=== PATIENT | male | born 1950 | race Caucasian/White ===

== ENCOUNTER → 2020-11-02 15:02 | Outpatient (BNVA) | payer MEDICARE, MEDICAID, SELFPAY | PROVIDERS: Visit Provider Nurse Practitioner Family | DX: J11.1 Influenza due to unidentified influenza virus with other respiratory manifestations (principal); J32.9 Chronic sinusitis, unspecified; J04.0 Acute laryngitis; G44.229 Chronic tension-type headache, not intractable; Z20.828 Contact with and (suspected) exposure to other viral communicable diseases; J01.10 Acute frontal sinusitis, unspecified; R50.9 Fever, unspecified | CPT/HCPCS: 87400; 87635 ==

== ENCOUNTER 2021-04-01 04:37 | Observation (INO) | payer MEDICARE, MEDICAID, SELFPAY ==
[2021-04-01] VITALS (11 sets, daily range): BP systolic 138–159; BP diastolic 76–95; PULSE 84–101; RESP 15–26; TEMP 36.4–36.7; O2SAT 92–97; BMI 29.2
--- NOTE | 2021-04-01 04:49 | ED_ITS ---
Documented by User: Everton Anderson MD 04/01/21 05:39 HPI - General Adult General: Chief complaint: Shortness of Breath/Dyspnea Stated complaint: SOB Time Seen by Provider: 04/01/21 04:40 History of Present Illness: HPI narrative: This patient is a 70-year-old male who presents to the emergency department with concerns of possible overdose of medication misuse. Patient was discharged yesterday evening from [facility] and had been admitted to their hospital for several days due to Covid issues. This patient's family has had multiple family members due to Covid. Patient's and [id number] are both upstairs in our ICU due to Covid. Patient was discharged and apparently was found in the living room sitting in a chair with a mouthful of pills. Patient presents with the medicine bottle and has a multiple different kinds of pills in the bottle and a list take to the bottle of about 5 different medications including Klonopin. Patient has had a history of overdose accidentally in the past. 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 Patient appears to be at his baseline. Patient's O2 sat is 93% on room air however will desat if he gets up and tries to ambulate. EMS brought the patient and on a nasal cannula at 2 L at 97%. Patient denies suicidal ideation. Family member at the home that found the patient with his pills is concerned. States that they do not know what those pills are either. Or where he got them. Patient spouse is usually handled his medications. We will do medical evaluation treat as needed Onset (ago): hour(s) Severity: moderate Associated symptoms: Deny chest pain, dyspnea, headache(s), nausea, rash, palpitations or vomiting Review of Systems General: Reports: 10 or more systems reviewed and unremarkable except in HPI and below Const: Denies: fever(s), chills, body aches or fatigue Eyes: Denies: change in vision or blurry vision ENMT: Denies: throat pain, hoarseness or mouth pain Card: Denies: chest pain, palpitations, irregular heart rhythm, edema, swelling of feet/ankles or lightheadedness Resp: Denies: dyspnea, productive cough, non-productive cough, wheezing or pain on inspiration GI: Denies: abdominal pain, nausea or vomiting : Denies: flank pain, dysuria, urinary frequency, urinary urgency or urinary hesitancy Musc: Denies: neck pain, back pain, extremity pain, extremity swelling, joint pain, joint swelling, joint redness, joint warmth or limited range of motion Skin/Breast: Denies: rash, pruritus, erythema or skin tenderness Neuro: Denies: headache(s), numbness in extremities or weakness in extremities Psych: Denies: anxiety or depression PFSH ED PFSH: Social History Smoking and tobacco status: never smoked Alcohol intake: never Physical Exam Const: COMMON NORMALS: no acute distress, average body habitus, patient oriented x3, no limitations, healthy appearing, alert and well nourished HENMT: COMMON NORMALS: normocephalic, atraumatic, hearing grossly normal bilaterally, external ears normal, EAC's normal, TM's normal bilaterally, Normal external nose present, Normal nasal mucous membranes and turbinates present, moist oral mucous membranes, oropharynx normal, dentition normal and gingiva normal HEAD & SCALP: normocephalic and atraumatic NOSE: Normal external nose present and Normal nasal mucous membranes and turbinates present EXTERNAL EAR: Yes external ears normal EXTERNAL AUDITORY CANAL: EAC's normal TYMPANIC MEMBRANE: TM's normal bilaterally Neck/C-Spine: COMMON NORMALS: full ROM, no lymphadenopathy, supple, no meningeal signs, no JVD, Thyroid normal and No carotid bruits THYROID: Thyroid normal Chest: COMMONS NORMALS: normal inspection of the chest, normal palpation of entire chest wall, normal inspection of the breasts and normal palpation of the breasts Breast/axilla inspection: Yes normal inspection of the breasts BREAST/AXILLA PALPATION: Yes normal palpation of the breasts Resp: COMMON NORMALS: normal respiratory effort, No retractions, No use of accessory muscles, clear to auscultation bilaterally and percussion normal AUSCULTATION: clear to auscultation bilaterally PERCUSSION: percussion normal Cardio: COMMON NORMALS: no JVD, regular rate, regular rhythm, S1 normal heart sound present, S2 normal heart sound present, No gallops present (Cardio), No clicks present (Cardio), No murmurs present (Cardio), No rub (Cardio) and Peripheral pulses 2+ throughout RATE: regular rate RHYTHM: regular rhythm HEART SOUNDS: S1 normal heart sound present and S2 normal heart sound present PERIPHERAL PULSES: Peripheral pulses 2+ throughout GI: COMMON NORMALS: Normal to inspection, nondistended, normoactive bowel sounds present, Soft to palpation, non-tender, No hepatosplenomegaly present, no masses and no bruits PALPATION: Yes Soft to palpation and Yes No hepatosplen omegaly present : COMMON NORMALS: Yes no CVA tenderness BLADDER/KIDNEY EXAM: Yes no CVA tenderness Back/Pelvis: COMMON NORMALS: no CVA tenderness, thoracic and lumbar spine normal to inspection, no thoracic nor lumbar tenderness, thoraco-lumbar ROM normal and straight leg raise negative bilaterally Extremity: COMMON NORMALS: normal to inspection, full ROM, capillary refill normal, no joint enlargement, no clubbing, cyanosis or edema, no calf tenderness and no pedal edema Neuro: COMMON NORMALS: patient oriented x3 SENSORIUM/ORIENTATION: Yes alert MENINGEAL SIGNS: Yes no meningeal signs Course Consultations: Consultation #1: Care transferred to Dr. Finch for shift change Time: 05:39 Vital Signs: Vital signs: Vital Signs Temperature 97.6 F 04/01/21 09:15 Pulse Rate 96 04/01/21 09:15 Respiratory Rate 17 04/01/21 11:54 Blood Pressure 148/83 04/01/21 11:54 Pulse Oximetry 96 04/01/21 09:15 MDM - General Adult Lab Data: Labs: Lab Results 04/01/21 04/01/21 04/01/21 Range/Units 05:04 05:25 05:25 WBC 5.6 (4.0-10.0) 10^3/ uL RBC 3.62 L (4.1-5.3) 10^6/u L Hgb 11.5 L (11.7-16.6) g/dL Hct 33.4 L (42.0-52.0) % MCV 92.3 (80-94) fL MCH 31.8 (28.0-34.0) pg MCHC 34.4 (30.0-36.0) g/dL RDW 13.6 (12.1-15.1) % Plt Count 367 (130-400) 10^3/c mm MPV 9.9 (7.4-10.4) fL Neut % (Auto) 75.6 % Lymph % (Auto) 10.9 % [place] % (Auto) 10.9 % Eos % (Auto) 0.4 % Baso % (Auto) 0.2 % Neut # (Auto) 4.24 (1.8-7.7) 10^3/u L Lymph # (Auto) 0.6 L (0.8-4.8) 10^3/u L [place] # (Auto) 0.6 (0.2-0.9) 10^3/u L Eos # (Auto) 0.0 (0.0-0.8) 10^3/u L Baso # (Auto) 0.0 (0.0-0.1) 10^3/u L Nucleated RBC % (a uto) 0 % Nucleated RBCs # 0.0 /100WBC PT 16.90 H (12.1-14.9) SECO NDS INR 1.33 H (0.8-1.2) APTT 41.5 H (23.9-36.7) SECO NDS Specimen Type Arterial Sample Site Brachial, left ABG pH 7.45 (7.35-7.45) ABG pCO2 30.1 L (35-45) mmHg ABG pO2 73.8 L (80.0-100.0) mmH g ABG HCO3 20.7 L (22-26) mmol/L ABG O2 Saturation 94.8 ABG Base Excess -2.5 L (-2.0-2.0) mmol/ L [place] Test N/a A-a O2 Gradient 5.0 (5-10) mmHg Hematocrit 35.5 L (42-52) % Hgb O2 Saturation 93.5 L (95-100) % Carboxyhemoglobin 0.7 (0.4-20.1) %THgb Methemoglobin 0.8 (0.4-1.5) % Total Hemoglobin 11.6 L (14-18) g/dL Sodium 133.0 (131-143) mmol/L Potassium 2.9 L (3.5-5.0) mmol/L Glucose 201.0 H (70-115) mg/dL Ionized Calcium 1.2 (1.1-1.4) mmol/L O2 Delivery Device Room air FiO2 21.0 % Supervisor Fishing ID Harkr Chloride (98-107) mmol/L Carbon Dioxide (22-29) mmol/L Anion Gap (5-19) BUN (8-23) mg/dL Creatinine (0.7-1.2) mg/dL GFR Calculation (90-130) mL/min Calculated Osmolal ity (285-295) mOsm/k g Calcium (8.5-10.5) mg/dL Total Bilirubin (0.15-1.2) mg/dL AST (0-40) U/L ALT (0-41) U/L Alkaline Phosphata se (40-130) IU/L Ammonia (16-60) umol/L NT-Pro-B Natriuret Pep (0-125) pg/mL Total Protein (6.6-8.7) g/dL Albumin (3.5-5.2) g/dL Globulin (1.3-4.6) g/dL Digoxin (0.6-1.2) ng/mL Salicylates (3-10) mg/dL Acetaminophen (10-30) ug/mL Ethyl Alcohol (0-10) mg/dL 04/01/21 04/01/21 04/01/21 Range/Units 05:25 05:25 08:22 WBC (4.0-10.0) 10^3/ uL RBC (4.1-5.3) 10^6/u L Hgb (11.7-16.6) g/dL Hct (42.0-52.0) % MCV (80-94) fL MCH (28.0-34.0) pg MCHC (30.0-36.0) g/dL RDW (12.1-15.1) % Plt Count (130-400) 10^3/c mm MPV (7.4-10.4) fL Neut % (Auto) % Lymph % (Auto) % [place] % (Auto) % Eos % (Auto) % Baso % (Auto) % Neut # (Auto) (1.8-7.7) 10^3/u L Lymph # (Auto) (0.8-4.8) 10^3/u L [place] # (Auto) (0.2-0.9) 10^3/u L Eos # (Auto) (0.0-0.8) 10^3/u L Baso # (Auto) (0.0-0.1) 10^3/u L Nucleated RBC % (a uto) % Nucleated RBCs # /100WBC PT (12.1-14.9) SECO NDS INR (0.8-1.2) APTT (23.9-36.7) SECO NDS Specimen Type Sample Site ABG pH (7.35-7.45) ABG pCO2 (35-45) mmHg ABG pO2 (80.0-100.0) mmH g ABG HCO3 (22-26) mmol/L ABG O2 Saturation ABG Base Excess (-2.0-2.0) mmol/ L [place] Test A-a O2 Gradient (5-10) mmHg Hematocrit (42-52) % Hgb O2 Saturation (95-100) % Carboxyhemoglobin (0.4-20.1) %THgb Methemoglobin (0.4-1.5) % Total Hemoglobin (14-18) g/dL Sodium 132 L (131-143) mmol/L Potassium 3.2 L (3.5-5.0) mmol/L Glucose 199 H (70-115) mg/dL Ionized Calcium (1.1-1.4) mmol/L O2 Delivery Device FiO2 % Supervisor Fishing ID Chloride 95 L (98-107) mmol/L Carbon Dioxide 19 L (22-29) mmol/L Anion Gap 21.2 H (5-19) BUN 23 (8-23) mg/dL Creatinine 1.6 H (0.7-1.2) mg/dL GFR Calculation 42.9 L (90-130) mL/min Calculated Osmolal ity 283 L (285-295) mOsm/k g Calcium 8.9 (8.5-10.5) mg/dL Total Bilirubin 0.5 (0.15-1.2) mg/dL AST 50 H (0-40) U/L ALT 52 H (0-41) U/L Alkaline Phosphata se 87 (40-130) IU/L Ammonia 51 (16-60) umol/L NT-Pro-B Natriuret Pep 195 H (0-125) pg/mL Total Protein 7.2 (6.6-8.7) g/dL Albumin 3.4 L (3.5-5.2) g/dL Globulin 3.8 (1.3-4.6) g/dL Digoxin 0.3 L (0.6-1.2) ng/mL Salicylates < 0.3 L (3-10) mg/dL Acetaminophen < 5.0 L (10-30) ug/mL Ethyl Alcohol < 10 (0-10) mg/dL Discharge Plan Discharge Patient Disposition: Admitted As Inpatient Clinical Impression: Suicide attempt, Altered mental status, COVID-19, Acute drug overdose Condition: Stable Coding Level of Care Code ED Coordinate Measuring Machine Programmer for Chg Fwd Exam Comprehensive Documented by User: Rom Finch DO 04/01/21 12:29 HPI - General Adult General: Chief complaint: Shortness of Breath/Dyspnea Stated complaint: SOB Time Seen by Provider: 04/01/21 04:40 PFSH ED PFSH: Social History Smoking and tobacco status: never smoked Alcohol intake: never Course Vital Signs: Vital signs: Vital Signs Temperature 97.6 F 04/01/21 09:15 Pulse Rate 96 04/01/21 09:15 Respiratory Rate 17 04/01/21 11:54 Blood Pressure 148/83 04/01/21 11:54 Pulse Oximetry 96 04/01/21 09:15 MDM - General Adult MDM Narrative: Medical decision making narrative: Patient was recently discharged from [facility] in [facility] family reports he was somewhat confused after that. He has been combative at times in the past in the past has made suicide attempts. Due to his confusion they called the ambulance while they are waiting for the ambulance he suddenly took what the daughter reports that 8 pills for which she thought muscle relaxants for which she thought were narcotic. He is intentionally overdosed on baclofen in the past she does not know exactly what he took this time. He is poorly responsive at times here as well as the underlying dementia he was. He was hospitalized recently for Covid although his sats seem good we will go ahead and hospitalize him now put him on observation to the medication overdose and do a psych consult. I discussed Dr. Timmy Dubon orders are written Lab Data: Labs: Lab Results 04/01/21 04/01/21 04/01/21 Range/Units 05:04 05:25 05:25 WBC 5.6 (4.0-10.0) 10^3/ uL RBC 3.62 L (4.1-5.3) 10^6/u L Hgb 11.5 L (11.7-16.6) g/dL Hct 33.4 L (42.0-52.0) % MCV 92.3 (80-94) fL MCH 31.8 (28.0-34.0) pg MCHC 34.4 (30.0-36.0) g/dL RDW 13.6 (12.1-15.1) % Plt Count 367 (130-400) 10^3/c mm MPV 9.9 (7.4-10.4) fL Neut % (Auto) 75.6 % Lymph % (Auto) 10.9 % [place] % (Auto) 10.9 % Eos % (Auto) 0.4 % Baso % (Auto) 0.2 % Neut # (Auto) 4.24 (1.8-7.7) 10^3/u L Lymph # (Auto) 0.6 L (0.8-4.8) 10^3/u L [place] # (Auto) 0.6 (0.2-0.9) 10^3/u L Eos # (Auto) 0.0 (0.0-0.8) 10^3/u L Baso # (Auto) 0.0 (0.0-0.1) 10^3/u L Nucleated RBC % (a uto) 0 % Nucleated RBCs # 0.0 /100WBC PT 16.90 H (12.1-14.9) SECO NDS INR 1.33 H (0.8-1.2) APTT 41.5 H (23.9-36.7) SECO NDS Specimen Type Arterial Sample Site Brachial, left ABG pH 7.45 (7.35-7.45) ABG pCO2 30.1 L (35-45) mmHg ABG pO2 73.8 L (80.0-100.0) mmH g ABG HCO3 20.7 L (22-26) mmol/L ABG O2 Saturation 94.8 ABG Base Excess -2.5 L (-2.0-2.0) mmol/ L [place] Test N/a A-a O2 Gradient 5.0 (5-10) mmHg Hematocrit 35.5 L (42-52) % Hgb O2 Saturation 93.5 L (95-100) % Carboxyhemoglobin 0.7 (0.4-20.1) %THgb Methemoglobin 0.8 (0.4-1.5) % Total Hemoglobin 11.6 L (14-18) g/dL Sodium 133.0 (131-143) mmol/L Potassium 2.9 L (3.5-5.0) mmol/L Glucose 201.0 H (70-115) mg/dL Ionized Calcium 1.2 (1.1-1.4) mmol/L O2 Delivery Device Room air FiO2 21.0 % Supervisor Fishing ID Harkr Chloride (98-107) mmol/L Carbon Dioxide (22-29) mmol/L Anion Gap (5-19) BUN (8-23) mg/dL Creatinine (0.7-1.2) mg/dL GFR Calculation (90-130) mL/min Calculated Osmolal ity (285-295) mOsm/k g Calcium (8.5-10.5) mg/dL Total Bilirubin (0.15-1.2) mg/dL AST (0-40) U/L ALT (0-41) U/L Alkaline Phosphata se (40-130) IU/L Ammonia (16-60) umol/L NT-Pro-B Natriuret Pep (0-125) pg/mL Total Protein (6.6-8.7) g/dL Albumin (3.5-5.2) g/dL Globulin (1.3-4.6) g/dL Digoxin (0.6-1.2) ng/mL Salicylates (3-10) mg/dL Acetaminophen (10-30) ug/mL Ethyl Alcohol (0-10) mg/dL 04/01/21 04/01/21 04/01/21 Range/Units 05:25 05:25 08:22 WBC (4.0-10.0) 10^3/ uL RBC (4.1-5.3) 10^6/u L Hgb (11.7-16.6) g/dL Hct (42.0-52.0) % MCV (80-94) fL MCH (28.0-34.0) pg MCHC (30.0-36.0) g/dL RDW (12.1-15.1) % Plt Count (130-400) 10^3/c mm MPV (7.4-10.4) fL Neut % (Auto) % Lymph % (Auto) % [place] % (Auto) % Eos % (Auto) % Baso % (Auto) % Neut # (Auto) (1.8-7.7) 10^3/u L Lymph # (Auto) (0.8-4.8) 10^3/u L [place] # (Auto) (0.2-0.9) 10^3/u L Eos # (Auto) (0.0-0.8) 10^3/u L Baso # (Auto) (0.0-0.1) 10^3/u L Nucleated RBC % (a uto) % Nucleated RBCs # /100WBC PT (12.1-14.9) SECO NDS INR (0.8-1.2) APTT (23.9-36.7) SECO NDS Specimen Type Sample Site ABG pH (7.35-7.45) ABG pCO2 (35-45) mmHg ABG pO2 (80.0-100.0) mmH g ABG HCO3 (22-26) mmol/L ABG O2 Saturation ABG Base Excess (-2.0-2.0) mmol/ L [place] Test A-a O2 Gradient (5-10) mmHg Hematocrit (42-52) % Hgb O2 Saturation (95-100) % Carboxyhemoglobin (0.4-20.1) %THgb Methemoglobin (0.4-1.5) % Total Hemoglobin (14-18) g/dL Sodium 132 L (131-143) mmol/L Potassium 3.2 L (3.5-5.0) mmol/L Glucose 199 H (70-115) mg/dL Ionized Calcium (1.1-1.4) mmol/L O2 Delivery Device FiO2 % Supervisor Fishing ID Chloride 95 L (98-107) mmol/L Carbon Dioxide 19 L (22-29) mmol/L Anion Gap 21.2 H (5-19) BUN 23 (8-23) mg/dL Creatinine 1.6 H (0.7-1.2) mg/dL GFR Calculation 42.9 L (90-130) mL/min Calculated Osmolal ity 283 L (285-295) mOsm/k g Calcium 8.9 (8.5-10.5) mg/dL Total Bilirubin 0.5 (0.15-1.2) mg/dL AST 50 H (0-40) U/L ALT 52 H (0-41) U/L Alkaline Phosphata se 87 (40-130) IU/L Ammonia 51 (16-60) umol/L NT-Pro-B Natriuret Pep 195 H (0-125) pg/mL Total Protein 7.2 (6.6-8.7) g/dL Albumin 3.4 L (3.5-5.2) g/dL Globulin 3.8 (1.3-4.6) g/dL Digoxin 0.3 L (0.6-1.2) ng/mL Salicylates < 0.3 L (3-10) mg/dL Acetaminophen < 5.0 L (10-30) ug/mL Ethyl Alcohol < 10 (0-10) mg/dL Discharge Plan Discharge Patient Disposition: Admitted As Inpatient Clinical Impression: Suicide attempt, Altered mental status, COVID-19, Acute drug overdose Condition: Stable Coding Level of Care Code ED Coordinate Measuring Machine Programmer for Enrrique Fwd Exam Comprehensive
--- NOTE | 2021-04-01 04:49 | XRR_ITS ---
PROCEDURE INFORMATION: Exam: XR Chest Exam date and time: 04/01/2021 4:49 AM Age: 70 years old Clinical indication: Cough and shortness of breath; Prior surgery; Surgery type: Cervical fusion; Patient HX: Cough/sob. Covid +. TECHNIQUE: Imaging protocol: XR of the chest. Views: 1 view. COMPARISON: No relevant prior studies available. FINDINGS: Lungs: Patchy right basilar opacity which can be seen with pneumonia or COVID-19. Pleural spaces: Unremarkable. No pleural effusion. No pneumothorax. Heart/Mediastinum: Unremarkable. No cardiomegaly. Bones/joints: Posterior fusion hardware present in the cervical spine. XR/XR chest 1V portable [id number] IMPRESSION: Patchy right basilar opacity which can be seen with pneumonia or COVID-19.
[2021-04-01] MEDS: sodium chloride 0.9% 500 ML IV (05:00)
[2021-04-01 05:14] LABS: ABG PCO2 30.1 mmHg (35-45); ABG PH Result 7.45 (7.35-7.45); Arterial Blood Gas Hematocrit 35.5 % (42-52); Base Excess ABG -2.5 mmol/L (-2.0-2.0); Blood Gas Operator Identificat HARKR; Blood Gas Sample Site Brachial, left; Blood Gas Sample Type Arterial; Carboxyhemoglobin 0.7 %THgb (0.4-20.1); HCO3 ABG 20.7 mmol/L (22-26); HGB O2 Sat 93.5 % (95-100); Ionized Calcium Level - ABG 1.2 mmol/L (1.1-1.4); Methemoglobin 0.8 % (0.4-1.5); Oxygen Device ROOM AIR; Oxygen Saturation ABG 94.8; PO2 ABG 73.8 mmHg (80.0-100.0); Potassium Level - ABG 2.9 mmol/L (3.5-5.0); Total Hemoglobin 11.6 g/dL (14-18)
[2021-04-01 05:45] LABS: Basophils % 0.2 %; Eosinophils % 0.4 %; Hematocrit 33.4 % (42.0-52.0); Hemoglobin 11.5 g/dL (11.7-16.6); Lymphocytes # 0.6 10^3/uL (0.8-4.8); Lymphocytes % 10.9 %; Mean Corpuscular HGB Conc 34.4 g/dL (30.0-36.0); Mean Corpuscular Hemoglobin 31.8 pg (28.0-34.0); Mean Corpuscular Volume 92.3 fL (80-94); Mean Platelet Volume 9.9 fL (7.4-10.4); Monocytes # 0.6 10^3/uL (0.2-0.9); Monocytes % 10.9 %; Neutrophils # 4.24 10^3/uL (1.8-7.7); Neutrophils % 75.6 %; Nucleated Red Blood Cells % 0 %; Platelet Count 367 10^3/cmm (130-400); Red Blood Count 3.62 10^6/uL (4.1-5.3); Red Cell Distribution Width 13.6 % (12.1-15.1); White Blood Count 5.6 10^3/uL (4.0-10.0)
[2021-04-01 05:58] LABS: INR 1.33 (0.8-1.2); Partial Thromboplastin Time 41.5 SECONDS (23.9-36.7)
[2021-04-01 06:23] LABS: Alanine Aminotransferase 52 U/L (0-41); Albumin Level 3.4 g/dL (3.5-5.2); Alkaline Phosphatase 87 IU/L (40-130); Anion Gap 21.2 (5-19); Aspartate Amino Transferase 50 U/L (0-40); Blood Urea Nitrogen 23 mg/dL (8-23); Calcium 8.9 mg/dL (8.5-10.5); Carbon Dioxide 19 mmol/L (22-29); Chloride 95 mmol/L (98-107); Globulin 3.8 g/dL (1.3-4.6); Glomerular Filtration Rate 42.9 mL/min (90-130); Glucose 199 mg/dL (65-115); NT Pro B Type Natriuretic Pept 195 pg/mL (0-125); Osmolality Calculated 283 mOsm/kg (285-295); Potassium 3.2 mmol/L (3.5-5.1); Sodium 132 mmol/L (136-145); Total Bilirubin 0.5 mg/dL (0.15-1.2); Total Protein 7.2 g/dL (6.6-8.7)
[2021-04-01 06:28] LABS: Acetaminophen < 5.0 ug/mL (10-30); Alcohol Level < 10 mg/dL (0-10); Salicylate < 0.3 mg/dL (3-10)
--- NOTE | 2021-04-01 06:42 | PC.NURSE ---
pt becoming incresingly agitated when he was unable to put his hearing aid on. Pt asking for family members to put his hearing aids on. After several attempts at redirection, pt shut down and refuse to follow directions. Only one hearing aid visible, and was placed on bedside table
[2021-04-01 07:25] LABS: Ammonia 51 umol/L (16-60)
--- NOTE | 2021-04-01 07:47 | PC.NURSE ---
RN at bedside at this time to attempt to collect urine specimen. Pt extremely altered at this time. Pt hard to wake up. When pt awake, nurse explained to pt a urine specimen needed to be collected and the nurse asked if the pt could void in the urinal. Pt stated i don't know how to. This nurse stated to pt a straight cath would have to have to be performed. This nurse began to remove the pt's pants and pt began to rebutton pants back. Ari Mcelroy RN entered room and assisted this nurse to have pt stand at bedside and attempt to void. Pt kept stating he wanted to have his pants put back on. This nurse and Ari Mcelroy RN stated to pt multiple times his pants were still on him. Ari Mcelroy RN stepped out of pt's room to ask physician if urine sample is needed at this time and pt removed a pocket knife from his left pocket and handed it to this nurse. This nurse placed pocket knife on bedside table. Ari Mcelroy RN reentered room and stated we could wait on urine sample per physician. The pt began to ask for the pocket knife back. This nurse and Ari Mcelroy RN stated to pt his pocket knife was in his belongings bag but he did not need his knife back into his pocket at this time. This nurse and Ari Mcelroy RN left the pt's room and he began yelling out of the room that he wanted his knife back. Sitter moved from outside the pt's room to bedside.
[2021-04-01 09:00] LABS: Digoxin 0.3 ng/mL (0.6-1.2)
[2021-04-01] MEDS: potassium chloride oral liq 20 mEq/15 mL UDC 40 MEQ PO (09:03)
[2021-04-01] MEDS: LORazepam 2 mg/mL INJ 1 mL 1 MG IVP (10:23)
--- NOTE | 2021-04-01 11:39 | PHA.FALL ---
A Pharmacy Consult Was Conducted For Florentin Lemon Due to a unlabeled medication bottle. The bottle was brought to pharmacy and all medications were sorted and a Pill Identification report was ran. Results were as follow: Definite pills identified: Oxycodone 15 mg Promethazine 25mg Olanzapine 5 mg (2 brands) Possible pills identified: Losartan 50mg Acetaminophen 500mg Trazodone 50mg
--- NOTE | 2021-04-01 13:23 | PC.PHAR ---
Pt is unable to verify meds - pt is also in the hospital and unable to verify medications. Medications verified by [facility].
[2021-04-01] MEDS: acetaminophen 500 mg Tablet 1000 MG PO (14:16)
--- NOTE | 2021-04-01 16:35 | P.HP_ITS ---
Providers/Chief Complaint Admitting Physician: Luis Pal MD Primary Care Provider: Pastor Lal DO Chief Complaint: SOB History of Present Illness Florentin Lemon is a 70 year old male who presented to the emergency department with concerns of overdose. He was recently diagnosed with COVID-19 pneumonia and released from the hospital in [facility]. Upon arriving home he was found in the living room sitting in a chair with a mouthful of pills. It was difficult to delineate his intent. He has a history of accidental overdose in the past and usually has his medication managed by his who is severely ill with COVID-19 pneumonia and hospitalized currently. It is not known whether he had an intent to harm himself. Patient cannot remember having the pills at all when I talked with him. He does have a history of significant dementia. Medications were identified as oxycodone, promethazine, Zyprexa, and possibly trazodone, and ARB, and Tylenol. In talking with the daughter he was confused when discharged from the hospital in [place] and on arriving home became more confused. Secondary to this EMS was called and while they were in route he wanting pain medicaion and took pill bottle and ingested about 8 pills. Daughter indicates that he has had signi ficant aggressive behavior intermittently at home preexisting his illness with Covid. Review of Systems General: Reports: ROS unobtainable due to mental status (Patient confused, and from what I understand has underlying dementia.) Medications/Allergies Home Medications Medication Instructions Recorded Confirmed Last Taken Type famotidine 40 mg tablet 40 mg PO DAILY 02/08/20 04/01/21 Unknown History fenofibrate nanocrystallized 145 145 mg PO DAILY 02/08/20 04/01/21 Unknown History mg tablet fluticasone propionate 50 1 spray INTRANASAL BID #18.2 ml 02/08/20 04/01/21 Unknown Rx mcg/actuation nasal spray,suspension glimepiride 2 mg tablet 2 mg PO DAILY 02/08/20 04/01/21 Unknown History guaifenesin 600 mg tablet, 600 mg PO BID 02/08/20 04/01/21 Unknown History extended release 12 hr meclizine 25 mg tablet 25 mg PO BID 02/08/20 04/01/21 Unknown History methocarbamol 500 mg tablet 500 mg PO TID 02/08/20 04/01/21 Unknown History metoclopramide HCl 5 mg tablet 5 mg PO DAILY 02/08/20 04/01/21 Unknown History metoprolol tartrate 25 mg tablet 25 mg PO DAILY 02/08/20 04/01/21 Unknown History oxycodone 15 mg tablet 15 mg PO Q6H PRN 02/08/20 04/01/21 Unknown History pantoprazole 40 mg tablet,delayed 40 mg PO DAILY 02/08/20 04/01/21 Unknown History release tamsulosin 0.4 mg capsule 0.4 mg PO DAILY 02/08/20 04/01/21 Unknown History amoxicillin-pot clavulanate 1 tab PO BID 04/01/21 04/01/21 Unknown History [Augmentin] bumetanide [Bumex] 2 mg PO DAILY 04/01/21 04/01/21 Unknown History buspirone 10 mg PO TID 04/01/21 04/01/21 Unknown History clonazepam [Klonopin] 1 mg PO BID 04/01/21 04/01/21 Unknown History insulin detemir U-100 [Levemir 14 unit SUBCUT DAILY 04/01/21 04/01/21 Unknown History U-100 Insulin] montelukast 10 mg PO DAILY 04/01/21 04/01/21 Unknown History olanzapine 5 mg PO DAILY 04/01/21 04/01/21 Unknown History promethazine 25 mg PO BID 04/01/21 04/01/21 Unknown History Allergies Allergy/AdvReac Type Severity Reaction Status Date / Time baclofen Allergy itch Verified 03/03/21 12:44 morphine Allergy low bp Verified 03/03/21 12:44 orphenadrine [From Norflex] Allergy unknown Verified 03/03/21 12:44 paroxetine [From Paxil] Allergy unknown Verified 03/03/21 12:44 PFSH Acute PFSH: Medical History (Updated 04/01/21 @ 16:43 by Luis Pal MD) Anxiety and depression Atrial fibrillation BPH (benign prostatic hyperplasia) Coronary artery disease Diabetes Fibromyalgia GERD (gastroesophageal reflux disease) Hard of hearing Hyperlipidemia Migraines Surgical History (Updated 04/01/21 @ 16:43 by Luis Pal MD) History of cholecystectomy History of corneal transplant History of hernia surgery History of left knee surgery Social History Smoking and tobacco status: never smoked Alcohol intake: never Supplemental [facility] Information: Unable to adequately obtain family history currently secondary to patient's mental status Vitals/I&O/Wt Last Vital Signs Temp 97.5 F L 04/01/21 12:15 Pulse 97 04/01/21 15:02 Resp 15 04/01/21 15:02 BP 151/88 04/01/21 15:02 Pulse Ox 97 04/01/21 15:02 04/01/21 04/01/21 04/01/21 06:59 14:59 22:59 Intake Total 500 / 500 Balance 500 / 500 Weight last 48 hrs Weight 95.254 kg Physical Exam Narrative: EXAM NARRATIVE: General exam demonstrated a white male, who is hard to communicate with, who can carry on a conversation but certainly is confused. Neurologic: No obvious focal deficits HEENT: Atraumatic and normocephalic. Pupils equally round. Oropharynx clear. Neck is supple no lymphadenopathy or thyromegaly Cardiovascular regular rate and rhythm without murmur Lungs clear no wheezing or crackles Abdomen is soft with positive bowel sounds. No obvious organomegaly exam is deferred Extremities no cyanosis clubbing or edema, cap refill brisk Skin no rash Data : 04/01/21 05:25 04/01/21 05:25 Other data: Salicylate level less than 0.3, Tylenol level less than five, digoxin level 0.3. AST and ALT slightly elevated at 50 and 52. Alk phos and bilirubin are normal. Calcium is normal at 8.9 ABG demonstrates a pH of 7.45 PCO2 of 30, PO2 of 74 on room air INR 1.33, PTT 41.5 Chest x-ray right basilar opacity, likely consistent with viral pneumonia A&P Assessment and plan (1) COVID-19: Recently hospitalized for COVID-19 pneumonia for 4 to 5 days at [facility]. Treatment is unknown at this point but I suspect he may have had remdesivir or dexamethasone or both. At this point he is stable on room air oxygen Chest x-ray shows infiltrate but no fever. Check procalcitonin level No other treatment may be needed for Covid. Status: Acute (2) Altered mental status: Confused above baseline from discharge from recent hospitalization. If he received steroids this could have potentially exacerbated any underlying dementia/personality difficulties Daughter indicates he had some aggressive behavior prior to getting Covid Psychiatric consultation Check TSH, B12, noncontrast CT head Continue his Zyprexa which he is on chronically. Avoid any medication which could promote further confusion such as pain medication, antihistamines, benzodiazepines. Monitor closely for any withdrawal Continue his buspirone. Status: Acute (3) Acute drug overdose: It is difficult to understand if this was intentional or not. I do not think he has the capacity to understand in detail discussion currently. One-on-one sitter Psychiatric consultation Status: Acute Additional A&P Information Hypokalemia, supplement Multiple other medical problems as outlined in history and physical. Full code Lovenox for DVT prophylaxis. Attestations Medical Necessity Statement*: At this point will need less than 2 midnight stay for evaluation of confusion, although I suspect with his current family stressors and behavior there is the potential he may need placement. Time Spent in Patient Care: Greater than 35 minutes Coding Level of Care Code Acute Dental Professional for [facility] Diagnoses COVID-19 U07.1 Altered mental status R41.82 Acute drug overdose T50.901A
--- NOTE | 2021-04-01 17:05 | CTR_ITS ---
PROCEDURE INFORMATION: Exam: CT Head Without Contrast Exam date and time: 04/01/2021 5:05 PM Age: 70 years old Clinical indication: Altered mental status/memory loss; Prior surgery; Patient HX: Best images possible. Patient constantly coughing; Additional info: Confusion TECHNIQUE: Imaging protocol: Computed tomography of the head without contrast. Radiation optimization: All CT scans at this facility use at least one of these dose optimization techniques: automated exposure control; mA and/or kV adjustment per patient size (includes targeted exams where dose is matched to clinical indication); or iterative reconstruction. COMPARISON: No relevant prior studies available. RADIATION DOSE METRICS: Total DLP (mGy-cm): 1163.2 FINDINGS: Brain: Artifact from the right cochlear implant obscures the images in the right posterior hemisphere. There are moderate periventricular and subcortical lucencies consistent with chronic microvascular ischemic changes. The edward-white differentiation is maintained. No hemorrhage. No edema. Cerebral ventricles: No ventriculomegaly. Paranasal sinuses: The complete opacification of the left maxillary sinus. Mastoid air cells: Visualized mastoid air cells are well aerated. Orbital cavity: Bilateral cataract surgery. Bones/joints: Unremarkable. No acute fracture. Soft tissues: Unremarkable. CT/CT head wo con* [id number] IMPRESSION: No acute intracranial abnormality. Chronic microvascular ischemic changes. Radiation Dose CTDIVOL = (mGy): DLP = 1163.2 (mGy-cm)
[2021-04-01 17:34] LABS: Glucose Point of Care 214 mg/dL (70-110)
[2021-04-01 17:36] LABS: Procalcitonin 0.29 ng/mL (0-0.5); Thyroid Stimulating Hormone 1.02 uIU/mL (0.27-4.20)
[2021-04-01] MEDS: enoxaparin 40 mg/0.4 mL Syringe SUBCUT (17:53)
[2021-04-01 18:08] LABS: Add Urine Microscopic? NO; Charge for UA Resulting for Rev
[2021-04-01 18:23] LABS: Bilirubin Urine Neg (Negative); Blood Urine Neg (Negative); Glucose Urine UA 2+ (Normal); Ketones Urine Negative (Negative); Leukocyte Esterase Urine Negative (Negative); Nitrate Urine Negative (Negative); Protein Urine Neg (Negative); Urine Appearance Clear (CLEAR); Urine Color Yellow (Yellow); Urobilinogen Urine Norm (Negative); pH Urine 6 (5-7)
[2021-04-01 20:16] LABS: Glucose Point of Care 101 mg/dL (70-110)
[2021-04-01] MEDS: BuSPIRONE 10 mg Tablet PO (20:26)
[2021-04-01] MEDS: OLANZapine 5 mg ODT 2.5 MG PO (20:26)
[2021-04-01] MEDS: sodium chloride 0.9% 1,000 ML 75 ML IV (20:26)
[2021-04-01 20:43] LABS: Vitamin B12 392 pg/mL (232-1245)
[2021-04-02] VITALS (9 sets, daily range): BP systolic 156–171; BP diastolic 73–91; PULSE 72–90; RESP 18; TEMP 36.1–36.8; O2SAT 92–97
[2021-04-02] MEDS: acetaminophen 325 mg Tablet 650 MG PO (02:52)
[2021-04-02] MEDS: OLANZapine 5 mg ODT 2.5 MG PO ×2 (03:06→20:49)
[2021-04-02 05:27] LABS: Basophils % 0.2 %; Eosinophils # 0.1 10^3/uL (0.0-0.8); Lymphocytes # 0.7 10^3/uL (0.8-4.8); Lymphocytes % 17.6 %; Mean Corpuscular HGB Conc 33.3 g/dL (30.0-36.0); Mean Corpuscular Hemoglobin 30.9 pg (28.0-34.0); Mean Corpuscular Volume 92.6 fL (80-94); Mean Platelet Volume 9.3 fL (7.4-10.4); Monocytes # 0.4 10^3/uL (0.2-0.9); Monocytes % 10.9 %; Neutrophils # 2.75 10^3/uL (1.8-7.7); Neutrophils % 68.1 %; Nucleated Red Blood Cells % 0 %; Platelet Count 347 10^3/cmm (130-400); Red Blood Count 3.24 10^6/uL (4.1-5.3); Red Cell Distribution Width 13.2 % (12.1-15.1)
[2021-04-02 06:39] LABS: Glucose Point of Care 148 mg/dL (70-110)
[2021-04-02 09:55] LABS: Alanine Aminotransferase 39 U/L (0-41); Albumin Level 2.9 g/dL (3.5-5.2); Alkaline Phosphatase 70 IU/L (40-130); Aspartate Amino Transferase 37 U/L (0-40); Blood Urea Nitrogen 12 mg/dL (8-23); Calcium 8.5 mg/dL (8.5-10.5); Carbon Dioxide 19 mmol/L (22-29); Chloride 102 mmol/L (98-107); Globulin 3.3 g/dL (1.3-4.6); Glomerular Filtration Rate 164.4 mL/min (90-130); Glucose 124 mg/dL (65-115); Magnesium 1.5 mg/dL (1.7-2.3); Osmolality Calculated 281 mOsm/kg (285-295); Sodium 135 mmol/L (136-145); Total Bilirubin 0.4 mg/dL (0.15-1.2); Total Protein 6.2 g/dL (6.6-8.7)
--- NOTE | 2021-04-02 10:37 | PC.CHAP ---
Pastoral Care Encounter/Spiritual Assessment Type of Contact [] Declined engraver flatware visit [] Patient/Family/Request visit [] Outpatient visit [] Follow-up visit [] Physician referral [] Code/Alert [] Routine visit [] Staff referral [] Actively dying [] Patient sleeping [] Family support [] [] Out of room [] Palliative care [] [] Receiving care in room [] Pre-surgical visit [] Trauma [] Long length of stay [] ICU visit [x] Other: Isolation Relational/Emotional Strength [] Patient feels connected with others/family/visitors/staff [] Distress [] Loneliness/isolation [] Abandonment Spirituality of Patient [] Person of Sia [] Attends Sikh of their Sia [] Believes in Prayer [] Reads Bible or Synagogue materials [] There are Spiritual issues to be addressed Archaeology Professor Interventions [] Prayer [] Active listening [] Non-anxious presence [] Spiritual/emotional support [] Crisis/trauma care [] Spiritual counseling [] Bereavement support [] Provided bereavement packet [] Provided Bible/devotional materials [] Provided toy/stuffed animal, coloring book to patient or family member [] Provided Communion [] Anointing/[place] [] Salvation [] Completed spiritual assessment [] Other: Impact on Illness or Injury [] Angry [] Fearful [] Anxious [] Often cries [] Exhaustion [] Unable to work [] Unable to attend mandaeism [] Unable to walk/stand [] Unable to read [] Unable to drive [] Unable to eat/drink [] Unable to sleep [] Unable to be with family [] Patient intubated [] Other: Summary Isolation Time spent with patient 5 mins
--- NOTE | 2021-04-02 10:58 | P.PN_ITS ---
Subjective Subjective: Interval history: Florentin is much more alert. He wants his IV out. Has not had any significant agitation. Still confused. Medications: Reviewed: Yes Vitals/I&O/Wt Last Vital Signs Temp 97.9 F 04/02/21 08:00 Pulse 79 04/02/21 08:00 Resp 18 04/02/21 08:00 BP 165/91 04/02/21 08:00 Pulse Ox 96 04/02/21 08:00 04/01/21 04/02/21 04/02/21 22:59 06:59 14:59 Intake Total 480 / 480 360 / 360 Output Total 375 / 375 Balance 105 / 105 360 / 360 Weight last 48 hrs Weight 95.254 kg Physical Exam Narrative: EXAM NARRATIVE: General exam demonstrated a white male, confused who is hard of hearing Neck is supple no lymphadenopathy or thyromegaly Cardiovascular regular rate and rhythm without murmur Lungs clear no wheezing or crackles Abdomen is soft with positive bowel sounds. No obvious organomegaly Extremities no cyanosis clubbing or edema, cap refill brisk Data : 04/02/21 05:13 04/02/21 05:13 A&P Assessment and plan (1) COVID-19: Recently hospitalized for COVID-19 pneumonia for 4 to 5 days at [facility]. Treatment is unknown at this point but I suspect he may have had remdesivir or dexamethasone or both. At this point he is stable on room air oxygen Chest x-ray shows infiltrate but patient has had no fever. Procalcitonin level was normal No other treatment may be needed for Covid. Status: Acute (2) Altered mental status: Confused above baseline from discharge from recent hospitalization. If he received steroids this could have potentially exacerbated any underlying d ementia/personality difficulties Daughter indicates he had some aggressive behavior prior to getting Covid Psychiatric consultation is pending Overall seems slightly improved TSH, B12, ammonia level, CT head no concerns. Continue his Zyprexa which he is on chronically. Avoid any medication which could promote further confusion such as pain medication, antihistamines, benzodiazepines. Monitor closely for any withdrawal Continue his buspirone. Status: Acute (3) Acute drug overdose: It is difficult to understand if this was intentional or not. I do not think he has the capacity to understand in detail discussion currently. One-on-one sitter Psychiatric consultation Status: Acute Additional A&P Information Hypokalemia, supplement again today Hypomagnesemia. Supplement. Multiple other medical problems as outlined in history and physical. Full code Lovenox for DVT prophylaxis. Daughter has indicated he needs placement for safety Attestations Medical Necessity Statement*: Patient needs continued hospitalization for se caprice hypokalemia, hypomagnesemia, confusion pending psychiatric work-up with question of overdose, possibly intentional Coding Level of Care Code Acute Electrician'S Assistant for [facility] Fwd Diagnoses COVID-19 U07.1 Altered mental status R41.82 Acute drug overdose T50.577Q
[2021-04-02 11:38] LABS: Glucose Point of Care 106 mg/dL (70-110)
[2021-04-02] MEDS: BuSPIRONE 10 mg Tablet PO ×3 (11:43→20:49)
[2021-04-02] MEDS: sodium chloride 0.9% 1,000 ML 75 ML IV (11:43)
[2021-04-02] MEDS: metoprolol tartrate 25 mg Tablet PO (11:43)
[2021-04-02] MEDS: fenofibrate 145 mg Tablet PO (11:43)
[2021-04-02] MEDS: pantoprazole DR 40 mg Tablet PO (11:44)
[2021-04-02] MEDS: montelukast sodium 10 mg Tablet PO (11:44)
[2021-04-02] MEDS: tamsulosin 0.4 mg Capsule PO (11:45)
--- NOTE | 2021-04-02 11:45 | PC.NURSE ---
medications scanned and administered at 0855 when shift assessment was done. Computer shut off and MAR didn't save meds that were scanned. When narrative writer tried to rescan meds it stated you are shown as working in another process on the information managed by this screen. narrative writer talked to script manager Veena about this.
--- NOTE | 2021-04-02 12:08 | P.CONIM_ITS ---
Providers/Reason for Consult Consulting Physican/Specialty*: Lacoh Warner MD. Psychiatry. Reason for Consult*: Evaluation for capacity. Attending Physician: Luis Pal MD Primary Care Provider: Pastor Lal DO Psych Consult HPI History of Present Illness Florentin Lemon is a 70 year old male who presented to the emergency department with the following report: Chief complaint: Shortness of Breath/Dyspnea Stated complaint: SOB Time Seen by Provider: 04/01/21 04:40 History of Present Illness: HPI narrative: This patient is a 70-year-old male who presents to the emergency department with concerns of possible overdose of medication misuse. Patient was discharged yesterday evening from [facility] and had been admitted to their hospital for several days due to Covid issues. This patient's family has had multiple family members due to Covid. Patient's and [id number] are both upstairs in our ICU due to Covid. Patient was discharged and apparently was found in the living room sitting in a chair with a mouthful of pills. Patient presents with the medicine bottle and has a multiple different kinds of pills in the bottle and a list take to the bottle of about 5 different medications including Klonopin. Patient has had a history of overdose accidentally in the past. 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 Patient appears to be at his baseline. Patient's O2 sat is 93% on room air however will desat if he gets up and tries to ambulate. EMS brought the patient and on a nasal cannula at 2 L at 97%. Patient denies suicidal ideation. Family member at the home that found the patient with his pills is concerned. States that they do not know what those pills are either. Or where he got them. Patient spouse is usually handled his medications. We will do medical evaluation treat as needed Onset (ago): hour(s) Severity: moderate Associated symptoms: Deny chest pain, dyspnea, headache(s), nausea, rash, palpitations or vomiting. He was admitted to [facility] for definitive treatment of those issues. A psychiatric consult was requested for insight into his capacity. Florentin presents today fairly limited in his capacity as a historian. He is side with both device and visual limitations as well. He is Covid positive. He was unable to hear even with me speaking extremely loud, but there was the limitation of the wearing of mask stifling sound and removing his ability to see my lips moving. But he also appears limited when written communication was attempted. I wrote on a clipboard that he was able to hold and bring close to him how are you feeling today? He read the statement/question out mild and then looked at me confusingly. When I pointed at it again, he looked at it again read again and look at me without being able to appreciate my attempt to have a communication on conversation with him. He did very clearly asked what time it was and this expert medical writer wrote very clearly 12:20 PM and he seemed to struggle with reading it or understanding it seeming to ignore the 1 and call it 2:20 p.m. he was unable to communicate or answer further questions. Meds Current Medications: Current Medications Generic Name Dose Route Start Last Admin Trade Name Freq PRN Reason Stop Dose Admin Acetaminophen 650 mg 04/01/21 17:13 04/02/21 02:52 Acetaminophen 32 5 Mg Tablet PO 650 mg Q6H PRN Administration Mild/Mod Pain Or Temp >/= 101 Buspirone HCl 10 mg 04/01/21 21:00 04/01/21 20:26 Buspirone 10 Mg Tablet PO 10 mg TID JETT Administration Enoxaparin Sodium 40 mg 04/01/21 18:00 04/01/21 17:53 Enoxaparin 40 Mg /0.4 Ml Syringe SUBCUT 40 mg Q24H JETT Administration Sodium Chloride 1,000 mls @ 75 ml s/hr 04/01/21 19:15 04/01/21 20:26 Sodium Chloride 0.9% IV 75 mls/hr .[id number] JETT Administration Insulin Aspart 0 unit 04/01/21 18:00 04/01/21 20:18 Insulin Aspart 1 00 Unit/1 Ml SUBCUT Not Given WM&BEDTIME EJTT Protocol Olanzapine 2.5 mg 04/01/21 17:05 04/02/21 03:06 Olanzapine 5 Mg Odt PO 2.5 mg Q6H PRN Administration AGITATION PFSH NPU PFSH: Medical History (Updated 04/01/21 @ 16:43 by Luis Pal MD) Anxiety and depression Atrial fibrillation BPH (benign prostatic hyperplasia) Coronary artery disease Diabetes Fibromyalgia GERD (gastroesophageal reflux disease) Hard of hearing Hyperlipidemia Migraines Surgical History (Updated 04/01/21 @ 16:43 by Luis Pal MD) History of cholecystectomy History of corneal transplant History of hernia surgery History of left knee surgery Social History Smoking and tobacco status: never smoked Alcohol intake: never Mental Status Exam MSE Comments: This is an overweight white male with a with limited grooming and eye contact. No abnormal movements. Laying in bed. Semicooperative with exam in no acute distress. Speech was limited but normal rate and volume. Mood not described, affect euthymic. Thought process linear. Thought content: Patient did not address questions about lethality but did not demonstrate self- directed aggression or aggression towards others, there were no delusions reported or noted, he denied auditory or visual hallucinations but did not ap pear to be attending to internal stimuli. Attention and concentration were limited and memory was not explored but none were formally tested. He is alert and oriented to person. Insight and judgment appear impaired and impulse control appears fair. Vitals/I&O/Wt Last Vital Signs Temp 97.8 F 04/02/21 04:00 Pulse 89 04/02/21 04:00 Resp 18 04/02/21 04:00 BP 171/82 04/02/21 04:00 Pulse Ox 94 04/02/21 04:00 04/01/21 04/01/21 04/02/21 14:59 22:59 06:59 Intake Total 480 / 480 Output Total 375 / 375 Balance 105 / 105 Weight last 48 hrs Weight 95.254 kg A&P Assessment and plan (1) Suicide attempt: Status: Acute (2) Altered mental status: Status: Acute (3) COVID-19: Status: Acute (4) Acute drug overdose: Status: Acute Additional A&P Information This is a 70-year-old white male with a reported history of mental health who presents with altered mental status and some confusion with recent Covid diagnosis and current lack of capacity. 1. Continue current medication. 2. Currently patient not demonstrating ability to make informed consent/capacity however lack of functioning hearing aids could be playing a role. 3. We will keep in contact, and hopefully get hearing aids appropriate and return for reevaluation. Attestations NPU Medical Necessity Statement*: N/A. Please see primary team note for medical necessity determination. Coding Level of Care Code Acute Repack Room Worker for [facility] Fwd Diagnoses Suicide attempt T14.91XA Altered mental status R41.82 COVID-19 U07.1 Acute drug overdose T50.901A
[2021-04-02 12:34] LABS: Amphetamines Screen Urine Negative (Negative); Barbiturates Screen Urine Negative (Negative); Benzodiazepines Screen Urine Negative (Negative); Cocaine Screen Urine Negative (Negative); Opiate Screen Urine Negative (Negative); PCP Screen Urine Negative (Negative); THC Screen Urine Negative (Negative)
[2021-04-02] MEDS: magnesium sulfate premix 2 GM/50 ML PIGGYBACK IV (12:57)
[2021-04-02] MEDS: lidocaine 1% 5 ML in potassium chloride premix 100 ML 25 ML IV ×2 (12:58→17:54)
[2021-04-02 16:57] LABS: Glucose Point of Care 132 mg/dL (70-110)
[2021-04-02] MEDS: enoxaparin 40 mg/0.4 mL Syringe SUBCUT (17:54)
[2021-04-02 20:45] LABS: Glucose Point of Care 153 mg/dL (70-110)
[2021-04-02 20:45] LABS: Glucose Point of Care 151 mg/dL (70-110)
[2021-04-02] MEDS: famotidine 20 mg Tablet 40 MG PO (20:49)
[2021-04-03] MEDS: sodium chloride 0.9% 1,000 ML 75 ML IV ×2 (00:29→13:19)
[2021-04-03] MEDS: acetaminophen 325 mg Tablet 650 MG PO (00:47)
[2021-04-03] MEDS: OLANZapine 5 mg ODT 2.5 MG PO (03:23)
[2021-04-03 03:41] VITALS: BP 164/76; PULSE 73; RESP 18; TEMP 36.4; O2SAT 95
[2021-04-03 06:26] LABS: Glucose Point of Care 122 mg/dL (70-110)
[2021-04-03 08:00] VITALS: BP 165/82; PULSE 74; RESP 18; TEMP 36.9; O2SAT 96
[2021-04-03] MEDS: montelukast sodium 10 mg Tablet PO (09:04)
[2021-04-03] MEDS: fenofibrate 145 mg Tablet PO (09:04)
[2021-04-03] MEDS: BuSPIRONE 10 mg Tablet PO ×2 (09:05→22:13)
[2021-04-03] MEDS: pantoprazole DR 40 mg Tablet PO (09:05)
[2021-04-03] MEDS: OLANZapine 5 mg TABLET PO (09:05)
[2021-04-03] MEDS: tamsulosin 0.4 mg Capsule PO (09:05)
[2021-04-03] MEDS: metoprolol tartrate 25 mg Tablet PO (09:05)
[2021-04-03 10:17] LABS: Anion Gap 17.4 (5-19); Blood Urea Nitrogen 7 mg/dL (8-23); Calcium 8.8 mg/dL (8.5-10.5); Carbon Dioxide 20 mmol/L (22-29); Chloride 103 mmol/L (98-107); Glomerular Filtration Rate 133.2 mL/min (90-130); Glucose 120 mg/dL (65-115); Magnesium 1.4 mg/dL (1.7-2.3); Osmolality Calculated 283 mOsm/kg (285-295); Potassium 3.4 mmol/L (3.5-5.1); Sodium 137 mmol/L (136-145)
[2021-04-03 11:03] LABS: Glucose Point of Care 166 mg/dL (70-110)
[2021-04-03 12:00] VITALS: BP 132/71; PULSE 70; RESP 14; TEMP 36.8; O2SAT 95
--- NOTE | 2021-04-03 13:11 | P.PN_ITS ---
Subjective Subjective: Interval history: Patient repeatedly asked me if he can leave the hospital. Has no particular complaints and reports that he feels good. Some confusion still evident. He has been getting a as needed dose of Zyprexa fairly regularly. Medications: Reviewed: Yes Vitals/I&O/Wt Last Vital Signs Temp 98.3 F 04/03/21 12:00 Pulse 70 04/03/21 12:00 Resp 14 04/03/21 12:00 BP 132/71 04/03/21 12:00 Pulse Ox 95 04/03/21 12:00 04/02/21 04/03/21 04/03/21 22:59 06:59 14:59 Intake Total 1979 1437.5 / 3417.5 240 / 240 Balance 1979 1437.5 / 3417.5 240 / 240 Physical Exam Narrative: EXAM NARRATIVE: General exam demonstrated a white male, confused who is hard of hearing. Mentally seems more alert, and interactive. Neck is supple no lymphadenopathy or thyromegaly Cardiovascular regular rate and rhythm without murmur Lungs clear no wheezing or crackles Abdomen is soft with positive bowel sounds. No obvious organomegaly Extremities no cyanosis clubbing or edema, cap refill brisk Data : 04/02/21 05:13 04/03/21 08:33 A&P Assessment and plan (1) COVID-19: Recently hospitalized for COVID-19 pneumonia for 4 to 5 days at [facility]. Treatment is unknown at this point but I suspect he may have had remdesivir or dexamethasone or both. At this point he is stable on room air oxygen Chest x-ray shows infiltrate but patient has had no fever. Procalcitonin level was normal No other treatment may be needed for Covid. Status: Acute (2) Altered mental status: Confused above baseline from discharge from recent hospitalization. If he received steroids this could have potentially exacerbated any underlying dementia/personality difficulties Daughter indicates he had some aggressive behavior prior to getting Covid Psychiatric consultation is pending He seems more interactive, and thoughtful today. TSH, B12, ammonia level, CT head no concerns. Increase Zyprexa to 5 mg twice daily. He has been getting this as a as needed medication fairly frequently. Avoid any medication which could promote further confusion such as pain medication, antihistamines, benzodiazepines. Monitor closely for any withdrawal Continue his buspirone. Status: Acute (3) Acute drug overdose: It is difficult to understand if this was intentional or not. I do not think he has the capacity to understand in detail discussion currently. One-on-one sitter Psychiatric consultation Status: Acute Additional A&P Information Hypokalemia, supplement Hypomagnesemia. Supplement. Diabetes mellitus. Sliding scale insulin. Multiple other medical problems as outlined in history and physical. Full code Lovenox for DVT prophylaxis. Daughter has indicated he needs placement for safety. I discussed with her r egarding guardianship which she refused. Attestations Medical Necessity Statement*: Needs continued hospitalization, secondary to confusion and unsafe home situation, with history of recent Covid. Coding Level of Care Code Acute Fire Protection Designer for [facility] Stein Diagnoses COVID-19 U07.1 Altered mental status R41.82 Acute drug overdose T50.903Y
[2021-04-03] MEDS: potassium chloride ER 20 mEq Tablet 40 MEQ PO (13:20)
[2021-04-03] MEDS: magnesium sulfate premix 2 GM/50 ML PIGGYBACK IV (13:21)
[2021-04-03 16:00] VITALS: BP 142/72; PULSE 73; RESP 16; TEMP 36.6; O2SAT 96
[2021-04-03 17:15] LABS: Glucose Point of Care 159 mg/dL (70-110)
[2021-04-03] MEDS: OLANZapine 10 mg VIAL 5 MG IM (17:53)
[2021-04-03] MEDS: enoxaparin 40 mg/0.4 mL Syringe SUBCUT (18:03)
[2021-04-03] MEDS: water for injection-sterile 10 ML (18:03)
[2021-04-03 20:00] VITALS: BP 154/74; PULSE 68; RESP 24; TEMP 37.2; O2SAT 98
[2021-04-03 21:38] LABS: Glucose Point of Care 121 mg/dL (70-110)
[2021-04-03] MEDS: famotidine 20 mg Tablet 40 MG PO (22:12)
[2021-04-04] VITALS (7 sets, daily range): BP systolic 138–155; BP diastolic 66–87; PULSE 72–97; RESP 14–20; TEMP 36.3–37.2; O2SAT 95–97
[2021-04-04 06:12] LABS: Glucose Point of Care 137 mg/dL (70-110)
[2021-04-04 08:09] LABS: Basophils % 0.3 %; Eosinophils # 0.1 10^3/uL (0.0-0.8); Eosinophils % 1.2 %; Hematocrit 32.1 % (42.0-52.0); Hemoglobin 10.8 g/dL (11.7-16.6); Lymphocytes # 0.8 10^3/uL (0.8-4.8); Lymphocytes % 13.8 %; Mean Corpuscular HGB Conc 33.6 g/dL (30.0-36.0); Mean Corpuscular Hemoglobin 30.8 pg (28.0-34.0); Mean Corpuscular Volume 91.5 fL (80-94); Mean Platelet Volume 9.5 fL (7.4-10.4); Monocytes # 0.6 10^3/uL (0.2-0.9); Monocytes % 9.8 %; Neutrophils # 4.19 10^3/uL (1.8-7.7); Neutrophils % 73.3 %; Nucleated Red Blood Cells % 0 %; Platelet Count 429 10^3/cmm (130-400); Red Blood Count 3.51 10^6/uL (4.1-5.3); Red Cell Distribution Width 13.2 % (12.1-15.1); White Blood Count 5.7 10^3/uL (4.0-10.0)
[2021-04-04] MEDS: montelukast sodium 10 mg Tablet PO (08:23)
[2021-04-04] MEDS: fenofibrate 145 mg Tablet PO (08:23)
[2021-04-04] MEDS: tamsulosin 0.4 mg Capsule PO (08:23)
[2021-04-04] MEDS: metoprolol tartrate 25 mg Tablet PO (08:23)
[2021-04-04] MEDS: BuSPIRONE 10 mg Tablet PO ×3 (08:23→20:53)
[2021-04-04] MEDS: OLANZapine 5 mg TABLET PO ×2 (08:23→17:21)
[2021-04-04] MEDS: pantoprazole DR 40 mg Tablet PO (08:24)
[2021-04-04 08:56] LABS: Blood Urea Nitrogen 6 mg/dL (8-23); Calcium 8.4 mg/dL (8.5-10.5); Carbon Dioxide 19 mmol/L (22-29); Chloride 102 mmol/L (98-107); Glomerular Filtration Rate 164.4 mL/min (90-130); Glucose 118 mg/dL (65-115); Magnesium 1.4 mg/dL (1.7-2.3); Osmolality Calculated 277 mOsm/kg (285-295); Sodium 134 mmol/L (136-145)
--- NOTE | 2021-04-04 09:16 | PM.PN ---
Subjective Subjective: Interval history: No new events Medications: Reviewed: Yes Vitals/I&O/Wt Last Vital Signs Temp 98.4 F 04/04/21 07:42 Pulse 97 04/04/21 07:42 Resp 14 04/04/21 07:42 BP 138/87 04/04/21 07:42 Pulse Ox 95 04/04/21 07:42 04/03/21 04/04/21 04/04/21 22:59 06:59 14:59 Intake Total 10 / 1262.5 120 / 120 Output Total 0 / 400 Balance 0 / 852.5 10 / 862.5 120 / 120 Physical Exam Narrative: EXAM NARRATIVE: General exam demonstrated patient drowsy. Did eat breakfast this morning. Wants to go home. Neck is supple no lymphadenopathy or thyromegaly Cardiovascular regular rate and rhythm without murmur Lungs clear no wheezing or crackles Abdomen is soft with positive bowel sounds. No obvious organomegaly Extremities no cyanosis clubbing or edema, cap refill brisk Data : 04/04/21 06:49 04/04/21 06:49 A&P Assessment and plan (1) COVID-19: Recently hospitalized for COVID-19 pneumonia for 4 to [address] [facility]. Treatment is unknown at this point but I suspect he may have had remdesivir or dexamethasone or both. At this point he is stable on room air oxygen Chest x-ray shows infiltrate but patient has had no fever. Procalcitonin level was normal No other treatment may be needed for Covid. Status: Acute (2) Altered mental status: Confused above baseline from discharge from recent hospitalization. If he received steroids this could have potentially exacerbated any underlying dementia/personality difficulties Daughter indicates he had some aggressive behavior prior to getting Covid Psychiatric consultation has been performed He has improved from admission but still not likely to be able to care for himself. TSH, B12, ammonia level, CT head no concerns. Increase Zyprexa to 5 mg twice daily. He has been getting this as a as needed medication fairly frequently. Avoid any medication which could promote further confusion such as pain medication, antihistamines, benzodiazepines. Monitor closely for any withdrawal Continue his buspirone. Status: Acute (3) Acute drug overdose: It is difficult to understand if this was intentional or not. I do not think he has the capacity to understand in detail discussion currently. One-on-one sitter Psychiatric consultation Status: Acute Additional A&P Information Hypokalemia, supplemented Hypomagnesemia. Supplemented. Diabetes mellitus. Sliding scale insulin. Multiple other medical problems as outlined in history and physical. Full code Lovenox for DVT prophylaxis. Daughter has indicated he needs placement for safety. I discussed with her regarding guardianship which she refused. Attestations Medical Necessity Statement*: Needs continued hospitalization for placement. Coding Level of Care Code Acute Manager Strategic Sourcing for Enrrique Stein Diagnoses COVID-19 U07.1 Altered mental status R41.82 Acute drug overdose T50.487V
[2021-04-04 09:54] LABS: Anion Gap 16.5 (5-19); Potassium 3.5 mmol/L (3.5-5.1)
[2021-04-04 10:37] LABS: Glucose Point of Care 167 mg/dL (70-110)
--- NOTE | 2021-04-04 11:30 | DCPLANNER ---
Explained IM to Daughter; Sylwia via the phone. She is emotional with both her folks being sick and in the hospital right now, she wishes they would have known about this opportunity before he was d/c'd from [facility]. Copy will be left at bedside.
[2021-04-04] MEDS: potassium chloride ER 20 mEq Tablet 40 MEQ PO (11:45)
[2021-04-04] MEDS: magnesium oxide 400 mg tablet PO ×2 (15:24→17:20)
[2021-04-04 17:10] LABS: Glucose Point of Care 139 mg/dL (70-110)
[2021-04-04] MEDS: enoxaparin 40 mg/0.4 mL Syringe SUBCUT (17:30)
[2021-04-04] MEDS: famotidine 20 mg Tablet 40 MG PO (20:53)
[2021-04-04] MEDS: acetaminophen 325 mg Tablet 650 MG PO (20:53)
[2021-04-04 20:57] LABS: Glucose Point of Care 142 mg/dL (70-110)
[2021-04-05 03:27] VITALS: BP 156/86; PULSE 87; RESP 20; TEMP 36.4; O2SAT 94
[2021-04-05 06:45] LABS: Anion Gap 16.3 (5-19); Blood Urea Nitrogen 6 mg/dL (8-23); Calcium 8.7 mg/dL (8.5-10.5); Carbon Dioxide 20 mmol/L (22-29); Chloride 101 mmol/L (98-107); Glomerular Filtration Rate 164.4 mL/min (90-130); Glucose 125 mg/dL (65-115); Magnesium 1.4 mg/dL (1.7-2.3); Osmolality Calculated 277 mOsm/kg (285-295); Potassium 3.3 mmol/L (3.5-5.1); Sodium 134 mmol/L (136-145)
[2021-04-05 07:42] VITALS: BP 171/92; PULSE 84; RESP 28; TEMP 36.1; O2SAT 96
[2021-04-05 07:58] LABS: Glucose Point of Care 114 mg/dL (70-110)
[2021-04-05] MEDS: potassium chloride ER 20 mEq Tablet 40 MEQ PO ×2 (08:56→14:58)
[2021-04-05] MEDS: magnesium oxide 400 mg tablet PO ×2 (08:57→17:15)
[2021-04-05] MEDS: tamsulosin 0.4 mg Capsule PO (08:57)
[2021-04-05] MEDS: BuSPIRONE 10 mg Tablet PO ×3 (08:57→21:37)
[2021-04-05] MEDS: montelukast sodium 10 mg Tablet PO (08:57)
[2021-04-05] MEDS: OLANZapine 5 mg TABLET PO ×2 (08:57→17:15)
[2021-04-05] MEDS: pantoprazole DR 40 mg Tablet PO (08:57)
[2021-04-05] MEDS: fenofibrate 145 mg Tablet PO (08:57)
[2021-04-05] MEDS: metoprolol tartrate 25 mg Tablet PO (08:57)
[2021-04-05] MEDS: magnesium sulfate premix 4 GM/100 ML PREMIX IV (08:58)
--- NOTE | 2021-04-05 08:59 | PM.PN ---
Subjective Subjective: Interval history: Florentin reports he is doing okay. He is much more calm today and I'm able to have a conversation. Medications: Reviewed: Yes Vitals/I&O/Wt Last Vital Signs Temp 97 F L 04/05/21 07:42 Pulse 84 04/05/21 07:42 Resp 28 H 04/05/21 07:42 BP 171/92 04/05/21 07:42 Pulse Ox 96 04/05/21 07:42 04/04/21 04/05/21 04/05/21 22:59 06:59 14:59 Intake Total 240 / 240 Balance 240 / 240 Physical Exam Narrative: EXAM NARRATIVE: General exam demonstrates no distress, conversant today Neck is supple no lymphadenopathy or thyromegaly Cardiovascular regular rate and rhythm without murmur Lungs clear no wheezing or crackles Abdomen is soft with positive bowel sounds. No obvious organomegaly Extremities no cyanosis clubbing or edema, cap refill brisk Data : 04/04/21 06:49 04/05/21 05:45 A&P Assessment and plan (1) COVID-19: Recently hospitalized for COVID-19 pneumonia for 4 to 5 days at [facility]. Treatment is unknown at this point but I suspect he may have had remdesivir or dexamethasone or both. At this point he is stable on room air oxygen Chest x-ray shows infiltrate but patient has had no fever. Procalcitonin level was normal No other treatment may be needed for Covid. Status: Acute (2) Altered mental status: Confused above baseline from discharge from recent hospitalization. If he received steroids this could have potentially exacerbated any underlying dementia/personality difficulties Daughter indicates he had some aggressive behavior prior to getting Covid Psychiatric consultation has been performed He has improved from admission but still not likely to be able to care for himself. TSH, B12, ammonia level, CT head no concerns. Continue Zyprexa to 5 mg twice daily. He has this medication as needed as well but has not needed much in the way of medication over the last 24 hours. Avoid any medication which could promote further confusion such as pain medication, antihistamines, benzodiazepines. Monitor closely for any withdrawal Continue his buspirone. Status: Acute (3) Acute drug overdose: It is difficult to understand if this was intentional or not. I do not think he has the capacity to understand what he was doing at the time of the event.. One-on-one sitter Psychiatric consultation Status: Acute Additional A&P Information Hypokalemia, supplement again today Hypomagnesemia. Supplemented. Diabetes mellitus. Sliding scale insulin. Multiple other medical problems as outlined in history and physical. Full code Lovenox for DVT prophylaxis. Daughter has indicated he needs placement for safety. I discussed with her regarding guardianship which she refused. 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
[2021-04-05 10:49] LABS: Glucose Point of Care 154 mg/dL (70-110)
[2021-04-05 11:46] VITALS: BP 161/92; PULSE 88; RESP 22; TEMP 36.4; O2SAT 96
[2021-04-05] MEDS: acetaminophen 325 mg Tablet 650 MG PO (14:57)
[2021-04-05] MEDS: guaiFENesin-dextromethorphan UDC 10 mL 5 ML PO (14:58)
[2021-04-05 15:46] VITALS: BP 131/71; PULSE 69; RESP 24; TEMP 36.6; O2SAT 97
[2021-04-05 17:05] LABS: Glucose Point of Care 122 mg/dL (70-110)
[2021-04-05] MEDS: fluticasone nasal spray 16gm Btl 1 SPRAY INTRANASAL (17:15)
[2021-04-05] MEDS: enoxaparin 40 mg/0.4 mL Syringe SUBCUT (17:15)
[2021-04-05 20:00] VITALS: BP 173/92; PULSE 72; RESP 18; TEMP 36.5; O2SAT 98
[2021-04-05] MEDS: famotidine 20 mg Tablet 40 MG PO (21:37)
[2021-04-05 21:58] LABS: Glucose Point of Care 151 mg/dL (70-110)
[2021-04-06] VITALS (7 sets, daily range): BP systolic 130–159; BP diastolic 81–92; PULSE 68–101; RESP 18; TEMP 36.4–36.8; O2SAT 94–98
[2021-04-06 06:42] LABS: Glucose Point of Care 139 mg/dL (70-110)
[2021-04-06] MEDS: fluticasone nasal spray 16gm Btl 1 SPRAY INTRANASAL ×2 (08:30→17:55)
[2021-04-06] MEDS: pantoprazole DR 40 mg Tablet PO (08:31)
[2021-04-06] MEDS: metoprolol tartrate 25 mg Tablet PO (08:31)
[2021-04-06] MEDS: OLANZapine 5 mg TABLET PO ×2 (08:31→17:54)
[2021-04-06] MEDS: BuSPIRONE 10 mg Tablet PO ×3 (08:31→20:18)
[2021-04-06] MEDS: fenofibrate 145 mg Tablet PO (08:31)
[2021-04-06] MEDS: magnesium oxide 400 mg tablet PO ×2 (08:31→17:54)
[2021-04-06] MEDS: montelukast sodium 10 mg Tablet PO (08:31)
[2021-04-06] MEDS: tamsulosin 0.4 mg Capsule PO (08:31)
--- NOTE | 2021-04-06 11:35 | PM.PN ---
Subjective Subjective: Interval history: Florentin says a few words to me. Does not have any complaints. Seems distant. Medications: Reviewed: Yes Vitals/I&O/Wt Last Vital Signs Temp 98.1 F 04/06/21 08:00 Pulse 81 04/06/21 09:51 Resp 18 04/06/21 08:00 BP 138/83 04/06/21 08:00 Pulse Ox 95 04/06/21 09:51 04/05/21 04/06/21 04/06/21 22:59 06:59 14:59 Intake Total 750 / 1989 360 / 360 Output Total 0 / 800 Balance 750 / 1190 360 / 360 Physical Exam Narrative: EXAM NARRATIVE: General exam demonstrates no distress. Answers some questions without difficulty. Neck is supple no lymphadenopathy or thyromegaly Cardiovascular regular rate and rhythm without murmur Lungs clear no wheezing or crackles Abdomen is soft with positive bowel sounds. No obvious organomegaly Extremities no cyanosis clubbing or edema, cap refill brisk Data : 04/04/21 06:49 04/05/21 05:45 A&P Assessment and plan (1) COVID-19: Recently hospitalized for COVID-19 pneumonia for 4 to 5 days at [facility]. Treatment is unknown at this point but I suspect he may have had remdesivir or dexamethasone or both. At this point he is stable on room air oxygen Chest x-ray shows infiltrate but patient has had no fever. Procalcitonin level was normal No other treatment may be needed for Covid. Status: Acute (2) Altered mental status: Confused above baseline from discharge from recent hospitalization. If he received steroids this could have potentially exacerbated any underlying dementia/personality difficulties Daughter indicates he had some aggressive behavior prior to getting Covid. No aggressive behavior has been noted here on current treatment. Psychiatric consultation has been performed He has improved from admission but is not able to care for himself, according to family. TSH, B12, ammonia level, CT head no concerns. Continue Zyprexa to 5 mg twice daily. He has not required any as needed doses in the last several days Avoid any medication which could promote further confusion such as pain medication, antihistamines, benzodiazepines. Continue his buspirone. Status: Acute (3) Acute drug overdose: It is difficult to understand if this was intentional or not. I do not think he has the capacity to understand what he was doing at the time of the event.. One-on-one sitter Psychiatric consultation appreciated Status: Acute Additional A&P Information Hypokalemia, supplemented Hypomagnesemia. Supplemented. Diabetes mellitus. Sliding scale insulin. Multiple other medical problems as outlined in history and physical. Full code Lovenox for DVT prophylaxis. Daughter has indicated he needs placement for safety. I discussed with her regarding guardianship which she refused. No laboratory needed today Attestations Medical Necessity Statement*: Needs continued hospitalization, pending placement. 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
[2021-04-06 11:49] LABS: Glucose Point of Care 141 mg/dL (70-110)
[2021-04-06] MEDS: enoxaparin 40 mg/0.4 mL Syringe SUBCUT (17:54)
[2021-04-06 18:02] LABS: Glucose Point of Care 148 mg/dL (70-110)
[2021-04-06] MEDS: famotidine 20 mg Tablet 40 MG PO (20:18)
[2021-04-06 20:33] LABS: Glucose Point of Care 140 mg/dL (70-110)
[2021-04-07] VITALS: BP 136/87; BP 146/92; PULSE 68; PULSE 86; RESP 18; TEMP 36.5; TEMP 36.8; O2SAT 95; O2SAT 97
[2021-04-07 04:00] VITALS: BP 152/81; PULSE 97; RESP 18; TEMP 36.7; O2SAT 97
[2021-04-07 06:26] LABS: Glucose Point of Care 150 mg/dL (70-110)
[2021-04-07 06:37] LABS: Anion Gap 15.9 (5-19); Blood Urea Nitrogen 7 mg/dL (8-23); Calcium 8.7 mg/dL (8.5-10.5); Carbon Dioxide 21 mmol/L (22-29); Chloride 103 mmol/L (98-107); Glucose 141 mg/dL (65-115); Magnesium 1.5 mg/dL (1.7-2.3); Osmolality Calculated 282 mOsm/kg (285-295); Potassium 3.9 mmol/L (3.5-5.1); Sodium 136 mmol/L (136-145)
[2021-04-07 08:00] VITALS: BP 143/93; PULSE 105; RESP 17; TEMP 36.7; O2SAT 96
[2021-04-07] MEDS: magnesium oxide 400 mg tablet PO ×2 (09:16→18:31)
[2021-04-07] MEDS: tamsulosin 0.4 mg Capsule PO (09:16)
[2021-04-07] MEDS: montelukast sodium 10 mg Tablet PO (09:16)
[2021-04-07] MEDS: fluticasone nasal spray 16gm Btl 1 SPRAY INTRANASAL ×2 (09:16→18:30)
[2021-04-07] MEDS: pantoprazole DR 40 mg Tablet PO (09:16)
[2021-04-07] MEDS: OLANZapine 5 mg TABLET PO ×2 (09:16→18:31)
[2021-04-07] MEDS: metoprolol tartrate 25 mg Tablet PO (09:16)
[2021-04-07] MEDS: BuSPIRONE 10 mg Tablet PO ×3 (09:16→23:07)
[2021-04-07] MEDS: fenofibrate 145 mg Tablet PO (09:18)
[2021-04-07 10:56] LABS: Glucose Point of Care 212 mg/dL (70-110)
[2021-04-07 12:00] VITALS: BP 115/70; PULSE 72; RESP 18; TEMP 36.7; O2SAT 98
--- NOTE | 2021-04-07 13:04 | P.PN_ITS ---
Subjective NPU Subjective: Interval history: Florentin presents today unlike our first meeting with his hearing aids then incapable of hearing clearly better continuing on droplet isolation from his Covid. Interview today once again explore capacity for decision-making at this time. We had a fairly lengthy discussion about his situation which she seemed to have little to no understanding of. Some question of whether or not he had Covid was difficult for him. At one point he denied having the virus explaining to me that he did have a fever so he could have Covid. I reviewed with him the concept that a female who stomach is not enlarged could still be and he never latched on this concept multiple times denying the presence of the infection even after I clearly explained to him that I was not asking him if he had it I was telling him the results of his tests. I asked him about his other medical comorbidities and he was essentially incapable of having a reason to conversation about any of his circumstances seeming to be lost in whether a question was being asked at all. It took great work to get him to even talk about being in the hospital now and where he would go when he left the hospital, but with some prodding eventually he said home as his choice but he gives no reason to response as to why going home would be of value and how that might compare to any other possible disposition. That he said he was pleasant throughout the course of the interview. We did review the overtaking of the medication and it is likely he does not even remember that episode and certainly could not give any insight as to what his mindset was at that time because it does not appear he recalls that episode. Mental Status Exam MSE Comments: This is an overweight white male with a with limited grooming and eye contact. No abnormal movements. Sitting in a chair in his room. Cooperative with exam in no acute distress. Speech was limited but mostly normal rate and slightly decreased volume with occasional garbled speech. Mood described as okay, affect euthymic. Thought process linear. Thought content: Patient denied suicidal or homicidal ideation, there were no delusions reported or noted, he did not seem to understand the question of auditory or visual hallucinations but he did not appear to be attending to internal stimuli. Attention and concentration were limited and memory was not reliable but none were formally tested. He is alert and oriented to person and place. Insight and judgment appear impaired and impulse control appears fair. Vitals/I&O/Wt Last Vital Signs Temp 98.0 F 04/07/21 12:00 Pulse 72 04/07/21 12:00 Resp 18 04/07/21 12:00 BP 115/70 04/07/21 12:00 Pulse Ox 98 04/07/21 12:00 04/06/21 04/07/21 04/07/21 22:59 06:59 14:59 Intake Total 360 / 1080 360 / 360 Balance 360 / 1080 360 / 360 Data NPU : 04/04/21 06:49 04/07/21 05:34 A&P Additional A&P Information (1) Suicide attempt: (2) Altered mental status: (3) COVID-19: (4) Acute drug overdose: Additional A&P Information This is a 70-year-old white male with a reported history of mental health who presents with altered mental status and some confusion with recent Covid diagnos is and current lack of capacity. 1. Continue current medication. 2. Currently patient continues to demonstrate lack of capacity/ability to make informed consent. Significant prodding he was able to say that he would like to go home somewhat approximating ability to communicate a choice which took effort. But he was unable to demonstrate having understanding of his condition, the ability to express possible outcomes as relates to him, and clearly is unable to weigh risk benefits in a way that leads to a rational conclusion thus his capacity is lacking. 3. We will continue to follow. Attestations NPU Medical Necessity Statement*: N/A. Please see primary team note for medical necessity determination. Coding Level of Care Code Acute Manager Technical Services for Enrrique Stein
--- NOTE | 2021-04-07 14:27 | PM.PN ---
Subjective Subjective: Interval history: Florentin will answer few questions when prompted. Medications: Reviewed: Yes Vitals/I&O/Wt Last Vital Signs Temp 98.0 F 04/07/21 12:00 Pulse 72 04/07/21 12:00 Resp 18 04/07/21 12:00 BP 115/70 04/07/21 12:00 Pulse Ox 98 04/07/21 12:00 04/06/21 04/07/21 04/07/21 22:59 06:59 14:59 Intake Total 360 / 1080 360 / 360 Balance 360 / 1080 360 / 360 Physical Exam Narrative: EXAM NARRATIVE: General exam no apparent distress Neck supple no lymphadenopathy or thyromegaly Cardiovascular regular in rhythm without murmur Lungs clear Abdomen is soft, positive bowel sounds Extremities no cyanosis clubbing or edema Data : 04/04/21 06:49 04/07/21 05:34 A&P Assessment and plan (1) COVID-19: Recently hospitalized for COVID-19 pneumonia for 4 to 5 days at [facility]. Did not require oxygen or treatment at that point. Was treated for UTI. Currently stable on room air Chest x-ray shows infiltrate but patient has had no fever. Procalcitonin level was normal No other treatment may be needed for Covid. Status: Acute (2) Altered mental status: Confused above baseline from discharge from recent hospitalization. If he received steroids this could have potentially exacerbated any underlying dementia/personality difficulties Daughter indicates he had some aggressive behavior prior to getting Covid. No aggressive behavior has been noted here on current treatment. Psychiatric consultation has been performed and appreciated. He has improved from admission but is not able to care for himself, according to family. TSH, B12, ammonia level, CT head no concerns. Continue Zyprexa to 5 mg twice daily. He has not required any as needed doses in the last several days Avoid any medication which could promote further confusion such as pain medication, antihistamines, benzodiazepines. Continue his buspirone. Status: Acute (3) Acute drug overdose: It is difficult to understand if this was intentional or not. I do not think he has the capacity to understand what he was doing at the time of the event.. One-on-one sitter Psychiatric consultation appreciated Status: Acute Additional A&P Information Hypokalemia, supplemented Hypomagnesemia. Supplement again today Diabetes mellitus. Sliding scale insulin. Multiple other medical problems as outlined in history and physical. Full code Lovenox for DVT prophylaxis. Daughter has indicated he needs placement for safety. I discussed with her regarding guardianship which she refused. Attestations Medical Necessity Statement*: Awaiting placement Coding Level of Care Code Acute Etcher Apprentice Photoengraving for Enrrique Fwd Diagnoses COVID-19 U07.1 Altered mental status R41.82 Acute drug overdose T50.905F
[2021-04-07] MEDS: magnesium sulfate premix 4 GM/100 ML PREMIX IV (15:47)
[2021-04-07 16:00] VITALS: BP 136/79; PULSE 77; RESP 17; TEMP 36.7; O2SAT 100
[2021-04-07] MEDS: enoxaparin 40 mg/0.4 mL Syringe SUBCUT (18:30)
[2021-04-07 20:00] VITALS: BP 111/67; PULSE 95; RESP 15; TEMP 36.7; O2SAT 97
[2021-04-07 23:02] LABS: Glucose Point of Care 235 mg/dL (70-110)
[2021-04-07] MEDS: famotidine 20 mg Tablet 40 MG PO (23:07)
[2021-04-08] VITALS (7 sets, daily range): BP systolic 109–175; BP diastolic 62–101; PULSE 65–110; RESP 16–18; TEMP 36.5–36.8; O2SAT 85–99
[2021-04-08] MEDS: acetaminophen 325 mg Tablet 650 MG PO (01:30)
[2021-04-08] MEDS: OLANZapine 5 mg TABLET PO ×2 (09:46→17:56)
[2021-04-08] MEDS: metoprolol tartrate 25 mg Tablet PO (09:46)
[2021-04-08] MEDS: BuSPIRONE 10 mg Tablet PO ×3 (09:46→20:51)
[2021-04-08] MEDS: fenofibrate 145 mg Tablet PO (09:46)
[2021-04-08] MEDS: fluticasone nasal spray 16gm Btl 1 SPRAY INTRANASAL ×2 (09:46→17:56)
[2021-04-08] MEDS: pantoprazole DR 40 mg Tablet PO (09:46)
[2021-04-08] MEDS: magnesium oxide 400 mg tablet PO ×2 (09:47→17:56)
[2021-04-08] MEDS: tamsulosin 0.4 mg Capsule PO (09:47)
[2021-04-08] MEDS: montelukast sodium 10 mg Tablet PO (09:47)
[2021-04-08 10:53] LABS: Glucose Point of Care 225 mg/dL (70-110)
--- NOTE | 2021-04-08 11:44 | PC.SOCIAL ---
IMM update IMM updated with patient's daughter via telephone. Verbalized an understanding. Initialled, dated, timed, and placed in chart.
--- NOTE | 2021-04-08 13:26 | P.PN_ITS ---
Subjective Subjective: Interval history: Patient without any complaints today. Medications: Reviewed: Yes Vitals/I&O/Wt Last Vital Signs Temp 97.7 F 04/08/21 08:00 Pulse 110 H 04/08/21 08:00 Resp 18 04/08/21 08:00 BP 142/88 04/08/21 08:00 Pulse Ox 96 04/08/21 08:00 04/07/21 04/08/21 04/08/21 22:59 06:59 14:59 Intake Total 100 / 1180 360 / 360 Output Total 0 / 0 0 / 0 Balance 100 / 1180 0 / 1180 360 / 360 Physical Exam Narrative: EXAM NARRATIVE: General exam no apparent distress Neck supple no lymphadenopathy or thyromegaly Cardiovascular regular in rhythm without murmur Lungs clear Abdomen is soft, positive bowel sounds Extremities no cyanosis clubbing or edema Data : 04/04/21 06:49 04/07/21 05:34 A&P Assessment and plan (1) COVID-19: Recently hospitalized for COVID-19 pneumonia for 4 to 5 days at [facility]. Did not require oxygen or treatment at that point. Was treated for UTI. Currently stable on room air Chest x-ray shows infiltrate but patient has had no fever. Procalcitonin level was normal No other treatment may be needed for Covid. Status: Acute (2) Altered mental status: Confused above baseline from discharge from recent hospitalization. If he received steroids this could have potentially exacerbated any underlying dementia/personality difficulties Daughter indicates he had some aggressive behavior prior to getting Covid. No aggressive behavior has been noted here on current treatment. Psychiatric consultation has been performed and appreciated. He has improved from admission but is not able to care for himself, according to family. TSH, B12, ammonia level, CT head no concerns. Continue Zyprexa to 5 mg twice daily. He has not required any as needed doses in the last several days Avoid any medication which could promote further confusion such as pain medication, antihistamines, benzodiazepines. Continue his buspirone. Status: Acute (3) Acute drug overdose: It is difficult to understand if this was intentional or not. I do not think he has the capacity to understand what he was doing at the time of the event.. One-on-one sitter Psychiatric consultation appreciated Status: Acute Additional A&P Information Hypokalemia, supplemented Hypomagnesemia. Supplement. Diabetes mellitus. Sliding scale insulin. Multiple other medical problems as outlined in history and physical. Full code Lovenox for DVT prophylaxis. Daughter has indicated he needs placement for safety. I discussed with her regarding guardianship which she refused. Overall awaiting placement. No laboratory needed tomorrow. Attestations 2 Medical Necessity Statement*: Awaiting placement Coding Level of Care Code Acute Automotive Services Manager for [facility] Emil Diagnoses COVID-19 U07.1 Altered mental status R41.82 Acute drug overdose T50.058M
--- NOTE | 2021-04-08 14:56 | PC.NURSE ---
AT APPROX. 0945 PT PULLED IV OUT, OKAYED NO IV ACCESS
--- NOTE | 2021-04-08 16:33 | P.PN_ITS ---
Subjective NPU Subjective: Interval history: Florentin presented with no changes in his thoughts and communication is very limited in his position on his condition continuing to not believe he has Covid because he does not have a fever. Otherwise limited conversing. Mental Status Exam MSE Comments: This is an overweight white male with a with limited grooming and eye contact. No abnormal movements. Sitting in a chair in his room. Cooperative with exam in no acute distress. Speech was limited but mostly normal rate and slightly decreased volume with occasional garbled speech. Mood described as okay, affect euthymic. Thought process linear. Thought content: Patient denied suicidal or homicidal ideation, there were no delusions reported or noted, he did not seem to understand the question of auditory or visual hallucinations but he did not appear to be attending to internal stimuli. Atten tion and concentration were limited and memory was not reliable but none were formally tested. He is alert and oriented to person and place. Insight and judgment appear impaired and impulse control appears fair. Vitals/I&O/Wt Last Vital Signs Temp 98.2 F 04/08/21 16:00 Pulse 73 04/08/21 16:00 Resp 18 04/08/21 16:00 BP 149/80 04/08/21 16:00 Pulse Ox 97 04/08/21 16:00 04/08/21 14:59 Intake Total 600 / 600 Balance 600 / 600 Data NPU : 04/04/21 06:49 04/07/21 05:34 A&P Additional A&P Information (1) Suicide attempt: (2) Altered mental status: (3) COVID-19: (4) Acute drug overdose: Additional A&P Information This is a 70-year-old white male with a reported history of mental health who presents with altered mental status and some confusion with recent Covid benjie gnosis and current lack of capacity. 1. Continue current medication. 2. Currently patient continues to demonstrate lack of capacity/ability to make informed consent. 3. We will continue to follow. Attestations NPU Medical Necessity Statement*: N/A. Please see primary team note for medical necessity determination. Coding Level of Care Code Acute Credit Cashier for Enrrique Stein
[2021-04-08 17:30] LABS: Glucose Point of Care 97 mg/dL (70-110)
[2021-04-08] MEDS: enoxaparin 40 mg/0.4 mL Syringe SUBCUT (17:56)
[2021-04-08] MEDS: famotidine 20 mg Tablet 40 MG PO (20:51)
[2021-04-08 22:00] LABS: Glucose Point of Care 205 mg/dL (70-110)
[2021-04-09 04:00] VITALS: BP 166/90; PULSE 87; RESP 18; TEMP 36.9; O2SAT 98
--- NOTE | 2021-04-09 05:39 | PC.NURSE ---
shift summary Patient rested well throughout the night without complaint.
[2021-04-09 06:41] LABS: Glucose Point of Care 138 mg/dL (70-110)
[2021-04-09 07:47] VITALS: BP 140/71; PULSE 70; RESP 16; TEMP 37.2; O2SAT 90
[2021-04-09] MEDS: pantoprazole DR 40 mg Tablet PO (09:43)
[2021-04-09] MEDS: montelukast sodium 10 mg Tablet PO (09:43)
[2021-04-09] MEDS: tamsulosin 0.4 mg Capsule PO (09:43)
[2021-04-09] MEDS: magnesium oxide 400 mg tablet PO (09:43)
[2021-04-09] MEDS: metoprolol tartrate 25 mg Tablet PO (09:43)
[2021-04-09] MEDS: fenofibrate 145 mg Tablet PO (09:43)
[2021-04-09] MEDS: BuSPIRONE 10 mg Tablet PO ×2 (09:43→15:05)
[2021-04-09] MEDS: OLANZapine 5 mg TABLET PO (09:43)
[2021-04-09] MEDS: fluticasone nasal spray 16gm Btl 1 SPRAY INTRANASAL (09:44)
[2021-04-09 10:27] LABS: Glucose Point of Care 205 mg/dL (70-110)
[2021-04-09 11:02] VITALS: BP 145/72; PULSE 65; RESP 16; TEMP 37.2; O2SAT 91
--- NOTE | 2021-04-09 11:18 | PM.DCS ---
Discharge Providers Date of Admission: 04/01/21 10:46 Date of Discharge: April 09, 2021 Attending Provider at Admission: Luis Pal MD Attending Provider at Discharge: Luis Pal MD Primary Care Provider: Pastor Lal DO Diagnoses at Discharge Discharge Diagnosis (1) COVID-19: Status: Acute (2) Altered mental status: Status: Acute (3) Acute drug overdose: Status: Acute Reason for Visit Reason for Visit: SOB Hospital Course Hospital Course Florentin is a 71-year-old white male who presented to the hospital with confusion after what probably was an accidental overdose on 04/01. He had recently been hospitalized at [facility] with Covid and UTI. During the stay at [facility] he did not require any oxygen. Confusion he had during his early course lifted somewhat throughout the course of hospital stay. However, his baseline is impaired, with family prompting him to do many ADLs even before he became ill. Medications were adjusted by hospitalist as well as psychiatry. By 04/09 placement was found that he was able to discharge. He was on room air oxygen. He had not had any aggressive behavior. He was maintained on Zyprexa twice daily. He could ambulate on his own. He would become frustrated at times, if he did not have his hearing aid in to be able to hear. At time of discharge he was at day 14 following start of symptoms from Covid and should no longer be infectious. Physical Exam Narrative: EXAM NARRATIVE: General exam is no apparent distress Neck is supple no lymphadenopathy or thyromegaly Cardiovascular regular rate and rhythm without murmur Lungs clear Abdomen is soft with positive bowel sounds Extremities no cyanosis clubbing or edema Discharge Data Data Completed and Pending: Completed Studies During Hospitalization Category Date Time Status CT head wo con* 7 0450 Routine Cat Scan 04/01/21 17:05 Completed XR chest 1V fermin ble 49536 Stat Exams 04/01/21 04:49 Completed Labs from last 24 hours 04/09/21 04/09/21 04/08/21 10:23 06: 21:29 POC Glucose 205 H 138 H 205 H 04/08/21 17:19 POC Glucose 97 Vitals: Last Vital Signs Temp 98.9 F 04/09/21 11:02 Pulse 65 04/09/21 11:02 Resp 16 04/09/21 11:02 BP 145/72 04/09/21 11:02 Pulse Ox 91 04/09/21 11:02 Discharge Plan Discharge Patient Disposition: Xfer SNF Condition: Stable Prescriptions: New olanzapine 5 mg Tablet 5 mg PO BID Qty: 60 RF: 0 Continued fenofibrate nanocrystallized [Tricor] 145 mg tablet 145 mg PO DAILY RF: 0 pantoprazole 40 mg tablet,delayed release (DR/EC) 40 mg PO DAILY RF: 0 famotidine 40 mg tablet 40 mg PO DAILY RF: 0 metoprolol tartrate 25 mg tablet 25 mg PO DAILY RF: 0 tamsulosin 0.4 mg capsule 0.4 mg PO DAILY RF: 0 glimepiride 2 mg tablet 2 mg PO DAILY RF: 0 fluticasone propionate [Flonase Allergy Relief] 50 mcg/actuation spray,suspension 1 spray INTRANASAL BID Qty: 18.2 RF: 0 olanzapine 5 mg Tablet 5 mg PO DAILY RF: 0 buspirone 10 mg Tablet 10 mg PO TID RF: 0 montelukast 10 mg Tablet 10 mg PO DAILY RF: 0 Levemir U-100 Insulin 100 unit/mL Solution 14 unit SUBCUT DAILY RF: 0 Discontinued oxycodone 15 mg tablet 15 mg PO Q6H PRN (Reason: Pain) RF: 0 methocarbamol 500 mg tablet 500 mg PO TID RF: 0 metoclopramide HCl 5 mg tablet 5 mg PO DAILY RF: 0 guaifenesin [Mucinex] 600 mg tablet extended release 12hr 600 mg PO BID RF: 0 meclizine 25 mg tablet 25 mg PO BID RF: 0 Bumex 2 mg Tablet 2 mg PO DAILY RF: 0 Klonopin 1 mg Tablet 1 mg PO BID RF: 0 promethazine 25 mg Tablet 25 mg PO BID RF: 0 Augmentin 875-125 mg Tablet 1 tab PO BID RF: 0 Discharge Orders: Discharge Order (Routine); Ordered 04/09/21 Ordered By: Luis Pal Referrals: Pastor Lal DO [Primary Care Provider] - Discharge Diet: Cardiac Discharge Activity: Increase activity as tolerated Activity Restrictions/Additional Instructions: Follow-up with primary care provider at intermediate facility 3 to 5 days. Discharge Attestations Time Spent in Discharge Care*: greater than 30 min Quality Metrics Clinical Quality Measures During this hospital stay, did patient experience: None Coding Level of Care Code Acute Chg FW DC note Diagnoses COVID-19 U07.1 Altered mental status R41.82 Acute drug overdose T50.905H
[2021-04-09] MEDS: acetaminophen 325 mg Tablet 650 MG PO (15:05)
[2021-04-09 16:00] VITALS: BP 150/74; PULSE 62; RESP 16; TEMP 37.2; O2SAT 90
[2021-04-09 16:48] LABS: Glucose Point of Care 131 mg/dL (70-110)
== END 2021-04-09 17:17 | disposition skilled nursing facility (03) ==
LOC: ER 12:27 → MEDSURG 04-02 13:02
PROVIDERS: Emergency Medicine; Internal Medicine; Admitting Provider Internal Medicine; Emergency Provider Family Medicine; PCP Student in an Organized Health Care Education/Training Program; Visit Provider Internal Medicine
DX: U07.1 COVID-19 (principal); J12.82 Pneumonia due to coronavirus disease 2019; R41.82 Altered mental status, unspecified; T50.901A Poisoning by unspecified drugs, medicaments and biological substances, accidental (unintentional), initial encounter; T14.91XA Suicide attempt, initial encounter; E87.6 Hypokalemia; E83.42 Hypomagnesemia; E11.9 Type 2 diabetes mellitus without complications; Z79.4 Long term (current) use of insulin; F41.9 Anxiety disorder, unspecified; F32.9 Major depressive disorder, single episode, unspecified; N40.0 Benign prostatic hyperplasia without lower urinary tract symptoms; I25.10 Atherosclerotic heart disease of native coronary artery without angina pectoris; M79.7 Fibromyalgia; E78.5 Hyperlipidemia, unspecified
CPT/HCPCS: 36415; 36416; 36600; 70450; 71045; 80048; 80051; 80053; 80162; 80306; 80307; 81003; 82140; 82330; 82607; 82805; 82962; 83735; 83880; 84145; 84443; 85025; 85610; 85730; 96361; 96372; 96374; 99285; G0378; J1650; J1815; J2060; J3475; J3480; J3490; J7030; J7040

== ENCOUNTER 2021-07-13 15:20 | Inpatient (IN) | payer MEDICARE, MEDICAID, SELFPAY ==
[2021-07-13 15:33] VITALS: BP 109/92; PULSE 95; RESP 18; TEMP 36.7; O2SAT 96; BMI 26.4
--- NOTE | 2021-07-13 16:03 | ECG_ITS ---
[facility] Test Date: 2021-07-13 Pat Name: Florentin Lemon Department: Room: Gender: Male Credit Collection Specialist: : 1950 Requested By: Rom Castrejon Order Number: [id number] Katheryn MD: FARHAN CANTU Measurements Intervals [place] Rate: 111 P: 17 TX: 152 QRS: -50 QRSD: 129 T: 114 QT: 364 QTc: 496 Interpretive Statements SINUS TACHYCARDIA LEFT ANTERIOR FASCICULAR BLOCK [QRS AXIS <= -45, QR IN I, RS IN II] LEFT VENTRICULAR HYPERTROPHY AND ST-T CHANGE [VOLTAGE CRITERIA PLUS ST/T ABNORMALITY] No previous ECG available for comparison Electronically Signed On 07-13-2021 21:54:29 CDT by FARHAN CANTU [email or web address]
--- NOTE | 2021-07-13 16:06 | ED_ITS ---
Documented by User: Rom Finch DO 07/14/21 06:36 HPI - Altered Mental Status General: Chief Complaint: Altered Mental Status Stated Complaint: AMS, POSSIBLE TOOK TOO MUCH OXY Time Seen by Provider: 07/13/21 15:24 History of Present Illness: HPI narrative: 71-year-old male with a history of dementia family states he filled medications 3 days ago and that time is asked codon has 28 last pills. Is a very poor historian is extremely poor hearing and cannot write. He was transported here from over 60 miles away. He states he is uncomfortable he is trying to urinate multiple times but is unable to do so. complaint: confusion Onset (ago): hour(s) Severity: moderate Consistency of symptoms: Constant Associated symptoms: Deny auditory hallucinations or visual hallucinations Review of Systems Const: Denies: fever(s) or chills ENMT: Denies: throat pain, nasal discharge or nasal congestion Card: Denies: chest pain, palpitations or irregular heart rhythm Resp: Denies: dyspnea, productive cough, non-productive cough or wheezing GI: Denies: abdominal pain, nausea or vomiting Psych: Denies: visual hallucinations or auditory hallucinations Daljit/Lymph: Denies: easy bruising, easy bleeding, petechiae, enlarged lymph nodes or tender lymph nodes PFSH ED PFSH: Medical History (Updated 07/14/21 @ 06:09 by Kelsea Márquez MD) Anxiety and depression Atrial fibrillation BPH (benign prostatic hyperplasia) Coronary artery disease Diabetes Fibromyalgia GERD (gastroesophageal reflux disease) Hard of hearing Hyperlipidemia Hypertension Migraines Suicide attempt Surgical History History of cholecystectomy History of corneal transplant History of hernia surgery History of left knee surgery Social History Smoking and tobacco status: never smoked Alcohol intake: never Physical Exam Const: COMMON NORMALS: no acute distress ORIENTATION/CONSCIOUSNESS: Yes awake HENMT: COMMON NORMALS: normocephalic and atraumatic HEAD & SCALP: normocephalic and atraumatic Neck/C-Spine: COMMON NORMALS: no JVD Resp: COMMON NORMALS: normal respiratory effort, No retractions, No use of accessory muscles and clear to auscultation bilaterally AUSCULTATION: clear to auscultation bilaterally Cardio: COMMON NORMALS: no JVD, regular rate, regular rhythm and No murmurs present (Cardio) RATE: regular rate RHYTHM: regular rhythm GI: COMMON NORMALS: Soft to palpation and No hepatosplenomegaly present AUSCULTATION: Yes normoactive bowel sounds PALPATION: Yes Soft to palpation, No Tenderness to palpation present (GI), No Guarding due to palpation present (GI) and Yes No hepatosplenomegaly present Extremity: COMMON NORMALS: normal to inspection, capillary refill normal, no clubbing, cyanosis or edema, no calf tenderness and no pedal edema Skin: COMMON NORMALS: no rashes or lesions noted GENERAL SKIN EXAM: no rashes or lesions noted Course Vital Signs: Vital signs: Vital Signs Temperature 98.3 F 07/14/21 03:58 Pulse Rate 104 H 07/14/21 03:58 Respiratory Rate 18 07/14/21 03:58 Blood Pressure 139/84 07/14/21 03:58 Pulse Oximetry 92 07/14/21 03:58 MDM - Altered Mental Status MDM Narrative: Medical decision making narrative: Care turned over to Dr. Phipps at change of shift see his notes for final diagnosis and disposition. Lab Data: Labs: Lab Results 07/13/21 07/13/21 07/13/21 17:28 17:28 17:28 WBC 12.1 10^3/uL H 10 ^3/uL (4.0-10.0) RBC 3.61 10^6/uL L 10 ^6/uL (4.1-5.3) Hgb 11.0 g/dL L g/dL (11.7-16.6) Hct 32.4 % L % (42.0-52.0) MCV 89.8 fl fl (80-94) MCH 30.5 pg pg (28.0-34.0) MCHC 34.0 g/dL g/dL (30.0-36.0) RDW 13.9 % % (12.1-15.1) Plt Count 221 10^3/cmm 10^3 /cmm (130-400) MPV 8.9 fL fL (7.4-10.4) Neut % (Auto) 88.8 % % Lymph % (Auto) 5.2 % % Mcmullen % (Auto) 5.4 % % Eos % (Auto) 0.0 % % Baso % (Auto) 0.2 % % Neut # (Auto) 10.76 10^3/uL H 1 0^3/uL (1.8-7.7) Lymph # (Auto) 0.6 10^3/uL L 10^ 3/uL (0.8-4.8) Mcmullen # (Auto) 0.7 10^3/uL 10^3/ uL (0.2-0.9) Eos # (Auto) 0.0 10^3/uL 10^3/ uL (0.0-0.8) Baso # (Auto) 0.0 10^3/uL 10^3/ uL (0.0-0.1) Nucleated RBC % (a uto) 0 % % Nucleated RBCs # 0.0 /100WBC /100W BC Sodium 132 mmol/L L mmol /L (136-145) Potassium 3.1 mmol/L L mmol /L (3.5-5.1) Chloride 94 mmol/L L mmol/ L (98-107) Carbon Dioxide 24 mmol/L mmol/L (22-29) Anion Gap 17.1 (5-19) BUN 9 mg/dL mg/dL (8-23) Creatinine 1.0 mg/dL mg/dL (0.7-1.2) GFR Calculation Not Reportable Glucose 163 mg/dL H mg/dL (65-115) Calculated Osmolal ity 276 mOsm/kg L mOs m/kg (285-295) Calcium 8.3 mg/dL L mg/dL (8.5-10.5) Total Bilirubin 1.2 mg/dL mg/dL (0.15-1.2) AST 14 U/L U/L (0-40) ALT 12 U/L U/L (0-41) Alkaline Phosphata se 88 IU/L IU/L (40-130) Creatine Kinase 300 U/L U/L (39-308) Total Protein 7.1 g/dL g/dL (6.6-8.7) Albumin 3.8 g/dL g/dL (3.5-5.2) Globulin 3.3 g/dL g/dL (1.3-4.6) TSH Acetaminophen < 5.0 ug/mL L ug/ mL (10-30) 07/13/21 17:28 WBC RBC Hgb Hct MCV MCH MCHC RDW Plt Count MPV Neut % (Auto) Lymph % (Auto) Mcmullen % (Auto) Eos % (Auto) Baso % (Auto) Neut # (Auto) Lymph # (Auto) Mcmullen # (Auto) Eos # (Auto) Baso # (Auto) Nucleated RBC % (a uto) Nucleated RBCs # Sodium Potassium Chloride Carbon Dioxide Anion Gap BUN Creatinine GFR Calculation Glucose Calculated Osmolal ity Calcium Total Bilirubin AST ALT Alkaline Phosphata se Creatine Kinase Total Protein Albumin Globulin TSH 0.57 uIU/mL uIU/m L (0.27-4.20) Acetaminophen Discharge Plan Discharge Patient Disposition: Admitted As Inpatient Admit Provider: Kelsea Márquez Clinical Impression: Altered mental status Condition: Stable Coding Level of Care Code ED Fruit Or Nut Picker for Chg Fwd Exam Comprehensive Documented by User: Mukul Phipps MD 07/13/21 21:12 HPI - Altered Mental Status General: Chief Complaint: Altered Mental Status Stated Complaint: AMS, POSSIBLE TOOK TOO MUCH OXY Time Seen by Provider: 07/13/21 15:24 [facility] ED PFSH: Medical History (Updated 07/14/21 @ 06:09 by Kelsea Márquez MD) Anxiety and depression Atrial fibrillation BPH (benign prostatic hyperplasia) Coronary artery disease Diabetes Fibromyalgia GERD (gastroesophageal reflux disease) Hard of hearing Hyperlipidemia Hypertension Migraines Suicide attempt Surgical History History of cholecystectomy History of corneal transplant History of hernia surgery History of left knee surgery Social History Smoking and tobacco status: never smoked Alcohol intake: never Course Vital Signs: Vital signs: Vital Signs Temperature 98.3 F 07/14/21 03:58 Pulse Rate 104 H 07/14/21 03:58 Respiratory Rate 18 07/14/21 03:58 Blood Pressure 139/84 07/14/21 03:58 Pulse Oximetry 92 07/14/21 03:58 MDM - Altered Mental Status MDM Narrative: Medical decision making narrative: Patient presents here with altered mental status and weakness he is quite confused here is no signs of overdose is tolerable is negative work-up here is negative I spoke to hospitalist and will admit. Lab Data: Labs: Lab Results 07/13/21 07/13/21 07/13/21 17:28 17:28 17:28 WBC 12.1 10^3/uL H 10 ^3/uL (4.0-10.0) RBC 3.61 10^6/uL L 10 ^6/uL (4.1-5.3) Hgb 11.0 g/dL L g/dL (11.7-16.6) Hct 32.4 % L % (42.0-52.0) MCV 89.8 fl fl (80-94) MCH 30.5 pg pg (28.0-34.0) MCHC 34.0 g/dL g/dL (30.0-36.0) RDW 13.9 % % (12.1-15.1) Plt Count 221 10^3/cmm 10^3 /cmm (130-400) MPV 8.9 fL fL (7.4-10.4) Neut % (Auto) 88.8 % % Lymph % (Auto) 5.2 % % Mcmullen % (Auto) 5.4 % % Eos % (Auto) 0.0 % % Baso % (Auto) 0.2 % % Neut # (Auto) 10.76 10^3/uL H 1 0^3/uL (1.8-7.7) Lymph # (Auto) 0.6 10^3/uL L 10^ 3/uL (0.8-4.8) Mcmullen # (Auto) 0.7 10^3/uL 10^3/ uL (0.2-0.9) Eos # (Auto) 0.0 10^3/uL 10^3/ uL (0.0-0.8) Baso # (Auto) 0.0 10^3/uL 10^3/ uL (0.0-0.1) Nucleated RBC % (a uto) 0 % % Nucleated RBCs # 0.0 /100WBC /100W BC Sodium 132 mmol/L L mmol /L (136-145) Potassium 3.1 mmol/L L mmol /L (3.5-5.1) Chloride 94 mmol/L L mmol/ L (98-107) Carbon Dioxide 24 mmol/L mmol/L (22-29) Anion Gap 17.1 (5-19) BUN 9 mg/dL mg/dL (8-23) Creatinine 1.0 mg/dL mg/dL (0.7-1.2) GFR Calculation Not Reportable Glucose 163 mg/dL H mg/dL (65-115) Calculated Osmolal ity 276 mOsm/kg L mOs m/kg (285-295) Calcium 8.3 mg/dL L mg/dL (8.5-10.5) Total Bilirubin 1.2 mg/dL mg/dL (0.15-1.2) AST 14 U/L U/L (0-40) ALT 12 U/L U/L (0-41) Alkaline Phosphata se 88 IU/L IU/L (40-130) Creatine Kinase 300 U/L U/L (39-308) Total Protein 7.1 g/dL g/dL (6.6-8.7) Albumin 3.8 g/dL g/dL (3.5-5.2) Globulin 3.3 g/dL g/dL (1.3-4.6) TSH Acetaminophen < 5.0 ug/mL L ug/ mL (10-30) 07/13/21 17:28 WBC RBC Hgb Hct MCV MCH MCHC RDW Plt Count MPV Neut % (Auto) Lymph % (Auto) Mcmullen % (Auto) Eos % (Auto) Baso % (Auto) Neut # (Auto) Lymph # (Auto) Mcmullen # (Auto) Eos # (Auto) Baso # (Auto) Nucleated RBC % (a uto) Nucleated RBCs # Sodium Potassium Chloride Carbon Dioxide Anion Gap BUN Creatinine GFR Calculation Glucose Calculated Osmolal ity Calcium Total Bilirubin AST ALT Alkaline Phosphata se Creatine Kinase Total Protein Albumin Globulin TSH 0.57 uIU/mL uIU/m L (0.27-4.20) Acetaminophen Discharge Plan Discharge Patient Disposition: Admitted As Inpatient Admit Provider: Kelsea Márquez Clinical Impression: Altered mental status Condition: Stable Coding Level of Care Code ED Fruit Or Nut Picker for g Fwd Exam Comprehensive
[2021-07-13] MEDS: LORazepam 2 mg/mL INJ 1 mL IM (16:40)
--- NOTE | 2021-07-13 17:15 | PC.PHAR ---
pt unable to verify medications-pts daughter sloane states the pt takes care of his own medications states they have tired to send nurses in to help but he refuses-sloane states her mother use to take care of his medications but states she in march 2021-medications entered are meds that show have been filled recently in ext med history-notes are made in the pharmacy comments
[2021-07-13 17:45] LABS: Basophils % 0.2 %; Hematocrit 32.4 % (42.0-52.0); Lymphocytes # 0.6 10^3/uL (0.8-4.8); Lymphocytes % 5.2 %; Mean Corpuscular Hemoglobin 30.5 pg (28.0-34.0); Mean Corpuscular Volume 89.8 fl (80-94); Mean Platelet Volume 8.9 fL (7.4-10.4); Monocytes # 0.7 10^3/uL (0.2-0.9); Monocytes % 5.4 %; Neutrophils # 10.76 10^3/uL (1.8-7.7); Neutrophils % 88.8 %; Nucleated Red Blood Cells % 0 %; Platelet Count 221 10^3/cmm (130-400); Red Blood Count 3.61 10^6/uL (4.1-5.3); Red Cell Distribution Width 13.9 % (12.1-15.1); White Blood Count 12.1 10^3/uL (4.0-10.0)
[2021-07-13 18:06] LABS: Alanine Aminotransferase 12 U/L (0-41); Albumin Level 3.8 g/dL (3.5-5.2); Alkaline Phosphatase 88 IU/L (40-130); Anion Gap 17.1 (5-19); Aspartate Amino Transferase 14 U/L (0-40); Blood Urea Nitrogen 9 mg/dL (8-23); Calcium 8.3 mg/dL (8.5-10.5); Carbon Dioxide 24 mmol/L (22-29); Chloride 94 mmol/L (98-107); Creatine Phosphokinase 300 U/L (39-308); Globulin 3.3 g/dL (1.3-4.6); Glucose 163 mg/dL (65-115); Osmolality Calculated 276 mOsm/kg (285-295); Potassium 3.1 mmol/L (3.5-5.1); Sodium 132 mmol/L (136-145); Total Bilirubin 1.2 mg/dL (0.15-1.2); Total Protein 7.1 g/dL (6.6-8.7)
[2021-07-13 18:35] LABS: Acetaminophen < 5.0 ug/mL (10-30)
--- NOTE | 2021-07-13 18:40 | CTR_ITS ---
PROCEDURE INFORMATION: Exam: CT Head Without Contrast Exam date and time: 07/13/2021 6:40 PM Age: 71 years old Clinical indication: Altered mental status/memory loss; Additional info: AMS TECHNIQUE: Imaging protocol: Computed tomography of the head without contrast. Radiation optimization: All CT scans at this facility use at least one of these dose optimization techniques: automated exposure control; mA and/or kV adjustment per patient size (includes targeted exams where dose is matched to clinical indication); or iterative reconstruction. COMPARISON: CT head wo con* [id number] 04/01/2021 6:02 PM RADIATION DOSE METRICS: Total DLP (mGy-cm): 1791.82 FINDINGS: Tubes, catheters and devices: Right cochlear implant. Brain: Normal. No hemorrhage. There are moderate periventricular and subcortical lucencies consistent with chronic microvascular ischemic changes.No mass effect. The edward-white differentiation is maintained. No hemorrhage. No edema. Cerebral ventricles: No ventriculomegaly. Paranasal sinuses: Extensive mucosal thickening of the left maxillary sinus. Mucosal thickening of the right ethmoid sinuses. Mastoid air cells: Visualized mastoid air cells are well aerated. Orbital cavity: Bilateral cataract surgery. Bones/joints: Unremarkable. No acute fracture. Soft tissues: Unremarkable. CT/CT head wo con* [id number] IMPRESSION: No acute intracranial abnormality. Chronic microvascular ischemic changes. Paranasal sinus mucosal disease. Radiation Dose CTDIVOL = (mGy): DLP = 1791.82 (mGy-cm)
--- NOTE | 2021-07-13 18:40 | XRR_ITS ---
PROCEDURE INFORMATION: Exam: XR Chest Exam date and time: 07/13/2021 6:40 PM Age: 71 years old Clinical indication: Other: AMS TECHNIQUE: Imaging protocol: XR of the chest. Views: 1 view. COMPARISON: CR (CHEST, ) 04/01/2021 4:50 AM FINDINGS: Lungs: Unremarkable. No consolidation. Pleural spaces: Unremarkable. No pleural effusion. No pneumothorax. Heart/Mediastinum: Unremarkable. No cardiomegaly. Bones/joints: Hardware in the visualized cervical spine. Air-filled colon in the visualized upper abdomen. XR/XR chest 1V portable 11000 IMPRESSION: No acute abnormality. Radiation Dose CTDIVOL = (mGy): DLP = (mGy-cm)
[2021-07-13 20:10] VITALS: BP 119/80; PULSE 104; RESP 16; O2SAT 96
[2021-07-13 22:26] VITALS: BP 114/78; PULSE 74; RESP 18; O2SAT 98
[2021-07-13 23:17] VITALS: BP 117/76; PULSE 98; RESP 18; O2SAT 96
[2021-07-14] MEDS: LORazepam 2 mg/mL INJ 1 mL 1 MG IVP (00:46)
--- NOTE | 2021-07-14 01:04 | PC.NURSE ---
Pt was noted to have a large amount of money in his wallet when counted on floor 797 dollars.
--- NOTE | 2021-07-14 01:13 | PM.HP ---
Providers/Chief Complaint Admitting Physician: Kelsea áMrquez MD Primary Care Provider: Pastor Lal DO Chief Complaint: AMS, POSSIBLE TOOK TOO MUCH OXY History of Present Illness Florentin Lemon is a 71 year old male with a past medical history as noted below brought to the emergency department due to concerns for altered mental status and possible opiate overdose. His past medical history this year has included COVID-19 in March 2021, appears he was admitted to our hospital in March 2021 thereafter for confusion, underwent change in multiple medications, there were concerns for possible accidental overdose as patient had been managing a lot of his own medications after the passing of his in March from COVID-19. He was discharged to SNF. He presents from home today with altered mental status. At this time patient is unable to tell me his name date of or where he is. He is able to respond in short sentences such as hi , I am fine in response to simple questions. He is ambulating independently, needs frequent redirection, has been walking the hallways in his underwear exhibiting confused behavior. He possibly also has a past medical history of dementia. He is extremely hard of hearing. Daughter reported earlier to the ER that patient filled prescription for oxycodone 3 days ago, however now has 28 pills missing. Uncertain if patient took all of these medications. He currently has no breathing difficulties. Unable to participate in any further history. Review of Systems General: Reports: ROS unobtainable due to medical condition Medications/Allergies Home Medications Medication Instructions Recorded Confirmed Last Taken Type famotidine 40 mg tablet 40 mg PO BEDTIME 02/08/20 07/13/21 Unknown History fenofibrate nanocrystallized 145 145 mg PO BEDTIME 02/08/20 07/13/21 Unknown History mg tablet glimepiride 2 mg tablet 2 mg PO DAILY 02/08/20 07/13/21 Unknown History metoprolol tartrate 25 mg tablet 25 mg PO DAILY 02/08/20 07/13/21 Unknown History tamsulosin 0.4 mg capsule 0.8 mg PO DAILY 02/08/20 07/13/21 Unknown History Levemir U-100 Insulin 14 unit SUBCUT DAILY 04/01/21 07/13/21 Unknown History buspirone 10 mg PO TID 04/01/21 07/13/21 Unknown History montelukast 10 mg PO DAILY 04/01/21 07/13/21 Unknown History olanzapine 5 mg PO DAILY 04/01/21 07/13/21 Unknown History Flonase Allergy Relief 1 spray INTRANASAL DAILY 07/13/21 07/13/21 Unknown History azelastine 2 spray INTRANASAL BID 07/13/21 07/13/21 Unknown History bumetanide 2 mg PO DAILY 07/13/21 07/13/21 Unknown History clonazepam 1 mg PO BID 07/13/21 07/13/21 Unknown History donepezil 5 mg PO BEDTIME 07/13/21 07/13/21 Unknown History esomeprazole magnesium 40 mg PO DAILY 07/13/21 07/13/21 Unknown History meclizine 25 mg PO Q12H PRN 07/13/21 07/13/21 Unknown History metformin 500 mg PO BID 07/13/21 07/13/21 Unknown History methocarbamol 500 mg PO TID 07/13/21 07/13/21 Unknown History mirtazapine 7.5 mg PO BEDTIME 07/13/21 07/13/21 Unknown History oxycodone 30 mg PO Q6H PRN 07/13/21 07/13/21 Unknown History potassium chloride 10 meq PO BID 07/13/21 07/13/21 Unknown History pravastatin 20 mg PO QPM 07/13/21 07/13/21 Unknown History testosterone 2 pump TOPICAL DAILY 07/13/21 07/13/21 Unknown History Allergies Allergy/AdvReac Type Severity Reaction Status Date / Time baclofen Allergy itch Verified 03/03/21 12:44 morphine Allergy low bp Verified 03/03/21 12:44 orphenadrine [From Norflex] Allergy unknown Verified 03/03/21 12:44 paroxetine [From Paxil] Allergy unknown Verified 03/03/21 12:44 PFSH Acute PFSH: Medical History (Updated 07/14/21 @ 06:09 by Kelsea Márquez MD) Anxiety and depression Atrial fibrillation BPH (benign prostatic hyperplasia) Coronary artery disease Diabetes Fibromyalgia GERD (gastroesophageal reflux disease) Hard of hearing Hyperlipidemia Hypertension Migraines Suicide attempt Surgical History History of cholecystectomy History of corneal transplant History of hernia surgery History of left knee surgery Social History Smoking and tobacco status: never smoked Alcohol intake: never Vitals/I&O/Wt Last Vital Signs Temp 98.0 F 07/13/21 15:33 Pulse 98 07/13/21 23:17 Resp 18 07/13/21 23:17 BP 117/76 07/13/21 23:17 Pulse Ox 96 07/13/21 23:17 Weight last 48 hrs Weight 86.183 kg Physical Exam Narrative: EXAM NARRATIVE: General: No acute distress, AO x1, lying in bed HEENT: PERRLA, pupils bilaterally equal and reactive, pallors not present Chest: Normal vesicular breath sounds, no added sounds, equal good air entry bilaterally CVS: S1-S2 regular, no murmurs, no tachycardia, no gallops, no rubs Abdomen: Soft, nontender, no organomegaly, bowel sounds present Neuro: No focal deficits, no facial deformity, AO x1, power 5/5 in all limbs, ambulating in the room and hallway Extremities: B/L LE 2+ pitting edema Data : 07/13/21 17:28 07/13/21 17:28 A&P Assessment and plan (1) Altered mental status: Confused, unclear sense of baseline at present however appears he has been confused dating back at least to March 2021. Unable to reach daughter due to late hour at this time. May be contributed by polypharmacy and also possible accidental opiate overdose. Currently no signs of sepsis. Check UA. CT head without acute intracranial events, chronic microvascular changes only. Check TSH. Continue his Zyprexa which he is on chronically. Avoid any medication which could promote further confusion such as opiates, antihistamines, benzodiazepines. Monitor closely for any withdrawal Continue his buspirone, aricept, remeron. Reassess neuro and mental status over the next 24-48 hrs Continue other chronic medications such as insulin, Bumex, metoprolol, statins, PPI Status: Acute (2) Drug overdose: Status: Acute Attestations Medical Necessity Statement*: Anticipate will need greater than 2 midnight stay for evaluation of confusion, possible opiate overdose, assessment for disposition and safety regarding return to home Coding Level of Care Code Acute Last Pattern Grader for Enrrique Stein Diagnoses Altered mental status R41.82 Drug overdose T50.901A
[2021-07-14 01:25] VITALS: BMI 26.4
--- NOTE | 2021-07-14 01:31 | PC.NURSE ---
Ghosh: Pt noted to have a large amount of ghosh in his wallet. Counted by this nurse and the ER nurse at the bedside when brought up from the ED. $797.00 noted to be in the patient's wallet. Pt is confused and is holding the wallet, will not let staff lock it up for safety.
[2021-07-14 01:49] LABS: Thyroid Stimulating Hormone 0.57 uIU/mL (0.27-4.20)
[2021-07-14] MEDS: enoxaparin 40 mg/0.4 mL Syringe SUBCUT (02:04)
[2021-07-14] MEDS: haloperidol inj 5 mg/mL INJ 1 mL IVP ×2 (03:50→11:00)
[2021-07-14 03:58] VITALS: BP 139/84; PULSE 104; RESP 18; TEMP 36.8; O2SAT 92
[2021-07-14 06:30] LABS: Glucose Point of Care 123 mg/dL (70-110)
--- NOTE | 2021-07-14 07:31 | NUR.SHIFT ---
AM NOTE PT AGGRESSIVE, CONFUSED - MULTIPLE ATTEMPTS TO GET OUT OF BED WITH 1:1 SITTER AT SIDE - GRABS FOR THIS NURSE DURING ATTEMPT TO ASSESS - SPEECH UNCLEAR - DOES NOT FOLLOW SIMPLE VERBAL COMMANDS - NOTED PT CONTINUES TO HOLD WALLET WITH LARGE SUM OF ORTIZ PER NOC NURSE - CONTINUES TO STATE TAKE MY HEARING AIDES OUT - NONE NOTED PER THIS NURSE OR NOC NURSE ONCE UPON ARRIVAL TO FLOOR OVERNIGHT
[2021-07-14] MEDS: haloperidol inj 5 mg/mL INJ 1 mL 2 MG IM (07:52)
[2021-07-14] MEDS: acetaminophen 325 mg Tablet 650 MG PO (08:58)
[2021-07-14] MEDS: bumetanide 1 mg Tablet 2 MG PO (09:14)
[2021-07-14] MEDS: tamsulosin 0.4 mg Capsule 0.8 MG PO (09:15)
[2021-07-14] MEDS: OLANZapine 5 mg TABLET PO (09:15)
[2021-07-14] MEDS: BuSPIRONE 10 mg Tablet PO ×2 (09:16→13:19)
[2021-07-14] MEDS: pantoprazole DR 40 mg Tablet PO (09:16)
[2021-07-14] MEDS: metoprolol tartrate 25 mg Tablet PO (09:16)
[2021-07-14 10:17] VITALS: PULSE 104; O2SAT 92
--- NOTE | 2021-07-14 10:17 | USCV_ITS ---
Florentin Lemon Age: 71 Gender: M : 1950 Exam Date: 07/14/2021 11:00 Ordering Phys: Mehrdad Bunch MD Technologist: Michelle Brown [place] [facility] [place]: AMS BP: 139 / 84 HR: 79 Rhythm: Sinus Technical Quality: Adequate MEASUREMENTS (Male / Female) Normal Values 2D ECHO LV Diastolic Diameter PLAX 4.9 cm 4.2 - 5.9 / 3.9 - 5.3 cm LV Systolic Diameter PLAX 3.9 cm IVS Diastolic Thickness 1.5 cm 0.6 - 1.0 / 0.6 - 0.9 cm IVS Systolic Thickness 1.5 cm LVPW Diastolic Thickness 1.1 cm 0.6 - 1.0 / 0.6 - 0.9 cm LVPW Systolic Thickness 1.7 cm LVOT Diameter 2.0 cm LV Ejection Fraction 2D Teich 42.7 % LV Ejection Fraction MOD 2C 68.6 % LV Ejection Fraction 2C AL 69.1 % LA Diameter 2.6 cm LA Width 3.1 cm LA Height 4.6 cm RA Width 3.6 cm RA Height 4.7 cm Aorta at Sinotubular Diameter 3.4 cm DOPPLER AV Peak Velocity 125.0 cm/s LVOT Peak Velocity 96.0 cm/s AV Area Cont Eq vti 2.5 cm squared AV Area Cont Eq pk 2.4 cm squared MV Peak Velocity 102.0 cm/s MV Area PHT 2.4 cm squared Mitral E to A Ratio 0.6 MV E' Velocity 32.0 cm/s Mitral E to MV E' Ratio 11.7 Mitral E to LV E' Lateral Ratio 12.2 Mitral E to LV E' Septal Ratio 11.5 TR Peak Velocity 86.0 cm/s TR Peak Gradient 3.0 mmHg Right Atrial Pressure 3.0 mmHg Pulmonary Artery Systolic Pressu 6.0 mmHg PV Peak Velocity 67.0 cm/s RV Acceleration Time 0.1 s RV Ejection Time 0.3 s RV AcT/ET 0.2 FINDINGS Left Ventricle Normal left ventricular size. LV systolic function is normal with EF of 55-60%. Septal motion is consistent with conduction abnormality. Grade 1 diastolic dysfunction Right Ventricle The right ventricle is mildly hypokinetic Right Atrium The right atrium is normal in size. Left Atrium The left atrium is normal in size. Mitral Valve Structurally normal mitral valve without significant stenosis or prolapse. There is mild mitral regurgitation. Aortic Valve Structurally normal aortic valve without significant sclerosis or stenosis. There is mild to moderate aortic regurgitation. Tricuspid Valve Structurally normal tricuspid valve without significant stenosis or regurgitation. Insufficient TR jet to calculate RVSP Pulmonic Valve Structurally normal pulmonic valve without significant stenosis. There is no pulmonic regurgitation. Pericardium Normal pericardium without effusion. Aorta Mildly dilated ascending aorta CONCLUSIONS LV systolic function is normal with EF of 55-60% Grade 1 diastolic dysfunction Right ventricle is mildly hypokinetic Mild mitral regurgitation Mild to moderate aortic regurgitation Mildly dilated ascending aorta No comparison studies are available Serge Moy MD (Electronically Signed) Final Date: 14 July 2021 13:53 S
--- NOTE | 2021-07-14 10:17 | USCV_ITS ---
Florentin Lemon Age: 71 Gender: M : 1950 Exam Date: 07/14/2021 10:38 Ordering Phys: Mehrdad Bunch MD Technologist: Michelle Brown [place] [facility] [place]: AMS Risk Factors: Unknown Previous Vascular Surgery: None Right Brachial BP: / Left Brachial BP: / Right Left Velocity (cm/s) Spectral Plaque Velocity (cm/s) Spectral Plaque Syst/Diast Broadening Syst/Diast Broadening 50.70/ 7.00 Prox CCA 54.70 / 9.40 45.20/ 11.70 Mid CCA 59.00 / 13.70 42.90/ 10.10 Wm Distal CCA 53.80 / 12.80 Hetro 37.50/ 9.90 Hetro Prox ICA 71.70 / 16.50 Hetro 34.70/ 11.20 Mid ICA 83.80 / 23.20 34.70/ 12.80 Distal ICA 75.00 / 26.50 58.50 ECA 74.30 0.74 ICA/CCA 1.27 Antegrade Vertebral Antegrade 34.70/ 7.50 cm/s 38.50/ 17.60 cm/s Tri Subclavian Tri 174.0 157.8 0 0 FINDINGS Technically difficult examination CONCLUSIONS Right ICA stenosis <50%. Moderate Calcified atheromatous plaque right carotid bulb/ICA. Left ICA stenosis <50%. Moderate Calcified atheromatous plaque left carotid bulb/ICA. Normal antegrade Doppler flow noted in the right vertebral artery. Normal antegrade Doppler flow noted in the left vertebral artery. Gerald Madsen MD (Electronically Signed) Final Date: 14 July 2021 17:03 S
--- NOTE | 2021-07-14 10:51 | PC.NURSE ---
ROUNDING UPDATE NO CHANGE IN PTS CONDITION SINCE THIS NURSE TAKEN OVER - PT REMAINS CONFUSED - AGGRESSIVE, COMBATIVE AT TIMES, WILL NOT REMAIN IN BED - 1:1 AT SIDE CURRENTLY - WILL AWAIT FURTHER ORDERS AND WORK TO KEEP PT SAFE HE IS UNSTABLE WHEN UP
[2021-07-14] MEDS: cefTRIAXone 1,000 MG in sodium chloride 0.9% (plus) 50 ML 100 MG IV (11:01)
--- NOTE | 2021-07-14 11:04 | PC.NURSE ---
URINE COLLECTION THIS NURSE AND 1:1 BOTH AWARE OF NEED FOR URINE SPECIMEN - PT REFUSES TO VOID IN URINAL
[2021-07-14 11:41] VITALS: BP 122/79; PULSE 85; RESP 18; TEMP 36.1; O2SAT 96
[2021-07-14 12:01] LABS: Ammonia 37 umol/L (16-60)
[2021-07-14 12:02] LABS: C Reactive Protein 84.4 mg/L (0.0-4.9)
[2021-07-14 12:08] LABS: Procalcitonin 0.14 ng/mL (0-0.5)
[2021-07-14 12:15] LABS: Glucose Point of Care 124 mg/dL (70-110)
--- NOTE | 2021-07-14 12:20 | PC.NURSE ---
Sea BURNS NEW ORDERS REC'D REGARDING IV POTASSIUM
[2021-07-14 12:38] LABS: Add Urine Culture? Yes; Add Urine Microscopic? YES; Bilirubin Urine Neg (Negative); Blood Urine Neg (Negative); Glucose Urine UA Norm (Normal); Ketones Urine Negative (Negative); Leukocyte Esterase Urine 1+ (Negative); Nitrate Urine Negative (Negative); Protein Urine Neg (Negative); RBC Urine 0-4 /hpf (0-2); Specific Gravity, Urine 1.005 (1.005-1.030); Squamous Epithelial Cell Urine 0-4 /hpf (0-5); Urine Appearance SL Hazy (CLEAR); Urine Color Colorless (Yellow); Urobilinogen Urine Norm (Negative); WBC Urine 15-25 /hpf (0-5); pH Urine 7 (5-7)
[2021-07-14 12:41] LABS: Bacteria Urine 2+ /hpf
--- NOTE | 2021-07-14 13:05 | PC.NURSE ---
DR RAN TONG NOTIFIED OF PTS INCREASE IN AGITATION AND COMBATIVNESS - NEW ORDERS GIVEN
[2021-07-14] MEDS: ziprasidone 20 mg/mL SDV 10 MG IM (13:19)
[2021-07-14] MEDS: potassium chloride ER 20 mEq Tablet 40 MEQ PO (13:21)
[2021-07-14] MEDS: water for injection-sterile 10 ML (13:22)
--- NOTE | 2021-07-14 14:21 | PC.NURSE ---
INCREASED AGITATION FURTHER INCREASE IN AGITATION - PT WILL NOT STAY IN BED OR SIT IN CHAIR - CONSTANTLY WONDERING IN ROOM - 1:1 HAVING DIFFICULTY KEEPING PT STEADY - DR TONG NOTIFIED - NEW ORDERS REC'D
[2021-07-14] MEDS: LORazepam 2 mg/mL INJ 1 mL IVP (14:29)
[2021-07-14 15:44] VITALS: BP 133/83; PULSE 81; RESP 18; TEMP 36.3; O2SAT 99
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
[2021-07-14] MEDS: atorvastatin 40 mg Tablet 20 MG PO (17:05)
[2021-07-14] MEDS: diphenhydrAMINE 50 mg Capsule PO ×2 (17:05)
[2021-07-14 17:28] LABS: Glucose Point of Care 151 mg/dL (70-110)
--- NOTE | 2021-07-14 17:50 | PC.NURSE ---
END OF SHIFT SUMMARY NO CHANGE IN PATIENTS CONDITION THROUGHOUT THIS SHIFT - PT HAS REMAINED CONFUSED, COMBATIVE AND AGGRESSIVE AT TIMES, UP WANDERING IN ROOM MOST OF SHIFT - PT UNSTABLE WHEN UP - DR TONG HAS BEEN NOTIFIED MULTIPLE TIMES THROUGHOUT THE SHIFT REGARDING ABOVE SITUATION - NEW ORDER'S REC'D - MULTIPLE PRN MEDICATIONS GIVEN WITH LITTLE TO NO RESULT - PT HAS BEEN TEARFUL OFF AND ON THROUGHOUT SHIFT MAKING STATEMENTS SUCH I CAN'T BELIEVE YOUVE DONE THIS TO ME, YOU'VE TAKEN ALL OF MY MONEY, I HAVE NOTHING LEFT TO PAY MY BILLS PT HAS NOT BEEN ORIENTATED THROUGHOUT THIS SHIFT FOR THIS NURSE - AWAIS RN OB HAS REMAINED AT PTS SIDE THROUGHOUT SHIFT - PT REFUSES TO GIVE UP WALLET OR LET STAFF SEE - PER THIS NURSE - NIA MUÑOZ PASSED ON IN REPORT THAT ORTIZ IN WALLET WAS PREVIOUSLY COUNTED
[2021-07-14 19:52] VITALS: BP 147/80; PULSE 84; RESP 16; TEMP 36.8; O2SAT 98
[2021-07-14 20:15] LABS: Glucose Point of Care 203 mg/dL (70-110)
[2021-07-14] MEDS: insulin lispro 100 unit/1 mL SUBCUT (20:54)
[2021-07-14 23:44] VITALS: BP 143/70; PULSE 93; RESP 16; TEMP 36.7; O2SAT 97
[2021-07-15] MEDS: donepezil 5 MG Tablet PO ×2 (00:44→20:17)
[2021-07-15] MEDS: fenofibrate 145 mg Tablet PO ×2 (00:44→20:17)
[2021-07-15] MEDS: mirtazapine 15 mg Tablet 7.5 MG PO ×2 (00:44→20:17)
[2021-07-15] MEDS: BuSPIRONE 10 mg Tablet PO ×4 (00:44→20:17)
[2021-07-15] MEDS: enoxaparin 40 mg/0.4 mL Syringe SUBCUT (01:23)
[2021-07-15 03:21] VITALS: BP 154/84; PULSE 94; RESP 17; TEMP 36.6; O2SAT 95
[2021-07-15] MEDS: haloperidol inj 5 mg/mL INJ 1 mL IVP ×2 (03:59→12:03)
[2021-07-15 06:32] LABS: Glucose Point of Care 119 mg/dL (70-110)
[2021-07-15 08:00] VITALS: BP 155/82; PULSE 79; RESP 17; O2SAT 98
[2021-07-15] MEDS: OLANZapine 5 mg TABLET PO (10:08)
[2021-07-15] MEDS: tamsulosin 0.4 mg Capsule 0.8 MG PO (10:08)
[2021-07-15] MEDS: bumetanide 1 mg Tablet 2 MG PO (10:08)
[2021-07-15] MEDS: pantoprazole DR 40 mg Tablet PO (10:08)
[2021-07-15] MEDS: metoprolol tartrate 25 mg Tablet PO (10:09)
[2021-07-15] MEDS: cefTRIAXone 1,000 MG in sodium chloride 0.9% (plus) 50 ML 100 MG IV (10:09)
[2021-07-15 12:20] LABS: Glucose Point of Care 201 mg/dL (70-110)
[2021-07-15 12:20] LABS: Glucose Point of Care 554 mg/dL (70-110)
--- NOTE | 2021-07-15 12:28 | PC.NURSE ---
THIS NURSE LOCKED PATIENT'S WALLET IN THE [facility] WHILE HE IS GONE TO MRI.
[2021-07-15] MEDS: insulin lispro 100 unit/1 mL SUBCUT ×2 (12:54→21:02)
[2021-07-15 14:23] LABS: Erythrocyte Sedimentation Rate 53 mm/hr (0-10)
--- NOTE | 2021-07-15 14:59 | PM.PN ---
Subjective Subjective: Interval history: Patient was seen this morning, no episodes of agitation overnight, this morning he does arouse, he does respond to his name, does follow some commands, but falls back asleep, overnight afebrile, normotensive, saturating high 90s on room air, no episodes of agitation this morning I reached out to patient's family, I reached patient's udhipd-xl-oow, she tells me that recently patient's passed of Covid, she took care of him, did everything for him around the house, when she , he did not have anybody to take care of her, when he came to the hospital, he was eventually sent to the detention, he was doing well at the detention, normally can ambulate on himself, can feed himself, does have memory problems, with his dementia, but could carry out conversations, recognize family members, and family was quite pleased with her progress, 1 of patient's daughter Christa, wanted to take care of Florentin, so she took him out of the detention, and start taking care of him, according to llpild-qh-eqc she did a good job, until they had a disagreement, sometime last week, and she abruptly left, Florentin was left by himself at his house, and nobody to take care of him, his brother and [id number] did their best to try to help him, he was doing relatively okay, on Tuesday, they picked up all his medications, and they were absolutely sure that there was 120 tablets that they picked up of the oxycodone, his qvrafe-ko-mbd tells me that he is overdose in the past, as he takes too much of his pain medications at times, they are not sure if deliberately or after accidentally, he is overdosed in the past, he has been hospitalized at [facility] for overdose, he is actually had fights with his 2 daughters over how much pain medications he takes. Family saw him on Tuesday, he was doing well, no significant complaints, no fevers, no cough, no headaches, no blurry vision. However on Tuesday the family did not hear from him, so they checked up on him, and found him in bed, shallow breathing, nonresponsive, and they were worried that he had overdose, his kfzkbl-tb-suw tells me all his pills were missing, so they thought that he might of accidentally or purposefully taken too much medication, they are not sure, so they called EMS. Vitals/I&O/Wt Last Vital Signs Temp 97.8 F 07/15/21 03:21 Pulse 79 07/15/21 08:00 Resp 17 07/15/21 08:00 BP 155/82 07/15/21 08:00 Pulse Ox 98 07/15/21 08:00 07/14/21 07/15/21 07/15/21 22:59 06:59 14:59 Intake Total 410 / 410 260 / 670 43.333 / 43.333 Balance 410 / 410 260 / 670 43.333 / 43.333 Weight last 48 hrs Weight 86.183 kg Weight 86.183 kg Physical Exam Const: COMMON NORMALS: no acute distress ORIENTATION/CONSCIOUSNESS: Yes awake, Yes oriented to person and Yes confused; not oriented to place and not oriented to time Chest: COMMONS NORMALS: normal inspection of the chest Resp: COMMON NORMALS: normal respiratory effort, No retractions and No use of accessory muscles Cardio: COMMON NORMALS: regular rate, regular rhythm, S1 normal heart sound present and S2 normal heart sound present RATE: regular rate RHYTHM: regular rhythm HEART SOUNDS: S1 normal heart sound present and S2 normal heart sound present GI: COMMON NORMALS: Normal to inspection, nondistended, normoactive bowel sounds present and Soft to palpation PALPATION: Yes Soft to palpation Extremity: COMMON NORMALS: no pedal edema Neuro: SENSORIUM/ORIENTATION: Yes oriented to person, No oriented to place and No oriented to time Data : 07/13/21 17:28 07/13/21 17:28 Micro: Microbiology 07/14/21 12:10 Urine Culture - Preliminary Urine,Clean Catch Gram Negative Rods A&P Assessment and plan (1) Altered mental status: Currently confused alert to person, not to place, not to time, drowsy According to family alert to person, to place, to time, follows commands Has had episode of agitation, and combativeness with nursing staff, patient's qbqcoz-bx-riv tells me that that is not uncommon for him, especially when he is taking too much of his oxycodone May be contributed by polypharmacy and also possible accidental opiate overdose. Currently possibly undergoing opiate withdrawal Currently no signs of sepsis. UA with possible evidence of UTI, started on Rocephin. CT head without acute intracranial events, chronic microvascular changes only. TSH within normal limits, ammonia within normal limits, acetaminophen levels within normal limits Toxicology screen pending Carotid artery ultrasound within normal limits Cardiac echo EF 50 to 55%, diastolic dysfunction, right ventricular is mildly hypokinetic, mild to moderate aortic regurg, mildly dilated ascending aorta Continue his Zyprexa which he is on chronically. Haldol as needed for agitation Avoid any medication which could promote further confusion such as opiates, antihistamines, benzodiazepines. Monitor closely for any withdrawal Continue his buspirone, aricept, remeron. Monitor QT interval We will order MRI of the brain today, will consider lumbar puncture Monitor for opiate withdrawal Reassess neuro and mental status over the next 24-48 hrs Continue other chronic medications such as insulin, Bumex, metoprolol, statins, PPI Status: Acute (2) Drug overdose: Status: Acute Attestations Medical Necessity Statement*: Patient requires hospitalization for concerns for opiate overdose, altered mental status, possibly undergoing opiate withdrawal Coding Level of Care Code Acute Clinic Specialist for Enrrique Stein Diagnoses Altered mental status R41.82 Drug overdose T50.906L
[2021-07-15] MEDS: potassium chloride ER 20 mEq Tablet 40 MEQ PO (15:43)
[2021-07-15 15:53] VITALS: BP 122/85; PULSE 83; RESP 17; TEMP 36.2; O2SAT 100
[2021-07-15] MEDS: atorvastatin 40 mg Tablet 20 MG PO (18:07)
[2021-07-15 19:39] VITALS: BP 117/78; PULSE 78; RESP 16; TEMP 36.3; O2SAT 98
[2021-07-15] MEDS: LORazepam 2 mg/mL INJ 1 mL 1 MG IVP (22:27)
[2021-07-16 04:00] VITALS: BP 136/87; PULSE 92; RESP 16; TEMP 36.8; O2SAT 94
--- NOTE | 2021-07-16 05:32 | PC.NURSE ---
Patient AAOx1 but completely [place] and needs us to write down on paper for him to know what we need or ask. Patient is very impulsive and confused. Sitter 1:1 throughout shift. No needs at this time. No new events. Room clutter free and call light in reach.
[2021-07-16 06:12] LABS: Basophils % 0.7 %; Eosinophils # 0.3 10^3/uL (0.0-0.8); Eosinophils % 6.9 %; Hematocrit 32.6 % (42.0-52.0); Lymphocytes # 1.1 10^3/uL (0.8-4.8); Lymphocytes % 23.7 %; Mean Corpuscular HGB Conc 33.7 g/dL (30.0-36.0); Mean Corpuscular Hemoglobin 30.2 pg (28.0-34.0); Mean Corpuscular Volume 89.6 fl (80-94); Mean Platelet Volume 9.3 fL (7.4-10.4); Monocytes # 0.5 10^3/uL (0.2-0.9); Monocytes % 11.6 %; Neutrophils # 2.55 10^3/uL (1.8-7.7); Neutrophils % 56.9 %; Nucleated Red Blood Cells % 0 %; Platelet Count 256 10^3/cmm (130-400); Red Blood Count 3.64 10^6/uL (4.1-5.3); Red Cell Distribution Width 13.9 % (12.1-15.1); White Blood Count 4.5 10^3/uL (4.0-10.0)
[2021-07-16 06:36] LABS: Alanine Aminotransferase 10 U/L (0-41); Albumin Level 3.4 g/dL (3.5-5.2); Alkaline Phosphatase 68 IU/L (40-130); Anion Gap 12.8 (5-19); Aspartate Amino Transferase 17 U/L (0-40); Blood Urea Nitrogen 7 mg/dL (8-23); Calcium 8.2 mg/dL (8.5-10.5); Carbon Dioxide 26 mmol/L (22-29); Chloride 101 mmol/L (98-107); Globulin 2.8 g/dL (1.3-4.6); Glucose 134 mg/dL (65-115); Osmolality Calculated 284 mOsm/kg (285-295); Sodium 137 mmol/L (136-145); Total Bilirubin 0.4 mg/dL (0.15-1.2); Total Protein 6.2 g/dL (6.6-8.7)
[2021-07-16 07:17] LABS: Potassium 2.8 mmol/L (3.5-5.1)
[2021-07-16 08:00] VITALS: BP 145/81; PULSE 95; RESP 16; TEMP 36.8; O2SAT 96
[2021-07-16] MEDS: acetaminophen 325 mg Tablet 650 MG PO ×2 (08:20→14:33)
[2021-07-16] MEDS: tamsulosin 0.4 mg Capsule 0.8 MG PO (08:21)
[2021-07-16] MEDS: BuSPIRONE 10 mg Tablet PO ×3 (08:21→20:31)
[2021-07-16] MEDS: bumetanide 1 mg Tablet 2 MG PO (08:21)
[2021-07-16] MEDS: pantoprazole DR 40 mg Tablet PO (08:21)
[2021-07-16] MEDS: metoprolol tartrate 25 mg Tablet PO (08:21)
[2021-07-16] MEDS: OLANZapine 5 mg TABLET PO (08:21)
[2021-07-16] MEDS: insulin lispro 100 unit/1 mL SUBCUT ×4 (08:57→20:41)
[2021-07-16 10:36] LABS: Glucose Point of Care 191 mg/dL (70-110)
[2021-07-16 10:36] LABS: Glucose Point of Care 118 mg/dL (70-110)
[2021-07-16 10:37] LABS: Glucose Point of Care 156 mg/dL (70-110)
[2021-07-16 10:37] LABS: Glucose Point of Care 137 mg/dL (70-110)
[2021-07-16] MEDS: potassium chloride ER 20 mEq Tablet 40 MEQ PO (11:05)
[2021-07-16] MEDS: cefTRIAXone 1,000 MG in sodium chloride 0.9% (plus) 50 ML 100 MG IV (11:05)
[2021-07-16 11:26] LABS: Glucose Point of Care 152 mg/dL (70-110)
[2021-07-16 11:49] VITALS: BP 118/70; PULSE 82; RESP 16; TEMP 36.9; O2SAT 95
--- NOTE | 2021-07-16 13:52 | PC.SOCIAL ---
IMM Update: pg 2 of IMM updated and reviewed w/ patient. Copy provided.
--- NOTE | 2021-07-16 15:18 | PM.PN ---
Subjective Subjective: Interval history: Patient was seen this morning, his brother and kmuqoe-kk-bzp are at bedside, they have brought his cochlear implant, patient asked me why was he here in the hospital, advised him that he took too much of his oxycodone, he did not realize that he took too much of this medication, I asked him if he took any other of his medications, he tells he is not sure, but his rksfxo-ki-nss pointed out to me that many of his clonazepam were also missing, he denies any headaches, no blurry vision, no nausea, no vomiting, no focal neurologic deficits, was able to ambulate to the bathroom, no slurring of his words, no fevers, no cough, he does not remember what had happened, he was surprised to learn that his family found him in at his home nonresponsive. I advised patient that currently he does not have anybody to take care of him, his family cannot take care of him, he tells me that he wants to go home, he does not want to go to a group home, he will kill himself to be closer group home, he is jpmkmblp-[id number]-odz at bedside is quite emotional, tells him that he will will not let him , that his sister will not let him , they will care about him, they want him to do well, but there is nobody to take care of him, his 2 daughters have left him, and there is nobody to take care of them presently. Patient kept repeating that he does not want to go to a group home, no hurt himself if he goes there, Vitals/I&O/Wt Last Vital Signs Temp 98.4 F 07/16/21 11:49 Pulse 82 07/16/21 11:49 Resp 16 07/16/21 11:49 BP 118/70 07/16/21 11:49 Pulse Ox 95 07/16/21 11:49 07/16/21 07/16/21 07/16/21 06:59 14:59 22:59 Intake Total 600 / 1380.000 50 / 50 Balance 600 / 1380.000 50 / 50 Physical Exam Const: COMMON NORMALS: no acute distress ORIENTATION/CONSCIOUSNESS: Yes awake, Yes oriented to person and Yes oriented to place; not oriented to time Chest: COMMONS NORMALS: normal inspection of the chest Resp: COMMON NORMALS: normal respiratory effort, No retractions, No use of accessory muscles and clear to auscultation bilaterally AUSCULTATION: clear to auscultation bilaterally Cardio: COMMON NORMALS: regular rate, regular rhythm, S1 normal heart sound present and S2 normal heart sound present RATE: regular rate RHYTHM: regular rhythm HEART SOUNDS: S1 normal heart sound present and S2 normal heart sound present GI: COMMON NORMALS: Normal to inspection, nondistended, normoactive bowel sounds present, Soft to palpation and non-tender PALPATION: Yes Soft to palpation Extremity: COMMON NORMALS: no pedal edema Neuro: SENSORIUM/ORIENTATION: Yes oriented to person, Yes oriented to place and No oriented to time Psych: COMMON NORMALS: mental status grossly normal Data : 07/16/21 05:15 07/16/21 05:15 Micro: Microbiology 07/14/21 12:10 Urine Culture - Final Urine,Clean Catch Klebsiella pneumoniae A&P Assessment and plan (1) Altered mental status: Currently alert to person, to place, not to time, follows all commands According to family alert to person, to place, to time, follows commands Has had episode of agitation, and combativeness with nursing staff, patient's ylnfjy-bt-jvp tells me that that, is not uncommon for him, especially when he is taking too much of his oxycodone, no current episodes of agitation Currently over opiate overdose, from what it sounds from patient overdose was accidental, no intention for self-harm Currently over opiate withdrawal Currently no signs of sepsis. UA with possible evidence of UTI, started on Rocephin. CT head without acute intracranial events, chronic microvascular changes only. TSH within normal limits, ammonia within normal limits, acetaminophen levels within normal limits Toxicology screen pending Carotid artery ultrasound within normal limits Cardiac echo EF 50 to 55%, diastolic dysfunction, right ventricular is mildly hypokinetic, mild to moderate aortic regurg, mildly dilated ascending aorta Continue his Zyprexa which he is on chronically. Haldol as needed for agitation Avoid any medication which could promote further confusion such as opiates, antihistamines, benzodiazepines. Monitor closely for any withdrawal Continue his buspirone, aricept, remeron. Monitor QT interval Hold off on MRI, lumbar puncture as his mentation is back to baseline Monitor for opiate withdrawal Continue other chronic medications such as insulin, Bumex, metoprolol, statins, PPI Status: Acute (2) Drug overdose: Status: Acute (3) Suicidal ideation: -Has reported suicidal ideation -Declines to go to the group home -He is drug overdose was not intentional, however has had another hospitalization at [facility] for drug overdose, his oxycodone -We will have Dr. Warner, see patient, suicidal ideation, determine capacity Status: Acute Attestations Medical Necessity Statement*: Patient requires hospitalization for altered mental status, opiate withdrawal, suicidal ideation Coding Level of Care Code Acute Faculty Research Physician for [employer] Fwd Diagnoses Altered mental status R41.82 Drug overdose T50.901A Suicidal ideation R45.851
[2021-07-16 15:43] VITALS: BP 127/77; PULSE 80; RESP 16; TEMP 36.5; O2SAT 97
--- NOTE | 2021-07-16 16:03 | P.NPUCON_ITS ---
Providers/Reason for Consult Consulting Physican/Specialty*: Lacho Warner MD. Psychiatry. Reason for Consult*: Capacity Attending Physician: Mehrdad Bunch MD Primary Care Provider: Pastor Lal DO Psych Consult HPI History of Present Illness Florentin Lemon is a 71 year old male who presented to the emergency department with the following report: Chief Complaint: Altered Mental Status Stated Complaint: AMS, POSSIBLE TOOK TOO MUCH OXY Time Seen by Provider: 07/13/21 15:24 History of Present Illness: HPI narrative: 71-year-old male with a history of dementia family states he filled medications 3 days ago and that time is asked codon has 28 last pills. Is a very poor historian is extremely poor hearing and cannot write. He was transported here from over 60 miles away. He states he is uncomfortable he is trying to urinate multiple times but is unable to do so. complaint: confusion Onset (ago): hour(s) Severity: moderate Consistency of symptoms: Constant Associated symptoms: Deny auditory hallucinations or visual hallucinations. He was admitted to the [facility] department for definitive treatment of those issues. A psychiatric consult was requested to identify whether he has capacity for decision-making. He is known to this proposal writer from past evaluations for capacity. An excerpt of his initial psychiatric consultation was included below for context. That being said on his examination this time he was unable to give me a basic explanation of why he was in the hospital he continued to say he did not know and that he had no idea why he was here. He has no idea what they did for him but could tell that he is doing better. He reports that he would prefer to go home but he understands that he has no choice but to go to the group home given the limitations in his own self-care as well as anyone who could provide assistance to him. We reviewed the different tenets of capacity and the conclusion is included below. He did eventually report that one issue might be that he took too many of his opiate medications. He denied that it was a s uicide attempt and just reported that he was unable to track his medication intake. Per his 04/02/2021 [facility] psychiatric consultation: History of Present Illness Florentin Lemon is a 70 year old male who presented to the emergency department with the following report: Chief complaint: Shortness of Breath/Dyspnea Stated complaint: SOB Time Seen by Provider: 04/01/21 04:40 History of Present Illness: HPI narrative: This patient is a 70-year-old male who presents to the emergency department with concerns of possible overdose of medication misuse. Patient was discharged yesterday evening from [facility] and had been admitted to their hospital for several days due to Covid issues. This patient's family has had multiple family members due to Covid. Patient's and [id number] are both upstairs in our ICU due to Covid. Patient was discharged and apparently was found in the living room sitting in a chair with a mouthful of pills. Patient presents with the medicine bottle and has a multiple different kinds of pills in the bottle and a list take to the bottle of about 5 different medications including Klonopin. Patient has had a history of overdose accidentally in the past. 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 Patient appears to be at his baseline. Patient's O2 sat is 93% on room air however will desat if he gets up and tries to ambulate. EMS brought the patient and on a nasal cannula at 2 L at 97%. Patient denies suicidal ideation. Family member at the home that found the patient with his pills is concerned. States that they do not know what those pills are either. Or where he got them. Patient spouse is usually handled his medications. We will do medical evaluation treat as needed Onset (ago): hour(s) Severity: moderate Associated symptoms: Deny chest pain, dyspnea, headache(s), nausea, rash, palpitations or vomiting. He was admitted to [facility] for definitive treatment of those issues. A psychiatric consult was requested for insight into his capacity. Florentin presents today fairly limited in his capacity as a historian. He is side with both device and visual limitations as well. He is Covid positive. He was unable to hear even with me speaking extremely loud, but there was the limitation of the wearing of mask stifling sound and removing his ability to see my lips moving. But he also appears limited when written communication was attempted. I wrote on a clipboard that he was able to hold and bring close to him how are you feeling today? He read the statement/question out mild and then looked at me confusingly. When I pointed at it again, he looked at it again read again and look at me without being able to appreciate my attempt to have a communication on conversation with him. He did very clearly asked what time it was and this proposal writer wrote very clearly 12:20 PM and he seemed to struggle with reading it or understanding it seeming to ignore the 1 and call it 2:20 p.m. he was unable to communicate or answer further questions. Meds Current Medications: Current Medications Generic Name Dose Route Start Last Admin Trade Name Freq PRN Reason Stop Dose Admin Acetaminophen 650 mg 07/14/21 01:13 07/17/21 05:58 Acetaminophen 32 5 Mg Tablet PO 650 mg Q6H PRN Administration Mild/Mod Pain Or Temp >/= 101 Atorvastatin Calci um 20 mg 07/14/21 18:00 07/16/21 18:14 Atorvastatin 40 Mg Tablet PO 20 mg QPM JETT Administration Bumetanide 2 mg 07/14/21 09:00 07/16/21 08:21 Bumetanide 1 Mg Tablet PO 2 mg DAILY JETT Administration Buspirone HCl 10 mg 07/14/21 09:00 07/16/21 20:31 Buspirone 10 Mg Tablet PO 10 mg TID JETT Administration Donepezil HCl 5 mg 07/14/21 21:00 07/16/21 20:31 Donepezil 5 Mg T ablet PO 5 mg BEDTIME JETT Administration Enoxaparin Sodium 40 mg 07/14/21 01:30 07/15/21 01:23 Enoxaparin 40 Mg /0.4 Ml Syringe SUBCUT 40 mg Q24H JETT Administration Fenofibrate 145 mg 07/14/21 21:00 07/16/21 20:31 Fenofibrate 145 Mg Tablet PO 145 mg BEDTIME JETT Administration Haloperidol Lactat e 0.5 mg 07/14/21 03:37 07/15/21 12:03 Haloperidol Inj 5 Mg/Ml Inj 1 Ml IVP 0.5 mg Q4H PRN Administration AGITATION Ceftriaxone Sodium 1,000 mg/ 50 mls @ 100 mls/ hr 07/14/21 10:15 07/16/21 11:42 Sodium Chloride IV Infused Q24H JETT Infusion Protocol Insulin Detemir 14 unit 07/14/21 09:00 07/16/21 11:05 Insulin Detemir 100 Units/1 Ml SUBCUT 14 unit DAILY JETT Administration Insulin Human Lisp ro 0 unit 07/14/21 08:00 07/16/21 20:41 Insulin Lispro 1 00 Unit/1 Ml SUBCUT 2 unit WM&BEDTIME JETT Administration Protocol Lorazepam 1 mg 07/15/21 09:59 07/15/21 22:27 Lorazepam 2 Mg/M l Inj 1 Ml IVP 1 mg Q4H PRN Administration ANXIETY Metoprolol Tartrat e 25 mg 07/14/21 09:00 07/16/21 08:21 Metoprolol Tartr ate 25 Mg Tablet PO 25 mg DAILY JETT Administration Mirtazapine 7.5 mg 07/14/21 21:00 07/16/21 20:32 Mirtazapine 15 M g Tablet PO 7.5 mg BEDTIME JETT Administration Olanzapine 5 mg 07/14/21 09:00 07/16/21 08:21 Olanzapine 5 Mg Tablet PO 5 mg DAILY JETT Administration Pantoprazole Sodiu m 40 mg 07/14/21 09:00 07/16/21 08:[address] 40 Mg Tablet PO 40 mg DAILY JETT Administration Tamsulosin HCl 0.8 mg 07/14/21 09:00 07/16/21 08:21 Tamsulosin 0.4 M g Capsule PO 0.8 mg DAILY JETT Administration PFSH NPU PFSH: Medical History (Updated 07/18/21 @ 16:40 by Lacho Warner MD) Anxiety and depression Atrial fibrillation BPH (benign prostatic hyperplasia) Coronary artery disease Diabetes Fibromyalgia GERD (gastroesophageal reflux disease) Hard of hearing Hyperlipidemia Hypertension Migraines Suicide attempt Surgical History History of cholecystectomy History of corneal transplant History of hernia surgery History of left knee surgery Social History Smoking and tobacco status: never smoked Alcohol intake: never Mental Status Exam MSE Comments: This is a well-nourished well-developed white male in his home clothing with adequate grooming and eye contact. No abnormal movements except for psychomotor retardation. Cooperative with exam in no acute distress. Speech was limited but normal rate and volume. Mood described as okay affect congruent. Thought process mostly organized. Thought content: Patient denied suicidal or homicidal ideation, there were no delusions reported or noted, he denied any auditory or visual hallucinations. Attention and concentration were limited and memory was unreliable but none were formally tested. He is alert and oriented to person and mostly place. Insight and judgment are impaired, impulse control is impaired. Vitals/I&O/Wt Last Vital Signs Temp 97.7 F 07/16/21 15:43 Pulse 80 07/16/21 15:43 Resp 16 07/16/21 15:43 BP 127/77 07/16/21 15:43 Pulse Ox 97 07/16/21 15:43 07/16/21 14:59 Intake Total 50 / 50 Balance 50 / 50 Data NPU Micro: Micro: Microbiology 07/14/21 12:10 Urine Culture - Fi nal Urine,Clean Catch Klebsiella pneu moniae Microbiology 07/14/21 12:10 Urine,Clean Catch Urine Culture - Final Klebsiella pneumoniae A&P Assessment and plan (1) Suicidal ideation: Status: Acute (2) Drug overdose: Status: Acute (3) Altered mental status: Status: Acute (4) Dementia: Status: Acute Additional A&P Information This is a 71-year-old white male with a reported history of mental health who presents with mild to moderate dementia with a consult for his decision making capacity. 1. Continue current medication. 2. Currently patient continues to demonstrate lack of capacity/ability to make informed consent. He was able to say that he would prefer to go home and endorsed understanding that for his own safety he should go to the group home. But he was unable to demonstrate having understanding of his condition, the ability to express possible outcomes as relates to him, and clearly is unable to weigh risk benefits in a way that leads to a rational conclusion thus his capacity is lacking. 3. Please reconsult if there are any new questions. Attestations NPU Medical Necessity Statement*: N/A. Please see primary team note for medical necessity however there is no current need for acute/inpatient psychiatric treatment. Coding Level of Care Code Acute Full Service Supervisor for Enrrique Stein Diagnoses Suicidal ideation R45.851 Drug overdose T50.901A Altered mental status R41.82 Dementia F03.90
[2021-07-16 17:43] LABS: Glucose Point of Care 152 mg/dL (70-110)
[2021-07-16] MEDS: atorvastatin 40 mg Tablet 20 MG PO (18:14)
[2021-07-16 19:38] VITALS: BP 127/77; PULSE 87; RESP 18; TEMP 36.8; O2SAT 97
[2021-07-16] MEDS: donepezil 5 MG Tablet PO (20:31)
[2021-07-16] MEDS: fenofibrate 145 mg Tablet PO (20:31)
[2021-07-16] MEDS: mirtazapine 15 mg Tablet 7.5 MG PO (20:32)
[2021-07-16 20:49] LABS: Glucose Point of Care 143 mg/dL (70-110)
[2021-07-16 23:18] VITALS: BP 113/66; PULSE 64; RESP 16; TEMP 36.8; O2SAT 95
[2021-07-17 04:00] VITALS: BP 131/79; PULSE 102; RESP 16; TEMP 36.3; O2SAT 99
[2021-07-17 05:44] LABS: Basophils % 0.6 %; Eosinophils # 0.4 10^3/uL (0.0-0.8); Eosinophils % 6.9 %; Hematocrit 34.9 % (42.0-52.0); Lymphocytes # 1.4 10^3/uL (0.8-4.8); Lymphocytes % 26.3 %; Mean Corpuscular HGB Conc 34.4 g/dL (30.0-36.0); Mean Corpuscular Hemoglobin 30.8 pg (28.0-34.0); Mean Corpuscular Volume 89.5 fl (80-94); Mean Platelet Volume 9.2 fL (7.4-10.4); Monocytes # 0.5 10^3/uL (0.2-0.9); Monocytes % 9.4 %; Neutrophils # 2.93 10^3/uL (1.8-7.7); Neutrophils % 56.4 %; Nucleated Red Blood Cells % 0 %; Platelet Count 264 10^3/cmm (130-400); Red Cell Distribution Width 13.5 % (12.1-15.1); White Blood Count 5.2 10^3/uL (4.0-10.0)
[2021-07-17] MEDS: acetaminophen 325 mg Tablet 650 MG PO ×3 (05:58→17:58)
[2021-07-17 06:04] LABS: Alanine Aminotransferase 9 U/L (0-41); Albumin Level 3.5 g/dL (3.5-5.2); Alkaline Phosphatase 52 IU/L (40-130); Aspartate Amino Transferase 14 U/L (0-40); Blood Urea Nitrogen 8 mg/dL (8-23); Calcium 8.5 mg/dL (8.5-10.5); Carbon Dioxide 26 mmol/L (22-29); Chloride 100 mmol/L (98-107); Globulin 3.1 g/dL (1.3-4.6); Glucose 139 mg/dL (65-115); Magnesium 1.3 mg/dL (1.7-2.3); Osmolality Calculated 287 mOsm/kg (285-295); Phosphorus 3.4 mg/dL (2.5-4.5); Sodium 138 mmol/L (136-145); Total Bilirubin 0.4 mg/dL (0.15-1.2); Total Protein 6.6 g/dL (6.6-8.7)
--- NOTE | 2021-07-17 06:09 | PC.NURSE ---
Patient AAOx1, sitter at bedside, OOB to bathroom with standby assist, VSS, room clutter free and call light in reach, requesting nose spray for sinuses. Turns self in bed.
[2021-07-17 06:44] LABS: Glucose Point of Care 136 mg/dL (70-110)
[2021-07-17 07:42] VITALS: BP 111/85; PULSE 106; RESP 17; TEMP 36.6; O2SAT 98
[2021-07-17] MEDS: bumetanide 1 mg Tablet 2 MG PO (08:36)
[2021-07-17] MEDS: BuSPIRONE 10 mg Tablet PO ×3 (08:37→20:10)
[2021-07-17] MEDS: pantoprazole DR 40 mg Tablet PO (08:37)
[2021-07-17] MEDS: OLANZapine 5 mg TABLET PO (08:37)
[2021-07-17] MEDS: tamsulosin 0.4 mg Capsule 0.8 MG PO (08:37)
[2021-07-17] MEDS: metoprolol tartrate 25 mg Tablet PO (08:37)
[2021-07-17] MEDS: cefTRIAXone 1,000 MG in sodium chloride 0.9% (plus) 50 ML 100 MG IV (11:06)
[2021-07-17 11:14] LABS: Glucose Point of Care 209 mg/dL (70-110)
[2021-07-17 11:44] VITALS: BP 149/88; PULSE 81; RESP 17; TEMP 36.7; O2SAT 95
[2021-07-17] MEDS: potassium chloride ER 20 mEq Tablet 40 MEQ PO (12:36)
[2021-07-17] MEDS: insulin lispro 100 unit/1 mL SUBCUT ×3 (12:37→20:28)
[2021-07-17] MEDS: magnesium sulfate premix 4 GM/100 ML PREMIX IV (12:37)
[2021-07-17 12:47] LABS: Amphetamine negative; Barbiturates negative; Benzodiazepines negative; Cocaine Metabolites negative; Marijuana(Tetrahydrocannabino) negative; Opiates negative; PCP (Phencyclidine) negative
[2021-07-17 15:46] VITALS: BP 134/79; PULSE 80; RESP 17; TEMP 36.6; O2SAT 94
[2021-07-17] MEDS: atorvastatin 40 mg Tablet 20 MG PO (17:58)
[2021-07-17] MEDS: saline nasal spray 44mL Btl 1 SPRAY NASAL (17:59)
[2021-07-17 18:12] LABS: Glucose Point of Care 204 mg/dL (70-110)
--- NOTE | 2021-07-17 18:31 | PM.PN ---
Vitals/I&O/Wt Last Vital Signs Temp 97.9 F 07/17/21 15:46 Pulse 80 07/17/21 15:46 Resp 17 07/17/21 15:46 BP 134/79 07/17/21 15:46 Pulse Ox 94 07/17/21 15:46 07/17/21 07/17/21 07/17/21 06:59 14:59 22:59 Intake Total 480 / 1010 1010 / 1010 Balance 480 / 1010 1010 / 1010 Physical Exam Const: COMMON NORMALS: no acute distress ORIENTATION/CONSCIOUSNESS: Yes awake, Yes oriented to person and Yes oriented to place; not oriented to time Chest: COMMONS NORMALS: normal inspection of the chest Resp: COMMON NORMALS: normal respiratory effort, No retractions, No use of accessory muscles and clear to auscultation bilaterally AUSCULTATION: clear to auscultation bilaterally Cardio: COMMON NORMALS: regular rate, regular rhythm, S1 normal heart sound present and S2 normal heart sound present RATE: regular rate RHYTHM: regular rhythm HEART SOUNDS: S1 normal heart sound present and S2 normal heart sound present GI: COMMON NORMALS: Normal to inspection, nondistended, normoactive bowel sounds present, Soft to palpation and non-tender PALPATION: Yes Soft to palpation Extremity: COMMON NORMALS: no pedal edema Neuro: SENSORIUM/ORIENTATION: Yes oriented to person, Yes oriented to place and No oriented to time Psych: COMMON NORMALS: mental status grossly normal Data : 07/17/21 05:14 07/17/21 05:14 A&P Assessment and plan (1) Altered mental status: Currently alert to person, to place, not to time, follows all commands According to family alert to person, to place, to time, follows commands will be evaluated by psychiatry today Has had episode of agitation, and combativeness with nursing staff, patient's [id number] tells me that that, is not uncommon for him, especially when he is taking too much of his oxycodone, no current episodes of agitation Currently over opiate overdose, from what it sounds from patient overdose was accidental, no intention for self-harm Currently over opiate withdrawal Currently no signs of sepsis. UA with possible evidence of UTI, started on Rocephin. CT head without acute intracranial events, chronic microvascular changes only. TSH within normal limits, ammonia within normal limits, acetaminophen levels within normal limits Toxicology screen pending Carotid artery ultrasound within normal limits Cardiac echo EF 50 to 55%, diastolic dysfunction, right ventricular is mildly hypokinetic, mild to moderate aortic regurg, mildly dilated ascending aorta Continue his Zyprexa which he is on chronically. Haldol as needed for agitation Avoid any medication which could promote further confusion such as opiates, antihistamines, benzodiazepines. Monitor closely for any withdrawal Continue his buspirone, aricept, remeron. Monitor QT interval Hold off on MRI, lumbar puncture as his mentation is back to baseline Monitor for opiate withdrawal Continue other chronic medications such as insulin, Bumex, metoprolol, statins, PPI Status: Acute (2) Drug overdose: Status: Acute (3) Suicidal ideation: -Has reported suicidal ideation -Declines to go to the group home -He is drug overdose was not intentional, however has had another hospitalization at [facility] for drug overdose, his oxycodone -We will have Dr. Warner, see patient, suicidal ideation, determine capacity Status: Acute Attestations Medical Necessity Statement*: patient requires hospitalization for ams Coding Level of Care Code Acute [employer] Fighters Dispatcher for [employer] Fwd Diagnoses Altered mental status R41.82 Drug overdose T50.901A Suicidal ideation R45.851
[2021-07-17 19:34] VITALS: BP 129/74; PULSE 75; RESP 16; TEMP 36.7; O2SAT 97
[2021-07-17 20:00] VITALS: BP 129/74; PULSE 75; RESP 16; TEMP 36.7
[2021-07-17] MEDS: mirtazapine 15 mg Tablet 7.5 MG PO (20:10)
[2021-07-17] MEDS: donepezil 5 MG Tablet PO (20:10)
[2021-07-17] MEDS: fenofibrate 145 mg Tablet PO (20:10)
[2021-07-17 20:25] LABS: Glucose Point of Care 185 mg/dL (70-110)
[2021-07-18 04:00] VITALS: BP 131/74; PULSE 82; RESP 18; TEMP 36.8; O2SAT 96
[2021-07-18 06:03] LABS: Basophils % 0.6 %; Eosinophils # 0.3 10^3/uL (0.0-0.8); Hematocrit 37.9 % (42.0-52.0); Hemoglobin 12.7 g/dL (11.7-16.6); Lymphocytes # 1.8 10^3/uL (0.8-4.8); Lymphocytes % 26.5 %; Mean Corpuscular HGB Conc 33.5 g/dL (30.0-36.0); Mean Corpuscular Hemoglobin 30.2 pg (28.0-34.0); Mean Platelet Volume 9.3 fL (7.4-10.4); Monocytes # 0.7 10^3/uL (0.2-0.9); Monocytes % 9.6 %; Neutrophils # 3.93 10^3/uL (1.8-7.7); Nucleated Red Blood Cells % 0 %; Platelet Count 309 10^3/cmm (130-400); Red Blood Count 4.21 10^6/uL (4.1-5.3); Red Cell Distribution Width 13.4 % (12.1-15.1); White Blood Count 6.8 10^3/uL (4.0-10.0)
[2021-07-18 06:24] LABS: Alanine Aminotransferase 10 U/L (0-41); Albumin Level 3.6 g/dL (3.5-5.2); Alkaline Phosphatase 53 IU/L (40-130); Anion Gap 16.3 (5-19); Aspartate Amino Transferase 11 U/L (0-40); Blood Urea Nitrogen 11 mg/dL (8-23); Calcium 9.4 mg/dL (8.5-10.5); Carbon Dioxide 25 mmol/L (22-29); Chloride 95 mmol/L (98-107); Globulin 3.8 g/dL (1.3-4.6); Glucose 160 mg/dL (65-115); Magnesium 1.8 mg/dL (1.7-2.3); Osmolality Calculated 279 mOsm/kg (285-295); Phosphorus 3.7 mg/dL (2.5-4.5); Potassium 3.3 mmol/L (3.5-5.1); Sodium 133 mmol/L (136-145); Total Bilirubin 0.3 mg/dL (0.15-1.2); Total Protein 7.4 g/dL (6.6-8.7)
[2021-07-18 06:49] LABS: Glucose Point of Care 172 mg/dL (70-110)
[2021-07-18 08:00] VITALS: BP 131/84; PULSE 98; RESP 18; TEMP 36.5; O2SAT 97
[2021-07-18] MEDS: tamsulosin 0.4 mg Capsule 0.8 MG PO (08:21)
[2021-07-18] MEDS: acetaminophen 325 mg Tablet 650 MG PO ×3 (08:21→22:54)
[2021-07-18] MEDS: bumetanide 1 mg Tablet 2 MG PO (08:21)
[2021-07-18] MEDS: BuSPIRONE 10 mg Tablet PO ×3 (08:22→20:27)
[2021-07-18] MEDS: pantoprazole DR 40 mg Tablet PO (08:22)
[2021-07-18] MEDS: metoprolol tartrate 25 mg Tablet PO (08:22)
[2021-07-18] MEDS: OLANZapine 5 mg TABLET PO (08:22)
[2021-07-18] MEDS: insulin lispro 100 unit/1 mL SUBCUT ×4 (08:22→20:31)
[2021-07-18] MEDS: saline nasal spray 44mL Btl 1 SPRAY NASAL ×2 (08:26→17:40)
[2021-07-18] MEDS: potassium chloride ER 20 mEq Tablet 40 MEQ PO (09:45)
[2021-07-18 11:16] VITALS: BP 131/82; PULSE 75; RESP 18; TEMP 36.4; O2SAT 95
[2021-07-18 11:39] LABS: Glucose Point of Care 223 mg/dL (70-110)
--- NOTE | 2021-07-18 12:23 | PC.SOCIAL ---
IMM Updated Updated pt on Pg 2 IMM. No questions voiced. Provided pt a copy. Initialed, dated, & timed copy in chart.
--- NOTE | 2021-07-18 13:37 | PM.PN ---
Subjective Subjective: Interval history: Patient was seen this morning, he tells me that he wants to go home, he does not want to go to the shelter, he tells me that he goes to the shelter, he will stop talking to people, he feels that he will , I asked him why does he feel he will , he tells me that that they will take care of him, he tells me that he can go to his appointments, he cannot do what he wants when he is at the shelter, he tells that he can go home, if we can just have somebody check up on him a few times a day he feels safe to go home. I advised him that he has overdosed on oxycodone 2 times already, and that there is nobody unfortunate that can take care of him at home, he tells me that he promises he will take more of his oxycodone than prescribed, he is not sure how he did at this time Vitals/I&O/Wt Last Vital Signs Temp 97.5 F L 07/18/21 11:16 Pulse 75 07/18/21 11:16 Resp 18 07/18/21 11:16 BP 131/82 07/18/21 11:16 Pulse Ox 95 07/18/21 11:16 07/17/21 07/18/21 07/18/21 22:59 06:59 14:59 Intake Total 460 / 1470 500 / 1970 720 / 720 Output Total 850 / 850 Balance 460 / 1470 / 1969 -130 / -130 Physical Exam Const: COMMON NORMALS: no acute distress ORIENTATION/CONSCIOUSNESS: Yes awake, Yes oriented to person and Yes oriented to place; not oriented to time Neck/C-Spine: COMMON NORMALS: no JVD Resp: COMMON NORMALS: normal respiratory effort, No retractions, No use of accessory muscles and clear to auscultation bilaterally AUSCULTATION: clear to auscultation bilaterally Cardio: COMMON NORMALS: no JVD, regular rate, regular rhythm, S1 normal heart sound present and S2 normal heart sound present RATE: regular rate RHYTHM: regular rhythm HEART SOUNDS: S1 normal heart sound present and S2 normal heart sound present GI: COMMON NORMALS: Normal to inspection, nondistended, normoactive bowel sounds present, Soft to palpation, non-tender and No hepatosplenomegaly present PALPATION: Yes Soft to palpation and Yes No hepatosplenomegaly present Neuro: SENSORIUM/ORIENTATION: Yes oriented to person, Yes oriented to place and No oriented to time Data : 07/18/21 05:26 07/18/21 05:26 A&P Assessment and plan (1) Altered mental status: Currently alert to person, to place, not to time, follows all commands According to family alert to person, to place, to time, follows commands Evaluated by psychiatry, does not have capacity, working on guardianship procedures, working on placement to a shelter Has had episode of agitation, and combativeness with nursing staff, patient's [id number] tells me that that, is not uncommon for him, especially when he is taking too much of his oxycodone, no current episodes of agitation Currently over opiate overdose, from what it sounds from patient overdose was accidental, no intention for self-harm Currently over opiate withdrawal Currently no signs of sepsis. UA with possible evidence of UTI, started on Rocephin. CT head without acute intracranial events, chronic microvascular changes only. TSH within normal limits, ammonia within normal limits, acetaminophen levels within normal limits Toxicology screen pending Carotid artery ultrasound within normal limits Cardiac echo EF 50 to 55%, diastolic dysfunction, right ventricular is mildly hypokinetic, mild to moderate aortic regurg, mildly dilated ascending aorta Continue his Zyprexa which he is on chronically. Haldol as needed for agitation Avoid any medication which could promote further confusion such as opiates, antihistamines, benzodiazepines. Monitor closely for any withdrawal Continue his buspirone, aricept, remeron. Monitor QT interval Hold off on MRI, lumbar puncture as his mentation is back to baseline Monitor for opiate withdrawal Continue other chronic medications such as insulin, Bumex, metoprolol, statins, PPI UTI, finished Rocephin Replace electrolytes Status: Acute (2) Drug overdose: Status: Acute (3) Suicidal ideation: -Has reported suicidal ideation -Declines to go to the shelter -He is drug overdose was not intentional, however has had another hospitalization at [facility] for drug overdose, his oxycodone -We will have Dr. Warner, see patient, suicidal ideation, determine capacity Status: Acute Attestations Medical Necessity Statement*: Patient requires hospitalization for drug overdose, does not have capacity to make decisions Coding Level of Care Code Acute Utilities Equipment Repairer for Chg Fwd Diagnoses Altered mental status R41.82 Drug overdose T50.901A Suicidal ideation R45.851
[2021-07-18 15:03] VITALS: BP 115/73; PULSE 79; RESP 18; TEMP 36.7; O2SAT 95
[2021-07-18 17:00] LABS: Glucose Point of Care 163 mg/dL (70-110)
[2021-07-18] MEDS: atorvastatin 40 mg Tablet 20 MG PO (17:37)
[2021-07-18 19:13] VITALS: BP 121/77; PULSE 80; RESP 16; TEMP 36.9; O2SAT 95
[2021-07-18] MEDS: donepezil 5 MG Tablet PO (20:27)
[2021-07-18] MEDS: fenofibrate 145 mg Tablet PO (20:27)
[2021-07-18] MEDS: mirtazapine 15 mg Tablet 7.5 MG PO (20:27)
[2021-07-18 20:32] LABS: Glucose Point of Care 192 mg/dL (70-110)
[2021-07-19] VITALS: BP 153/83; PULSE 89; RESP 16; TEMP 36.9; O2SAT 99
[2021-07-19 04:00] VITALS: BP 161/85; PULSE 77; RESP 14; TEMP 36.4; O2SAT 98
[2021-07-19] MEDS: acetaminophen 325 mg Tablet 650 MG PO ×2 (05:56→13:09)
[2021-07-19 06:33] LABS: Glucose Point of Care 151 mg/dL (70-110)
--- NOTE | 2021-07-19 06:44 | PC.NURSE ---
SHIFT NOTE: THE PATIENT SPENT MOST OF THE NIGHT RESTING IN BED. DURING SHIFT ASSESSMENT HE DID EXPRESS HIS FEAR OF GOING TO LIVE IN A NURSING. HE STATED HE WOULD RATHER KILL HIMSELF THAN HAVE TO LIVE AND IN THERE. EASILY REDIRECTED AND REASSURED.
[2021-07-19 07:31] VITALS: BP 134/80; PULSE 82; RESP 16; TEMP 36.8; O2SAT 94
[2021-07-19] MEDS: pantoprazole DR 40 mg Tablet PO (08:07)
[2021-07-19] MEDS: OLANZapine 5 mg TABLET PO (08:07)
[2021-07-19] MEDS: bumetanide 1 mg Tablet 2 MG PO (08:07)
[2021-07-19] MEDS: tamsulosin 0.4 mg Capsule 0.8 MG PO (08:07)
[2021-07-19] MEDS: potassium chloride ER 20 mEq Tablet 40 MEQ PO (08:08)
[2021-07-19] MEDS: insulin lispro 100 unit/1 mL SUBCUT ×4 (08:08→21:07)
[2021-07-19] MEDS: BuSPIRONE 10 mg Tablet PO ×3 (08:08→21:07)
[2021-07-19] MEDS: metoprolol tartrate 25 mg Tablet PO (08:08)
[2021-07-19] MEDS: saline nasal spray 44mL Btl 1 SPRAY NASAL ×2 (08:09→17:23)
[2021-07-19] MEDS: lanolin oint 7 gm 1 APPLIC TOPICAL (10:05)
[2021-07-19 11:33] VITALS: BP 134/78; PULSE 76; RESP 16; TEMP 36.6; O2SAT 94
[2021-07-19 12:38] LABS: Glucose Point of Care 177 mg/dL (70-110)
[2021-07-19 15:07] VITALS: BP 121/73; PULSE 77; RESP 16; TEMP 36.4; O2SAT 95
--- NOTE | 2021-07-19 16:17 | P.PN_ITS ---
Subjective Subjective: Interval history: Patient was seen this morning, he is a bit more agreeable this morning to go to correction, he tells me that how long will he be there, he has no complaints, he is all dressed up, also has his hat on Vitals/I&O/Wt Last Vital Signs Temp 97.6 F 07/19/21 15:07 Pulse 77 07/19/21 15:07 Resp 16 07/19/21 15:07 BP 121/73 07/19/21 15:07 Pulse Ox 95 07/19/21 15:07 07/19/21 07/19/21 07/19/21 06:59 14:59 22:59 Intake Total 2079 / 2079 Output Total 900 / 900 Balance 1180 / 1180 Physical Exam Const: COMMON NORMALS: no acute distress ORIENTATION/CONSCIOUSNESS: Yes awake, Yes oriented to person and Yes oriented to place; not oriented to time Resp: COMMON NORMALS: normal respiratory effort, No retractions, No use of accessory muscles and clear to auscultation bilaterally AUSCULTATION: clear to auscultation bilaterally Cardio: COMMON NORMALS: regular rate, regular rhythm, S1 normal heart sound present and S2 normal heart sound present RATE: regular rate RHYTHM: regular rhythm HEART SOUNDS: S1 normal heart sound present and S2 normal heart sound present GI: COMMON NORMALS: Normal to inspection, nondistended, normoactive bowel sounds present, Soft to palpation, non-tender and No hepatosplenomegaly present PALPATION: Yes Soft to palpation and Yes No hepatosplenomegaly present Extremity: COMMON NORMALS: no pedal edema Neuro: SENSORIUM/ORIENTATION: Yes oriented to person, Yes oriented to place and No oriented to time Data : 07/18/21 05:26 07/18/21 05:26 A&P Assessment and plan (1) Altered mental status: Currently alert to person, to place, not to time, follows all commands According to family alert to person, to place, to time, follows commands Evaluated by psychiatry, does not have capacity, working on guardianship proceedings, follow-up case management, has been accepted by the correction Has had episode of agitation, and combativeness with nursing staff during this hospitalization, patient's [id number] tells me that that, is not uncommon for him, especially when he is taking too much of his oxycodone, no current episodes of agitation Currently over opiate overdose, from what it sounds from patient overdose was accidental, no intention for self-harm Currently over opiate withdrawal Currently no signs of sepsis. UA with possible evidence of UTI, started on Rocephin. CT head without acute intracranial events, chronic microvascular ch anges only. TSH within normal limits, ammonia within normal limits, acetaminophen levels within normal limits Toxicology screen pending Carotid artery ultrasound within normal limits Cardiac echo EF 50 to 55%, diastolic dysfunction, right ventricular is mildly hypokinetic, mild to moderate aortic regurg, mildly dilated ascending aorta Continue his Zyprexa which he is on chronically. Haldol as needed for agitation Avoid any medication which could promote further confusion such as opiates, antihistamines, benzodiazepines. Monitor closely for any withdrawal Continue his buspirone, aricept, remeron. Monitor QT interval Hold off on MRI, lumbar puncture as his mentation is back to baseline Monitor for opiate withdrawal Continue other chronic medications such as insulin, Bumex, metoprolol, statins, PPI UTI, finished Rocephin Replace electrolytes Status: Acute (2) Drug overdose: Status: Acute (3) Suicidal ideation: -Has reported suicidal ideation -Declines to go to the correction -He is drug overdose was not intentional, however has had another hospitalizatio n at [facility] for drug overdose, his oxycodone -We will have Dr. Warner, see patient, suicidal ideation, determine capacity Status: Acute Attestations Medical Necessity Statement*: Current hospitalization, Awaiting guardianship Coding Level of Care Code Acute [employer] Consultant for Chg Fwd Diagnoses Altered mental status R41.82 Drug overdose T50.901A Suicidal ideation R45.851
[2021-07-19 17:13] LABS: Glucose Point of Care 169 mg/dL (70-110)
[2021-07-19] MEDS: atorvastatin 40 mg Tablet 20 MG PO (17:22)
[2021-07-19 19:07] VITALS: BP 116/72; PULSE 83; RESP 20; TEMP 36.9; O2SAT 97
[2021-07-19 20:23] LABS: Glucose Point of Care 202 mg/dL (70-110)
[2021-07-19] MEDS: donepezil 5 MG Tablet PO (21:06)
[2021-07-19] MEDS: fenofibrate 145 mg Tablet PO (21:06)
[2021-07-19] MEDS: mirtazapine 15 mg Tablet 7.5 MG PO (21:07)
[2021-07-20 04:00] VITALS: BP 119/69; PULSE 70; RESP 19; TEMP 36.9; O2SAT 95
[2021-07-20 06:46] LABS: Glucose Point of Care 181 mg/dL (70-110)
[2021-07-20 07:55] VITALS: BP 139/84; PULSE 86; RESP 18; TEMP 36.4; O2SAT 95
[2021-07-20] MEDS: OLANZapine 5 mg TABLET PO (08:15)
[2021-07-20] MEDS: bumetanide 1 mg Tablet 2 MG PO (08:15)
[2021-07-20] MEDS: pantoprazole DR 40 mg Tablet PO (08:15)
[2021-07-20] MEDS: BuSPIRONE 10 mg Tablet PO ×3 (08:15→21:40)
[2021-07-20] MEDS: tamsulosin 0.4 mg Capsule 0.8 MG PO (08:15)
[2021-07-20] MEDS: metoprolol tartrate 25 mg Tablet PO (08:15)
[2021-07-20] MEDS: potassium chloride ER 20 mEq Tablet 40 MEQ PO (08:15)
[2021-07-20] MEDS: saline nasal spray 44mL Btl 1 SPRAY NASAL ×2 (08:16→17:34)
[2021-07-20] MEDS: insulin lispro 100 unit/1 mL SUBCUT ×3 (08:16→21:40)
[2021-07-20] MEDS: acetaminophen 325 mg Tablet 650 MG PO ×2 (08:20→14:27)
[2021-07-20 11:36] VITALS: BP 139/79; PULSE 71; RESP 17; TEMP 36.7; O2SAT 97
[2021-07-20 12:03] LABS: Glucose Point of Care 208 mg/dL (70-110)
[2021-07-20 16:00] VITALS: BP 137/81; PULSE 67; RESP 16; TEMP 36.3; O2SAT 98
[2021-07-20 17:15] LABS: Glucose Point of Care 132 mg/dL (70-110)
[2021-07-20] MEDS: atorvastatin 40 mg Tablet 20 MG PO (17:34)
[2021-07-20 19:52] VITALS: BP 143/65; PULSE 68; RESP 17; TEMP 36.6; O2SAT 95
--- NOTE | 2021-07-20 20:05 | P.PN_ITS ---
Subjective Subjective: Interval history: He knows he is at the [facility]. He does not remember the year, and states that he never remembers the year. Reports he would manage things with the help of his brother who would take him shopping, also to sampler pickup his prescriptions. He otherwise states he would make food on his own. States he has been taking his medications, but does not r emember how he takes his medicines, nor does he remember overdosing with his medications. Is not sure how he may have done that, states just being stupid probably . Does not remember whether this episode of overdose is the first or isolated incident. Otherwise denies any complaints. Is not in pain. Not short of breath. States appetite is okay. Denies chest pain pressure. No abdominal discomfort. No other complaints. Denies any needs. Vitals/I&O/Wt Last Vital Signs Temp 98 F 07/20/21 19:52 Pulse 68 07/20/21 19:52 Resp 17 07/20/21 19:52 BP 143/65 07/20/21 19:52 Pulse Ox 95 07/20/21 19:52 07/20/21 07/20/21 07/20/21 06:59 14:59 22:59 Intake Total 180 / 2500 960 / 960 480 / 1440 Balance 180 / 1250 960 / 960 480 / 1440 Physical Exam Const: COMMON NORMALS: no acute distress; negative for patient oriented x3 GENERAL APPEARANCE: cooperative ORIENTATION/CONSCIOUSNESS: Yes awake OTHER: [place] Dressed in street clothes HENMT: COMMON NORMALS: oropharynx normal Neck/C-Spine: COMMON NORMALS: no JVD Resp: COMMON NORMALS: normal respiratory effort and clear to auscultation bilaterally AUSCULTATION: clear to auscultation bilaterally Cardio: COMMON NORMALS: no JVD, regular rhythm, S1 normal heart sound present, S2 normal heart sound present and No murmurs present (Cardio) RHYTHM: regular rhythm HEART SOUNDS: S1 normal heart sound present and S2 normal heart sound present GI: COMMON NORMALS: Normal to inspection, nondistended, normoactive bowel sounds present, Soft to palpation and non-tender PALPATION: Yes Soft to palpation Extremity: COMMON NORMALS: no joint enlargement and no pedal edema Neuro: COMMON NORMALS: moves all extremities; negative for patient oriented x3 Skin: COMMON NORMALS: no rashes or lesions noted GENERAL SKIN EXAM: no rashes or lesions noted Data : 07/18/21 05:26 07/18/21 05:26 A&P Assessment and plan (1) Altered mental status: He does not remember how he takes his medications. Is not sure about overdosing on medication. But in general is not able to describe for me how he arranges his medicines. Per report there were some statements of suicidal ideation need previously. He denies suicidal ideation currently. When asked about depression, suicidal ideation, states had had thoughts of ending his life previously, but not at this time. It is unclear whether he may have inadvertently overdosed on medication due to forgetting that he had taken his medications, or otherwise improperly dosing of medications, although cannot exclude whether transient suicidal ideation may have played a role, which due to possible what appears dementia he may have forgotten. He otherwise completed treatment for urinary tract infection with ceftriaxone for sensitive Klebsiella. Currently alert to person, to place, not to time, follows all commands According to family alert to person, to place, to time, follows commands Evaluated by psychiatry, does not have capacity, working on guardianship proceedings, follow-up case management, has been accepted by the care home Has had episode of agitation, and combativeness with nursing staff during this hospitalization, patient's [id number] tells me that that, is not uncommon for him, especially when he is taking too much of his oxycodone, no current episodes of agitation Currently over opiate overdose, from what it sounds from patient overdose was accidental, no intention for self-harm Currently over opiate withdrawal Currently no signs of sepsis. UA with possible evidence of UTI, started on Rocephin. CT head without acute intracranial events, chronic microvascular changes only. TSH within normal limits, ammonia within normal limits, acetaminophen levels within normal limits Toxicology screen negative Carotid artery ultrasound within normal limits Cardiac echo EF 50 to 55%, diastolic dysfunction, right ventricular is mildly hypokinetic, mild to moderate aortic regurg, mildly dilated ascending aorta Continue his Zyprexa which he is on chronically. Haldol as needed for agitation Avoid any medication which could promote further confusion such as opiates, antihistamines, benzodiazepines. Monitor closely for any withdrawal Continue his buspirone, aricept, remeron. Currently no opiate withdrawal Continue other chronic medications such as insulin, Bumex, metoprolol, statins, PPI Replace electrolytes Status: Acute (2) Drug overdose: Status: Acute (3) Suicidal ideation: Reports intermittent. Not at this time. As above. Status: Acute Attestations Medical Necessity Statement*: Continue admission for monitoring for any additional signs of withdrawal from opioid, continued monitoring, pending arrangements for guardianship and disposition planning. Coding Level of Care Code Acute Bioinformatics Team Member for Enrrique Stein Diagnoses Altered mental status R41.82 Drug overdose T50.901A Suicidal ideation R45.851
[2021-07-20 21:14] LABS: Glucose Point of Care 190 mg/dL (70-110)
[2021-07-20] MEDS: fenofibrate 145 mg Tablet PO (21:39)
[2021-07-20] MEDS: donepezil 5 MG Tablet PO (21:39)
[2021-07-20] MEDS: mirtazapine 15 mg Tablet 7.5 MG PO (21:40)
[2021-07-21] VITALS: BP 127/67; PULSE 73; RESP 16; TEMP 36.5; O2SAT 96
[2021-07-21 04:00] VITALS: BP 129/69; PULSE 70; RESP 16; TEMP 36.8; O2SAT 97
[2021-07-21 06:41] LABS: Glucose Point of Care 152 mg/dL (70-110)
[2021-07-21] MEDS: acetaminophen 325 mg Tablet 650 MG PO ×2 (07:50→14:07)
[2021-07-21 08:00] VITALS: BP 142/77; PULSE 96; RESP 16; TEMP 36.6; O2SAT 96
[2021-07-21] MEDS: insulin lispro 100 unit/1 mL SUBCUT ×4 (09:10→20:49)
[2021-07-21] MEDS: OLANZapine 5 mg TABLET PO (09:11)
[2021-07-21] MEDS: BuSPIRONE 10 mg Tablet PO ×3 (09:11→20:49)
[2021-07-21] MEDS: pantoprazole DR 40 mg Tablet PO (09:11)
[2021-07-21] MEDS: tamsulosin 0.4 mg Capsule 0.8 MG PO (09:11)
[2021-07-21] MEDS: potassium chloride ER 20 mEq Tablet 40 MEQ PO (09:11)
[2021-07-21] MEDS: metoprolol tartrate 25 mg Tablet PO (09:12)
[2021-07-21] MEDS: saline nasal spray 44mL Btl 1 SPRAY NASAL ×2 (09:23→17:39)
[2021-07-21] MEDS: bumetanide 1 mg Tablet 2 MG PO (09:23)
[2021-07-21 11:35] VITALS: BP 144/81; PULSE 81; RESP 16; TEMP 36.4; O2SAT 95
[2021-07-21 11:57] LABS: Glucose Point of Care 212 mg/dL (70-110)
[2021-07-21 15:42] VITALS: BP 131/79; PULSE 71; RESP 16; TEMP 36.9; O2SAT 98
--- NOTE | 2021-07-21 15:54 | P.PN_ITS ---
Subjective Subjective: Interval history: Denies pain or discomfort. Denies any needs apart from being a bit bored. Remembers he is in the hospital. Does not remember the year. Vitals/I&O/Wt Last Vital Signs Temp 98.4 F 07/21/21 15:42 Pulse 71 07/21/21 15:42 Resp 16 07/21/21 15:42 BP 131/79 07/21/21 15:42 Pulse Ox 98 07/21/21 15:42 07/21/21 07/21/21 07/21/21 06:59 14:59 22:59 Intake Total 720 / 720 Balance 720 / 720 Physical Exam Const: COMMON NORMALS: no acute distress; negative for patient oriented x3 GENERAL APPEARANCE: cooperative ORIENTATION/CONSCIOUSNESS: Yes awake OTHER: [place] Dressed in street clothes HENMT: COMMON NORMALS: oropharynx normal Neck/C-Spine: COMMON NORMALS: no JVD Resp: COMMON NORMALS: normal respiratory effort and clear to auscultation bilaterally AUSCULTATION: clear to auscultation bilaterally Cardio: COMMON NORMALS: no JVD, regular rhythm, S1 normal heart sound present, S2 normal heart sound present and No murmurs present (Cardio) RHYTHM: regular rhythm HEART SOUNDS: S1 normal heart sound present and S2 normal heart sound present GI: COMMON NORMALS: Normal to inspection, nondistended, normoactive bowel sounds present, Soft to palpation and non-tender PALPATION: Yes Soft to palpation Extremity: COMMON NORMALS: no joint enlargement and no pedal edema Neuro: COMMON NORMALS: moves all extremities; negative for patient oriented x3 Skin: COMMON NORMALS: no rashes or lesions noted GENERAL SKIN EXAM: no rashes or lesions noted Data : 07/18/21 05:26 07/18/21 05:26 A&P Assessment and plan (1) Altered mental status: No additional changes today. Denies any discomfort. No changes in mental status. No reports of suicidal ideation at this time. He does not remember how he takes his medications. Is not sure about overdosing on medication. But in general is not able to describe for me how he arranges his medicines. Per report there were some statements of suicidal ideation need previously. He denies suicidal ideation currently. When asked about depression, suicidal ideation, states had had thoughts of ending his life previously, but not at this time. It is unclear whether he may have inadvertently overdosed on medication due to forgetting that he had taken his medications, or otherwise improperly dosing of medications, although cannot exclude whether transient suicidal ideation may have played a role, which due to possible what appears dementia he may have forgotten. He otherwise completed treatment for urinary tract infection with ceftriaxone for sensitive Klebsiella. Currently alert to person, to place, not to time, follows all commands According to family alert to person, to place, to time, follows commands Evaluated by psychiatry, does not have capacity, working on guardianship proceedings, follow-up case management, has been accepted by the senior living Has had episode of agitation, and combativeness with nursing staff during this hospitalization, patient's [id number] tells me that that, is not uncommon for him, especially when he is taking too much of his oxycodone, no current episodes of agitation Currently over opiate overdose, from what it sounds from patient overdose was accidental, no intention for self-harm Currently over opiate withdrawal Currently no signs of sepsis. UA with possible evidence of UTI, started on Rocephin. CT head without acute intracranial events, chronic microvascular edwards ges only. TSH within normal limits, ammonia within normal limits, acetaminophen levels within normal limits Toxicology screen negative Carotid artery ultrasound within normal limits Cardiac echo EF 50 to 55%, diastolic dysfunction, right ventricular is mildly hypokinetic, mild to moderate aortic regurg, mildly dilated ascending aorta Continue his Zyprexa which he is on chronically. Haldol as needed for agitation Avoid any medication which could promote further confusion such as opiates, antihistamines, benzodiazepines. Monitor closely for any withdrawal Continue his buspirone, aricept, remeron. Currently no opiate withdrawal Continue other chronic medications such as insulin, Bumex, metoprolol, statins, PPI Status: Acute (2) Drug overdose: Status: Acute (3) Suicidal ideation: Reports intermittent. Not at this time. As above. Status: Acute Attestations Medical Necessity Statement*: Continue arrangements for guardianship, along with post hospital discharge planning and arrangements. Coding Level of Care Code Acute Burlesque Dancer for Enrrique Stein Diagnoses Altered mental status R41.82 Drug overdose T50.901A Suicidal ideation R45.851
[2021-07-21 17:20] LABS: Glucose Point of Care 144 mg/dL (70-110)
[2021-07-21] MEDS: atorvastatin 40 mg Tablet 20 MG PO (17:38)
[2021-07-21 19:44] VITALS: BP 139/70; PULSE 66; RESP 17; TEMP 36.5; O2SAT 97
[2021-07-21 20:40] LABS: Glucose Point of Care 184 mg/dL (70-110)
[2021-07-21] MEDS: mirtazapine 15 mg Tablet 7.5 MG PO (20:46)
[2021-07-21] MEDS: donepezil 5 MG Tablet PO (20:48)
[2021-07-21] MEDS: fenofibrate 145 mg Tablet PO (20:48)
[2021-07-22] VITALS (8 sets, daily range): BP systolic 122–154; BP diastolic 70–83; PULSE 64–89; RESP 16–20; TEMP 36.4–36.9; O2SAT 95–98
[2021-07-22 06:57] LABS: Glucose Point of Care 150 mg/dL (70-110)
[2021-07-22] MEDS: bumetanide 1 mg Tablet 2 MG PO (08:37)
[2021-07-22] MEDS: metoprolol tartrate 25 mg Tablet PO (08:37)
[2021-07-22] MEDS: pantoprazole DR 40 mg Tablet PO (08:37)
[2021-07-22] MEDS: BuSPIRONE 10 mg Tablet PO ×3 (08:37→20:31)
[2021-07-22] MEDS: acetaminophen 325 mg Tablet 650 MG PO ×2 (08:37→16:56)
[2021-07-22] MEDS: OLANZapine 5 mg TABLET PO (08:37)
[2021-07-22] MEDS: potassium chloride ER 20 mEq Tablet 40 MEQ PO (08:37)
[2021-07-22] MEDS: insulin lispro 100 unit/1 mL SUBCUT ×3 (08:38→22:48)
[2021-07-22] MEDS: tamsulosin 0.4 mg Capsule 0.8 MG PO (08:38)
[2021-07-22] MEDS: saline nasal spray 44mL Btl 1 SPRAY NASAL ×2 (08:38→17:36)
[2021-07-22 11:44] LABS: Glucose Point of Care 230 mg/dL (70-110)
--- NOTE | 2021-07-22 11:47 | PC.SOCIAL ---
IMM update IMM not updated as guardianship is being pressured and not accepted to DC in the next 24-48 hours.
--- NOTE | 2021-07-22 13:53 | PC.NURSE ---
Patient's brother and sister in law were visiting and the patient asked for his wallet to send money home with his brother for bills. Patient's belongings were removed from the pixis and opened in front of the patient's brother and sister in law. Money was counted and matched the amount wrote down. $687.00. His cards and $667.00 were sent with his family and the patient kept his wallet with family pictures and $20.00 in it.
--- NOTE | 2021-07-22 17:04 | PM.PN ---
Subjective Subjective: Interval history: Denies any complaints or discomfort. Denies suicidal ideation. Asking him what happened that he had ended up in the hospital states pain medications. Does not remember any details as to the events. Again unclear whether he may have had transient suicidal ideation, or had issues with taking his medications due to advancing memory problems. Asking him whether this was the first and only episode of problem with his pain medication, states as far as he can remember. Knows he is in the hospital. Names the year is 2000. Vitals/I&O/Wt Last Vital Signs Temp 97.9 F 07/22/21 16:00 Pulse 66 07/22/21 16:00 Resp 18 07/22/21 16:00 BP 131/80 07/22/21 16:00 Pulse Ox 97 07/22/21 16:00 Physical Exam Narrative: EXAM NARRATIVE: RN present. Const: COMMON NORMALS: no acute distress; negative for patient oriented x3 GENERAL APPEARANCE: cooperative and comfortable ORIENTATION/CONSCIOUSNESS: Yes awake OTHER: [place] Dressed in street clothes HENMT: COMMON NORMALS: oropharynx normal Neck/C-Spine: COMMON NORMALS: no JVD Resp: COMMON NORMALS: normal respiratory effort and clear to auscultation bilaterally AUSCULTATION: clear to auscultation bilaterally Cardio: COMMON NORMALS: no JVD, regular rhythm, S1 normal heart sound present, S2 normal heart sound present and No murmurs present (Cardio) RHYTHM: regular rhythm HEART SOUNDS: S1 normal heart sound present and S2 normal heart sound present GI: COMMON NORMALS: Normal to inspection, nondistended, normoactive bowel sounds present, Soft to palpation and non-tender PALPATION: Yes Soft to palpation Extremity: COMMON NORMALS: no joint enlargement and no pedal edema Neuro: COMMON NORMALS: moves all extremities; negative for patient oriented x3 Skin: COMMON NORMALS: no rashes or lesions noted GENERAL SKIN EXAM: no rashes or lesions noted Data : 07/18/21 05:26 07/18/21 05:26 A&P Assessment and plan (1) Altered mental status: No pain or discomfort. Denies suicidal ideation, for the time being. When discussing difficulties with his medications, states I will fix it . Does not remember details of difficulties with his medications. Does not remember as per prior discussion at he has had a prior episode as well. He otherwise completed treatment for urinary tract infection with ceftriaxone for sensitive Klebsiella. Currently alert to person, to place, not to time, follows all commands According to family alert to person, to place, to time, follows commands Evaluated by psychiatry, does not have capacity, working on guardianship proceedings, follow-up case management, has been [facility] Has had episode of agitation, and combativeness with nursing staff during this hospitalization, patient's [id number] tells me that that, is not uncommon for him, especially when he is taking too much of his oxycodone, no current episodes of agitation Currently over opiate overdose, from what it sounds from patient overdose was accidental, no intention for self-harm Currently over opiate withdrawal Currently no signs of sepsis. UA with possible evidence of UTI, started on Rocephin. CT head without acute intracranial events, chronic microvascular changes only. TSH within normal limits, ammonia within normal limits, acetaminophen levels within normal limits Toxicology screen negative Carotid artery ultrasound within normal limits Cardiac echo EF 50 to 55%, diastolic dysfunction, right ventricular is mildly hypokinetic, mild to moderate aortic regurg, mildly dilated ascending aorta Continue his Zyprexa which he is on chronically. Haldol as needed for agitation Avoid any medication which could promote further confusion such as opiates, antihistamines, benzodiazepines. Monitor closely for any withdrawal Continue his buspirone, aricept, remeron. Currently no opiate withdrawal Continue other chronic medications such as insulin, Bumex, metoprolol, statins, PPI Status: Acute (2) Drug overdose: Status: Acute (3) Suicidal ideation: Reports intermittent. Not at this time. As above. Status: Acute Attestations Medical Necessity Statement*: Continue arrangements for guardianship, post discharge planning and arrangements. Coding Level of Care Code Acute Gear Generator Set Up Operator for Enrrique Stein Diagnoses Altered mental status R41.82 Drug overdose T50.901A Suicidal ideation R45.851
[2021-07-22] MEDS: atorvastatin 40 mg Tablet 20 MG PO (18:05)
[2021-07-22 18:06] LABS: Glucose Point of Care 135 mg/dL (70-110)
[2021-07-22] MEDS: fenofibrate 145 mg Tablet PO (20:31)
[2021-07-22] MEDS: donepezil 5 MG Tablet PO (20:31)
[2021-07-22] MEDS: mirtazapine 15 mg Tablet 7.5 MG PO (20:31)
[2021-07-22 22:23] LABS: Glucose Point of Care 199 mg/dL (70-110)
[2021-07-23] MEDS: acetaminophen 325 mg Tablet 650 MG PO ×3 (02:48→20:18)
[2021-07-23 03:17] VITALS: BP 145/72; PULSE 61; RESP 17; TEMP 36.9; O2SAT 98
[2021-07-23 06:43] LABS: Glucose Point of Care 179 mg/dL (70-110)
[2021-07-23 07:35] VITALS: BP 147/81; PULSE 75; RESP 17; TEMP 36.7; O2SAT 98
[2021-07-23] MEDS: tamsulosin 0.4 mg Capsule 0.8 MG PO (08:48)
[2021-07-23] MEDS: bumetanide 1 mg Tablet 2 MG PO (08:48)
[2021-07-23] MEDS: insulin lispro 100 unit/1 mL SUBCUT ×3 (08:49→20:27)
[2021-07-23] MEDS: pantoprazole DR 40 mg Tablet PO (08:49)
[2021-07-23] MEDS: BuSPIRONE 10 mg Tablet PO ×3 (08:49→20:18)
[2021-07-23] MEDS: saline nasal spray 44mL Btl 1 SPRAY NASAL ×2 (08:49→18:02)
[2021-07-23] MEDS: OLANZapine 5 mg TABLET PO (08:49)
[2021-07-23] MEDS: potassium chloride ER 20 mEq Tablet 40 MEQ PO (08:49)
[2021-07-23] MEDS: metoprolol tartrate 25 mg Tablet PO (08:49)
[2021-07-23 09:42] LABS: Anion Gap 16.3 (5-19); Blood Urea Nitrogen 13 mg/dL (8-23); Calcium 8.8 mg/dL (8.5-10.5); Carbon Dioxide 23 mmol/L (22-29); Chloride 100 mmol/L (98-107); Glucose 256 mg/dL (65-115); Osmolality Calculated 289 mOsm/kg (285-295); Potassium 4.3 mmol/L (3.5-5.1); Sodium 135 mmol/L (136-145)
[2021-07-23 11:49] VITALS: BP 145/83; PULSE 72; RESP 17; TEMP 36.5; O2SAT 96
[2021-07-23 12:09] LABS: Glucose Point of Care 251 mg/dL (70-110)
[2021-07-23 15:20] VITALS: BP 135/79; PULSE 73; RESP 18; TEMP 36.5; O2SAT 99
--- NOTE | 2021-07-23 15:35 | P.PN_ITS ---
Subjective Subjective: Interval history: He denies any discomfort, or any complaints. No trouble breathing. No suicidal ideation. Vitals/I&O/Wt Last Vital Signs Temp 97.7 F 07/23/21 15:20 Pulse 73 07/23/21 15:20 Resp 18 07/23/21 15:20 BP 135/79 07/23/21 15:20 Pulse Ox 99 07/23/21 15:20 07/23/21 07/23/21 07/23/21 06:59 14:59 22:59 Intake Total 450 / 450 1360 / 1360 Balance 450 / 450 1360 / 1360 Physical Exam Const: COMMON NORMALS: no acute distress; negative for patient oriented x3 GENERAL APPEARANCE: cooperative and comfortable ORIENTATION/CONSCIOUSNESS: Yes awake OTHER: [place] Dressed in street clothes HENMT: COMMON NORMALS: oropharynx normal Neck/C-Spine: COMMON NORMALS: no JVD Resp: COMMON NORMALS: normal respiratory effort and clear to auscultation bilaterally AUSCULTATION: clear to auscultation bilaterally Cardio: COMMON NORMALS: no JVD, regular rhythm, S1 normal heart sound present, S2 normal heart sound present and No murmurs present (Cardio) RHYTHM: regular rhythm HEART SOUNDS: S1 normal heart sound present and S2 normal heart sound present GI: COMMON NORMALS: Normal to inspection, nondistended, normoactive bowel so unds present, Soft to palpation and non-tender PALPATION: Yes Soft to palpation Extremity: COMMON NORMALS: no joint enlargement and no pedal edema Neuro: COMMON NORMALS: moves all extremities; negative for patient oriented x3 Skin: COMMON NORMALS: no rashes or lesions noted GENERAL SKIN EXAM: no rashes or lesions noted Data : 07/18/21 05:26 07/23/21 09:10 A&P Assessment and plan (1) Altered mental status: No change today. Denies suicidal ideation, for the time being. Arrangements continued for guardianship, fpc placement. He otherwise completed treatment for urinary tract infection with ceftriaxone for sensitive Klebsiella. Currently alert to person, to place, not to time, follows all commands According to family alert to person, to place, to time, follows commands Evaluated by psychiatry, does not have capacity, working on guardianship proceedings, follow-up case management, has been accepted by the [facility] Has had episode of agitation, and combativeness with nursing staff during this hospitalization, patient's [id number] tells me that that, is not uncommon for him, especially when he is taking too much of his oxycodone, no current episodes of agitation Currently over opiate overdose, from what it sounds from patient overdose was accidental, no intention for self-harm Currently over opiate withdrawal Currently no signs of sepsis. UA with possible evidence of UTI, started on Rocephin. CT head without acute intracranial events, chronic microvascular changes only. TSH within normal limits, ammonia within normal limits, acetaminophen levels within normal limits Toxicology screen negative Carotid artery ultrasound within normal limits Cardiac echo EF 50 to 55%, diastolic dysfunction, right ventricular is mildly hypokinetic, mild to moderate aortic regurg, mildly dilated ascending aorta Continue his Zyprexa which he is on chronically. Haldol as needed for agitation Avoid any medication which could promote further confusion such as opiates, antihistamines, benzodiazepines. Monitor closely for any withdrawal Continue his buspirone, aricept, remeron. Currently no opiate withdrawal Continue other chronic medications such as insulin, Bumex, metoprolol, statins, PPI Status: Acute (2) Drug overdose: Status: Acute (3) Suicidal ideation: Reports intermittent. Not at this time. As above. Status: Acute Attestations Medical Necessity Statement*: Continue admission for monitoring, arrangements of guardianship and post discharge planning. Coding Level of Care Code Acute Coremaking Supervisor for Enrrique Stein Exam Comprehensive Diagnoses Altered mental status R41.82 Drug overdose T50.901A Suicidal ideation R45.851
[2021-07-23 17:38] LABS: Glucose Point of Care 127 mg/dL (70-110)
[2021-07-23] MEDS: atorvastatin 40 mg Tablet 20 MG PO (18:01)
[2021-07-23 19:01] VITALS: BP 130/80; PULSE 77; RESP 18; TEMP 36.8; O2SAT 96
--- NOTE | 2021-07-23 20:14 | PC.NURSE ---
Daughter called and wants patient to go to [facility] in [facility] if possible.
[2021-07-23] MEDS: donepezil 5 MG Tablet PO (20:17)
[2021-07-23] MEDS: mirtazapine 15 mg Tablet 7.5 MG PO (20:18)
[2021-07-23] MEDS: fenofibrate 145 mg Tablet PO (20:18)
[2021-07-23 20:28] LABS: Glucose Point of Care 207 mg/dL (70-110)
[2021-07-23 23:21] VITALS: BP 150/77; PULSE 64; RESP 17; TEMP 36.8; O2SAT 98
[2021-07-24 04:00] VITALS: BP 132/74; PULSE 63; RESP 16; TEMP 37.1; O2SAT 97
[2021-07-24 07:06] VITALS: BP 143/81; PULSE 80; RESP 17; TEMP 36.6; O2SAT 93
[2021-07-24 07:10] LABS: Glucose Point of Care 156 mg/dL (70-110)
[2021-07-24] MEDS: bumetanide 1 mg Tablet 2 MG PO (08:20)
[2021-07-24] MEDS: insulin lispro 100 unit/1 mL SUBCUT ×4 (08:20→21:56)
[2021-07-24] MEDS: BuSPIRONE 10 mg Tablet PO ×3 (08:20→20:11)
[2021-07-24] MEDS: potassium chloride ER 20 mEq Tablet 40 MEQ PO (08:21)
[2021-07-24] MEDS: saline nasal spray 44mL Btl 1 SPRAY NASAL (08:21)
[2021-07-24] MEDS: tamsulosin 0.4 mg Capsule 0.8 MG PO (08:21)
[2021-07-24] MEDS: OLANZapine 5 mg TABLET PO (08:21)
[2021-07-24] MEDS: pantoprazole DR 40 mg Tablet PO (08:21)
[2021-07-24] MEDS: metoprolol tartrate 25 mg Tablet PO (08:21)
--- NOTE | 2021-07-24 10:01 | PC.NURSE ---
Patients IV has been discontinued. Patient does not need another IV per Dr. Kennedy.
--- NOTE | 2021-07-24 10:38 | PC.SOCIAL ---
IMM update IMM not updated as guardianship is being worked on, not going to dc in the next 24-48 hours.
[2021-07-24] MEDS: acetaminophen 325 mg Tablet 650 MG PO ×2 (11:44→20:13)
[2021-07-24 12:00] VITALS: BP 139/75; PULSE 65; RESP 16; TEMP 36.6; O2SAT 98
[2021-07-24 12:03] LABS: Glucose Point of Care 205 mg/dL (70-110)
--- NOTE | 2021-07-24 14:22 | PC.CHAP ---
Pastoral Care Encounter/Spiritual Assessment Type of Contact [] Declined director semiconductor visit [] Patient/Family/Request visit [] Outpatient visit [xx] Follow-up visit [] Physician referral [] Code/Alert [xx] Routine visit [] Staff referral [] Actively dying [] Patient sleeping [] Family support [] [] Out of room [] Palliative care [] [] Receiving care in room [] Pre-surgical visit [] Trauma [xx] Long length of stay [] ICU visit [] Other: Relational/Emotional Strength [xx] Patient feels connected with others/family/visitors/staff [] Distress [] Loneliness/isolation [] Abandonment Spirituality of Patient [] Person of Sia [] Attends Restoration of their Sia [xx] Believes in Prayer [] Reads Bible or Restorationist materials [] There are Spiritual issues to be addressed Sofa Inspector Interventions [xx] Prayer [xx] Active listening [xx] Non-anxious presence [] Spiritual/emotional support [] Crisis/trauma care [] Spiritual counseling [] Bereavement support [] Provided bereavement packet [] Provided Bible/devotional materials [] Provided toy/stuffed animal, coloring book to patient or family member [] Provided Communion [] Anointing/[place] [] Salvation [xx] Completed spiritual assessment [] Other: Impact on Illness or Injury [] Angry [] Fearful [] Anxious [] Often cries [] Exhaustion [] Unable to work [] Unable to attend buddhism [] Unable to walk/stand [] Unable to read [] Unable to drive [] Unable to eat/drink [] Unable to sleep [] Unable to be with family [] Patient intubated [] Other: Summary Attendant present. Patient is very [id number], almost deaf. Conversation short but patient agreed to prayer and thanked director semiconductor for praying for him. Time spent with patient 5 minutes
[2021-07-24 15:45] VITALS: BP 123/76; PULSE 71; RESP 16; TEMP 36.4; O2SAT 98
--- NOTE | 2021-07-24 16:55 | PM.PN ---
Subjective Subjective: Interval history: Denies pain or discomfort. Denies headache, no chest pain or pressure. No trouble breathing. No nausea or vomiting. Reports he has been eating some. Vitals/I&O/Wt Last Vital Signs Temp 97.5 F L 07/24/21 15:45 Pulse 71 07/24/21 15:45 Resp 16 07/24/21 15:45 BP 123/76 07/24/21 15:45 Pulse Ox 98 07/24/21 15:45 07/24/21 07/24/21 07/24/21 06:59 14:59 22:59 Intake Total 100 / 1700 1540 / 1540 Balance 100 / 1700 1540 / 1540 Physical Exam Narrative: EXAM NARRATIVE: RN present. Const: COMMON NORMALS: no acute distress; negative for patient oriented x3 GENERAL APPEARANCE: cooperative and comfortable ORIENTATION/CONSCIOUSNESS: Yes awake OTHER: [place] Dressed in street clothes HENMT: COMMON NORMALS: oropharynx normal Neck/C-Spine: COMMON NORMALS: no JVD Resp: COMMON NORMALS: normal respiratory effort and clear to auscultation bilaterally AUSCULTATION: clear to auscultation bilaterally Cardio: COMMON NORMALS: no JVD, regular rhythm, S1 normal heart sound present, S2 normal heart sound present and No murmurs present (Cardio) RHYTHM: regular rhythm HEART SOUNDS: S1 normal heart sound present and S2 normal heart sound present GI: COMMON NORMALS: Normal to inspection, nondistended, normoactive bowel sounds present, Soft to palpation and non-tender PALPATION: Yes Soft to palpation Extremity: COMMON NORMALS: no joint enlargement and no pedal edema Neuro: COMMON NORMALS: moves all extremities; negative for patient oriented x3 Skin: COMMON NORMALS: no rashes or lesions noted GENERAL SKIN EXAM: no rashes or lesions noted Data : 07/18/21 05:26 07/23/21 09:10 A&P Assessment and plan (1) Altered mental status: No pain or discomfort. Has not been having any additional suicidal ideation, for the time being. Arrangements continued for guardianship, halfway placement. He otherwise completed treatment for urinary tract infection with ceftriaxone for sensitive Klebsiella. Currently alert to person, to place, not to time, follows all commands According to family alert to person, to place, to time, follows commands Evaluated by psychiatry, does not have capacity, working on guardianship proceedings, follow-up case management, has been accepted by the halfway Has had episode of agitation, and combativeness with nursing staff during this hospitalization, patient's [id number] tells me that that, is not uncommon for him, especially when he is taking too much of his oxycodone, no current episodes of agitation Currently over opiate overdose, from what it sounds from patient overdose was accidental, no intention for self-harm Currently over opiate withdrawal Currently no signs of sepsis. UA with possible evidence of UTI, started on Rocephin. CT head without acute intracranial events, chronic microvascular changes only. TSH within normal limits, ammonia within normal limits, acetaminophen levels within normal limits Toxicology screen negative Carotid artery ultrasound within normal limits Cardiac echo EF 50 to 55%, diastolic dysfunction, right ventricular is mildly hypokinetic, mild to moderate aortic regurg, mildly dilated ascending aorta Continue his Zyprexa which he is on chronically. Haldol as needed for agitation Avoid any medication which could promote further confusion such as opiates, antihistamines, benzodiazepines. Monitor closely for any withdrawal Continue his buspirone, aricept, remeron. Currently no opiate withdrawal Continue other chronic medications such as insulin, Bumex, metoprolol, statins, PPI Status: Acute (2) Drug overdose: Status: Acute (3) Suicidal ideation: Reports intermittent. Not at this time. As above. Status: Acute Attestations Medical Necessity Statement*: Requires continued hospital stay while pending guardianship arrangements and post discharge placement. Coding Level of Care Code Acute Emergency Communications Operator for nErrique Stein Diagnoses Altered mental status R41.82 Drug overdose T50.901A Suicidal ideation R45.851
[2021-07-24 17:08] LABS: Glucose Point of Care 207 mg/dL (70-110)
[2021-07-24] MEDS: atorvastatin 40 mg Tablet 20 MG PO (17:34)
[2021-07-24 19:29] VITALS: BP 138/61; PULSE 65; RESP 16; TEMP 36.4; O2SAT 99
[2021-07-24] MEDS: donepezil 5 MG Tablet PO (20:11)
[2021-07-24] MEDS: mirtazapine 15 mg Tablet 7.5 MG PO (20:12)
[2021-07-24] MEDS: fenofibrate 145 mg Tablet PO (20:12)
[2021-07-24 21:22] LABS: Glucose Point of Care 244 mg/dL (70-110)
[2021-07-25] VITALS: BP 130/76; PULSE 73; RESP 17; TEMP 36.9; O2SAT 96
[2021-07-25 04:00] VITALS: BP 111/64; PULSE 64; RESP 17; TEMP 36.9; O2SAT 97
[2021-07-25 06:33] LABS: Glucose Point of Care 232 mg/dL (70-110)
[2021-07-25 07:35] VITALS: BP 152/82; PULSE 83; RESP 18; TEMP 36.4; O2SAT 96
[2021-07-25] MEDS: insulin lispro 100 unit/1 mL SUBCUT ×4 (09:02→20:28)
[2021-07-25] MEDS: tamsulosin 0.4 mg Capsule 0.8 MG PO (09:02)
[2021-07-25] MEDS: bumetanide 1 mg Tablet 2 MG PO (09:02)
[2021-07-25] MEDS: BuSPIRONE 10 mg Tablet PO ×3 (09:03→20:28)
[2021-07-25] MEDS: metoprolol tartrate 25 mg Tablet PO (09:03)
[2021-07-25] MEDS: pantoprazole DR 40 mg Tablet PO (09:03)
[2021-07-25] MEDS: potassium chloride ER 20 mEq Tablet 40 MEQ PO (09:03)
[2021-07-25] MEDS: OLANZapine 5 mg TABLET PO (09:03)
[2021-07-25 11:26] LABS: Glucose Point of Care 194 mg/dL (70-110)
[2021-07-25 11:30] VITALS: BP 145/82; PULSE 62; RESP 18; TEMP 36.6; O2SAT 98
[2021-07-25] MEDS: acetaminophen 325 mg Tablet 650 MG PO ×2 (11:43→17:45)
[2021-07-25 15:32] VITALS: BP 119/74; PULSE 66; RESP 18; TEMP 36.6; O2SAT 98
[2021-07-25 16:54] LABS: Glucose Point of Care 205 mg/dL (70-110)
[2021-07-25] MEDS: atorvastatin 40 mg Tablet 20 MG PO (17:43)
[2021-07-25 20:00] VITALS: BP 138/69; PULSE 65; RESP 18; TEMP 36.7; O2SAT 97
[2021-07-25 20:27] LABS: Glucose Point of Care 203 mg/dL (70-110)
[2021-07-25] MEDS: mirtazapine 15 mg Tablet 7.5 MG PO (20:27)
[2021-07-25] MEDS: fenofibrate 145 mg Tablet PO (20:27)
[2021-07-25] MEDS: donepezil 5 MG Tablet PO (20:28)
--- NOTE | 2021-07-25 20:30 | PM.PN ---
Subjective Subjective: Interval history: Nothing new today, but reports he is getting the blues. On entering the room the blinds are closed, discussed with him if he would allow we would open the blinds. He agreed. Denies pain or discomfort. Vitals/I&O/Wt Last Vital Signs Temp 97.9 F 07/25/21 15:32 Pulse 66 07/25/21 15:32 Resp 18 07/25/21 15:32 BP 119/74 07/25/21 15:32 Pulse Ox 98 07/25/21 15:32 07/25/21 07/25/21 07/25/21 06:59 14:59 22:59 Intake Total 200 / 2700 840 / 840 600 / 1440 Balance 200 / 2700 840 / 840 600 / 1440 Physical Exam Const: COMMON NORMALS: no acute distress; negative for patient oriented x3 GENERAL APPEARANCE: cooperative and comfortable ORIENTATION/CONSCIOUSNESS: Yes awake OTHER: [place] Dressed in street clothes HENMT: COMMON NORMALS: oropharynx normal Neck/C-Spine: COMMON NORMALS: no JVD Resp: COMMON NORMALS: normal respiratory effort and clear to auscultation bilaterally AUSCULTATION: clear to auscultation bilaterally Cardio: COMMON NORMALS: no JVD, regular rhythm, S1 normal heart sound present, S2 normal heart sound present and No murmurs present (Cardio) RHYTHM: regular rhythm HEART SOUNDS: S1 normal heart sound present and S2 normal heart sound present GI: COMMON NORMALS: Normal to inspection, nondistended, normoactive bowel sounds present, Soft to palpation and non-tender PALPATION: Yes Soft to palpation Extremity: COMMON NORMALS: no joint enlargement and no pedal edema Neuro: COMMON NORMALS: moves all extremities; negative for patient oriented x3 Skin: COMMON NORMALS: no rashes or lesions noted GENERAL SKIN EXAM: no rashes or lesions noted Data : 07/18/21 05:26 07/23/21 09:10 A&P Assessment and plan (1) Altered mental status: No pain or discomfort. Reports today's feeling blue. Blinds closed. Opened them to let some delayed in. Discussed with him to let us know if symptoms are getting worse. Arrangements continued for guardianship, fdc placement. He otherwise completed treatment for urinary tract infection with ceftriaxone for sensitive Klebsiella. Currently alert to person, to place, not to time, follows all commands According to family alert to person, to place, to time, follows commands Evaluated by psychiatry, does not have capacity, working on guardianship proceedings, follow-up case management, has been accepted by the [facility]dc Has had episode of agitation, and combativeness with nursing staff during this hospitalization, patient's [id number] tells me that that, is not uncommon for him, especially when he is taking too much of his oxycodone, no current episodes of agitation Currently over opiate overdose, from what it sounds from patient overdose was accidental, no intention for self-harm Currently over opiate withdrawal Currently no signs of sepsis. UA with possible evidence of UTI, started on Rocephin. CT head without acute intracranial events, chronic microvascular changes only. TSH within normal limits, ammonia within normal limits, acetaminophen levels within normal limits Toxicology screen negative Carotid artery ultrasound within normal limits Cardiac echo EF 50 to 55%, diastolic dysfunction, right ventricular is mildly hypokinetic, mild to moderate aortic regurg, mildly dilated ascending aorta Continue his Zyprexa which he is on chronically. Haldol as needed for agitation Avoid any medication which could promote further confusion such as opiates, antihistamines, benzodiazepines. Monitor closely for any withdrawal Continue his buspirone, aricept, remeron. Currently no opiate withdrawal Continue other chronic medications such as insulin, Bumex, metoprolol, statins, PPI Status: Acute (2) Drug overdose: Status: Acute (3) Suicidal ideation: Reports intermittent. Not at this time. As above. Status: Acute Attestations Medical Necessity Statement*: Continue guardianship arrangements, post discharge planning. Coding Level of Care Code Acute Supervisor [employer] for Enrrique Stein Diagnoses Altered mental status R41.82 Drug overdose T50.901A Suicidal ideation R45.851
[2021-07-26] VITALS: BP 138/75; PULSE 60; RESP 18; TEMP 36.6; O2SAT 97
[2021-07-26 04:00] VITALS: BP 134/70; PULSE 62; RESP 18; TEMP 36.7; O2SAT 95
--- NOTE | 2021-07-26 06:24 | PC.NURSE ---
Patient rested well through the night. Oriented to Name, , Place, and year. Pt is unable to state the month. No episodes of agitation or SI.
[2021-07-26 06:46] LABS: Glucose Point of Care 183 mg/dL (70-110)
[2021-07-26 07:31] VITALS: BP 143/83; PULSE 76; RESP 16; TEMP 36.7; O2SAT 97
[2021-07-26] MEDS: bumetanide 1 mg Tablet 2 MG PO (08:45)
[2021-07-26] MEDS: pantoprazole DR 40 mg Tablet PO (08:45)
[2021-07-26] MEDS: potassium chloride ER 20 mEq Tablet 40 MEQ PO (08:45)
[2021-07-26] MEDS: tamsulosin 0.4 mg Capsule 0.8 MG PO (08:45)
[2021-07-26] MEDS: BuSPIRONE 10 mg Tablet PO ×3 (08:45→20:11)
[2021-07-26] MEDS: metoprolol tartrate 25 mg Tablet PO (08:45)
[2021-07-26] MEDS: OLANZapine 5 mg TABLET PO (08:45)
[2021-07-26] MEDS: insulin lispro 100 unit/1 mL SUBCUT ×4 (08:45→21:52)
[2021-07-26 11:30] VITALS: BP 119/74; PULSE 63; RESP 16; TEMP 36.9; O2SAT 97
--- NOTE | 2021-07-26 11:49 | PC.SOCIAL ---
IMM Update pg 2 of IMM not updated w/ patient. Patient is pending guardianship and discharge is not anticipated.
[2021-07-26 11:53] LABS: Glucose Point of Care 201 mg/dL (70-110)
[2021-07-26 15:53] VITALS: BP 126/74; PULSE 76; RESP 17; TEMP 36.8; O2SAT 97
--- NOTE | 2021-07-26 16:08 | PC.NURSE ---
Patient having suicidal thoughts. Stating I dont want to live anymore
[2021-07-26 16:48] LABS: Glucose Point of Care 288 mg/dL (70-110)
[2021-07-26] MEDS: atorvastatin 40 mg Tablet 20 MG PO (17:28)
[2021-07-26] MEDS: saline nasal spray 44mL Btl 1 SPRAY NASAL (17:29)
[2021-07-26 19:51] VITALS: BP 122/69; PULSE 74; RESP 17; TEMP 36.7; O2SAT 96
[2021-07-26] MEDS: fenofibrate 145 mg Tablet PO (20:11)
[2021-07-26] MEDS: mirtazapine 15 mg Tablet 7.5 MG PO (20:11)
[2021-07-26] MEDS: donepezil 5 MG Tablet PO (20:11)
[2021-07-26] MEDS: acetaminophen 325 mg Tablet 650 MG PO (20:21)
[2021-07-26 20:40] LABS: Glucose Point of Care 181 mg/dL (70-110)
--- NOTE | 2021-07-26 21:07 | PM.PN ---
Subjective Subjective: Interval history: Asking me how long he is going to be here. Discussed with him that additional documentation is currently pending, delayed by the weekend. By the end of the discussion he asked me again the same question. Asks me what date it is today. He is concerned that he has an appointment coming up for his hearing aid. Reassured him, and discussed with him that he should be able to be taken for his appointment or if does not make it in time it could be rescheduled. Asked him what year it is, he states 2000 or 2001, somewhere there. Vitals/I&O/Wt Last Vital Signs Temp 98.1 F 07/26/21 19:51 Pulse 74 07/26/21 19:51 Resp 17 07/26/21 19:51 BP 122/69 07/26/21 19:51 Pulse Ox 96 07/26/21 19:51 07/26/21 07/26/21 07/26/21 06:59 14:59 22:59 Intake Total 360 / 1800 940 / 940 1180 / 2120 Balance 360 / 1800 940 / 940 1180 / 2120 Physical Exam Narrative: EXAM NARRATIVE: RN present. Const: COMMON NORMALS: no acute distress; negative for patient oriented x3 GENERAL APPEARANCE: cooperative and comfortable ORIENTATION/CONSCIOUSNESS: Yes awake OTHER: [place] Dressed in street clothes HENMT: COMMON NORMALS: oropharynx normal Neck/C-Spine: COMMON NORMALS: no JVD Resp: COMMON NORMALS: normal respiratory effort and clear to auscultation bilaterally AUSCULTATION: clear to auscultation bilaterally Cardio: COMMON NORMALS: no JVD, regular rhythm, S1 normal heart sound present, S2 normal heart sound present and No murmurs present (Cardio) RHYTHM: regular rhythm HEART SOUNDS: S1 normal heart sound present and S2 normal heart sound present GI: COMMON NORMALS: Normal to inspection, nondistended, normoactive bowel sounds present, Soft to palpation and non-tender PALPATION: Yes Soft to palpation Extremity: COMMON NORMALS: no joint enlargement and no pedal edema Neuro: COMMON NORMALS: moves all extremities; negative for patient oriented x3 Skin: COMMON NORMALS: no rashes or lesions noted GENERAL SKIN EXAM: no rashes or lesions noted Data : 07/18/21 05:26 07/23/21 09:10 A&P Assessment and plan (1) Altered mental status: Forgetful. Comes around the same questions after my discussion. Does state that he has been feeling more blue, and that opening the windows does not help. In the morning please reach out to psychiatry to see if suggest additional recommendations with regards to his depression. Continue psychiatric medications, reassurance, supportive care. Arrangements continued for guardianship, jail placement. He otherwise completed treatment for urinary tract infection with ceftriaxone for sensitive Klebsiella. Currently alert to person, to place, not to time, follows all commands According to family alert to person, to place, to time, follows commands Evaluated by psychiatry, does not have capacity, working on guardianship proceedings, follow-up case management, has been accepted by the jail Has had episode of agitation, and combativeness with nursing staff during this hospitalization, patient's [id number] tells me that that, is not uncommon for him, especially when he is taking too much of his oxycodone, no current episodes of agitation Currently over opiate overdose, from what it sounds from patient overdose was accidental, no intention for self-harm Currently over opiate withdrawal Currently no signs of sepsis. UA with possible evidence of UTI, started on Rocephin. CT head without acute intracranial events, chronic microvascular changes only. TSH within normal limits, ammonia within normal limits, acetaminophen levels within normal limits Toxicology screen negative Carotid artery ultrasound within normal limits Cardiac echo EF 50 to 55%, diastolic dysfunction, right ventricular is mildly hypokinetic, mild to moderate aortic regurg, mildly dilated ascending aorta Continue his Zyprexa which he is on chronically. Haldol as needed for agitation Avoid any medication which could promote further confusion such as opiates, antihistamines, benzodiazepines. Monitor closely for any withdrawal Continue his buspirone, aricept, remeron. Currently no opiate withdrawal Continue other chronic medications such as insulin, Bumex, metoprolol, statins, PPI Status: Acute (2) Drug overdose: Status: Acute (3) Suicidal ideation: Reports intermittent. Not at this time. As above. Status: Acute Attestations Medical Necessity Statement*: Continue arrangements for guardianship, and pending placement. Coding Level of Care Code Acute Physical Therapist Center Manager for Enrrique Stein Diagnoses Altered mental status R41.82 Drug overdose T50.901A Suicidal ideation R45.851
[2021-07-27] VITALS (7 sets, daily range): BP systolic 125–163; BP diastolic 73–88; PULSE 69–73; RESP 16–18; TEMP 36.3–36.7; O2SAT 94–96
[2021-07-27 06:43] LABS: Glucose Point of Care 174 mg/dL (70-110)
[2021-07-27] MEDS: insulin lispro 100 unit/1 mL SUBCUT ×4 (08:08→20:38)
[2021-07-27] MEDS: bumetanide 1 mg Tablet 2 MG PO (08:09)
[2021-07-27] MEDS: potassium chloride ER 20 mEq Tablet 40 MEQ PO (08:09)
[2021-07-27] MEDS: BuSPIRONE 10 mg Tablet PO ×3 (08:09→20:13)
[2021-07-27] MEDS: pantoprazole DR 40 mg Tablet PO (08:09)
[2021-07-27] MEDS: OLANZapine 5 mg TABLET PO (08:09)
[2021-07-27] MEDS: tamsulosin 0.4 mg Capsule 0.8 MG PO (08:09)
[2021-07-27] MEDS: metoprolol tartrate 25 mg Tablet PO (08:09)
[2021-07-27 13:18] LABS: Glucose Point of Care 325 mg/dL (70-110)
[2021-07-27] MEDS: polyethylene glycol 3350 Pkt 17 gm PO (16:10)
[2021-07-27 16:32] LABS: Glucose Point of Care 185 mg/dL (70-110)
--- NOTE | 2021-07-27 17:09 | P.PN_ITS ---
Subjective Subjective: Interval history: Hospital course, labs appreciated. Examination lying comfortably in bed. Remains on room air hemodynamically stable and afebrile. Asking for how long will he has to remain in the hospital. Complaining of constipation. Vitals/I&O/Wt Last Vital Signs Temp 97.4 F L 07/27/21 16:00 Pulse 69 07/27/21 16:00 Resp 18 07/27/21 16:00 BP 129/73 07/27/21 16:00 Pulse Ox 96 07/27/21 16:00 07/27/21 07/27/21 07/27/21 06:59 14:59 22:59 Intake Total 240 / 2840 600 / 600 Balance 240 / 2840 600 / 600 Physical Exam Narrative: EXAM NARRATIVE: RN present. Const: COMMON NORMALS: no acute distress; negative for patient oriented x3 GENERAL APPEARANCE: cooperative and comfortable ORIENTATION/CONSCIOUSNESS: Yes awake, Yes oriented to person, Yes oriented to place and Yes confused; not oriented to time OTHER: [place] Dressed in street clothes HENMT: COMMON NORMALS: oropharynx normal Neck/C-Spine: COMMON NORMALS: no JVD Chest: COMMONS NORMALS: normal inspection of the chest Resp: COMMON NORMALS: normal respiratory effort, No retractions, No use of accessory muscles and clear to auscultation bilaterally AUSCULTATION: clear to auscultation bilaterally Cardio: COMMON NORMALS: no JVD, regular rate, regular rhythm, S1 normal heart sound present, S2 normal heart sound present and No murmurs present (Cardio) RATE: regular rate RHYTHM: regular rhythm HEART SOUNDS: S1 normal heart sound present and S2 normal heart sound present GI: COMMON NORMALS: Normal to inspection, nondistended, normoactive bowel sounds present, Soft to palpation, non-tender and No hepatosplenomegaly present PALPATION: Yes Soft to palpation and Yes No hepatosplenomegaly present Extremity: COMMON NORMALS: no joint enlargement and no pedal edema Neuro: COMMON NORMALS: moves all extremities; negative for patient oriented x3 SENSORIUM/ORIENTATION: Yes oriented to person, Yes oriented to place and No oriented to time Psych: COMMON NORMALS: mental status grossly normal Skin: COMMON NORMALS: no rashes or lesions noted GENERAL SKIN EXAM: no rashes or lesions noted Data : 07/18/21 05:26 07/23/21 09:10 A&P Assessment and plan (1) Altered mental status: Forgetful. Comes around the same questions after my discussion. Does state that he has been feeling more blue, and that opening the windows does not help. In the morning please reach out to psychiatry to see if suggest additional recommendations with regards to his depression. Continue psychiatric medications, reassurance, supportive care. Arrangements continued for guardianship, senior living placement. He otherwise completed treatment for urinary tract infection with ceftriaxone for sensitive Klebsiella. Currently alert to person, to place, not to time, follows all commands According to family alert to person, to place, to time, follows commands Evaluated by psychiatry, does not have capacity, working on guardianship proceedings, follow-up case management, has been accepted by the senior living Has had episode of agitation, and combativeness with nursing staff during this hospitalization, patient's qebusv-gn-wuy tells me that that, is not uncommon for him, especially when he is taking too much of his oxycodone, no current episodes of agitation Currently over opiate overdose, from what it sounds from patient overdose was accidental, no intention for self-harm Currently over opiate withdrawal Currently no signs of sepsis. UA with possible evidence of UTI, started on Rocephin. CT head without acute intracranial events, chronic microvascular changes only. TSH within normal limits, ammonia within normal limits, acetaminophen levels within normal limits Toxicology screen negative Carotid artery ultrasound within normal limits Cardiac echo EF 50 to 55%, diastolic dysfunction, right ventricular is mildly hypokinetic, mild to moderate aortic regurg, mildly dilated ascending aorta Continue his Zyprexa which he is on chronically. Haldol as needed for agitation Avoid any medication which could promote further confusion such as opiates, antihistamines, benzodiazepines. Monitor closely for any withdrawal Continue his buspirone, aricept, remeron. Currently no opiate withdrawal Continue other chronic medications such as insulin, Bumex, metoprolol, statins, PPI Status: Acute (2) Drug overdose: Status: Acute (3) Suicidal ideation: Reports intermittent. Not at this time. As above. Status: Acute Additional A&P Information Plan for the day: Stool softner. Await . Sitter. Awaiting guardianship and safe discharge planning Attestations Medical Necessity Statement*: Requires further hospitalization for arrangement of guardianship and safe discharge planning Time Spent in Patient Care: 16 - 35 minutes Coding Level of Care Code Acute Optical Fabricator for Enrrique Stein Diagnoses Altered mental status R41.82 Drug overdose T50.901A Suicidal ideation R45.851
[2021-07-27] MEDS: atorvastatin 40 mg Tablet 20 MG PO (18:04)
[2021-07-27] MEDS: acetaminophen 325 mg Tablet 650 MG PO (19:55)
[2021-07-27] MEDS: donepezil 5 MG Tablet PO (20:13)
[2021-07-27] MEDS: mirtazapine 15 mg Tablet 7.5 MG PO (20:13)
[2021-07-27] MEDS: fenofibrate 145 mg Tablet PO (20:13)
[2021-07-27 20:48] LABS: Glucose Point of Care 259 mg/dL (70-110)
[2021-07-28 04:04] VITALS: BP 144/82; PULSE 88; RESP 16; TEMP 36.3; O2SAT 95
[2021-07-28 06:38] LABS: Glucose Point of Care 230 mg/dL (70-110)
[2021-07-28 06:46] LABS: Alanine Aminotransferase 8 U/L (0-41); Albumin Level 3.9 g/dL (3.5-5.2); Alkaline Phosphatase 45 IU/L (40-130); Anion Gap 16.9 (5-19); Aspartate Amino Transferase 10 U/L (0-40); Blood Urea Nitrogen 26 mg/dL (8-23); Calcium 9.6 mg/dL (8.5-10.5); Carbon Dioxide 22 mmol/L (22-29); Chloride 98 mmol/L (98-107); Creatinine Clr Calc Pharmacy 84.8159; Globulin 3.1 g/dL (1.3-4.6); Glucose 197 mg/dL (65-115); Osmolality Calculated 286 mOsm/kg (285-295); Potassium 3.9 mmol/L (3.5-5.1); Sodium 133 mmol/L (136-145); Total Bilirubin 0.2 mg/dL (0.15-1.2)
[2021-07-28 06:47] LABS: Basophils % 0.6 %; Eosinophils # 0.2 10^3/uL (0.0-0.8); Eosinophils % 2.7 %; Hematocrit 36.2 % (42.0-52.0); Lymphocytes # 1.2 10^3/uL (0.8-4.8); Lymphocytes % 17.3 %; Mean Corpuscular HGB Conc 33.1 g/dL (30.0-36.0); Mean Corpuscular Volume 90.5 fl (80-94); Mean Platelet Volume 9.4 fL (7.4-10.4); Monocytes # 0.5 10^3/uL (0.2-0.9); Monocytes % 7.3 %; Neutrophils # 4.79 10^3/uL (1.8-7.7); Neutrophils % 71.5 %; Nucleated Red Blood Cells % 0 %; Platelet Count 307 10^3/cmm (130-400); Red Cell Distribution Width 12.9 % (12.1-15.1); White Blood Count 6.7 10^3/uL (4.0-10.0)
[2021-07-28 08:00] VITALS: BP 134/87; PULSE 84; RESP 16; TEMP 36.3; O2SAT 98
[2021-07-28] MEDS: insulin lispro 100 unit/1 mL SUBCUT ×4 (08:43→21:38)
[2021-07-28] MEDS: bumetanide 1 mg Tablet 2 MG PO (08:44)
[2021-07-28] MEDS: BuSPIRONE 10 mg Tablet PO ×3 (08:44→21:36)
[2021-07-28] MEDS: tamsulosin 0.4 mg Capsule 0.8 MG PO (08:44)
[2021-07-28] MEDS: potassium chloride ER 20 mEq Tablet 40 MEQ PO (08:44)
[2021-07-28] MEDS: metoprolol tartrate 25 mg Tablet PO (08:44)
[2021-07-28] MEDS: OLANZapine 5 mg TABLET PO (08:44)
[2021-07-28] MEDS: pantoprazole DR 40 mg Tablet PO (08:44)
[2021-07-28] MEDS: polyethylene glycol 3350 Pkt 17 gm PO (11:28)
[2021-07-28 11:57] LABS: Glucose Point of Care 320 mg/dL (70-110)
[2021-07-28 12:00] VITALS: BP 126/78; PULSE 75; RESP 16; TEMP 36.6; O2SAT 96
--- NOTE | 2021-07-28 12:03 | PC.SOCIAL ---
IMM Update IMM not updated. Patient is pending guardianship and discharge is not anticipated for the nest 24-48hrs.
[2021-07-28] MEDS: magnesium hydroxide 30 mL UDC PO (14:38)
[2021-07-28 16:00] VITALS: BP 124/75; PULSE 76; RESP 16; TEMP 36.7; O2SAT 95
--- NOTE | 2021-07-28 16:08 | P.PN_ITS ---
Subjective Subjective: Interval history: On examination patient lying comfortably in bed. Denies any nausea, vomiting, headache. Complaining of constipation. Asking when can he be discharged because he he has an appointment for hearing aid on July 31. Discussed with the patient that unfortunately we are seeking guardianship which can take a few more weeks. Patient seen later agitated r egarding the concept of being in hospital beyond July 31. Try to explain to him reason for being in hospital. Vitals/I&O/Wt Last Vital Signs Temp 97.9 F 07/28/21 12:00 Pulse 75 07/28/21 12:00 Resp 16 07/28/21 12:00 BP 126/78 07/28/21 12:00 Pulse Ox 96 07/28/21 12:00 07/28/21 07/28/21 07/28/21 06:59 14:59 22:59 Intake Total 240 / 2520 2280 / 2280 Balance 240 / 2520 2280 / 2280 Physical Exam Narrative: EXAM NARRATIVE: RN present. Const: COMMON NORMALS: no acute distress; negative for patient oriented x3 GENERAL APPEARANCE: cooperative and comfortable ORIENTATION/CONSCIOUSNESS: Yes awake, Yes oriented to person, Yes oriented to place and Yes confused; not oriented to time OTHER: [place] Dressed in street clothes HENMT: COMMON NORMALS: oropharynx normal Neck/C-Spine: COMMON NORMALS: no JVD Chest: COMMONS NORMALS: normal inspection of the chest Resp: COMMON NORMALS: normal respiratory effort, No retractions, No use of accessory muscles and clear to auscultation bilaterally AUSCULTATION: clear to auscultation bilaterally Cardio: COMMON NORMALS: no JVD, regular rate, regular rhythm, S1 normal heart sound present, S2 normal heart sound present and No murmurs present (Cardio) RATE: regular rate RHYTHM: regular rhythm HEART SOUNDS: S1 normal heart sound present and S2 normal heart sound present GI: COMMON NORMALS: Normal to inspection, nondistended, normoactive bowel sounds present, Soft to palpation, non-tender and No hepatosplenomegaly present PALPATION: Yes Soft to palpation and Yes No hepatosplenomegaly present Extremity: COMMON NORMALS: no joint enlargement and no pedal edema Neuro: COMMON NORMALS: moves all extremities; negative for patient oriented x3 SENSORIUM/ORIENTATION: Yes oriented to person, Yes oriented to place and No oriented to time Psych: COMMON NORMALS: mental status grossly normal Skin: COMMON NORMALS: no rashes or lesions noted GENERAL SKIN EXAM: no rashes or lesions noted Data : 07/28/21 06:15 07/28/21 06:15 A&P Assessment and plan (1) Altered mental status: Forgetful. Comes around the same questions after my discussion. Does state that he has been feeling more blue, and that opening the windows does not help. In the morning please reach out to psychiatry to see if suggest additional recommendations with regards to his depression. Continue psychiatric medications, reassurance, supportive care. Arrangements continued for guardianship, intermediate placement. He otherwise completed treatment for urinary tract infection with ceftriaxone for sensitive Klebsiella. Currently alert to person, to place, not to time, follows all commands According to family alert to person, to place, to time, follows commands Evaluated by psychiatry, does not have capacity, working on guardianship proceedings, follow-up case management, has been accepted by the intermediate TSH within normal limits, ammonia within normal limits, acetaminophen levels within normal limits Toxicology screen negative Carotid artery ultrasound within normal limits Cardiac echo EF 50 to 55%, diastolic dysfunction, right ventricular is mildly hypokinetic, mild to moderate aortic regurg, mildly dilated ascending aorta Continue his Zyprexa which he is on chronically. Continue his buspirone, aricept, remeron. Haldol as needed for agitation Avoid any medication which could promote further confusion such as opiates, antihistamines, benzodiazepines. Monitor closely for any withdrawal Status: Acute (2) Drug overdose: Status: Acute (3) Suicidal ideation: Reports intermittent. Not at this time. As above. Status: Acute Additional A&P Information Plan for the day: Active discharge planning. Repeat stool softener. If does not have a plan for enema tomorrow. Attestations Medical Necessity Statement*: Requires further hospitalization while safe discharge planning and guardianship is sought. Time Spent in Patient Care: less than 15 minutes Coding Level of Care Code Acute Infection Control Preventionist for Enrrique Stein Diagnoses Altered mental status R41.82 Drug overdose T50.901A Suicidal ideation R45.851
[2021-07-28 17:30] LABS: Glucose Point of Care 192 mg/dL (70-110)
[2021-07-28] MEDS: atorvastatin 40 mg Tablet 20 MG PO (18:04)
[2021-07-28 20:00] VITALS: BP 137/85; PULSE 106; RESP 18; TEMP 37.1; O2SAT 94
[2021-07-28 21:18] LABS: Glucose Point of Care 269 mg/dL (70-110)
[2021-07-28] MEDS: fenofibrate 145 mg Tablet PO (21:36)
[2021-07-28] MEDS: donepezil 5 MG Tablet PO (21:36)
[2021-07-28] MEDS: mirtazapine 15 mg Tablet 7.5 MG PO (21:37)
[2021-07-28] MEDS: acetaminophen 325 mg Tablet 650 MG PO (21:45)
[2021-07-29] VITALS: BP 126/88; PULSE 61; RESP 17; TEMP 37.1; O2SAT 99
[2021-07-29 04:00] VITALS: BP 144/73; PULSE 69; RESP 18; O2SAT 96
[2021-07-29 08:00] VITALS: BP 155/89; PULSE 84; RESP 16; TEMP 36.3; O2SAT 99
[2021-07-29 08:39] LABS: Glucose Point of Care 285 mg/dL (70-110)
[2021-07-29] MEDS: bumetanide 1 mg Tablet 2 MG PO (08:46)
[2021-07-29] MEDS: tamsulosin 0.4 mg Capsule 0.8 MG PO (08:46)
[2021-07-29] MEDS: potassium chloride ER 20 mEq Tablet 40 MEQ PO (08:47)
[2021-07-29] MEDS: BuSPIRONE 10 mg Tablet PO ×3 (08:51→20:00)
[2021-07-29] MEDS: OLANZapine 5 mg TABLET PO (08:51)
[2021-07-29] MEDS: pantoprazole DR 40 mg Tablet PO (08:51)
[2021-07-29] MEDS: insulin lispro 100 unit/1 mL SUBCUT ×4 (08:51→21:23)
[2021-07-29] MEDS: metoprolol tartrate 25 mg Tablet PO (08:51)
[2021-07-29] MEDS: acetaminophen 325 mg Tablet 650 MG PO ×2 (09:07→20:00)
[2021-07-29] MEDS: magnesium citrate Btl 296 mL PO (10:48)
[2021-07-29 11:25] VITALS: BP 127/82; PULSE 72; RESP 16; TEMP 36.6; O2SAT 97
[2021-07-29 11:32] LABS: Glucose Point of Care 249 mg/dL (70-110)
[2021-07-29] MEDS: Fleet Enema 133 mL Enema PR (13:38)
--- NOTE | 2021-07-29 15:12 | PM.PN ---
Subjective Subjective: Interval history: Status quo. No acute complaints. Complaining of constipation. Will give aggressive bowel regimen and possible enema today. Vitals/I&O/Wt Last Vital Signs Temp 97.8 F 07/29/21 11:25 Pulse 72 07/29/21 11:25 Resp 16 07/29/21 11:25 BP 127/82 07/29/21 11:25 Pulse Ox 97 07/29/21 11:25 07/29/21 07/29/21 07/29/21 06:59 14:59 22:59 Intake Total 480 / 3000 840 / 840 Balance 480 / 3000 840 / 840 Physical Exam Narrative: EXAM NARRATIVE: RN present. Const: COMMON NORMALS: no acute distress; negative for patient oriented x3 GENERAL APPEARANCE: cooperative and comfortable ORIENTATION/CONSCIOUSNESS: Yes awake, Yes oriented to person, Yes oriented to place and Yes confused; not oriented to time OTHER: [place] Dressed in street clothes HENMT: COMMON NORMALS: oropharynx normal Neck/C-Spine: COMMON NORMALS: no JVD Chest: COMMONS NORMALS: normal inspection of the chest Resp: COMMON NORMALS: normal respiratory effort, No retractions, No use of accessory muscles and clear to auscultation bilaterally AUSCULTATION: clear to auscultation bilaterally Cardio: COMMON NORMALS: no JVD, regular rate, regular rhythm, S1 normal heart sound present, S2 normal heart sound present and No murmurs present (Cardio) RATE: regular rate RHYTHM: regular rhythm HEART SOUNDS: S1 normal heart sound present and S2 normal heart sound present GI: COMMON NORMALS: Normal to inspection, nondistended, normoactive bowel sounds present, Soft to palpation, non-tender and No hepatosplenomegaly present PALPATION: Yes Soft to palpation and Yes No hepatosplenomegaly present Extremity: COMMON NORMALS: no joint enlargement and no pedal edema Neuro: COMMON NORMALS: moves all extremities; negative for patient oriented x3 SENSORIUM/ORIENTATION: Yes oriented to person, Yes oriented to place and No oriented to time Psych: COMMON NORMALS: mental status grossly normal Skin: COMMON NORMALS: no rashes or lesions noted GENERAL SKIN EXAM: no rashes or lesions noted Data : 07/28/21 06:15 07/28/21 06:15 A&P Assessment and plan (1) Altered mental status: Forgetful. Comes around the same questions after my discussion. Does state that he has been feeling more blue, and that opening the windows does not help. In the morning please reach out to psychiatry to see if suggest additional recommendations with regards to his depression. Continue psychiatric medications, reassurance, supportive care. Arrangements continued for guardianship, long term placement. He otherwise completed treatment for urinary tract infection with ceftriaxone for sensitive Klebsiella. Currently alert to person, to place, not to time, follows all commands According to family alert to person, to place, to time, follows commands Evaluated by psychiatry, does not have capacity, working on guardianship proceedings, follow-up case management, has been accepted by the long term TSH within normal limits, ammonia within normal limits, acetaminophen levels within normal limits Toxicology screen negative Carotid artery ultrasound within normal limits Cardiac echo EF 50 to 55%, diastolic dysfunction, right ventricular is mildly hypokinetic, mild to moderate aortic regurg, mildly dilated ascending aorta Continue his Zyprexa which he is on chronically. Continue his buspirone, aricept, remeron. Haldol as needed for agitation Avoid any medication which could promote further confusion such as opiates, antihistamines, benzodiazepines. Monitor closely for any withdrawal Status: Acute (2) Drug overdose: Status: Acute (3) Suicidal ideation: Reports intermittent. Not at this time. As above. Status: Acute Additional A&P Information Plan for the day: Awaiting guardianship. Safe discharge planning. Repeat stool softener. Enema today. Attestations Medical Necessity Statement*: Requires hospitalization while we await guardianship for safe of discharge planning Time Spent in Patient Care: 16 - 35 minutes Coding Level of Care Code Acute Policy Officer for Enrrique Stein Diagnoses Altered mental status R41.82 Drug overdose T50.901A Suicidal ideation R45.851
[2021-07-29 15:28] VITALS: BP 150/83; PULSE 70; RESP 16; TEMP 36.6; O2SAT 99
[2021-07-29 17:03] LABS: Glucose Point of Care 219 mg/dL (70-110)
[2021-07-29] MEDS: atorvastatin 40 mg Tablet 20 MG PO (17:05)
--- NOTE | 2021-07-29 18:43 | PC.NURSE ---
PATIENT WAS AGITATED THIS MORNING BECAUSE HE HAD NOT HAD A BOWEL MOVEMENT IN 3 DAYS HE STATED. THIS NURSE RECEIVED BOWEL REGIMEN ORDERS FROM DR. FIGUEROA. THIS NURSE ADMINISTERED MAG CITRATE AND GAVE A FLEET ENEMA. PATIENT HAS NOW HAD 2 BOWEL MOVEMENTS. HE STATED HE FEELS MUCH BETTER.
[2021-07-29 20:00] VITALS: BP 161/77; PULSE 78; RESP 17; TEMP 36.4; O2SAT 96
[2021-07-29] MEDS: donepezil 5 MG Tablet PO (20:00)
[2021-07-29] MEDS: fenofibrate 145 mg Tablet PO (20:00)
[2021-07-29] MEDS: mirtazapine 15 mg Tablet 7.5 MG PO (20:00)
[2021-07-29 21:21] LABS: Glucose Point of Care 243 mg/dL (70-110)
[2021-07-30] VITALS (7 sets, daily range): BP systolic 122–148; BP diastolic 69–79; PULSE 61–71; RESP 14–18; TEMP 36.3–36.8; O2SAT 92–99
[2021-07-30 06:32] LABS: Glucose Point of Care 230 mg/dL (70-110)
[2021-07-30] MEDS: insulin lispro 100 unit/1 mL SUBCUT ×4 (08:29→20:48)
[2021-07-30] MEDS: BuSPIRONE 10 mg Tablet PO ×3 (08:30→20:39)
[2021-07-30] MEDS: tamsulosin 0.4 mg Capsule 0.8 MG PO (08:30)
[2021-07-30] MEDS: pantoprazole DR 40 mg Tablet PO (08:30)
[2021-07-30] MEDS: OLANZapine 5 mg TABLET PO (08:30)
[2021-07-30] MEDS: metoprolol tartrate 25 mg Tablet PO (08:30)
[2021-07-30] MEDS: potassium chloride ER 20 mEq Tablet 40 MEQ PO (08:30)
[2021-07-30] MEDS: bumetanide 1 mg Tablet 2 MG PO (08:30)
--- NOTE | 2021-07-30 09:14 | PC.SOCIAL ---
IMM updated, dated and initialed, copy given to patient
[2021-07-30] MEDS: acetaminophen 325 mg Tablet 650 MG PO ×2 (11:36→20:43)
[2021-07-30 12:37] LABS: Glucose Point of Care 249 mg/dL (70-110)
--- NOTE | 2021-07-30 13:33 | PM.PN ---
Subjective Subjective: Interval history: No new active complaints. Had 2 bowel movements yesterday. Sitter at bedside. Vitals/I&O/Wt Last Vital Signs Temp 97.4 F L 07/30/21 12:00 Pulse 61 07/30/21 12:00 Resp 16 07/30/21 12:00 BP 144/78 07/30/21 12:00 Pulse Ox 98 07/30/21 12:00 07/29/21 07/30/21 07/30/21 22:59 06:59 14:59 Intake Total 240 / 1080 680 / 1760 600 / 600 Output Total 900 / 900 Balance 240 / 1080 -220 / 860 600 / 600 Physical Exam Narrative: EXAM NARRATIVE: RN present. Const: COMMON NORMALS: no acute distress; negative for patient oriented x3 GENERAL APPEARANCE: cooperative and comfortable ORIENTATION/CONSCIOUSNESS: Yes awake, Yes oriented to person, Yes oriented to place and Yes confused; not oriented to time OTHER: [place] Dressed in street clothes HENMT: COMMON NORMALS: oropharynx normal Neck/C-Spine: COMMON NORMALS: no JVD Chest: COMMONS NORMALS: normal inspection of the chest Resp: COMMON NORMALS: normal respiratory effort, No retractions, No use of accessory muscles and clear to auscultation bilaterally AUSCULTATION: clear to auscultation bilaterally Cardio: COMMON NORMALS: no JVD, regular rate, regular rhythm, S1 normal heart sound present, S2 normal heart sound present and No murmurs present (Cardio) RATE: regular rate RHYTHM: regular rhythm HEART SOUNDS: S1 normal heart sound present and S2 normal heart sound present GI: COMMON NORMALS: Normal to inspection, nondistended, normoactive bowel sounds present, Soft to palpation, non-tender and No hepatosplenomegaly present PALPATION: Yes Soft to palpation and Yes No hepatosplenomegaly present Extremity: COMMON NORMALS: no joint enlargement and no pedal edema Neuro: COMMON NORMALS: moves all extremities; negative for patient oriented x3 SENSORIUM/ORIENTATION: Yes oriented to person, Yes oriented to place and No oriented to time Psych: COMMON NORMALS: mental status grossly normal Skin: COMMON NORMALS: no rashes or lesions noted GENERAL SKIN EXAM: no rashes or lesions noted Data : 07/28/21 06:15 07/28/21 06:15 A&P Assessment and plan (1) Altered mental status: Forgetful. Comes around the same questions after my discussion. Does state that he has been feeling more blue, and that opening the windows does not help. In the morning please reach out to psychiatry to see if suggest additional recommendations with regards to his depression. Continue psychiatric medications, reassurance, supportive care. Arrangements continued for guardianship, care home placement. He otherwise completed treatment for urinary tract infection with ceftriaxone for sensitive Klebsiella. Currently alert to person, to place, not to time, follows all commands According to family alert to person, to place, to time, follows commands Evaluated by psychiatry, does not have capacity, working on guardianship proceedings, follow-up case management, has been accepted by the care home TSH within normal limits, ammonia within normal limits, acetaminophen levels within normal limits Toxicology screen negative Carotid artery ultrasound within normal limits Cardiac echo EF 50 to 55%, diastolic dysfunction, right ventricular is mildly hypokinetic, mild to moderate aortic regurg, mildly dilated ascending aorta Continue his Zyprexa which he is on chronically. Continue his buspirone, aricept, remeron. Haldol as needed for agitation Avoid any medication which could promote further confusion such as opiates, antihistamines, benzodiazepines. Monitor closely for any withdrawal Status: Acute (2) Drug overdose: Status: Acute (3) Suicidal ideation: Reports intermittent. Not at this time. As above. Status: Acute Additional A&P Information Plan for the day: Awaiting guardianship. Safe discharge planning. Attestations Medical Necessity Statement*: Requires further hospitalization while state appointed guardianship is awaited for safe discharge planning. Time Spent in Patient Care: less than 15 minutes Coding Level of Care Code Acute Compliance Advisor for Enrrique Stein Diagnoses Altered mental status R41.82 Drug overdose T50.901A Suicidal ideation R45.851
[2021-07-30 16:59] LABS: Glucose Point of Care 214 mg/dL (70-110)
[2021-07-30] MEDS: atorvastatin 40 mg Tablet 20 MG PO (17:18)
[2021-07-30] MEDS: mirtazapine 15 mg Tablet 7.5 MG PO (20:39)
[2021-07-30] MEDS: fenofibrate 145 mg Tablet PO (20:39)
[2021-07-30] MEDS: donepezil 5 MG Tablet PO (20:39)
[2021-07-30 21:04] LABS: Glucose Point of Care 172 mg/dL (70-110)
[2021-07-31 04:00] VITALS: BP 142/72; PULSE 66; RESP 18; TEMP 36.6; O2SAT 95
[2021-07-31 07:14] VITALS: BP 164/88; PULSE 73; RESP 18; TEMP 36.6; O2SAT 95
[2021-07-31 08:08] LABS: Glucose Point of Care 173 mg/dL (70-110)
[2021-07-31] MEDS: insulin lispro 100 unit/1 mL SUBCUT ×4 (08:48→21:40)
[2021-07-31] MEDS: bumetanide 1 mg Tablet 2 MG PO (08:50)
[2021-07-31] MEDS: metoprolol tartrate 25 mg Tablet PO (08:51)
[2021-07-31] MEDS: potassium chloride ER 20 mEq Tablet 40 MEQ PO (08:51)
[2021-07-31] MEDS: BuSPIRONE 10 mg Tablet PO ×3 (08:51→20:46)
[2021-07-31] MEDS: tamsulosin 0.4 mg Capsule 0.8 MG PO (08:51)
[2021-07-31] MEDS: pantoprazole DR 40 mg Tablet PO (08:52)
[2021-07-31] MEDS: OLANZapine 5 mg TABLET PO (08:52)
[2021-07-31 11:26] VITALS: BP 137/79; PULSE 65; RESP 14; TEMP 36.4; O2SAT 96
[2021-07-31 11:48] LABS: Glucose Point of Care 247 mg/dL (70-110)
--- NOTE | 2021-07-31 13:52 | PC.CHAP ---
Pastoral Care Encounter/Spiritual Assessment Type of Contact [] Declined line cook visit [] Patient/Family/Request visit [] Outpatient visit [xx] Follow-up visit [] Physician referral [] Code/Alert [xx] Routine visit [] Staff referral [] Actively dying [] Patient sleeping [] Family support [] [] Out of room [] Palliative care [] [] Receiving care in room [] Pre-surgical visit [] Trauma [xx] Long length of stay [] ICU visit [] Other: Relational/Emotional Strength [xx] Patient feels connected with others/family/visitors/staff [] Distress [] Loneliness/isolation [] Abandonment Spirituality of Patient [] Person of Sia [] Attends Mu-Ism of their Sia [] Believes in Prayer [] Reads Bible or Moravian materials [] There are Spiritual issues to be addressed Corporate Learning Consultant Interventions [] Prayer [xx] Active listening [] Non-anxious presence [] Spiritual/emotional support [] Crisis/trauma care [] Spiritual counseling [] Bereavement support [] Provided bereavement packet [] Provided Bible/devotional materials [] Provided toy/stuffed animal, coloring book to patient or family member [] Provided Communion [] Anointing/[place] [] Salvation [xx] Completed spiritual assessment [] Other: Impact on Illness or Injury [] Angry [] Fearful [] Anxious [] Often cries [] Exhaustion [] Unable to work [] Unable to attend mandaeism [] Unable to walk/stand [] Unable to read [] Unable to drive [] Unable to eat/drink [] Unable to sleep [] Unable to be with family [] Patient intubated [] Other: Summary Patient is very hard of hearing. He wants to go home but can't. He is very belligerent and stubborn. Attendant with him at all time because he has threatened self-harm. Time spent with patient 5 minutes
--- NOTE | 2021-07-31 14:52 | P.PN_ITS ---
Subjective Subjective: Interval history: Status quo, no acute events. Happy that his appointment for hearing aid was changed. Vitals/I&O/Wt Last Vital Signs Temp 97.6 F 07/31/21 11:26 Pulse 65 07/31/21 11:26 Resp 14 07/31/21 11:26 BP 137/79 07/31/21 11:26 Pulse Ox 96 07/31/21 11:26 07/30/21 07/31/21 07/31/21 22:59 06:59 14:59 Intake Total 320 / 1280 280 / 1560 Output Total 680 / 680 Balance -360 / 600 280 / 880 Physical Exam Narrative: EXAM NARRATIVE: RN present. Const: COMMON NORMALS: no acute distress; negative for patient oriented x3 GENERAL APPEARANCE: cooperative and comfortable ORIENTATION/CONSCIOUSNESS: Yes awake, Yes oriented to person, Yes oriented to place and Yes confused; not oriented to time OTHER: [place] Dressed in street clothes HENMT: COMMON NORMALS: oropharynx normal Neck/C-Spine: COMMON NORMALS: no JVD Chest: COMMONS NORMALS: normal inspection of the chest Resp: COMMON NORMALS: normal respiratory effort, No retractions, No use of accessory muscles and clear to auscultation bilaterally AUSCULTATION: clear to auscultation bilaterally Cardio: COMMON NORMALS: no JVD, regular rate, regular rhythm, S1 normal heart sound present, S2 normal heart sound present and No murmurs present (Cardio) RATE: regular rate RHYTHM: regular rhythm HEART SOUNDS: S1 normal heart sound present and S2 normal heart sound present GI: COMMON NORMALS: Normal to inspection, nondistended, normoactive bowel sounds present, Soft to palpation, non-tender and No hepatosplenomegaly present PALPATION: Yes Soft to palpation and Yes No hepatosplenomegaly present Extremity: COMMON NORMALS: no joint enlargement and no pedal edema Neuro: COMMON NORMALS: moves all extremities; negative for patient oriented x3 SENSORIUM/ORIENTATION: Yes oriented to person, Yes oriented to place and No oriented to time Psych: COMMON NORMALS: mental status grossly normal Skin: COMMON NORMALS: no rashes or lesions noted GENERAL SKIN EXAM: no rashes or lesions noted Data : 07/28/21 06:15 07/28/21 06:15 A&P Assessment and plan (1) Altered mental status: Forgetful. Comes around the same questions after my discussion. Does state that he has been feeling more blue, and that opening the windows does not help. In the morning please reach out to psychiatry to see if suggest additional recommendations with regards to his depression. Continue psychiatric medications, reassurance, supportive care. Arrangements continued for guardianship, jail placement. He otherwise completed treatment for urinary tract infection with ceftriaxone for sensitive Klebsiella. Currently alert to person, to place, not to time, follows all commands According to family alert to person, to place, to time, follows commands Evaluated by psychiatry, does not have capacity, working on guardianship proceedings, follow-up case management, has been accepted by the jail TSH within normal limits, ammonia within normal limits, acetaminophen levels within normal limits Toxicology screen negative Carotid artery ultrasound within normal limits Cardiac echo EF 50 to 55%, diastolic dysfunction, right ventricular is mildly hypokinetic, mild to moderate aortic regurg, mildly dilated ascending aorta Continue his Zyprexa which he is on chronically. Continue his buspirone, aricept, remeron. Haldol as needed for agitation Avoid any medication which could promote further confusion such as opiates, antihistamines, benzodiazepines. Monitor closely for any withdrawal Status: Acute (2) Drug overdose: Status: Acute (3) Suicidal ideation: Reports intermittent. Not at this time. As above. Status: Acute Additional A&P Information Full code. Cardiac carb consistent diet. SCD for DVT prophylaxis. Ambulatory. Repeat labs tomorrow morning. Plan for the day: Awaiting guardianship. Safe discharge planning. Court date set for August 12 week Attestations Medical Necessity Statement*: For safe discharge planning after guardianship Time Spent in Patient Care: less than 15 minutes Coding Level of Care Code Acute Explosive Operator [place] for Enrrique Stein Diagnoses Altered mental status R41.82 Drug overdose T50.901A Suicidal ideation R45.851
[2021-07-31] MEDS: acetaminophen 325 mg Tablet 650 MG PO ×2 (15:57→20:46)
[2021-07-31 16:32] VITALS: BP 115/71; PULSE 68; RESP 18; TEMP 36.8; O2SAT 94
[2021-07-31 16:52] LABS: Glucose Point of Care 187 mg/dL (70-110)
[2021-07-31] MEDS: atorvastatin 40 mg Tablet 20 MG PO (17:45)
[2021-07-31 20:00] VITALS: BP 122/74; PULSE 72; RESP 16; TEMP 36.7; O2SAT 96
[2021-07-31] MEDS: donepezil 5 MG Tablet PO (20:46)
[2021-07-31] MEDS: fenofibrate 145 mg Tablet PO (20:46)
[2021-07-31] MEDS: mirtazapine 15 mg Tablet 7.5 MG PO (20:46)
[2021-07-31 21:28] LABS: Glucose Point of Care 197 mg/dL (70-110)
[2021-08-01] VITALS: BP 135/74; PULSE 63; RESP 16; TEMP 36.8; O2SAT 96
[2021-08-01 04:00] VITALS: BP 125/73; PULSE 66; RESP 16; TEMP 36.9; O2SAT 95
[2021-08-01 04:54] LABS: Basophils % 0.4 %; Eosinophils # 0.2 10^3/uL (0.0-0.8); Eosinophils % 3.2 %; Hematocrit 36.1 % (42.0-52.0); Hemoglobin 11.8 g/dL (11.7-16.6); Lymphocytes # 1.3 10^3/uL (0.8-4.8); Lymphocytes % 22.2 %; Mean Corpuscular HGB Conc 32.7 g/dL (30.0-36.0); Mean Corpuscular Hemoglobin 30.4 pg (28.0-34.0); Mean Platelet Volume 9.2 fL (7.4-10.4); Monocytes # 0.4 10^3/uL (0.2-0.9); Monocytes % 6.2 %; Neutrophils # 3.82 10^3/uL (1.8-7.7); Neutrophils % 67.6 %; Nucleated Red Blood Cells % 0 %; Platelet Count 282 10^3/cmm (130-400); Red Blood Count 3.88 10^6/uL (4.1-5.3); Red Cell Distribution Width 13.1 % (12.1-15.1); White Blood Count 5.6 10^3/uL (4.0-10.0)
[2021-08-01 05:24] LABS: Alanine Aminotransferase 10 U/L (0-41); Albumin Level 3.8 g/dL (3.5-5.2); Alkaline Phosphatase 46 IU/L (40-130); Anion Gap 15.2 (5-19); Aspartate Amino Transferase 12 U/L (0-40); Blood Urea Nitrogen 24 mg/dL (8-23); Carbon Dioxide 22 mmol/L (22-29); Chloride 101 mmol/L (98-107); Creatinine Clr Calc Pharmacy 84.8159; Glucose 199 mg/dL (65-115); Osmolality Calculated 288 mOsm/kg (285-295); Potassium 4.2 mmol/L (3.5-5.1); Sodium 134 mmol/L (136-145); Total Bilirubin 0.2 mg/dL (0.15-1.2); Total Protein 6.8 g/dL (6.6-8.7)
[2021-08-01 07:46] VITALS: BP 156/83; PULSE 67; RESP 18; TEMP 36.6; O2SAT 98
[2021-08-01] MEDS: polyethylene glycol 3350 Pkt 17 gm PO (08:11)
[2021-08-01] MEDS: insulin lispro 100 unit/1 mL SUBCUT ×4 (08:12→21:38)
[2021-08-01] MEDS: tamsulosin 0.4 mg Capsule 0.8 MG PO (08:12)
[2021-08-01] MEDS: OLANZapine 5 mg TABLET PO (08:13)
[2021-08-01] MEDS: pantoprazole DR 40 mg Tablet PO (08:13)
[2021-08-01] MEDS: BuSPIRONE 10 mg Tablet PO ×3 (08:13→21:37)
[2021-08-01] MEDS: potassium chloride ER 20 mEq Tablet 40 MEQ PO (08:13)
[2021-08-01] MEDS: metoprolol tartrate 25 mg Tablet PO (08:13)
[2021-08-01] MEDS: bumetanide 1 mg Tablet 2 MG PO (08:13)
[2021-08-01] MEDS: acetaminophen 325 mg Tablet 650 MG PO ×2 (09:58→21:37)
[2021-08-01 11:20] LABS: Glucose Point of Care 297 mg/dL (70-110)
[2021-08-01 11:40] VITALS: BP 121/70; PULSE 72; RESP 18; TEMP 36.4; O2SAT 96
--- NOTE | 2021-08-01 13:05 | PC.SOCIAL ---
IMM Update IMM not updated. Patient is pending guardianship and discharge is not anticipated for the nest 24-48hrs.
[2021-08-01 15:24] VITALS: BP 124/79; PULSE 70; RESP 16; TEMP 36.8; O2SAT 97
--- NOTE | 2021-08-01 15:38 | P.PN_ITS ---
Subjective Subjective: Interval history: No acute events overnight. Patient's family at bedside. Patient seems a lot more calm today. Asking if he can get his COVID- 19 booster. Vitals/I&O/Wt Last Vital Signs Temp 98.2 F 08/01/21 15:24 Pulse 70 08/01/21 15:24 Resp 16 08/01/21 15:24 BP 124/79 08/01/21 15:24 Pulse Ox 97 08/01/21 15:24 08/01/21 08/01/21 08/01/21 06:59 14:59 22:59 Intake Total 840 / 840 Balance 840 / 840 Physical Exam Narrative: EXAM NARRATIVE: RN present. Const: COMMON NORMALS: no acute distress; negative for patient oriented x3 GENERAL APPEARANCE: cooperative and comfortable ORIENTATION/CONSCIOUSNESS: Yes awake, Yes oriented to person, Yes oriented to place and Yes confused; not oriented to time OTHER: [place] Dressed in street clothes HENMT: COMMON NORMALS: oropharynx normal Neck/C-Spine: COMMON NORMALS: no JVD Chest: COMMONS NORMALS: normal inspection of the chest Resp: COMMON NORMALS: normal respiratory effort, No retractions, No use of accessory muscles and clear to auscultation bilaterally AUSCULTATION: clear to auscultation bilaterally Cardio: COMMON NORMALS: no JVD, regular rate, regular rhythm, S1 normal heart sound present, S2 normal heart sound present and No murmurs present (Cardio) RATE: regular rate RHYTHM: regular rhythm HEART SOUNDS: S1 normal heart sound present and S2 normal heart sound present GI: COMMON NORMALS: Normal to inspection, nondistended, normoactive bowel sounds present, Soft to palpation, non-tender and No hepatosplenomegaly present PALPATION: Yes Soft to palpation and Yes No hepatosplenomegaly present Extremity: COMMON NORMALS: no joint enlargement and no pedal edema Neuro: COMMON NORMALS: moves all extremities; negative for patient oriented x3 SENSORIUM/ORIENTATION: Yes oriented to person, Yes oriented to place and No oriented to time Psych: COMMON NORMALS: mental status grossly normal Skin: COMMON NORMALS: no rashes or lesions noted GENERAL SKIN EXAM: no rashes or lesions noted Data : 08/01/21 04:43 08/01/21 04:43 A&P Assessment and plan (1) Altered mental status: Forgetful. Comes around the same questions after my discussion. Does state that he has been feeling more blue, and that opening the windows does not help. In the morning please reach out to psychiatry to see if suggest additional recommendations with regards to his depression. Continue psychiatric medications, reassurance, supportive care. Arrangements continued for guardianship, long term placement. He otherwise completed treatment for urinary tract infection with ceftriaxone for sensitive Klebsiella. Currently alert to person, to place, not to time, follows all commands According to family alert to person, to place, to time, follows commands Evaluated by psychiatry, does not have capacity, working on guardianship proceedings, follow-up case management, has been accepted by the long term TSH within normal limits, ammonia within normal limits, acetaminophen levels within normal limits Toxicology screen negative Carotid artery ultrasound within normal limits Cardiac echo EF 50 to 55%, diastolic dysfunction, right ventricular is mildly hypokinetic, mild to moderate aortic regurg, mildly dilated ascending aorta Continue his Zyprexa which he is on chronically. Continue his buspirone, aricept, remeron. Haldol as needed for agitation Avoid any medication which could promote further confusion such as opiates, antihistamines, benzodiazepines. Monitor closely for any withdrawal Status: Acute (2) Drug overdose: Status: Acute (3) Suicidal ideation: Reports intermittent. Not at this time. As above. Status: Acute Additional A&P Information Full code. Cardiac carb consistent diet. SCD for DVT prophylaxis. Ambulatory. Repeat labs tomorrow morning. Plan for the day: Blood work from today appreciated. Awaiting guardianship. Safe discharge planning. Court date set for August 12 week. Patient wants COVID-19 booster. Will confirm with warehouse administrative assistant regarding Covid booster vaccination policies. Have asked family to get his COVID-19 vaccination card so booster can be given accordingly. Family at bedside. All the questions were answered. Attestations Medical Necessity Statement*: Awaiting safe discharge planning, guardianship Time Spent in Patient Care: less than 15 minutes (>than 50% of time spent in counselling and/or direct pt care on unit) . Coding Level of Care Code Acute Customer Retention Representative for Enrrique Fwd Diagnoses Altered mental status R41.82 Drug overdose T50.901A Suicidal ideation R45.851
[2021-08-01 17:00] LABS: Glucose Point of Care 166 mg/dL (70-110)
[2021-08-01] MEDS: atorvastatin 40 mg Tablet 20 MG PO (18:05)
[2021-08-01 20:00] VITALS: BP 152/80; PULSE 71; RESP 17; TEMP 36.3; O2SAT 96
[2021-08-01 21:04] LABS: Glucose Point of Care 209 mg/dL (70-110)
[2021-08-01] MEDS: mirtazapine 15 mg Tablet 7.5 MG PO (21:37)
[2021-08-01] MEDS: fenofibrate 145 mg Tablet PO (21:37)
[2021-08-01] MEDS: donepezil 5 MG Tablet PO (21:37)
[2021-08-02] VITALS: BP 145/71; PULSE 66; RESP 16; TEMP 36.6; O2SAT 99
[2021-08-02 06:30] LABS: Glucose Point of Care 188 mg/dL (70-110)
[2021-08-02 08:00] VITALS: BP 137/81; PULSE 76; RESP 16; TEMP 36.7; O2SAT 97
[2021-08-02] MEDS: tamsulosin 0.4 mg Capsule 0.8 MG PO (08:32)
[2021-08-02] MEDS: BuSPIRONE 10 mg Tablet PO ×3 (08:32→20:49)
[2021-08-02] MEDS: OLANZapine 5 mg TABLET PO (08:32)
[2021-08-02] MEDS: bumetanide 1 mg Tablet 2 MG PO (08:32)
[2021-08-02] MEDS: insulin lispro 100 unit/1 mL SUBCUT ×4 (08:32→21:39)
[2021-08-02] MEDS: pantoprazole DR 40 mg Tablet PO (08:32)
[2021-08-02] MEDS: metoprolol tartrate 25 mg Tablet PO (08:32)
[2021-08-02] MEDS: potassium chloride ER 20 mEq Tablet 40 MEQ PO (08:32)
[2021-08-02 10:56] VITALS: BP 129/81; PULSE 67; RESP 16; TEMP 36.5; O2SAT 97
[2021-08-02] MEDS: acetaminophen 325 mg Tablet 650 MG PO ×2 (11:12→20:50)
[2021-08-02] MEDS: polyethylene glycol 3350 Pkt 17 gm PO (11:12)
[2021-08-02 11:15] LABS: Glucose Point of Care 278 mg/dL (70-110)
[2021-08-02 15:20] VITALS: BP 121/71; PULSE 66; RESP 16; TEMP 36.6; O2SAT 97
[2021-08-02 16:55] LABS: Glucose Point of Care 168 mg/dL (70-110)
[2021-08-02] MEDS: atorvastatin 40 mg Tablet 20 MG PO (17:54)
[2021-08-02 19:10] VITALS: BP 125/77; PULSE 68; RESP 17; TEMP 36.7; O2SAT 98
[2021-08-02] MEDS: donepezil 5 MG Tablet PO (20:49)
[2021-08-02] MEDS: mirtazapine 15 mg Tablet 7.5 MG PO (20:49)
[2021-08-02] MEDS: fenofibrate 145 mg Tablet PO (20:49)
[2021-08-02 21:07] LABS: Glucose Point of Care 191 mg/dL (70-110)
[2021-08-02 23:59] VITALS: BP 137/75; PULSE 63; RESP 16; TEMP 36.8; O2SAT 97
[2021-08-03 04:00] VITALS: BP 135/83; PULSE 62; RESP 17; TEMP 36.8; O2SAT 97
[2021-08-03 06:20] LABS: Glucose Point of Care 180 mg/dL (70-110)
[2021-08-03 07:44] VITALS: BP 135/82; PULSE 67; RESP 18; TEMP 36.8; O2SAT 95
[2021-08-03] MEDS: insulin lispro 100 unit/1 mL SUBCUT ×4 (08:59→21:50)
[2021-08-03] MEDS: OLANZapine 5 mg TABLET PO (09:00)
[2021-08-03] MEDS: BuSPIRONE 10 mg Tablet PO ×3 (09:00→21:01)
[2021-08-03] MEDS: tamsulosin 0.4 mg Capsule 0.8 MG PO (09:00)
[2021-08-03] MEDS: pantoprazole DR 40 mg Tablet PO (09:00)
[2021-08-03] MEDS: potassium chloride ER 20 mEq Tablet 40 MEQ PO (09:00)
[2021-08-03] MEDS: bumetanide 1 mg Tablet 2 MG PO (09:00)
[2021-08-03] MEDS: metoprolol tartrate 25 mg Tablet PO (09:02)
[2021-08-03] MEDS: acetaminophen 325 mg Tablet 650 MG PO ×2 (09:02→21:50)
[2021-08-03 11:37] VITALS: BP 119/69; PULSE 65; RESP 18; TEMP 36.8; O2SAT 96
[2021-08-03 11:45] LABS: Glucose Point of Care 356 mg/dL (70-110)
[2021-08-03 16:00] VITALS: BP 110/70; PULSE 70; RESP 18; TEMP 36.7; O2SAT 97
[2021-08-03 17:49] LABS: Glucose Point of Care 204 mg/dL (70-110)
[2021-08-03 19:52] VITALS: BP 130/76; PULSE 73; RESP 17; TEMP 36.6; O2SAT 98
[2021-08-03] MEDS: fenofibrate 145 mg Tablet PO (21:00)
[2021-08-03] MEDS: mirtazapine 15 mg Tablet 7.5 MG PO (21:00)
[2021-08-03] MEDS: donepezil 5 MG Tablet PO (21:00)
[2021-08-03] MEDS: ziprasidone 20 mg/mL SDV IM (21:01)
[2021-08-03] MEDS: water for injection-sterile 10 ML (21:03)
[2021-08-03 21:30] LABS: Glucose Point of Care 215 mg/dL (70-110)
--- NOTE | 2021-08-03 21:31 | P.PN_ITS ---
Subjective Subjective: Interval history: Denies any complaints. Vitals/I&O/Wt Last Vital Signs Temp 97.8 F 08/03/21 19:52 Pulse 73 08/03/21 19:52 Resp 17 08/03/21 19:52 BP 130/76 08/03/21 19:52 Pulse Ox 98 08/03/21 19:52 08/03/21 08/03/21 08/03/21 06:59 14:59 22:59 Intake Total 240 / 240 480 / 720 Balance 240 / 240 480 / 720 Physical Exam Narrative: EXAM NARRATIVE: Siitter present. Const: COMMON NORMALS: no acute distress; negative for patient oriented x3 GENERAL APPEARANCE: cooperative and comfortable ORIENTATION/CONSCIOUSNESS: Yes awake OTHER: [place] Dressed in street clothes HENMT: COMMON NORMALS: oropharynx normal Neck/C-Spine: COMMON NORMALS: no JVD Resp: COMMON NORMALS: normal respiratory effort and clear to auscultation bilaterally AUSCULTATION: clear to auscultation bilaterally Cardio: COMMON NORMALS: no JVD, regular rhythm, S1 normal heart sound present, S2 normal heart sound present and No murmurs present (Cardio) RHYTHM: regular rhythm HEART SOUNDS: S1 normal heart sound present and S2 normal heart sound present GI: COMMON NORMALS: Normal to inspection, nondistended, normoactive bowel sounds present, Soft to palpation and non-tender PALPATION: Yes Soft to palpation Extremity: COMMON NORMALS: no joint enlargement and no pedal edema Neuro: COMMON NORMALS: moves all extremities; negative for patient oriented x3 Skin: COMMON NORMALS: no rashes or lesions noted GENERAL SKIN EXAM: no rashes or lesions noted Data : 08/01/21 04:43 08/01/21 04:43 A&P Assessment and plan (1) Altered mental status: Denies any complaints today. Arrangements continued for guardianship, fdc placement. Completed treatment for urinary tract infection with ceftriaxone for sensitive Klebsiella. Currently alert to person, to place, not to time, follows all commands According to family alert to person, to place, to time, follows commands Evaluated by psychiatry, does not have capacity, working on guardianship proceedings, follow-up case management, has been accepted by the [facility]dc TSH within normal limits, ammonia within normal limits, acetaminophen levels within normal limits Toxicology screen negative Carotid artery ultrasound within normal limits Cardiac echo EF 50 to 55%, diastolic dysfunction, right ventricular is mildly hypokinetic, mild to moderate aortic regurg, mildly dilated ascending aorta Continue his Zyprexa which he is on chronically. Continue his buspirone, aricep t, remeron. Haldol as needed for agitation Avoid any medication which could promote further confusion such as opiates, antihistamines, benzodiazepines. Monitor closely for any withdrawal Status: Acute (2) Drug overdose: Status: Acute (3) Suicidal ideation: Reports intermittent. Not at this time. As above. Status: Acute Additional A&P Information Pending arrangements for COVID-19 booster. Discussed with nursing staff, social welfare research worker. Attestations Medical Necessity Statement*: Continue hospitalization pending arrangements for guardianship, post discharge planning and arrangements. Coding Level of Care Code Acute Primary Health Care Nurse for Enrrique Stein Diagnoses Altered mental status R41.82 Drug overdose T50.901A Suicidal ideation R45.851
[2021-08-04 06:46] LABS: Glucose Point of Care 202 mg/dL (70-110)
--- NOTE | 2021-08-04 07:16 | PC.NURSE ---
Patient was agitated at beginning of shift and was slamming the closet door, pacing the room, and being verbally aggressive. Sitter and this nurse both tried to redirect patient, tried to talk to patient and explain what was going on and why he could not leave. Patient kept asking about two coats that he stated Is the only coats he has and if we do not find them he is going to pinky. This nurse has looked in the room patient was previously occupying and did not find any of patients personal items. Staff was unable to redirect or calm patient with distraction, change of position, offering food or drink. This nurse notified the doctor and asked if the he was willing to change the order from IV push to IM due to the fact that patient has no current IV access. Doctor provided orders for Geodon 20mg IM. This nurse had an RN mix medication and then administered patient. One on one sitter was present and continued to do 15 minute checks during entire shift. This nurse also done frequent rounding on patient. After administration of the Geodon patient relaxed and went to sleep and the remainder of the night was event free.
[2021-08-04 08:00] VITALS: BP 169/89; PULSE 89; RESP 18; TEMP 36.2; O2SAT 98
[2021-08-04] MEDS: insulin lispro 100 unit/1 mL SUBCUT ×4 (08:56→21:57)
[2021-08-04] MEDS: BuSPIRONE 10 mg Tablet PO ×3 (09:00→20:25)
[2021-08-04] MEDS: bumetanide 1 mg Tablet 2 MG PO (09:00)
[2021-08-04] MEDS: pantoprazole DR 40 mg Tablet PO (09:00)
[2021-08-04] MEDS: OLANZapine 5 mg TABLET PO (09:00)
[2021-08-04] MEDS: potassium chloride ER 20 mEq Tablet 40 MEQ PO (09:00)
[2021-08-04] MEDS: tamsulosin 0.4 mg Capsule 0.8 MG PO (09:00)
[2021-08-04] MEDS: metoprolol tartrate 25 mg Tablet PO (09:00)
[2021-08-04] MEDS: saline nasal spray 44mL Btl 1 SPRAY NASAL (09:01)
[2021-08-04] MEDS: acetaminophen 325 mg Tablet 650 MG PO (09:01)
[2021-08-04 12:00] VITALS: BP 131/88; PULSE 78; RESP 18; TEMP 36.6; O2SAT 98
[2021-08-04 12:23] LABS: Glucose Point of Care 318 mg/dL (70-110)
[2021-08-04 16:00] VITALS: BP 130/71; PULSE 71; RESP 16; TEMP 36.4; O2SAT 98
[2021-08-04 17:20] LABS: Glucose Point of Care 229 mg/dL (70-110)
[2021-08-04 19:08] VITALS: BP 144/75; PULSE 78; RESP 16; TEMP 36.4; O2SAT 96
--- NOTE | 2021-08-04 20:29 | P.PN_ITS ---
Subjective Subjective: Interval history: Episode of agitation overnight noted in nursing documentation, slamming to close a door, pacing the room, being verbally aggressive. Could not be redirected. Due to agitation received a dose of Geodon IM. Subsequently slept through most of the night. This morning denies any complaints. States she is doing all right. Asks if it is possible to be arranged for his toenails to be trimmed. Vitals/I&O/Wt Last Vital Signs Temp 97.5 F L 08/04/21 19:08 Pulse 78 08/04/21 19:08 Resp 16 08/04/21 19:08 BP 144/75 08/04/21 19:08 Pulse Ox 96 08/04/21 19:08 08/04/21 08/04/21 08/04/21 06:59 14:59 22:59 Intake Total 1120 / 1120 240 / 1360 Balance 1120 / 1120 240 / 1360 Physical Exam Narrative: EXAM NARRATIVE: Siitter present. Const: COMMON NORMALS: no acute distress; negative for patient oriented x3 GENERAL APPEARANCE: cooperative and comfortable ORIENTATION/CONSCIOUSNESS: Yes awake OTHER: [place] Dressed in street clothes HENMT: COMMON NORMALS: oropharynx normal Neck/C-Spine: COMMON NORMALS: no JVD Resp: COMMON NORMALS: normal respiratory effort and clear to auscultation bilaterally AUSCULTATION: clear to auscultation bilaterally Cardio: COMMON NORMALS: no JVD, regular rhythm, S1 normal heart sound present, S2 normal heart sound present and No murmurs present (Cardio) RHYTHM: regular rhythm HEART SOUNDS: S1 normal heart sound present and S2 normal heart sound present GI: COMMON NORMALS: Normal to inspection, nondistended, normoactive bowel sounds present, Soft to palpation and non-tender PALPATION: Yes Soft to palpation Extremity: COMMON NORMALS: no joint enlargement and no pedal edema Neuro: COMMON NORMALS: moves all extremities; negative for patient oriented x3 Skin: COMMON NORMALS: no rashes or lesions noted GENERAL SKIN EXAM: no rashes or lesions noted Data : 08/01/21 04:43 08/01/21 04:43 A&P Assessment and plan (1) Altered mental status: Had a difficult night, but did end up getting some rest after receiving Geodon. This morning he is calm, denies any complaints. Asks if it can be arranged for his toenails to be trimmed as he states they are thick and grow crooked. Discussed with we will try to make arrangements for him to visit with podiatry after discharge. Arrangements continued for guardianship, [facility] placement. Completed treatment for urinary tract infection with ceftriaxone for sensitive Klebsiella. Currently alert to person, to place, not to time, follows all commands According to family alert to person, to place, to time, follows commands Evaluated by psychiatry, does not have capacity, working on guardianship lamonte vyas, follow-up case management, has been accepted by the [facility] TSH within normal limits, ammonia within normal limits, acetaminophen levels within normal limits Toxicology screen negative Carotid artery ultrasound within normal limits Cardiac echo EF 50 to 55%, diastolic dysfunction, right ventricular is mildly hypokinetic, mild to moderate aortic regurg, mildly dilated ascending aorta Continue his Zyprexa which he is on chronically. Continue his buspirone, aricept, remeron. Haldol as needed for agitation Avoid any medication which could promote further confusion such as opiates, an tihistamines, benzodiazepines. Monitor closely for any withdrawal Status: Acute (2) Drug overdose: Status: Acute (3) Suicidal ideation: Reports intermittent. Not at this time. As above. Status: Acute Additional A&P Information Pending arrangements for COVID-19 booster. Discussed with nursing staff, manager social work. Attestations Medical Necessity Statement*: Continue arrangements for guardianship and post discharge planning and arrangements. Coding Level of Care Code Acute Air Compressor Operator for Enrrique Stein Diagnoses Altered mental status R41.82 Drug overdose T50.901A Suicidal ideation R45.851
[2021-08-04 21:16] LABS: Glucose Point of Care 215 mg/dL (70-110)
[2021-08-04 23:10] VITALS: BP 174/94; PULSE 65; RESP 15; TEMP 36.9; O2SAT 98
[2021-08-05 04:00] VITALS: BP 169/91; PULSE 78; RESP 15; TEMP 36.9; O2SAT 97
[2021-08-05 06:45] LABS: Glucose Point of Care 198 mg/dL (70-110)
[2021-08-05] MEDS: potassium chloride ER 20 mEq Tablet 40 MEQ PO (07:56)
[2021-08-05] MEDS: BuSPIRONE 10 mg Tablet PO ×3 (07:57→20:16)
[2021-08-05] MEDS: metoprolol tartrate 25 mg Tablet PO (07:57)
[2021-08-05] MEDS: OLANZapine 5 mg TABLET PO (07:57)
[2021-08-05] MEDS: pantoprazole DR 40 mg Tablet PO (07:57)
[2021-08-05 08:00] VITALS: BP 122/81; PULSE 71; RESP 18; TEMP 36.5; O2SAT 98
[2021-08-05] MEDS: tamsulosin 0.4 mg Capsule 0.8 MG PO (08:01)
[2021-08-05] MEDS: bumetanide 1 mg Tablet 2 MG PO (08:01)
[2021-08-05] MEDS: insulin lispro 100 unit/1 mL SUBCUT ×4 (08:01→21:20)
[2021-08-05] MEDS: saline nasal spray 44mL Btl 1 SPRAY NASAL ×2 (08:04→17:54)
[2021-08-05 11:27] LABS: Glucose Point of Care 286 mg/dL (70-110)
[2021-08-05 11:46] VITALS: BP 130/78; PULSE 68; RESP 16; TEMP 36.3; O2SAT 97
--- NOTE | 2021-08-05 11:46 | CT_ITS ---
WS: [id number] CT HEAD NONCONTRAST HISTORY: magnetic bone conduction hearing implant skin necrosis TECHNIQUE: Contiguous axial imaging performed through the brain in 2.5 mm imaging. Bone and soft tiss ue windows. Sagittal and coronal reformats reviewed. All CT scans at [facility] use at least one of these dose optimization techniques: automated exposure control; mA and/or kV adjustment per pa tient size (includes targeted exams where dose is matched to clinical indication); or iterative recon struction. DLP: 932.19 mGy.cm COMPARISON: 07/13/2020 RIGHT cochlear implant is causing artifact through the RIGHT brain. No visualized hemorrhage is ident ified. There is mild bilateral symmetric atrophy with mild chronic microvascular ischemic type change s. No prior infarct. No herniation of the brain. Ventricles: Normal size with no hydrocephalus. Paranasal sinuses: Extensive mucoperiosteal thickening in the LEFT maxillary and RIGHT ethmoid air ce lls. Mastoid air cells: Postoperative changes in the RIGHT temporal bone. Coalescence of the mastoid air c ells and the RIGHT cochlear implant are unchanged. Calvarium and scalp: Skull is intact with no soft tissue edema or swelling. CT/CT head wo con* [id number] IMPRESSION: 1. No acute intracranial hemorrhage or edema. 2. Artifact obscuring portions of the RIGHT foramen from the cochlear implant. 3. Mild chronic microvascular ischemic type changes.
--- NOTE | 2021-08-05 11:54 | P.PN_ITS ---
Subjective Subjective: Interval history: Denies pain, denies discomfort, but tells me feels sore around where his hearing aid is. Vitals/I&O/Wt Last Vital Signs Temp 97.7 F 08/05/21 08:00 Pulse 71 08/05/21 08:00 Resp 18 08/05/21 08:00 BP 122/81 08/05/21 08:00 Pulse Ox 98 08/05/21 08:00 08/04/21 08/05/21 08/05/21 22:59 06:59 14:59 Intake Total 240 / 1360 480 / 1840 360 / 360 Balance 240 / 1360 480 / 1840 360 / 360 Physical Exam Narrative: EXAM NARRATIVE: Siitter present. Const: COMMON NORMALS: no acute distress; negative for patient oriented x3 GENERAL APPEARANCE: cooperative and comfortable ORIENTATION/CONSCIOUSNESS: Yes awake OTHER: [place] Dressed in street clothes Sitting up in bed. Watching TV. HENMT: COMMON NORMALS: oropharynx normal HEAD & SCALP: other (Abutment area under magnet pink w sm ulceration in center, sm amt pur disch) Neck/C-Spine: COMMON NORMALS: no JVD Resp: COMMON NORMALS: normal respiratory effort and clear to auscultation bilaterally AUSCULTATION: clear to auscultation bilaterally Cardio: COMMON NORMALS: no JVD, regular rhythm, S1 normal heart sound present, S2 normal heart sound present and No murmurs present (Cardio) RHYTHM: regular rhythm HEART SOUNDS: S1 normal heart sound present and S2 normal heart sound present GI: COMMON NORMALS: Normal to inspection, nondistended, normoactive bowel sounds present, Soft to palpation and non-tender PALPATION: Yes Soft to palpation Extremity: COMMON NORMALS: no joint enlargement and no pedal edema Neuro: COMMON NORMALS: moves all extremities; negative for patient oriented x3 Skin: COMMON NORMALS: no rashes or lesions noted GENERAL SKIN EXAM: no rashes or lesions noted Data : 08/01/21 04:43 08/01/21 04:43 A&P Assessment and plan (1) Skin necrosis: Small area of skin necrosis over abutment area under the magnet of cochlear implant noted after complaining of soreness. Small amount of purulent material. Cleaned with chlorhexidine. Purulence gone, without necrotic tissue, with pink tissue with ulceration in the middle. Swelling of surrounding area. Will obtain CT of the head. Keep magnet off. Dressing changes with triple antibiotic, foam dressing. We will empirically cover with doxycycline for now. Obtain wound culture. Should see ENT when they are available. Status: Acute (2) Altered mental status: No additional issues overnight reported. Denies any complaints apart from soreness under the magnet with findings as above. Arrangements continued for guardianship, fdc placement. Completed treatment for urinary tract infection with ceftriaxone for sensitive Klebsiella. Currently alert to person, to place, not to time, follows all commands According to family alert to person, to place, to time, follows commands Evaluated by psychiatry, does not have capacity, working on guardianship p roceedings, follow-up case management, has been accepted by the fdc TSH within normal limits, ammonia within normal limits, acetaminophen levels within normal limits Toxicology screen negative Carotid artery ultrasound within normal limits Cardiac echo EF 50 to 55%, diastolic dysfunction, right ventricular is mildly hypokinetic, mild to moderate aortic regurg, mildly dilated ascending aorta Continue his Zyprexa which he is on chronically. Continue his buspirone, aricept, remeron. Haldol as needed for agitation Avoid any medication which could promote further confusion such as opiates, antihistamines, benzodiazepines. Monitor closely for any withdrawal Status: Acute (3) Drug overdose: Status: Acute (4) Suicidal ideation: Reports intermittent. Not at this time. As above. Status: Acute Additional A&P Information Pending arrangements for COVID-19 booster. Discussed with nursing staff, social media developer. Attestations Medical Necessity Statement*: Continue admission for guardianship arrangements, post discharge planning. Coding Level of Care Code Acute Call Or Contact Centre Operator for Enrrique Stein Diagnoses Skin necrosis I96 Altered mental status R41.82 Drug overdose T50.901A Suicidal ideation R45.851
--- NOTE | 2021-08-05 12:47 | PC.SOCIAL ---
IMM Update IMM not updated. Patient is pending guardianship and discharge is not anticipated for the next 24-48hrs.
[2021-08-05] MEDS: doxycycline 100 mg Tablet PO ×2 (12:52→23:19)
[2021-08-05 16:00] VITALS: BP 125/80; PULSE 67; RESP 17; TEMP 36.8; O2SAT 97
[2021-08-05 16:58] LABS: Glucose Point of Care 319 mg/dL (70-110)
[2021-08-05 20:00] VITALS: BP 151/72; PULSE 70; RESP 16; TEMP 36.6; O2SAT 98
[2021-08-05] MEDS: acetaminophen 325 mg Tablet 650 MG PO (20:16)
[2021-08-05 21:08] LABS: Glucose Point of Care 201 mg/dL (70-110)
[2021-08-05 23:22] VITALS: BP 153/78; PULSE 65; RESP 18; TEMP 36.5; O2SAT 98
[2021-08-06 00:32] VITALS: PULSE 68; RESP 16; O2SAT 94
[2021-08-06 04:24] VITALS: BP 152/64; PULSE 68; RESP 17; TEMP 36.7; O2SAT 95
[2021-08-06 08:00] VITALS: BP 152/87; PULSE 75; RESP 16; TEMP 36.4; O2SAT 98
[2021-08-06 08:00] LABS: Glucose Point of Care 286 mg/dL (70-110)
[2021-08-06] MEDS: potassium chloride ER 20 mEq Tablet 40 MEQ PO (09:31)
[2021-08-06] MEDS: insulin lispro 100 unit/1 mL SUBCUT ×4 (09:31→22:04)
[2021-08-06] MEDS: tamsulosin 0.4 mg Capsule 0.8 MG PO (09:31)
[2021-08-06] MEDS: bumetanide 1 mg Tablet 2 MG PO (09:31)
[2021-08-06] MEDS: BuSPIRONE 10 mg Tablet PO ×3 (09:32→20:41)
[2021-08-06] MEDS: OLANZapine 5 mg TABLET PO (09:32)
[2021-08-06] MEDS: pantoprazole DR 40 mg Tablet PO (09:32)
[2021-08-06] MEDS: metoprolol tartrate 25 mg Tablet PO (09:32)
[2021-08-06] MEDS: saline nasal spray 44mL Btl 1 SPRAY NASAL (09:34)
[2021-08-06 11:39] LABS: Glucose Point of Care 228 mg/dL (70-110)
[2021-08-06 12:00] VITALS: BP 123/78; PULSE 67; RESP 17; TEMP 36.4; O2SAT 97
[2021-08-06] MEDS: doxycycline 100 mg Tablet PO (13:27)
[2021-08-06] MEDS: acetaminophen 325 mg Tablet 650 MG PO ×2 (13:33→22:06)
--- NOTE | 2021-08-06 13:48 | PM.PN ---
Subjective Subjective: Interval history: Wound was cleaned and dressed, magnet was left off, was instructed to keep it off but appears he had put it back on. I told him again about the wound on the scalp. He tells me so what is that mean . Discussed with him that at this time we need to keep the wound clean, covered, continue with antibiotics, and arrange for him to see ENT so that they may assess the wound, and he may have to have his hearing aid replaced in a different location or look at other options. He tells me no, I need my hearing aid I cannot hear without it. Discussed with him that the specialist would discuss with him regarding additional options once they are available. He states again no, I need my hearing aid. He otherwise reports doing well. Denies any other complaints. When am I going home . Vitals/I&O/Wt Last Vital Signs Temp 97.6 F 08/06/21 12:00 Pulse 67 08/06/21 12:00 Resp 17 08/06/21 12:00 BP 123/78 08/06/21 12:00 Pulse Ox 97 08/06/21 12:00 08/05/21 08/06/21 08/06/21 22:59 06:59 14:59 Intake Total 240 / 600 1560 / 1560 Balance 240 / 600 1560 / 1560 Physical Exam Narrative: EXAM NARRATIVE: Siitter present. Const: COMMON NORMALS: no acute distress; negative for patient oriented x3 GENERAL APPEARANCE: cooperative and comfortable ORIENTATION/CONSCIOUSNESS: Yes awake OTHER: [place] Dressed in street clothes Sitting up in bed. Watching TV. HENMT: COMMON NORMALS: oropharynx normal HEAD & SCALP: other (Abutment area under magnet pink w sm ulceration in center, sm amt pur disch) Neck/C-Spine: COMMON NORMALS: no JVD Resp: COMMON NORMALS: normal respiratory effort and clear to auscultation bilaterally AUSCULTATION: clear to auscultation bilaterally Cardio: COMMON NORMALS: no JVD, regular rhythm, S1 normal heart sound present, S2 normal heart sound present and No murmurs present (Cardio) RHYTHM: regular rhythm HEART SOUNDS: S1 normal heart sound present and S2 normal heart sound present GI: COMMON NORMALS: Normal to inspection, nondistended, normoactive bowel sounds present, Soft to palpation and non-tender PALPATION: Yes Soft to palpation Extremity: COMMON NORMALS: no joint enlargement and no pedal edema Neuro: COMMON NORMALS: moves all extremities; negative for patient oriented x3 Skin: COMMON NORMALS: no rashes or lesions noted GENERAL SKIN EXAM: no rashes or lesions noted Data : 08/01/21 04:43 08/01/21 04:43 A&P Assessment and plan (1) Skin necrosis: He insists on keeping the magnet on so he can hear. Otherwise gets anxious. Discussed with nursing staff, will change with larger size foam dressing. Needs ENT assessment as soon as available. Clean base, subcutaneous tissue. Keep area of skin erosion clean. Continue empiric antibiotic at this time. Wound culture requested. 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 Keep magnet off when possible. Dressing changes with triple antibiotic, foam dressing. Status: Acute (2) Altered mental status: No new complaints. It is difficult for him to understand that the magnet needs to stay off except when he really needs to communicate to avoid worsening the wound. Asking to just go home. Arrangements continued for guardianship, senior living placement. Completed treatment for urinary tract infection with ceftriaxone for sensitive Klebsiella. Currently alert to person, to place, not to time, follows all commands According to family alert to person, to place, to time, follows commands Evaluated by psychiatry, does not have capacity, working on guardianship proceedings, follow-up case management, has been accepted by the senior living TSH within normal limits, ammonia within normal limits, acetaminophen levels within normal limits Toxicology screen negative Carotid artery ultrasound within normal limits Cardiac echo EF 50 to 55%, diastolic dysfunction, right ventricular is mildly hypokinetic, mild to moderate aortic regurg, mildly dilated ascending aorta Continue his Zyprexa which he is on chronically. Continue his buspirone, aricept, remeron. Haldol as needed for agitation Avoid any medication which could promote further confusion such as opiates, antihistamines, benzodiazepines. Monitor closely for any withdrawal Status: Acute (3) Drug overdose: Status: Acute (4) Suicidal ideation: Reports intermittent. Not at this time. As above. Status: Acute Additional A&P Information Pending arrangements for COVID-19 booster. Discussed with nursing staff, social worker psychiatric. Attestations Medical Necessity Statement*: Continue admission for wound care of scalp skin erosion, pending additional assessment by ENT, pending arrangements for guardianship, senior living placement. Coding Level of Care Code Acute Mergers And Acquisitions Banker for Letyg Fwd Diagnoses Skin necrosis I96 Altered mental status R41.82 Drug overdose T50.901A Suicidal ideation R45.851
[2021-08-06 16:00] VITALS: BP 137/82; PULSE 75; RESP 15; TEMP 36.6; O2SAT 97
[2021-08-06 17:36] LABS: Glucose Point of Care 214 mg/dL (70-110)
[2021-08-06 20:00] VITALS: BP 145/75; PULSE 72; RESP 18; TEMP 36.6; O2SAT 96
[2021-08-06 21:36] LABS: Glucose Point of Care 185 mg/dL (70-110)
[2021-08-07] VITALS: BP 140/72; PULSE 96; RESP 18; TEMP 36.4; O2SAT 96
[2021-08-07] MEDS: doxycycline 100 mg Tablet PO ×3 (00:32→23:08)
[2021-08-07 04:00] VITALS: BP 138/71; PULSE 97; RESP 18; TEMP 36.6; O2SAT 95
[2021-08-07 05:06] LABS: Basophils % 0.6 %; Eosinophils # 0.4 10^3/uL (0.0-0.8); Eosinophils % 5.3 %; Hematocrit 35.7 % (42.0-52.0); Hemoglobin 11.7 g/dL (11.7-16.6); Lymphocytes # 1.7 10^3/uL (0.8-4.8); Lymphocytes % 25.4 %; Mean Corpuscular HGB Conc 32.8 g/dL (30.0-36.0); Mean Corpuscular Hemoglobin 30.2 pg (28.0-34.0); Mean Platelet Volume 9.2 fL (7.4-10.4); Monocytes # 0.5 10^3/uL (0.2-0.9); Monocytes % 7.9 %; Neutrophils # 4.11 10^3/uL (1.8-7.7); Neutrophils % 60.4 %; Nucleated Red Blood Cells % 0 %; Platelet Count 255 10^3/cmm (130-400); Red Blood Count 3.88 10^6/uL (4.1-5.3); Red Cell Distribution Width 13.2 % (12.1-15.1); White Blood Count 6.8 10^3/uL (4.0-10.0)
[2021-08-07 06:44] LABS: Glucose Point of Care 193 mg/dL (70-110)
[2021-08-07 07:39] VITALS: BP 159/75; PULSE 65; RESP 16; TEMP 36.5; O2SAT 98
[2021-08-07] MEDS: BuSPIRONE 10 mg Tablet PO ×3 (08:08→21:31)
[2021-08-07] MEDS: OLANZapine 5 mg TABLET PO (08:08)
[2021-08-07] MEDS: metoprolol tartrate 25 mg Tablet PO (08:08)
[2021-08-07] MEDS: tamsulosin 0.4 mg Capsule 0.8 MG PO (08:08)
[2021-08-07] MEDS: bumetanide 1 mg Tablet 2 MG PO (08:08)
[2021-08-07] MEDS: insulin lispro 100 unit/1 mL SUBCUT ×4 (08:08→21:31)
[2021-08-07] MEDS: pantoprazole DR 40 mg Tablet PO (08:09)
[2021-08-07 11:43] VITALS: BP 116/72; PULSE 67; RESP 17; TEMP 36.5; O2SAT 97
[2021-08-07 11:57] LABS: Glucose Point of Care 271 mg/dL (70-110)
[2021-08-07] MEDS: polyethylene glycol 3350 Pkt 17 gm PO (13:04)
--- NOTE | 2021-08-07 14:03 | PC.SOCIAL ---
IMM update IMM not updated since patient isn't expected to dc in the next 24-48 hours.
[2021-08-07 15:03] VITALS: BP 129/79; PULSE 78; RESP 16; TEMP 36.8; O2SAT 94
--- NOTE | 2021-08-07 15:31 | P.PN_ITS ---
Subjective Subjective: Interval history: States no pain at the site of the skin erosion today. Denies any new complaints. Vitals/I&O/Wt Last Vital Signs Temp 98.2 F 08/07/21 15:03 Pulse 78 08/07/21 15:03 Resp 16 08/07/21 15:03 BP 129/79 08/07/21 15:03 Pulse Ox 94 08/07/21 15:03 08/07/21 08/07/21 08/07/21 06:59 14:59 22:59 Intake Total 120 / 2880 480 / 480 Balance 120 / 2880 480 / 480 Physical Exam Narrative: EXAM NARRATIVE: Siitter present. Const: COMMON NORMALS: no acute distress GENERAL APPEARANCE: cooperative and comfortable ORIENTATION/CONSCIOUSNESS: Yes awake OTHER: [place] HENMT: COMMON NORMALS: oropharynx normal HEAD & SCALP: other (Abutment area under magnet pink w sm ulceration in center, sm amt pur disch) Neck/C-Spine: COMMON NORMALS: no JVD Resp: COMMON NORMALS: normal respiratory effort and clear to auscultation bilaterally AUSCULTATION: clear to auscultation bilaterally Cardio: COMMON NORMALS: no JVD, regular rhythm, S1 normal heart sound present, S2 normal heart sound present and No murmurs present (Cardio) RHYTHM: regular rhythm HEART SOUNDS: S1 normal heart sound present and S2 normal heart sound present GI: COMMON NORMALS: Normal to inspection, nondistended, normoactive bowel sounds present, Soft to palpation and non-tender PALPATION: Yes Soft to palpation Extremity: COMMON NORMALS: no joint enlargement and no pedal edema Neuro: COMMON NORMALS: moves all extremities Skin: COMMON NORMALS: no rashes or lesions noted GENERAL SKIN EXAM: no rashes or lesions noted Data : 08/07/21 04:29 08/01/21 04:43 A&P Assessment and plan (1) Skin necrosis: Area of skin erosion today looks better. Dressing was replaced with thick foam dressing, the area today without indentation. Appears clean. He insists on keeping the magnet on so he can hear. Otherwise gets anxious and restless. Discussed with nursing staff, will change with larger size foam dressing. Needs ENT assessment as soon as available. Clean base, subcutaneous tissue. Keep area of skin erosion clean. Continue empiric antibiotic at this time. Wound culture requested. 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 Keep magnet off when possible. Dressing changes with triple antibiotic, foam dressing. Status: Acute (2) Altered mental status: No new complaints. It is difficult for him to understand that the magnet needs to stay off except when he really needs to communicate to avoid worsening the wound. Asking to just go home. Arrangements continued for guardianship, long term placement. Completed treatment for urinary tract infection with ceftriaxone for sensitive Klebsiella. Currently alert to person, to place, not to time, follows all commands According to family alert to person, to place, to time, follows commands Evaluated by psychiatry, does not have capacity, working on guardianship proceedings, follow-up case management, has been accepted by the long term TSH within normal limits, ammonia within normal limits, acetaminophen levels within normal limits Toxicology screen negative Carotid artery ultrasound within normal limits Cardiac echo EF 50 to 55%, diastolic dysfunction, right ventricular is mildly hypokinetic, mild to moderate aortic regurg, mildly dilated ascending aorta Continue his Zyprexa which he is on chronically. Continue his buspirone, aricept, remeron. Haldol as needed for agitation Avoid any medication which could promote further confusion such as opiates, antihistamines, benzodiazepines. Monitor closely for any withdrawal Status: Acute (3) Drug overdose: Status: Acute (4) Suicidal ideation: Reports intermittent. Not at this time. As above. Status: Acute Additional A&P Information Pending arrangements for COVID-19 booster. Discussed with nursing staff, director social. Attestations Medical Necessity Statement*: Continue arrangements for guardianship, post discharge planning, wound care for area of skin erosion at magnet abutment area of cochlear implant. Coding Level of Care Code Acute Library Technical Assistant for Enrrique Stein Diagnoses Skin necrosis I96 Altered mental status R41.82 Drug overdose T50.901A Suicidal ideation R45.851
[2021-08-07 16:53] LABS: Glucose Point of Care 247 mg/dL (70-110)
[2021-08-07 19:34] VITALS: BP 134/79; PULSE 75; RESP 18; TEMP 36.8; O2SAT 97
[2021-08-07 20:35] LABS: Glucose Point of Care 240 mg/dL (70-110)
[2021-08-07] MEDS: acetaminophen 325 mg Tablet 650 MG PO (21:31)
[2021-08-08] VITALS (7 sets, daily range): BP systolic 126–169; BP diastolic 63–87; PULSE 62–92; RESP 16–22; TEMP 36.7–37.2; O2SAT 95–99
[2021-08-08 06:47] LABS: Glucose Point of Care 235 mg/dL (70-110)
[2021-08-08] MEDS: bumetanide 1 mg Tablet 2 MG PO (08:13)
[2021-08-08] MEDS: metoprolol tartrate 25 mg Tablet PO (08:13)
[2021-08-08] MEDS: OLANZapine 5 mg TABLET PO (08:13)
[2021-08-08] MEDS: tamsulosin 0.4 mg Capsule 0.8 MG PO (08:13)
[2021-08-08] MEDS: BuSPIRONE 10 mg Tablet PO ×3 (08:13→20:22)
[2021-08-08] MEDS: pantoprazole DR 40 mg Tablet PO (08:13)
[2021-08-08] MEDS: insulin lispro 100 unit/1 mL SUBCUT ×4 (08:14→20:42)
[2021-08-08 11:42] LABS: Glucose Point of Care 257 mg/dL (70-110)
--- NOTE | 2021-08-08 12:20 | PM.PN ---
Subjective Subjective: Interval history: Earlier today asking a nurse for nerve pill. As per discussion he is on risperidone, but feels it has not been working for him. States he cannot be without his hearing aid. Vitals/I&O/Wt Last Vital Signs Temp 98.1 F 08/08/21 11:36 Pulse 67 08/08/21 11:36 Resp 16 08/08/21 11:36 BP 126/74 08/08/21 11:36 Pulse Ox 96 08/08/21 11:36 08/07/21 08/08/21 08/08/21 22:59 06:59 14:59 Intake Total 680 / 1160 360 / 360 Balance 680 / 1160 360 / 360 Physical Exam Narrative: EXAM NARRATIVE: Siitter present. Const: COMMON NORMALS: no acute distress GENERAL APPEARANCE: cooperative and comfortable ORIENTATION/CONSCIOUSNESS: Yes awake OTHER: [place] HENMT: COMMON NORMALS: oropharynx normal HEAD & SCALP: other (Abutment area under magnet pink w sm ulceration in center, sm amt pur disch) Neck/C-Spine: COMMON NORMALS: no JVD Resp: COMMON NORMALS: normal respiratory effort and clear to auscultation bilaterally AUSCULTATION: clear to auscultation bilaterally Cardio: COMMON NORMALS: no JVD, regular rhythm, S1 normal heart sound present, S2 normal heart sound present and No murmurs present (Cardio) RHYTHM: regular rhythm HEART SOUNDS: S1 normal heart sound present and S2 normal heart sound present GI: COMMON NORMALS: Normal to inspection, nondistended, normoactive bowel sounds present, Soft to palpation and non-tender PALPATION: Yes Soft to palpation Extremity: COMMON NORMALS: no joint enlargement and no pedal edema Neuro: COMMON NORMALS: moves all extremities Skin: COMMON NORMALS: no rashes or lesions noted GENERAL SKIN EXAM: no rashes or lesions noted Data : 08/07/21 04:29 08/01/21 04:43 A&P Assessment and plan (1) Skin necrosis: Area of skin erosion is been improving. Dressing was replaced with thick foam dressing, the area today without indentation. Appears clean. He insists on keeping the magnet on so he can hear. Otherwise gets anxious and restless. Discussed with nursing staff, will change with larger size foam dressing. Needs ENT assessment as soon as available. Clean base, subcutaneous tissue. Keep area of skin erosion clean. Continue empiric antibiotic at this time. Wound culture requested. 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 Keep magnet off when possible. Dressing changes with triple antibiotic, foam dressing. Status: Acute (2) Altered mental status: No new complaints. It is difficult for him to understand that the magnet needs to stay off except when he really needs to communicate to avoid worsening the wound. Asking to just go home. Arrangements continued for guardianship, jail placement. Completed treatment for urinary tract infection with ceftriaxone for sensitive Klebsiella. Currently alert to person, to place, not to time, follows all commands According to family alert to person, to place, to time, follows commands Evaluated by psychiatry, does not have capacity, working on guardianship proceedings, follow-up case management, has been accepted by the jail TSH within normal limits, ammonia within normal limits, acetaminophen levels within normal limits Toxicology screen negative Carotid artery ultrasound within normal limits Cardiac echo EF 50 to 55%, diastolic dysfunction, right ventricular is mildly hypokinetic, mild to moderate aortic regurg, mildly dilated ascending aorta Continue his Zyprexa which he is on chronically. Continue his buspirone, aricept, remeron. Haldol as needed for agitation Avoid any medication which could promote further confusion such as opiates, antihistamines, benzodiazepines. Monitor closely for any withdrawal Status: Acute (3) Drug overdose: Status: Acute (4) Suicidal ideation: Reports intermittent. Not at this time. As above. Status: Acute Additional A&P Information Pending arrangements for COVID-19 booster. Discussed with nursing staff, manager social responsibility. Attestations Medical Necessity Statement*: Continue wound care, dressing changes, empiric antibiotic for scalp wound, pending ENT assessment, arrangements for guardianship, post discharge planning. Coding Level of Care Code Acute Sales Assistants And Salespersons for Enrrique Stein Diagnoses Skin necrosis I96 Altered mental status R41.82 Drug overdose T50.901A Suicidal ideation R45.851
[2021-08-08] MEDS: doxycycline 100 mg Tablet PO (13:40)
[2021-08-08 16:59] LABS: Glucose Point of Care 178 mg/dL (70-110)
[2021-08-08 20:19] LABS: Glucose Point of Care 251 mg/dL (70-110)
[2021-08-08] MEDS: acetaminophen 325 mg Tablet 650 MG PO (20:22)
[2021-08-08] MEDS: polyethylene glycol 3350 Pkt 17 gm PO (20:42)
[2021-08-09] MEDS: doxycycline 100 mg Tablet PO ×3 (00:35→23:27)
[2021-08-09 04:00] VITALS: BP 129/75; PULSE 66; RESP 17; TEMP 36.8; O2SAT 97
[2021-08-09 05:26] LABS: Basophils % 0.5 %; Eosinophils # 0.4 10^3/uL (0.0-0.8); Eosinophils % 6.3 %; Hematocrit 34.7 % (42.0-52.0); Hemoglobin 11.7 g/dL (11.7-16.6); Lymphocytes # 1.5 10^3/uL (0.8-4.8); Lymphocytes % 24.1 %; Mean Corpuscular HGB Conc 33.7 g/dL (30.0-36.0); Mean Corpuscular Hemoglobin 30.3 pg (28.0-34.0); Mean Corpuscular Volume 89.9 fl (80-94); Mean Platelet Volume 9.1 fL (7.4-10.4); Monocytes # 0.5 10^3/uL (0.2-0.9); Neutrophils # 3.72 10^3/uL (1.8-7.7); Neutrophils % 60.4 %; Nucleated Red Blood Cells % 0 %; Platelet Count 248 10^3/cmm (130-400); Red Blood Count 3.86 10^6/uL (4.1-5.3); Red Cell Distribution Width 12.8 % (12.1-15.1); White Blood Count 6.2 10^3/uL (4.0-10.0)
[2021-08-09 06:07] LABS: Alanine Aminotransferase 18 U/L (0-41); Albumin Level 3.8 g/dL (3.5-5.2); Alkaline Phosphatase 47 IU/L (40-130); Anion Gap 17.6 (5-19); Aspartate Amino Transferase 17 U/L (0-40); Blood Urea Nitrogen 19 mg/dL (8-23); Calcium 8.9 mg/dL (8.5-10.5); Carbon Dioxide 21 mmol/L (22-29); Chloride 100 mmol/L (98-107); Globulin 2.6 g/dL (1.3-4.6); Glucose 156 mg/dL (65-115); Osmolality Calculated 285 mOsm/kg (285-295); Potassium 3.6 mmol/L (3.5-5.1); Sodium 135 mmol/L (136-145); Total Bilirubin 0.2 mg/dL (0.15-1.2); Total Protein 6.4 g/dL (6.6-8.7)
[2021-08-09 06:47] LABS: Glucose Point of Care 162 mg/dL (70-110)
[2021-08-09 07:37] VITALS: BP 155/71; PULSE 68; RESP 16; TEMP 36.8; O2SAT 95
--- NOTE | 2021-08-09 07:54 | PC.NURSE ---
Patient is upset because he does not want to drink diet cola. Patient wants regular cola and is demanding it. Patient educated about how drinking regular cola will increase his need for insulin. Patient states, I don't care. I want a regular soda.
[2021-08-09] MEDS: bumetanide 1 mg Tablet 2 MG PO (08:52)
[2021-08-09] MEDS: tamsulosin 0.4 mg Capsule 0.8 MG PO (08:52)
[2021-08-09] MEDS: acetaminophen 325 mg Tablet 650 MG PO ×2 (08:52→22:09)
[2021-08-09] MEDS: OLANZapine 5 mg TABLET PO (08:53)
[2021-08-09] MEDS: BuSPIRONE 10 mg Tablet PO ×3 (08:53→20:39)
[2021-08-09] MEDS: insulin lispro 100 unit/1 mL SUBCUT ×4 (08:54→20:55)
[2021-08-09] MEDS: metoprolol tartrate 25 mg Tablet PO (08:54)
[2021-08-09] MEDS: pantoprazole DR 40 mg Tablet PO (08:55)
[2021-08-09 11:44] LABS: Glucose Point of Care 244 mg/dL (70-110)
[2021-08-09 11:58] VITALS: BP 139/75; PULSE 73; RESP 17; TEMP 36.8; O2SAT 98
[2021-08-09] MEDS: docusate sodium 100 mg Capsule PO (14:30)
--- NOTE | 2021-08-09 14:31 | PC.NURSE ---
Patient has had 7 cans of regular soda so far today. I explained to the patient that he needs to drink some water and he need to be drinking diet soda but not 7 of them. Patient states, Why are you being this way to me. I have not done anything to you. I explained to the patient that I am not punishing him in any way. It is just not healthy for him. Patient states, Okay whatever I won't ask for anymore. I tried to continue to talk with patient and patient started watching TV and would not respond to this nurse.
[2021-08-09 15:18] VITALS: BP 135/73; PULSE 63; RESP 16; TEMP 36.9; O2SAT 96
--- NOTE | 2021-08-09 16:01 | PM.PN ---
Subjective Subjective: Interval history: Constipated, requesting for stool softener. Earlier was given MiraLAX but declined. Vitals/I&O/Wt Last Vital Signs Temp 98.4 F 08/09/21 15:18 Pulse 63 08/09/21 15:18 Resp 16 08/09/21 15:18 BP 135/73 08/09/21 15:18 Pulse Ox 96 08/09/21 15:18 08/09/21 08/09/21 08/09/21 06:59 14:59 22:59 Intake Total 820 / 2140 840 / 840 Balance 820 / 2140 840 / 840 Physical Exam Narrative: EXAM NARRATIVE: Siitter present. Const: COMMON NORMALS: no acute distress GENERAL APPEARANCE: cooperative and comfortable ORIENTATION/CONSCIOUSNESS: Yes awake OTHER: [place] HENMT: COMMON NORMALS: oropharynx normal HEAD & SCALP: other (Healing abutment area under magnet pink w sm ulceration in center) Neck/C-Spine: COMMON NORMALS: no JVD Resp: COMMON NORMALS: normal respiratory effort and clear to auscultation bilaterally AUSCULTATION: clear to auscultation bilaterally Cardio: COMMON NORMALS: no JVD, regular rhythm, S1 normal heart sound present, S2 normal heart sound present and No murmurs present (Cardio) RHYTHM: regular rhythm HEART SOUNDS: S1 normal heart sound present and S2 normal heart sound present GI: COMMON NORMALS: Normal to inspection, nondistended, normoactive bowel sounds present, Soft to palpation and non-tender PALPATION: Yes Soft to palpation Extremity: COMMON NORMALS: no joint enlargement and no pedal edema Neuro: COMMON NORMALS: moves all extremities Skin: COMMON NORMALS: no rashes or lesions noted GENERAL SKIN EXAM: no rashes or lesions noted Data : 08/09/21 05:07 08/09/21 05:07 A&P Assessment and plan (1) Skin necrosis: Abutment area wound is significantly improving. Clean. No purulent discharge. Continue empiric antibiotic, wound care. ENT follow-up, consider inpatient versus outpatient depending on condition. Area of skin erosion is been improving. Dressing was replaced with thick foam dressing, the area today without indentation. Appears clean. He insists on keeping the magnet on so he can hear. Otherwise gets anxious and restless. Discussed with nursing staff, will change with larger size foam dressing. Clean base, subcutaneous tissue. Keep area of skin erosion clean. Continue empiric antibiotic at this time. Wound culture requested. 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 Keep magnet off when possible. Dressing changes with triple antibiotic, foam dressing. Status: Acute (2) Altered mental status: No new complaints. It is difficult for him to understand that the magnet needs to stay off except when he really needs to communicate to avoid worsening the wound. Asking to just go home. Arrangements continued for guardianship, custodial placement. Completed treatment for urinary tract infection with ceftriaxone for sensitive Klebsiella. Currently alert to person, to place, not to time, follows all commands According to family alert to person, to place, to time, follows commands Evaluated by psychiatry, does not have capacity, working on guardianship proceedings, follow-up case management, has been accepted by the custodial TSH within normal limits, ammonia within normal limits, acetaminophen levels within normal limits Toxicology screen negative Carotid artery ultrasound within normal limits Cardiac echo EF 50 to 55%, diastolic dysfunction, right ventricular is mildly hypokinetic, mild to moderate aortic regurg, mildly dilated ascending aorta Continue his Zyprexa which he is on chronically. Continue his buspirone, aricept, remeron. Haldol as needed for agitation Avoid any medication which could promote further confusion such as opiates, antihistamines, benzodiazepines. Monitor closely for any withdrawal Status: Acute (3) Drug overdose: Status: Acute (4) Suicidal ideation: Reported intermittent. Without recurrence. Status: Acute Additional A&P Information Pending arrangements for COVID-19 booster. Constipation: Declined MiraLAX. Added docusate. Discussed with nursing staff, social service director. Have not heard back whether we received the vaccination card. Asking to follow-up. Attestations Medical Necessity Statement*: Continue admission for arrangements for guardianship, post discharge planning. Coding Level of Care Code Acute Fortune Teller for Enrrique Stein Diagnoses Skin necrosis I96 Altered mental status R41.82 Drug overdose T50.901A Suicidal ideation R45.851
[2021-08-09 16:59] LABS: Glucose Point of Care 172 mg/dL (70-110)
--- NOTE | 2021-08-09 19:02 | PC.NURSE ---
Report to aws developer nurse at this time.
[2021-08-09 20:00] VITALS: BP 125/76; PULSE 75; RESP 20; TEMP 36.9; O2SAT 96
[2021-08-09 20:51] LABS: Glucose Point of Care 253 mg/dL (70-110)
[2021-08-09] MEDS: diphenhydrAMINE 50 mg Capsule PO (22:10)
[2021-08-09 23:52] VITALS: BP 130/71; PULSE 63; RESP 18; TEMP 36.7; O2SAT 97
[2021-08-10 04:00] VITALS: BP 156/76; PULSE 62; RESP 18; TEMP 36.8; O2SAT 98
--- NOTE | 2021-08-10 05:52 | PC.NURSE ---
Shift Note Frequent safety and comfort rounds continue. Orders and/or nursing care completed as indicated. Patient monitored for response to intervention and treatment(s). Education provided includes route, dosage, and action of new medication ordered for sleep. Patient and/or shared services representative verbalized understanding. All vs and assessments as charted. Will continue to monitor.
[2021-08-10 07:03] LABS: Glucose Point of Care 202 mg/dL (70-110)
[2021-08-10 07:31] VITALS: BP 136/84; PULSE 87; RESP 15; TEMP 36.6; O2SAT 97
[2021-08-10] MEDS: bumetanide 1 mg Tablet 2 MG PO (09:13)
[2021-08-10] MEDS: metoprolol tartrate 25 mg Tablet PO (09:13)
[2021-08-10] MEDS: BuSPIRONE 10 mg Tablet PO ×3 (09:13→21:29)
[2021-08-10] MEDS: tamsulosin 0.4 mg Capsule 0.8 MG PO (09:13)
[2021-08-10] MEDS: pantoprazole DR 40 mg Tablet PO (09:13)
[2021-08-10] MEDS: OLANZapine 5 mg TABLET PO (09:13)
[2021-08-10] MEDS: docusate sodium 100 mg Capsule PO ×2 (09:13→16:46)
[2021-08-10] MEDS: insulin lispro 100 unit/1 mL SUBCUT ×4 (09:14→21:57)
--- NOTE | 2021-08-10 10:26 | PC.CHAP ---
Pastoral Care Encounter/Spiritual Assessment Type of Contact [] Declined beef cattle grazier visit [] Patient/Family/Request visit [] Outpatient visit [] Follow-up visit [] Physician referral [] Code/Alert [x] Routine visit [] Staff referral [] Actively dying [] Patient sleeping [] Family support [] [] Out of room [] Palliative care [] [] Receiving care in room [] Pre-surgical visit [] Trauma [] Long length of stay [] ICU visit [] Other: Relational/Emotional Strength [x] Patient feels connected with others/family/visitors/staff [x] Distress [] Loneliness/isolation [] Abandonment Spirituality of Patient [] Person of Sia [] Attends Quaker of their Sia [] Believes in Prayer [] Reads Bible or Adventism materials [] There are Spiritual issues to be addressed Senior Lead Software Engineer Interventions [x] Prayer [] Active listening [] Non-anxious presence [] Spiritual/emotional support [] Crisis/trauma care [] Spiritual counseling [] Bereavement support [] Provided bereavement packet [] Provided Bible/devotional materials [] Provided toy/stuffed animal, coloring book to patient or family member [] Provided Communion [] Anointing/[place] [] Salvation []x Completed spiritual assessment [] Other: Impact on Illness or Injury [] Angry [x] Fearful [] Anxious [] Often cries [] Exhaustion [] Unable to work [] Unable to attend spiritism [] Unable to walk/stand [] Unable to read [] Unable to drive [] Unable to eat/drink [] Unable to sleep [] Unable to be with family [] Patient intubated [] Other: Summary patient fearful to go to detention told him this was next step of getting stronger Time spent with patient 10 min
[2021-08-10] MEDS: acetaminophen 325 mg Tablet 650 MG PO (11:18)
[2021-08-10 11:21] VITALS: BP 129/87; PULSE 77; RESP 16; TEMP 36.7; O2SAT 97
[2021-08-10 11:24] LABS: Glucose Point of Care 247 mg/dL (70-110)
[2021-08-10] MEDS: doxycycline 100 mg Tablet PO (11:41)
--- NOTE | 2021-08-10 16:07 | P.PN_ITS ---
Subjective Subjective: Interval history: Hospital course, labs appreciated. Sitting comfortably in bed. No new complaints. Are not compliant with keeping magnet off. Vitals/I&O/Wt Last Vital Signs Temp 98.0 F 08/10/21 11:21 Pulse 77 08/10/21 11:21 Resp 16 08/10/21 11:21 BP 129/87 08/10/21 11:21 Pulse Ox 97 08/10/21 11:21 08/10/21 08/10/21 08/10/21 06:59 14:59 22:59 Intake Total 480 / 1685 1040 / 1040 Balance 480 / 1685 1040 / 1040 Physical Exam Narrative: EXAM NARRATIVE: RN present. Const: COMMON NORMALS: no acute distress; negative for patient oriented x3 GENERAL APPEARANCE: cooperative and comfortable ORIENTATION/CONSCIOUSNESS: Yes awake, Yes oriented to person, Yes oriented to place and Yes confused; not oriented to time OTHER: [place] Dressed in street clothes HENMT: COMMON NORMALS: oropharynx normal Neck/C-Spine: COMMON NORMALS: no JVD Chest: COMMONS NORMALS: normal inspection of the chest Resp: COMMON NORMALS: normal respiratory effort, No retractions, No use of accessory muscles and clear to auscultation bilaterally AUSCULTATION: clear to auscultation bilaterally Cardio: COMMON NORMALS: no JVD, regular rate, regular rhythm, S1 normal heart sound present, S2 normal heart sound present and No murmurs present (Cardio) RATE: regular rate RHYTHM: regular rhythm HEART SOUNDS: S1 normal heart sound present and S2 normal heart sound present GI: COMMON NORMALS: Normal to inspection, nondistended, normoactive bowel sounds present, Soft to palpation, non-tender and No hepatosplenomegaly present PALPATION: Yes Soft to palpation and Yes No hepatosplenomegaly present Extremity: COMMON NORMALS: no joint enlargement and no pedal edema Neuro: COMMON NORMALS: moves all extremities; negative for patient oriented x3 SENSORIUM/ORIENTATION: Yes oriented to person, Yes oriented to place and No oriented to time Psych: COMMON NORMALS: mental status grossly normal Skin: COMMON NORMALS: no rashes or lesions noted GENERAL SKIN EXAM: no rashes or lesions noted Data : 08/09/21 05:07 08/09/21 05:07 A&P Assessment and plan (1) Skin necrosis: Abutment area wound is Clean. No purulent discharge. Continue empiric antibiotic with doxycycline for 10-day course, wound care. ENT follow-up as an outpatient. Continue with wound care with thick foam dressing. Larger in size as patient is not much compliant with keeping magnet off as without that patient becomes anxious and restless. 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 Keep magnet off when possible. Dressing changes with triple antibiotic, foam dressing. Status: Acute (2) Altered mental status: No new complaints. It is difficult for him to understand that the magnet needs to stay off except when he really needs to communicate to avoid worsening the wound. Asking to just go home. Arrangements continued for guardianship, detention placement. Completed treatment for urinary tract infection with ceftriaxone for sensitive Klebsiella. Currently alert to person, to place, not to time, follows all commands According to family alert to person, to place, to time, follows commands Evaluated by psychiatry, does not have capacity, working on guardianship proceedings, follow-up case management, has been accepted by the detention TSH within normal limits, ammonia within normal limits, acetaminophen levels within normal limits Toxicology screen negative Carotid artery ultrasound within normal limits Cardiac echo EF 50 to 55%, diastolic dysfunction, right ventricular is mildly hypokinetic, mild to moderate aortic regurg, mildly dilated ascending aorta Continue his Zyprexa which he is on chronically. Continue his buspirone, aricept, remeron. Haldol as needed for agitation Avoid any medication which could promote further confusion such as opiates, antihistamines, benzodiazepines. Monitor closely for any withdrawal Status: Acute (3) Drug overdose: Status: Acute (4) Suicidal ideation: Reported intermittent. Without recurrence. Status: Acute Additional A&P Information Pending arrangements for COVID-19 booster. Constipation: Declined MiraLAX. Added docusate. Discussed with nursing staff, high school social science teacher. Have not heard back whether we received the vaccination card. Asking to follow-up. Attestations Medical Necessity Statement*: Requires further hospitalization while safe discharge planning, guardianship is awaited. Time Spent in Patient Care: 16 - 35 minutes Coding Level of Care Code Acute Senior Sql Server Developer for Enrrique Stein Diagnoses Skin necrosis I96 Altered mental status R41.82 Drug overdose T50.901A Suicidal ideation R45.851
[2021-08-10 16:37] VITALS: BP 148/87; PULSE 83; RESP 17; TEMP 36.7; O2SAT 98
[2021-08-10 18:14] LABS: Glucose Point of Care 180 mg/dL (70-110)
[2021-08-10 20:00] VITALS: BP 138/79; PULSE 66; RESP 17; TEMP 36.9; O2SAT 96
[2021-08-10 21:34] LABS: Glucose Point of Care 196 mg/dL (70-110)
[2021-08-11] VITALS: BP 126/71; PULSE 64; RESP 17; TEMP 36.7; O2SAT 96
[2021-08-11] MEDS: doxycycline 100 mg Tablet PO ×2 (00:49→13:16)
[2021-08-11 06:30] LABS: Glucose Point of Care 184 mg/dL (70-110)
[2021-08-11 07:42] VITALS: BP 156/81; PULSE 66; RESP 17; TEMP 36.6; O2SAT 97
[2021-08-11] MEDS: docusate sodium 100 mg Capsule PO ×2 (08:49→17:08)
[2021-08-11] MEDS: BuSPIRONE 10 mg Tablet PO ×3 (08:49→21:21)
[2021-08-11] MEDS: tamsulosin 0.4 mg Capsule 0.8 MG PO (08:49)
[2021-08-11] MEDS: OLANZapine 5 mg TABLET PO (08:49)
[2021-08-11] MEDS: metoprolol tartrate 25 mg Tablet PO (08:49)
[2021-08-11] MEDS: bumetanide 1 mg Tablet 2 MG PO (08:49)
[2021-08-11] MEDS: pantoprazole DR 40 mg Tablet PO (08:49)
[2021-08-11] MEDS: insulin lispro 100 unit/1 mL SUBCUT ×4 (08:50→21:53)
[2021-08-11] MEDS: neomycin-poly-bacitracin oint 28 gm 1 APPLIC TOPICAL ×2 (08:51→17:08)
--- NOTE | 2021-08-11 10:26 | PC.NURSE ---
patient requesting covid booster. Dr Collado notified.
--- NOTE | 2021-08-11 10:54 | PC.NURSE ---
Patient has requested a COVID-19 booster vaccination. I called and spoke with Michel Patino with [facility] and she states they will arrange for this to be administered before the patient is d/c'd. I informed Jose Noriega RN and Dr. Collado of the above information.
[2021-08-11 11:56] LABS: Glucose Point of Care 227 mg/dL (70-110)
[2021-08-11 12:00] VITALS: BP 128/78; PULSE 71; RESP 18; TEMP 36.4; O2SAT 95
--- NOTE | 2021-08-11 14:42 | PM.PN ---
Subjective Subjective: Interval history: No events overnight. Has been medically stable. Denies any nausea vomiting, headache. Does not want any more stool softener. Asking for COVID-19 booster. Vitals/I&O/Wt Last Vital Signs Temp 97.6 F 08/11/21 12:00 Pulse 71 08/11/21 12:00 Resp 18 08/11/21 12:00 BP 128/78 08/11/21 12:00 Pulse Ox 95 08/11/21 12:00 08/10/21 08/11/21 08/11/21 22:59 06:59 14:59 Intake Total 480 / 1520 1320 / 1320 Balance 480 / 1520 1320 / 1320 Physical Exam Narrative: EXAM NARRATIVE: RN present. Const: COMMON NORMALS: no acute distress; negative for patient oriented x3 GENERAL APPEARANCE: cooperative and comfortable ORIENTATION/CONSCIOUSNESS: Yes awake, Yes oriented to person, Yes oriented to place and Yes confused; not oriented to time OTHER: [place] Dressed in street clothes HENMT: COMMON NORMALS: oropharynx normal Neck/C-Spine: COMMON NORMALS: no JVD Chest: COMMONS NORMALS: normal inspection of the chest Resp: COMMON NORMALS: normal respiratory effort, No retractions, No use of accessory muscles and clear to auscultation bilaterally AUSCULTATION: clear to auscultation bilaterally Cardio: COMMON NORMALS: no JVD, regular rate, regular rhythm, S1 normal heart sound present, S2 normal heart sound present and No murmurs present (Cardio) RATE: regular rate RHYTHM: regular rhythm HEART SOUNDS: S1 normal heart sound present and S2 normal heart sound present GI: COMMON NORMALS: Normal to inspection, nondistended, normoactive bowel sounds present, Soft to palpation, non-tender and No hepatosplenomegaly present PALPATION: Yes Soft to palpation and Yes No hepatosplenomegaly present Extremity: COMMON NORMALS: no joint enlargement and no pedal edema Neuro: COMMON NORMALS: moves all extremities; negative for patient oriented x3 SENSORIUM/ORIENTATION: Yes oriented to person, Yes oriented to place and No oriented to time Psych: COMMON NORMALS: mental status grossly normal Skin: COMMON NORMALS: no rashes or lesions noted GENERAL SKIN EXAM: no rashes or lesions noted Data : 08/09/21 05:07 08/09/21 05:07 A&P Assessment and plan (1) Skin necrosis: Abutment area wound is Clean. No purulent discharge. Continue empiric antibiotic with doxycycline for 10-day course, wound care. ENT follow-up as an outpatient. Continue with wound care with thick foam dressing. Larger in size as patient is not much compliant with keeping magnet off as without that patient becomes anxious and restless. 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 Keep magnet off when possible. Dressing changes with triple antibiotic, foam dressing. Status: Acute (2) Altered mental status: No new complaints. It is difficult for him to understand that the magnet needs to stay off except when he really needs to communicate to avoid worsening the wound. Asking to just go home. Arrangements continued for guardianship, correction placement. Completed treatment for urinary tract infection with ceftriaxone for sensitive Klebsiella. Currently alert to person, to place, not to time, follows all commands According to family alert to person, to place, to time, follows commands Evaluated by psychiatry, does not have capacity, working on guardianship proceedings, follow-up case management, has been accepted by the correction TSH within normal limits, ammonia within normal limits, acetaminophen levels within normal limits Toxicology screen negative Carotid artery ultrasound within normal limits Cardiac echo EF 50 to 55%, diastolic dysfunction, right ventricular is mildly hypokinetic, mild to moderate aortic regurg, mildly dilated ascending aorta Continue his Zyprexa which he is on chronically. Continue his buspirone, aricept, remeron. Haldol as needed for agitation Avoid any medication which could promote further confusion such as opiates, antihistamines, benzodiazepines. Monitor closely for any withdrawal Status: Acute (3) Drug overdose: Status: Acute (4) Suicidal ideation: Reported intermittent. Without recurrence. Status: Acute Additional A&P Information Pending arrangements for COVID-19 booster. COVID-19 vaccination card reviewed. Constipation: Declined MiraLAX. Added docusate. Discussed with nursing staff, sr. social media & mobile manager. Have not heard back whether we received the vaccination card. Asking to follow-up. Attestations Medical Necessity Statement*: Further hospitalization while safe discharge planning and guardianship is awaited. Time Spent in Patient Care: 16 - 35 minutes (>than 50% of time spent in counselling and/or direct pt care on unit). Coding Level of Care Code Acute Solar Sales Energy Advisor for Enrrique Stein Diagnoses Skin necrosis I96 Altered mental status R41.82 Drug overdose T50.901A Suicidal ideation R45.851
[2021-08-11] MEDS: acetaminophen 325 mg Tablet 650 MG PO ×2 (15:12→21:20)
[2021-08-11 16:00] VITALS: BP 117/73; PULSE 69; RESP 18; TEMP 36.6; O2SAT 97
[2021-08-11 17:02] LABS: Glucose Point of Care 238 mg/dL (70-110)
[2021-08-11 20:00] VITALS: BP 122/73; PULSE 76; RESP 19; TEMP 37; O2SAT 94
[2021-08-11 21:29] LABS: Glucose Point of Care 219 mg/dL (70-110)
[2021-08-12] VITALS: BP 120/78; PULSE 76; RESP 20; TEMP 37.1; O2SAT 97
[2021-08-12] MEDS: doxycycline 100 mg Tablet PO ×3 (00:50→23:55)
[2021-08-12 04:00] VITALS: BP 137/68; PULSE 57; RESP 18; TEMP 36.9; O2SAT 96
[2021-08-12 07:18] LABS: Glucose Point of Care 268 mg/dL (70-110)
[2021-08-12] MEDS: docusate sodium 100 mg Capsule PO ×2 (08:11→17:50)
[2021-08-12] MEDS: bumetanide 1 mg Tablet 2 MG PO (08:11)
[2021-08-12] MEDS: BuSPIRONE 10 mg Tablet PO ×3 (08:11→20:24)
[2021-08-12] MEDS: pantoprazole DR 40 mg Tablet PO (08:11)
[2021-08-12] MEDS: metoprolol tartrate 25 mg Tablet PO (08:11)
[2021-08-12] MEDS: amlodipine 5 mg Tablet PO (08:11)
[2021-08-12] MEDS: OLANZapine 5 mg TABLET PO (08:11)
[2021-08-12] MEDS: tamsulosin 0.4 mg Capsule 0.8 MG PO (08:12)
[2021-08-12] MEDS: insulin lispro 100 unit/1 mL SUBCUT ×4 (08:12→21:07)
[2021-08-12 08:25] VITALS: BP 157/84; PULSE 73; RESP 18; TEMP 36.8; O2SAT 97
[2021-08-12 11:06] VITALS: BP 110/68; PULSE 67; TEMP 36.7; O2SAT 95
[2021-08-12 11:57] LABS: Glucose Point of Care 236 mg/dL (70-110)
[2021-08-12] MEDS: acetaminophen 325 mg Tablet 650 MG PO ×2 (12:02→20:24)
[2021-08-12] MEDS: neomycin-poly-bacitracin oint 28 gm 1 APPLIC TOPICAL ×2 (12:13→17:50)
--- NOTE | 2021-08-12 14:54 | PC.SOCIAL ---
Talked with Mr. Lemon regarding the video conference for the court date and he is in agreement to do the video conference. He told the RECORDING CLERK Karri prior to our conversation he did not feel like traveling as well. He indicates he may need help hearing the conversation. He has hearing device in place currently. Gisselle Cisneros was present for the conversation as a secondary witness. Also the 1:1 sitter verified legal rep for patient was also on phone asking if patient is agreeable to vide conf and he agreed prior to us walking in. We dressed in precaution attire including N95 etc during conversation.. Talked with Thierry Centeno after and unfortunately Pharmacy Picking Technician is denying to do video conf or hearing at all tomorrow due to patient not being served by law officer in time period required. Court date is pushed back to the and nothing more we can do at this time. Legal will see if we can have option to have the public guardian here assume role in the interim to get patient to SNF until official hearing but not likely this will happen. Will follow up tomorrow once more information is known and legal will reach out to RECORDING CLERK with update.
--- NOTE | 2021-08-12 15:06 | PM.PN ---
Subjective Subjective: Interval history: Status Quo. No active complains. Vitals/I&O/Wt Last Vital Signs Temp 98.1 F 08/12/21 11:06 Pulse 67 08/12/21 11:06 Resp 18 08/12/21 08:25 BP 110/68 08/12/21 11:06 Pulse Ox 95 08/12/21 11:06 08/12/21 08/12/21 08/12/21 06:59 14:59 22:59 Intake Total 200 / 1520 240 / 240 Balance 200 / 1520 240 / 240 Physical Exam Narrative: EXAM NARRATIVE: RN present. Const: COMMON NORMALS: no acute distress; negative for patient oriented x3 GENERAL APPEARANCE: cooperative and comfortable ORIENTATION/CONSCIOUSNESS: Yes awake, Yes oriented to person, Yes oriented to place and Yes confused; not oriented to time OTHER: [place] Dressed in street clothes HENMT: COMMON NORMALS: oropharynx normal Neck/C-Spine: COMMON NORMALS: no JVD Chest: COMMONS NORMALS: normal inspection of the chest Resp: COMMON NORMALS: normal respiratory effort, No retractions, No use of accessory muscles and clear to auscultation bilaterally AUSCULTATION: clear to auscultation bilaterally Cardio: COMMON NORMALS: no JVD, regular rate, regular rhythm, S1 normal heart sound present, S2 normal heart sound present and No murmurs present (Cardio) RATE: regular rate RHYTHM: regular rhythm HEART SOUNDS: S1 normal heart sound present and S2 normal heart sound present GI: COMMON NORMALS: Normal to inspection, nondistended, normoactive bowel sounds present, Soft to palpation, non-tender and No hepatosplenomegaly present PALPATION: Yes Soft to palpation and Yes No hepatosplenomegaly present Extremity: COMMON NORMALS: no joint enlargement and no pedal edema Neuro: COMMON NORMALS: moves all extremities; negative for patient oriented x3 SENSORIUM/ORIENTATION: Yes oriented to person, Yes oriented to place and No oriented to time Psych: COMMON NORMALS: mental status grossly normal Skin: COMMON NORMALS: no rashes or lesions noted GENERAL SKIN EXAM: no rashes or lesions noted Data : 08/09/21 05:07 08/09/21 05:07 A&P Assessment and plan (1) Skin necrosis: Abutment area wound is Clean. No purulent discharge. Continue empiric antibiotic with doxycycline for 10-day course, wound care. ENT follow-up as an outpatient. Continue with wound care with thick foam dressing. Larger in size as patient is not much compliant with keeping magnet off as without that patient becomes anxious and restless. 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 Keep magnet off when possible. Dressing changes with triple antibiotic, foam dressing. Status: Acute (2) Altered mental status: No new complaints. It is difficult for him to understand that the magnet needs to stay off except when he really needs to communicate to avoid worsening the wound. Asking to just go home. Arrangements continued for guardianship, [place] [facility] placement. Completed treatment for urinary tract infection with ceftriaxone for sensitive Klebsiella. Currently alert to person, to place, not to time, follows all commands According to family alert to person, to place, to time, follows commands Evaluated by psychiatry, does not have capacity, working on guardianship proceedings, follow-up case management, has been accepted by the [place] [facility] TSH within normal limits, ammonia within normal limits, acetaminophen levels within normal limits Toxicology screen negative Carotid artery ultrasound within normal limits Cardiac echo EF 50 to 55%, diastolic dysfunction, right ventricular is mildly hypokinetic, mild to moderate aortic regurg, mildly dilated ascending aorta Continue his Zyprexa which he is on chronically. Continue his buspirone, aricept, remeron. Haldol as needed for agitation Avoid any medication which could promote further confusion such as opiates, antihistamines, benzodiazepines. Monitor closely for any withdrawal Status: Acute (3) Drug overdose: Status: Acute (4) Suicidal ideation: Reported intermittent. Without recurrence. Status: Acute Additional A&P Information Pending arrangements for COVID-19 booster. COVID-19 vaccination card reviewed. Constipation: Declined MiraLAX. Added docusate. Attestations Medical Necessity Statement*: Awaiting guardianship and safe discharge planning. Time Spent in Patient Care: less than 15 minutes Coding Level of Care Code Acute Cad Designer Drafter for Enrrique Stein Diagnoses Skin necrosis I96 Altered mental status R41.82 Drug overdose T50.901A Suicidal ideation R45.851
[2021-08-12 16:00] VITALS: BP 130/72; PULSE 70; RESP 16; TEMP 36.8; O2SAT 95
[2021-08-12 16:54] LABS: Glucose Point of Care 269 mg/dL (70-110)
[2021-08-12 20:00] VITALS: BP 132/58; PULSE 73; RESP 18; TEMP 36.8; O2SAT 97
[2021-08-12 21:07] LABS: Glucose Point of Care 207 mg/dL (70-110)
[2021-08-13] VITALS (7 sets, daily range): BP systolic 112–133; BP diastolic 54–82; PULSE 66–75; RESP 16–18; TEMP 36.6–36.8; O2SAT 93–98
--- NOTE | 2021-08-13 05:34 | PC.NURSE ---
SHIFT SUMMARY Has had a good night. 1:1 sitter at bedside throughout shift. Has been pleasant and cooperative. Did medicate X1 with po Tylenol for c/o head hurting
[2021-08-13 07:00] LABS: Glucose Point of Care 166 mg/dL (70-110)
[2021-08-13] MEDS: docusate sodium 100 mg Capsule PO ×2 (07:40→17:54)
[2021-08-13] MEDS: OLANZapine 5 mg TABLET PO (07:41)
[2021-08-13] MEDS: BuSPIRONE 10 mg Tablet PO ×3 (07:41→20:00)
[2021-08-13] MEDS: bumetanide 1 mg Tablet 2 MG PO (07:41)
[2021-08-13] MEDS: tamsulosin 0.4 mg Capsule 0.8 MG PO (07:42)
[2021-08-13] MEDS: metoprolol tartrate 25 mg Tablet PO (07:42)
[2021-08-13] MEDS: amlodipine 5 mg Tablet PO (07:42)
[2021-08-13] MEDS: pantoprazole DR 40 mg Tablet PO (07:42)
[2021-08-13] MEDS: insulin lispro 100 unit/1 mL SUBCUT ×4 (07:43→22:01)
[2021-08-13] MEDS: neomycin-poly-bacitracin oint 28 gm 1 APPLIC TOPICAL ×2 (07:43→17:54)
--- NOTE | 2021-08-13 10:30 | PC.SOCIAL ---
IMM Update pg 2 of IMM updated and reviewed w/ patient. Copy provided.
[2021-08-13 11:34] LABS: Glucose Point of Care 241 mg/dL (70-110)
[2021-08-13] MEDS: doxycycline 100 mg Tablet PO ×2 (11:55→23:15)
--- NOTE | 2021-08-13 15:53 | P.PN_ITS ---
Subjective Subjective: Interval history: Status quo, asking for toenails to be clipped as states it is hurting him now. Denies any nausea vomiting headache. Vitals/I&O/Wt Last Vital Signs Temp 98.2 F 08/13/21 15:26 Pulse 73 08/13/21 15:26 Resp 16 08/13/21 15:26 BP 131/79 08/13/21 15:26 Pulse Ox 97 08/13/21 15:26 08/13/21 08/13/21 08/13/21 06:59 14:59 22:59 Intake Total 240 / 960 600 / 600 Balance 240 / 960 600 / 600 Physical Exam Narrative: EXAM NARRATIVE: RN present. Const: COMMON NORMALS: no acute distress; negative for patient oriented x3 GENERAL APPEARANCE: cooperative and comfortable ORIENTATION/CONSCIOUSNESS: Yes awake, Yes oriented to person, Yes oriented to place and Yes confused; not oriented to time OTHER: [place] Dressed in street clothes HENMT: COMMON NORMALS: oropharynx normal Neck/C-Spine: COMMON NORMALS: no JVD Chest: COMMONS NORMALS: normal inspection of the chest Resp: COMMON NORMALS: normal respiratory effort, No retractions, No use of accessory muscles and clear to auscultation bilaterally AUSCULTATION: clear to auscultation bilaterally Cardio: COMMON NORMALS: no JVD, regular rate, regular rhythm, S1 normal heart sound present, S2 normal heart sound present and No murmurs present (Cardio) RATE: regular rate RHYTHM: regular rhythm HEART SOUNDS: S1 normal heart sound present and S2 normal heart sound present GI: COMMON NORMALS: Normal to inspection, nondistended, normoactive bowel sounds present, Soft to palpation, non-tender and No hepatosplenomegaly present PALPATION: Yes Soft to palpation and Yes No hepatosplenomegaly present Extremity: COMMON NORMALS: no joint enlargement and no pedal edema Neuro: COMMON NORMALS: moves all extremities; negative for patient oriented x3 SENSORIUM/ORIENTATION: Yes oriented to person, Yes oriented to place and No oriented to time Psych: COMMON NORMALS: mental status grossly normal Skin: COMMON NORMALS: no rashes or lesions noted GENERAL SKIN EXAM: no rashes or lesions noted Data : 08/09/21 05:07 08/09/21 05:07 A&P Assessment and plan (1) Skin necrosis: Abutment area wound is Clean. No purulent discharge. Continue empiric antibiotic with doxycycline for 10-day course, wound care. ENT follow-up as an outpatient. Continue with wound care with thick foam dressing. Larger in size as patient is not much compliant with keeping magnet off as without that patient becomes anxious and restless. 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 Keep magnet off when possible. Dressing changes with triple antibiotic, foam dressing. Status: Acute (2) Altered mental status: No new complaints. It is difficult for him to understand that the magnet needs to stay off except when he really needs to communicate to avoid worsening the wound. Asking to just go home. Arrangements continued for guardianship, senior care placement. Completed treatment for urinary tract infection with ceftriaxone for sensitive Klebsiella. Currently alert to person, to place, not to time, follows all commands According to family alert to person, to place, to time, follows commands Evaluated by psychiatry, does not have capacity, working on guardianship proceedings, follow-up case management, has been accepted by the senior care TSH within normal limits, ammonia within normal limits, acetaminophen levels within normal limits Toxicology screen negative Carotid artery ultrasound within normal limits Cardiac echo EF 50 to 55%, diastolic dysfunction, right ventricular is mildly hypokinetic, mild to moderate aortic regurg, mildly dilated ascending aorta Continue his Zyprexa which he is on chronically. Continue his buspirone, caryn ept, remeron. Haldol as needed for agitation Avoid any medication which could promote further confusion such as opiates, antihistamines, benzodiazepines. Monitor closely for any withdrawal Status: Acute (3) Drug overdose: Status: Acute (4) Suicidal ideation: Reported intermittent. Without recurrence. Status: Acute Additional A&P Information Pending arrangements for COVID-19 booster. COVID-19 vaccination card reviewed. Constipation: Declined MiraLAX. Added docusate. Plan for the day: Nail clipping. Awaiting guardianship. Restart home oral hypoglycemics including Metformin and 1 mg glimepiride. Attestations Medical Necessity Statement*: Awaiting guardianship, safe discharge planning Time Spent in Patient Care: less than 15 minutes Coding Level of Care Code Acute Needle Process Felt Goods Supervisor for Enrrique Stein Diagnoses Skin necrosis I96 Altered mental status R41.82 Drug overdose T50.901A Suicidal ideation R45.851
[2021-08-13 17:02] LABS: Glucose Point of Care 270 mg/dL (70-110)
[2021-08-13] MEDS: metformin 500 mg Tablet PO (17:54)
[2021-08-13] MEDS: acetaminophen 325 mg Tablet 650 MG PO (20:00)
[2021-08-13 21:33] LABS: Glucose Point of Care 283 mg/dL (70-110)
[2021-08-14 04:00] VITALS: BP 128/68; PULSE 75; RESP 18; TEMP 37.3; O2SAT 96
[2021-08-14 07:56] LABS: Glucose Point of Care 208 mg/dL (70-110)
[2021-08-14 08:00] VITALS: BP 157/90; PULSE 89; RESP 18; TEMP 36.4; O2SAT 95
[2021-08-14] MEDS: docusate sodium 100 mg Capsule PO ×2 (08:45→16:47)
[2021-08-14] MEDS: glimepiride 2 mg Tablet 1 MG PO (08:45)
[2021-08-14] MEDS: metformin 500 mg Tablet PO ×2 (08:47→16:47)
[2021-08-14] MEDS: bumetanide 1 mg Tablet 2 MG PO (08:47)
[2021-08-14] MEDS: amlodipine 5 mg Tablet PO (08:48)
[2021-08-14] MEDS: pantoprazole DR 40 mg Tablet PO (08:48)
[2021-08-14] MEDS: BuSPIRONE 10 mg Tablet PO ×3 (08:48→20:41)
[2021-08-14] MEDS: metoprolol tartrate 25 mg Tablet PO (08:48)
[2021-08-14] MEDS: OLANZapine 5 mg TABLET PO (08:49)
[2021-08-14] MEDS: tamsulosin 0.4 mg Capsule 0.8 MG PO (08:50)
[2021-08-14] MEDS: insulin lispro 100 unit/1 mL SUBCUT ×2 (08:56→20:57)
[2021-08-14 11:03] VITALS: BP 119/66; PULSE 71; RESP 17; TEMP 36.8; O2SAT 97
[2021-08-14 11:30] LABS: Glucose Point of Care 216 mg/dL (70-110)
[2021-08-14] MEDS: doxycycline 100 mg Tablet PO (14:39)
[2021-08-14] MEDS: acetaminophen 325 mg Tablet 650 MG PO ×2 (14:39→20:56)
[2021-08-14 16:00] VITALS: BP 122/76; PULSE 72; RESP 18; TEMP 36.8; O2SAT 97
--- NOTE | 2021-08-14 16:05 | PM.PN ---
Subjective Subjective: Interval history: Status quo, no new complaints. Vitals/I&O/Wt Last Vital Signs Temp 98.2 F 08/14/21 11:03 Pulse 71 08/14/21 11:03 Resp 17 08/14/21 11:03 BP 119/66 08/14/21 11:03 Pulse Ox 97 08/14/21 11:03 08/14/21 08/14/21 08/14/21 06:59 14:59 22:59 Intake Total 120 / 960 1200 / 1200 Balance 120 / 960 1200 / 1200 Physical Exam Narrative: EXAM NARRATIVE: RN present. Const: COMMON NORMALS: no acute distress; negative for patient oriented x3 GENERAL APPEARANCE: cooperative and comfortable ORIENTATION/CONSCIOUSNESS: Yes awake, Yes oriented to person, Yes oriented to place and Yes confused; not oriented to time OTHER: [place] Dressed in street clothes HENMT: COMMON NORMALS: oropharynx normal Neck/C-Spine: COMMON NORMALS: no JVD Chest: COMMONS NORMALS: normal inspection of the chest Resp: COMMON NORMALS: normal respiratory effort, No retractions, No use of accessory muscles and clear to auscultation bilaterally AUSCULTATION: clear to auscultation bilaterally Cardio: COMMON NORMALS: no JVD, regular rate, regular rhythm, S1 normal heart sound present, S2 normal heart sound present and No murmurs present (Cardio) RATE: regular rate RHYTHM: regular rhythm HEART SOUNDS: S1 normal heart sound present and S2 normal heart sound present GI: COMMON NORMALS: Normal to inspection, nondistended, normoactive bowel sounds present, Soft to palpation, non-tender and No hepatosplenomegaly present PALPATION: Yes Soft to palpation and Yes No hepatosplenomegaly present Extremity: COMMON NORMALS: no joint enlargement and no pedal edema Neuro: COMMON NORMALS: moves all extremities; negative for patient oriented x3 SENSORIUM/ORIENTATION: Yes oriented to person, Yes oriented to place and No oriented to time Psych: COMMON NORMALS: mental status grossly normal Skin: COMMON NORMALS: no rashes or lesions noted GENERAL SKIN EXAM: no rashes or lesions noted Data : 08/09/21 05:07 08/09/21 05:07 A&P Assessment and plan (1) Skin necrosis: Abutment area wound is Clean. No purulent discharge. Continue empiric antibiotic with doxycycline for 10-day course, wound care. ENT follow-up as an outpatient. Continue with wound care with thick foam dressing. Larger in size as patient is not much compliant with keeping magnet off as without that patient becomes anxious and restless. 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 Keep magnet off when possible. Dressing changes with triple antibiotic, foam dressing. Status: Acute (2) Altered mental status: No new complaints. It is difficult for him to understand that the magnet needs to stay off except when he really needs to communicate to avoid worsening the wound. Asking to just go home. Arrangements continued for guardianship, retirement placement. Completed treatment for urinary tract infection with ceftriaxone for sensitive Klebsiella. Currently alert to person, to place, not to time, follows all commands According to family alert to person, to place, to time, follows commands Evaluated by psychiatry, does not have capacity, working on guardianship proceedings, follow-up case management, has been accepted by the retirement TSH within normal limits, ammonia within normal limits, acetaminophen levels within normal limits Toxicology screen negative Carotid artery ultrasound within normal limits Cardiac echo EF 50 to 55%, diastolic dysfunction, right ventricular is mildly hypokinetic, mild to moderate aortic regurg, mildly dilated ascending aorta Continue his Zyprexa which he is on chronically. Continue his buspirone, aricept, remeron. Haldol as needed for agitation Avoid any medication which could promote further confusion such as opiates, antihistamines, benzodiazepines. Monitor closely for any withdrawal Status: Acute (3) Drug overdose: Status: Acute (4) Suicidal ideation: Reported intermittent. Without recurrence. Status: Acute Additional A&P Information Pending arrangements for COVID-19 booster. COVID-19 vaccination card reviewed. Constipation: Declined MiraLAX. Added docusate. Plan for the day: Nail clipping. Awaiting guardianship. Restart home oral hypoglycemics including Metformin and 1 mg glimepiride. Attestations Medical Necessity Statement*: Awaiting guardianship Time Spent in Patient Care: less than 15 minutes Coding Level of Care Code Acute Store Receiver for Enrrique Stein Diagnoses Skin necrosis I96 Altered mental status R41.82 Drug overdose T50.901A Suicidal ideation R45.851
[2021-08-14] MEDS: neomycin-poly-bacitracin oint 28 gm 1 APPLIC TOPICAL (18:34)
[2021-08-14 20:00] VITALS: BP 129/75; PULSE 70; RESP 18; TEMP 36.5; O2SAT 98
[2021-08-14 20:52] LABS: Glucose Point of Care 173 mg/dL (70-110)
[2021-08-15] VITALS: BP 136/75; PULSE 68; RESP 17; TEMP 36.5; O2SAT 96
[2021-08-15] MEDS: doxycycline 100 mg Tablet PO
[2021-08-15 04:00] VITALS: BP 122/68; PULSE 68; RESP 17; TEMP 36.6; O2SAT 94
[2021-08-15 06:34] LABS: Glucose Point of Care 169 mg/dL (70-110)
[2021-08-15 08:00] VITALS: BP 154/84; PULSE 70; RESP 16; O2SAT 98
[2021-08-15] MEDS: bumetanide 1 mg Tablet 2 MG PO (08:14)
[2021-08-15] MEDS: tamsulosin 0.4 mg Capsule 0.8 MG PO (08:16)
[2021-08-15] MEDS: pantoprazole DR 40 mg Tablet PO (08:16)
[2021-08-15] MEDS: BuSPIRONE 10 mg Tablet PO ×3 (08:16→21:33)
[2021-08-15] MEDS: docusate sodium 100 mg Capsule PO ×2 (08:18→17:57)
[2021-08-15] MEDS: OLANZapine 5 mg TABLET PO (08:18)
[2021-08-15] MEDS: metformin 500 mg Tablet PO ×2 (08:18→17:57)
[2021-08-15] MEDS: glimepiride 2 mg Tablet 1 MG PO (08:18)
[2021-08-15] MEDS: amlodipine 5 mg Tablet PO (08:18)
[2021-08-15] MEDS: metoprolol tartrate 25 mg Tablet PO (08:19)
[2021-08-15] MEDS: insulin lispro 100 unit/1 mL SUBCUT ×3 (08:50→21:33)
[2021-08-15] MEDS: neomycin-poly-bacitracin oint 28 gm 1 APPLIC TOPICAL ×2 (09:57→17:59)
[2021-08-15] MEDS: acetaminophen 325 mg Tablet 650 MG PO ×2 (10:12→21:33)
--- NOTE | 2021-08-15 10:17 | PC.SOCIAL ---
IMM Update pg 2 of IMM updated and reviewed w/ patient. Copy provided.
[2021-08-15 11:02] LABS: Glucose Point of Care 232 mg/dL (70-110)
[2021-08-15 11:30] VITALS: BP 131/78; PULSE 73; RESP 16; TEMP 36.8; O2SAT 98
[2021-08-15] MEDS: citalopram 20 mg Tablet PO (12:48)
[2021-08-15] MEDS: ALPRAZolam 0.5 mg Tablet PO (12:48)
--- NOTE | 2021-08-15 15:54 | PM.MISC ---
Miscellaneous Note Purpose of Documentation: Daily note Note: No complaints overnight. Patient has remained hemodynamically stable and afebrile. Complaining of mild anxiety. Asking when can he be discharged. Discussed that the court date set for guardianship for now August 25. Added Xanax 0.5 3 times daily as needed. Continue other chronic medications. Plan discussed in detail with patient's RN.
[2021-08-15 16:16] VITALS: BP 110/72; PULSE 74; RESP 16; TEMP 36.8; O2SAT 96
[2021-08-15 17:40] LABS: Glucose Point of Care 122 mg/dL (70-110)
[2021-08-15 19:52] VITALS: BP 129/78; PULSE 75; RESP 17; TEMP 37; O2SAT 95
[2021-08-15 20:09] LABS: Glucose Point of Care 274 mg/dL (70-110)
[2021-08-16 04:00] VITALS: BP 119/72; PULSE 66; RESP 16; TEMP 36.6; O2SAT 97
[2021-08-16 07:29] LABS: Glucose Point of Care 169 mg/dL (70-110)
[2021-08-16 08:00] VITALS: BP 160/76; PULSE 68; RESP 17; TEMP 36.5; O2SAT 97
[2021-08-16] MEDS: insulin lispro 100 unit/1 mL SUBCUT ×4 (09:11→21:44)
[2021-08-16] MEDS: metformin 500 mg Tablet PO ×2 (09:12→18:13)
[2021-08-16] MEDS: bumetanide 1 mg Tablet 2 MG PO (09:12)
[2021-08-16] MEDS: docusate sodium 100 mg Capsule PO ×2 (09:12→18:13)
[2021-08-16] MEDS: glimepiride 2 mg Tablet 1 MG PO (09:12)
[2021-08-16] MEDS: tamsulosin 0.4 mg Capsule 0.8 MG PO (09:13)
[2021-08-16] MEDS: OLANZapine 5 mg TABLET PO (09:13)
[2021-08-16] MEDS: metoprolol tartrate 25 mg Tablet PO (09:13)
[2021-08-16] MEDS: amlodipine 5 mg Tablet PO (09:13)
[2021-08-16] MEDS: pantoprazole DR 40 mg Tablet PO (09:13)
[2021-08-16] MEDS: BuSPIRONE 10 mg Tablet PO ×3 (09:13→21:44)
[2021-08-16] MEDS: citalopram 20 mg Tablet PO (09:13)
[2021-08-16] MEDS: neomycin-poly-bacitracin oint 28 gm 1 APPLIC TOPICAL ×2 (09:14→18:14)
[2021-08-16 11:39] VITALS: BP 129/67; PULSE 62; RESP 16; TEMP 36.7; O2SAT 96
[2021-08-16 12:02] LABS: Glucose Point of Care 172 mg/dL (70-110)
--- NOTE | 2021-08-16 15:28 | P.PN_ITS ---
Subjective Subjective: Interval history: Status quo, no acute events. Denies any nausea vomiting, headache. Procedures COVID-19 the study yesterday. Vitals/I&O/Wt Last Vital Signs Temp 98.1 F 08/16/21 11:39 Pulse 62 08/16/21 11:39 Resp 16 08/16/21 11:39 BP 129/67 08/16/21 11:39 Pulse Ox 96 08/16/21 11:39 08/16/21 08/16/21 08/16/21 06:59 14:59 22:59 Intake Total 720 / 720 Balance 720 / 720 Physical Exam Narrative: EXAM NARRATIVE: RN present. Const: COMMON NORMALS: no acute distress; negative for patient oriented x3 GENERAL APPEARANCE: cooperative and comfortable ORIENTATION/CONSCIOUSNESS: Yes awake, Yes oriented to person, Yes oriented to place and Yes confused; not oriented to time OTHER: [place] Dressed in street clothes HENMT: COMMON NORMALS: oropharynx normal Neck/C-Spine: COMMON NORMALS: no JVD Chest: COMMONS NORMALS: normal inspection of the chest Resp: COMMON NORMALS: normal respiratory effort, No retractions, No use of accessory muscles and clear to auscultation bilaterally AUSCULTATION: clear to auscultation bilaterally Cardio: COMMON NORMALS: no JVD, regular rate, regular rhythm, S1 normal heart sound present, S2 normal heart sound present and No murmurs present (Cardio) RATE: regular rate RHYTHM: regular rhythm HEART SOUNDS: S1 normal heart sound present and S2 normal heart sound present GI: COMMON NORMALS: Normal to inspection, nondistended, normoactive bowel sounds present, Soft to palpation, non-tender and No hepatosplenomegaly present PALPATION: Yes Soft to palpation and Yes No hepatosplenomegaly present Extremity: COMMON NORMALS: no joint enlargement and no pedal edema Neuro: COMMON NORMALS: moves all extremities; negative for patient oriented x3 SENSORIUM/ORIENTATION: Yes oriented to person, Yes oriented to place and No oriented to time Psych: COMMON NORMALS: mental status grossly normal Skin: COMMON NORMALS: no rashes or lesions noted GENERAL SKIN EXAM: no rashes or lesions noted Data : 08/09/21 05:07 08/09/21 05:07 A&P Assessment and plan (1) Skin necrosis: Abutment area wound is Clean. No purulent discharge. Continue empiric antibiotic with doxycycline for 10-day course, wound care. ENT follow-up as an outpatient. Continue with wound care with thick foam dressing. Larger in size as patient is not much compliant with keeping magnet off as without that patient becomes anxious and restless. 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 Keep magnet off when possible. Dressing changes with triple antibiotic, foam dressing. Status: Acute (2) Altered mental status: No new complaints. It is difficult for him to understand that the magnet needs to stay off except when he really needs to communicate to avoid worsening the wound. Asking to just go home. Arrangements continued for guardianship, intermediate placement. Completed treatment for urinary tract infection with ceftriaxone for sensitive Klebsiella. Currently alert to person, to place, not to time, follows all commands According to family alert to person, to place, to time, follows commands Evaluated by psychiatry, does not have capacity, working on guardianship proceedings, follow-up case management, has been accepted by the intermediate TSH within normal limits, ammonia within normal limits, acetaminophen levels within normal limits Toxicology screen negative Carotid artery ultrasound within normal limits Cardiac echo EF 50 to 55%, diastolic dysfunction, right ventricular is mildly hypokinetic, mild to moderate aortic regurg, mildly dilated ascending aorta Continue his Zyprexa which he is on chronically. Continue his buspirone, aricept, remeron. Haldol as needed for agitation Avoid any medication which could promote further confusion such as opiates, anti histamines, benzodiazepines. Monitor closely for any withdrawal Status: Acute (3) Drug overdose: Status: Acute (4) Suicidal ideation: Reported intermittent. Without recurrence. Status: Acute Additional A&P Information Received COVID-19 booster August 15. Constipation: Declined MiraLAX. Added docusate. Plan for the day: Nail clipping. Awaiting guardianship. Restart home oral hypoglycemics including Metformin and 1 mg glimepiride. Attestations Medical Necessity Statement*: Awaiting guardianship, safe discharge planning. Time Spent in Patient Care: less than 15 minutes (>than 50% of time spent in counselling and/or direct pt care on unit) . Coding Level of Care Code Acute Data Entry Technician for Enrrique Stein Diagnoses Skin necrosis I96 Altered mental status R41.82 Drug overdose T50.901A Suicidal ideation R45.851
[2021-08-16] MEDS: acetaminophen 325 mg Tablet 650 MG PO ×2 (15:57→23:43)
[2021-08-16 16:22] VITALS: BP 168/87; PULSE 71; RESP 17; TEMP 36.8; O2SAT 97
[2021-08-16 17:28] LABS: Glucose Point of Care 146 mg/dL (70-110)
[2021-08-16 20:00] VITALS: BP 125/73; PULSE 73; RESP 17; TEMP 36.9; O2SAT 95
[2021-08-16 20:33] LABS: Glucose Point of Care 183 mg/dL (70-110)
[2021-08-17 04:00] VITALS: BP 121/77; PULSE 60; RESP 16; TEMP 36.6; O2SAT 95
[2021-08-17 06:42] LABS: Glucose Point of Care 154 mg/dL (70-110)
[2021-08-17 08:00] VITALS: BP 148/81; PULSE 73; RESP 18; TEMP 36.6; O2SAT 94
[2021-08-17] MEDS: OLANZapine 5 mg TABLET PO (08:34)
[2021-08-17] MEDS: tamsulosin 0.4 mg Capsule 0.8 MG PO (08:34)
[2021-08-17] MEDS: metformin 500 mg Tablet PO ×2 (08:34→18:14)
[2021-08-17] MEDS: citalopram 20 mg Tablet PO (08:34)
[2021-08-17] MEDS: metoprolol tartrate 25 mg Tablet PO (08:34)
[2021-08-17] MEDS: amlodipine 5 mg Tablet PO (08:34)
[2021-08-17] MEDS: glimepiride 2 mg Tablet 1 MG PO (08:34)
[2021-08-17] MEDS: bumetanide 1 mg Tablet 2 MG PO (08:34)
[2021-08-17] MEDS: docusate sodium 100 mg Capsule PO ×2 (08:34→18:14)
[2021-08-17] MEDS: pantoprazole DR 40 mg Tablet PO (08:34)
[2021-08-17] MEDS: BuSPIRONE 10 mg Tablet PO ×2 (08:35→15:11)
[2021-08-17] MEDS: insulin lispro 100 unit/1 mL SUBCUT ×3 (08:35→18:14)
[2021-08-17] MEDS: neomycin-poly-bacitracin oint 28 gm 1 APPLIC TOPICAL ×2 (10:31→18:14)
[2021-08-17 11:09] LABS: Glucose Point of Care 172 mg/dL (70-110)
[2021-08-17 11:20] VITALS: BP 130/79; PULSE 71; RESP 18; TEMP 36.7; O2SAT 96
--- NOTE | 2021-08-17 11:57 | PC.SOCIAL ---
IMM Update pg 2 of IMM updated and reviewed w/ patient. Copy provided.
--- NOTE | 2021-08-17 13:40 | P.PN_ITS ---
Subjective Subjective: Interval history: Denies any complaints. Ate breakfast. Not bothered by pain. Vitals/I&O/Wt Last Vital Signs Temp 98.0 F 08/17/21 11:20 Pulse 71 08/17/21 11:20 Resp 18 08/17/21 11:20 BP 130/79 08/17/21 11:20 Pulse Ox 96 08/17/21 11:20 08/16/21 08/17/21 08/17/21 22:59 06:59 14:59 Intake Total 480 / 1680 1360 / 1360 Balance 480 / 1680 1360 / 1360 Physical Exam Narrative: EXAM NARRATIVE: [place] present. Const: COMMON NORMALS: no acute distress GENERAL APPEARANCE: cooperative and comfortable ORIENTATION/CONSCIOUSNESS: Yes awake OTHER: [place] HENMT: COMMON NORMALS: oropharynx normal HEAD & SCALP: other (Healing abutment area under magnet pink w sm ulceration in center) Neck/C-Spine: COMMON NORMALS: no JVD Resp: COMMON NORMALS: normal respiratory effort and clear to auscultation bilaterally AUSCULTATION: clear to auscultation bilaterally Cardio: COMMON NORMALS: no JVD, regular rhythm, S1 normal heart sound present, S2 normal heart sound present and No murmurs present (Cardio) RHYTHM: regular rhythm HEART SOUNDS: S1 normal heart sound present and S2 normal heart sound present GI: COMMON NORMALS: Normal to inspection, nondistended, normoactive bowel sounds present, Soft to palpation and non-tender PALPATION: Yes Soft to palpation Extremity: COMMON NORMALS: no joint enlargement and no pedal edema Neuro: COMMON NORMALS: moves all extremities Skin: COMMON NORMALS: no rashes or lesions noted GENERAL SKIN EXAM: no rashes or lesions noted Data : 08/09/21 05:07 08/09/21 05:07 A&P Assessment and plan (1) Skin necrosis: Healed well with epithelialization of the wound, resolution of ulceration. No purulent discharge. Completed doxycycline course. ENT follow-up as an outpatient. Continue with wound care with thick foam dressing. Larger in size as patient is not much compliant with keeping magnet off as without that patient becomes anxious and restless. Keep magnet off when possible. Dressing changes with triple antibiotic, foam dressing. Status: Acute (2) Altered mental status: Continues at baseline mental status. Arrangements continued for guardianship, penitentiary placement. Completed treatment for urinary tract infection with ceftriaxone for sensitive Klebsiella. Currently alert to person, to place, not to time, follows all commands According to family alert to person, to place, to time, follows commands Evaluated by psychiatry, does not have capacity, working on guardianship proceedings, follow-up case management, has been accepted by the penitentiary TSH within normal limits, ammonia within normal limits, acetaminophen levels within normal limits Toxicology screen negative Carotid artery ultrasound within normal limits Cardiac echo EF 50 to 55%, diastolic dysfunction, right ventricular is mildly hypokinetic, mild to moderate aortic regurg, mildly dilated ascending aorta Continue his Zyprexa which he is on chronically. Continue his buspirone, aricept, remeron. Haldol as needed for agitation Avoid any medication which could promote further confusion such as opiates, antihistamines, benzodiazepines. Monitor closely for any withdrawal Status: Acute (3) Drug overdose: Status: Acute (4) Suicidal ideation: Reported intermittent. Without recurrence. Status: Acute Additional A&P Information Received COVID-19 booster August 15. Constipation: Declined MiraLAX. Added docusate. Diabetes: Resumed on oral medications. Attestations Medical Necessity Statement*: Continue admission for arrangements for guardianship and and post discharge disposition planning. Coding Level of Care Code Acute Bottom Wheeler for Enrrique Stein Diagnoses Skin necrosis I96 Altered mental status R41.82 Drug overdose T50.901A Suicidal ideation R45.851
[2021-08-17 14:54] VITALS: BP 128/78; PULSE 77; RESP 18; TEMP 36.8; O2SAT 94
[2021-08-17] MEDS: acetaminophen 325 mg Tablet 650 MG PO (15:11)
[2021-08-17] MEDS: ALPRAZolam 0.5 mg Tablet PO (16:23)
[2021-08-17 17:47] LABS: Glucose Point of Care 162 mg/dL (70-110)
--- NOTE | 2021-08-17 19:59 | PC.NURSE ---
This nurse called Dr. Monroe to ask if pt is appropriate to come off 1:1 observation. After discussing that the patient has shown good behavior for multiple days and denies SI, the decision was made to remove the 1:1 sitter. Patient is in a room that is close to the nurse's station and frequent rounds will be made.
[2021-08-17 21:04] LABS: Glucose Point of Care 116 mg/dL (70-110)
[2021-08-18] VITALS (7 sets, daily range): BP systolic 113–149; BP diastolic 68–81; PULSE 65–76; RESP 14–20; TEMP 36.3–36.9; O2SAT 92–97
[2021-08-18 06:32] LABS: Glucose Point of Care 121 mg/dL (70-110)
--- NOTE | 2021-08-18 06:58 | PC.NURSE ---
Pt has had an uneventful night, has slept most of the night. Alert to Name, , place. Says its 2000. Has been pleasant while awake. Has ambulated to the bathroom x 2 to void. States he had a bm yesterday.
[2021-08-18] MEDS: citalopram 20 mg Tablet PO (08:26)
[2021-08-18] MEDS: metoprolol tartrate 25 mg Tablet PO (08:26)
[2021-08-18] MEDS: pantoprazole DR 40 mg Tablet PO (08:26)
[2021-08-18] MEDS: metformin 500 mg Tablet PO ×2 (08:26→17:40)
[2021-08-18] MEDS: glimepiride 2 mg Tablet 1 MG PO (08:26)
[2021-08-18] MEDS: tamsulosin 0.4 mg Capsule 0.8 MG PO (08:26)
[2021-08-18] MEDS: acetaminophen 325 mg Tablet 650 MG PO ×2 (08:26→20:06)
[2021-08-18] MEDS: docusate sodium 100 mg Capsule PO ×2 (08:26→17:40)
[2021-08-18] MEDS: neomycin-poly-bacitracin oint 28 gm 1 APPLIC TOPICAL ×2 (08:26→17:40)
[2021-08-18] MEDS: amlodipine 5 mg Tablet PO (08:26)
[2021-08-18] MEDS: bumetanide 1 mg Tablet 2 MG PO (08:26)
[2021-08-18] MEDS: OLANZapine 5 mg TABLET PO (08:26)
[2021-08-18] MEDS: BuSPIRONE 10 mg Tablet PO ×3 (08:26→20:04)
[2021-08-18 11:48] LABS: Glucose Point of Care 204 mg/dL (70-110)
[2021-08-18] MEDS: insulin lispro 100 unit/1 mL SUBCUT ×3 (12:17→21:37)
--- NOTE | 2021-08-18 13:30 | P.PN_ITS ---
Subjective Subjective: Interval history: He is having discomfort at the scalp at the bottom and area, I discussed with him we need to remove the magnet, he refuses, states he cannot go without it. Otherwise he is doing well. Denies other complaints. Vitals/I&O/Wt Last Vital Signs Temp 98.2 F 08/18/21 11:39 Pulse 70 08/18/21 11:39 Resp 16 08/18/21 11:39 BP 117/72 08/18/21 11:39 Pulse Ox 97 08/18/21 11:39 08/17/21 08/18/21 08/18/21 22:59 06:59 14:59 Intake Total 720 / 2080 340 / 2420 720 / 720 Balance 720 / 2080 340 / 2420 720 / 720 Physical Exam Const: COMMON NORMALS: no acute distress GENERAL APPEARANCE: cooperative and comfortable ORIENTATION/CONSCIOUSNESS: Yes awake OTHER: [place] HENMT: COMMON NORMALS: oropharynx normal HEAD & SCALP: other (Healing abutment area under magnet pink w sm ulceration in center) Neck/C-Spine: COMMON NORMALS: no JVD Resp: COMMON NORMALS: normal respiratory effort and clear to auscultation bilaterally AUSCULTATION: clear to auscultation bilaterally Cardio: COMMON NORMALS: no JVD, regular rhythm, S1 normal heart sound present, S2 normal heart sound present and No murmurs present (Cardio) RHYTHM: regular rhythm HEART SOUNDS: S1 normal heart sound present and S2 normal heart sound present GI: COMMON NORMALS: Normal to inspection, nondistended, normoactive bowel sounds present, Soft to palpation and non-tender PALPATION: Yes Soft to palpation Extremity: COMMON NORMALS: no joint enlargement and no pedal edema Neuro: COMMON NORMALS: moves all extremities Skin: OTHER: slightly more erythematous abutment area under cochlear transmitter without dressing Data : 08/09/21 05:07 08/09/21 05:07 A&P Assessment and plan (1) Skin necrosis: No dressing present currently, unclear what had happened, whether it was not reapplied, or whether he pulled out. Wound care orders are in place. Discussed with nursing to continue to make sure there is a thick foam dressing, but otherwise to continue to encourage to keep transmitter off abutment area unless during conversation. Continue to represent changes. Needs ENT follow-up. Completed doxycycline course. Continue with wound care with thick foam dressing. Larger in size as patient is not much compliant with keeping magnet off as without that patient becomes anxious and restless. Keep magnet off when possible. Dressing changes with triple antibiotic, foam dressing. Status: Acute (2) Altered mental status: Continues at baseline mental status. Arrangements continued for guardianship, half-way placement. Completed treatment for urinary tract infection with ceftriaxone for sensitive Klebsiella. Currently alert to person, to place, not to time, follows all commands According to family alert to person, to place, to time, follows commands Evaluated by psychiatry, does not have capacity, working on guardianship proceedings, follow-up case management, has been accepted by the half-way TSH within normal limits, ammonia within normal limits, acetaminophen levels within normal limits Toxicology screen negative Carotid artery ultrasound within normal limits Cardiac echo EF 50 to 55%, diastolic dysfunction, right ventricular is mildly hypokinetic, mild to moderate aortic regurg, mildly dilated ascending aorta Continue his Zyprexa which he is on chronically. Continue his buspirone, aricept, remeron. Haldol as needed for agitation Avoid any medication which could promote further confusion such as opiates, antihistamines, benzodiazepines. Monitor closely for any withdrawal Status: Acute (3) Drug overdose: Status: Acute (4) Suicidal ideation: Reported intermittent. Without recurrence. Status: Acute Additional A&P Information Received COVID-19 booster August 15. Constipation: Declined MiraLAX. Added docusate. Diabetes: Resumed on oral medications. Attestations Medical Necessity Statement*: Continue admission for guardianship arrangements, post discharge planning. Coding Level of Care Code Acute Category Manager for Enrrique Stein Diagnoses Skin necrosis I96 Altered mental status R41.82 Drug overdose T50.901A Suicidal ideation R45.851
[2021-08-18] MEDS: artificial tears Op Soln 15 mL Btl 1 DROP EYE-BOTH (21:36)
[2021-08-18] MEDS: ALPRAZolam 0.5 mg Tablet PO (21:37)
[2021-08-19 04:00] VITALS: BP 112/64; PULSE 66; RESP 18; TEMP 36.6; O2SAT 96
[2021-08-19 07:18] LABS: Glucose Point of Care 143 mg/dL (70-110)
[2021-08-19 07:18] LABS: Glucose Point of Care 169 mg/dL (70-110)
[2021-08-19 07:18] LABS: Glucose Point of Care 203 mg/dL (70-110)
[2021-08-19 07:50] VITALS: BP 136/76; PULSE 75; RESP 16; TEMP 36.7; O2SAT 97
[2021-08-19] MEDS: acetaminophen 325 mg Tablet 650 MG PO ×3 (08:18→21:08)
[2021-08-19] MEDS: pantoprazole DR 40 mg Tablet PO (08:18)
[2021-08-19] MEDS: docusate sodium 100 mg Capsule PO ×2 (08:18→17:34)
[2021-08-19] MEDS: citalopram 20 mg Tablet PO (08:18)
[2021-08-19] MEDS: BuSPIRONE 10 mg Tablet PO ×3 (08:18→21:08)
[2021-08-19] MEDS: OLANZapine 5 mg TABLET PO (08:18)
[2021-08-19] MEDS: bumetanide 1 mg Tablet 2 MG PO (08:18)
[2021-08-19] MEDS: metformin 500 mg Tablet PO ×2 (08:19→17:34)
[2021-08-19] MEDS: insulin lispro 100 unit/1 mL SUBCUT ×3 (08:19→21:08)
[2021-08-19] MEDS: glimepiride 2 mg Tablet 1 MG PO (08:19)
[2021-08-19] MEDS: tamsulosin 0.4 mg Capsule 0.8 MG PO (08:19)
[2021-08-19] MEDS: metoprolol tartrate 25 mg Tablet PO (08:19)
[2021-08-19] MEDS: amlodipine 5 mg Tablet PO (08:19)
[2021-08-19] MEDS: ALPRAZolam 0.5 mg Tablet PO ×2 (08:24→21:48)
[2021-08-19] MEDS: neomycin-poly-bacitracin oint 28 gm 1 APPLIC TOPICAL ×2 (08:25→17:34)
[2021-08-19 11:30] VITALS: BP 151/79; PULSE 73; RESP 16; TEMP 36.6; O2SAT 97
[2021-08-19 11:34] LABS: Glucose Point of Care 161 mg/dL (70-110)
--- NOTE | 2021-08-19 12:53 | P.PN_ITS ---
Subjective Subjective: Interval history: Denies any pain or discomfort. Vitals/I&O/Wt Last Vital Signs Temp 97.9 F 08/19/21 11:30 Pulse 73 08/19/21 11:30 Resp 16 08/19/21 11:30 BP 151/79 08/19/21 11:30 Pulse Ox 97 08/19/21 11:30 08/18/21 08/19/21 08/19/21 22:59 06:59 14:59 Intake Total 720 / 2160 360 / 360 Balance 720 / 2160 360 / 360 Physical Exam Const: COMMON NORMALS: no acute distress GENERAL APPEARANCE: cooperative and comfortable ORIENTATION/CONSCIOUSNESS: Yes awake OTHER: [employer] HENMT: COMMON NORMALS: oropharynx normal HEAD & SCALP: other (Healing abutment area under magnet pink w sm ulceration in center) Neck/C-Spine: COMMON NORMALS: no JVD Resp: COMMON NORMALS: normal respiratory effort and clear to auscultation bilaterally AUSCULTATION: clear to auscultation bilaterally Cardio: COMMON NORMALS: no JVD, regular rhythm, S1 normal heart sound present, S2 normal heart sound present and No murmurs present (Cardio) RHYTHM: regular rhythm HEART SOUNDS: S1 normal heart sound present and S2 normal heart sound present GI: COMMON NORMALS: Normal to inspection, nondistended, normoactive bowel sounds present, Soft to palpation and non-tender PALPATION: Yes Soft to palpation Extremity: COMMON NORMALS: no joint enlargement and no pedal edema Neuro: COMMON NORMALS: moves all extremities Skin: COMMON NORMALS: no rashes or lesions noted GENERAL SKIN EXAM: no rashes or lesions noted OTHER: improving erythema of abutment area Data : 08/09/21 05:07 08/09/21 05:07 A&P Assessment and plan (1) Skin necrosis: Double layer foam dressing. Erythema improving. Continue to encourage to keep offloading it if he will. Follow-up with ENT. Completed doxycycline course. Continue with wound care with thick foam dressing. Larger in size as patient is not much compliant with keeping magnet off as without that patient becomes anxious and restless. Keep magnet off when possible. Dressing changes with triple antibiotic, foam dressing. Status: Acute (2) Altered mental status: No change in mental status. Arrangements continued for guardianship, half-way placement. Completed treatment for urinary tract infection with ceftriaxone for sensitive Klebsiella. Currently alert to person, to place, not to time, follows all commands According to family alert to person, to place, to time, follows commands Evaluated by psychiatry, does not have capacity, working on guardianship proceedings, follow-up case management, has been accepted by the half-way TSH within normal limits, ammonia within normal limits, acetaminophen levels within normal limits Toxicology screen negative Carotid artery ultrasound within normal limits Cardiac echo EF 50 to 55%, diastolic dysfunction, right ventricular is mildly hypokinetic, mild to moderate aortic regurg, mildly dilated ascending aorta Continue his Zyprexa which he is on chronically. Continue his buspirone, shahrzad cept, remeron. Haldol as needed for agitation Avoid any medication which could promote further confusion such as opiates, antihistamines, benzodiazepines. Monitor closely for any withdrawal Status: Acute (3) Drug overdose: Status: Acute (4) Suicidal ideation: Reported intermittent. Without recurrence. Status: Acute Additional A&P Information Received COVID-19 booster August 15. Constipation: Declined MiraLAX. Added docusate. Diabetes: Resumed on oral medications. Attestations Medical Necessity Statement*: Continue admission for arrangements for guardianship and post discharge planning. Coding Level of Care Code Acute Stab Setter And Driller for Enrrique Stein Diagnoses Skin necrosis I96 Altered mental status R41.82 Drug overdose T50.901A Suicidal ideation R45.851
--- NOTE | 2021-08-19 13:58 | PC.SOCIAL ---
IMM Update pg 2 of IMM updated and reviewed w/ patient. Copy provided.
[2021-08-19 15:01] VITALS: BP 142/78; PULSE 69; RESP 16; TEMP 36.5; O2SAT 96
[2021-08-19 16:56] LABS: Glucose Point of Care 110 mg/dL (70-110)
[2021-08-19 20:00] VITALS: BP 150/81; PULSE 70; RESP 18; TEMP 36.6; O2SAT 96
[2021-08-19 21:12] LABS: Glucose Point of Care 222 mg/dL (70-110)
[2021-08-19 23:54] VITALS: BP 136/72; PULSE 65; RESP 18; TEMP 36.4; O2SAT 95
[2021-08-20 04:00] VITALS: BP 138/76; PULSE 68; RESP 18; TEMP 36.6; O2SAT 96
[2021-08-20 06:33] LABS: Glucose Point of Care 169 mg/dL (70-110)
[2021-08-20 08:00] VITALS: BP 155/77; PULSE 68; RESP 16; TEMP 36.6; O2SAT 96
[2021-08-20] MEDS: pantoprazole DR 40 mg Tablet PO (08:37)
[2021-08-20] MEDS: metformin 500 mg Tablet PO ×2 (08:37→17:29)
[2021-08-20] MEDS: BuSPIRONE 10 mg Tablet PO ×3 (08:37→20:45)
[2021-08-20] MEDS: citalopram 20 mg Tablet PO (08:37)
[2021-08-20] MEDS: OLANZapine 5 mg TABLET PO (08:37)
[2021-08-20] MEDS: amlodipine 5 mg Tablet PO (08:37)
[2021-08-20] MEDS: docusate sodium 100 mg Capsule PO ×2 (08:37→17:29)
[2021-08-20] MEDS: ALPRAZolam 0.5 mg Tablet PO ×2 (08:37→20:45)
[2021-08-20] MEDS: glimepiride 2 mg Tablet 1 MG PO (08:37)
[2021-08-20] MEDS: tamsulosin 0.4 mg Capsule 0.8 MG PO (08:37)
[2021-08-20] MEDS: metoprolol tartrate 25 mg Tablet PO (08:37)
[2021-08-20] MEDS: bumetanide 1 mg Tablet 2 MG PO (08:37)
[2021-08-20] MEDS: insulin lispro 100 unit/1 mL SUBCUT ×3 (08:38→21:55)
[2021-08-20] MEDS: neomycin-poly-bacitracin oint 28 gm 1 APPLIC TOPICAL ×2 (08:43→17:29)
[2021-08-20 12:00] VITALS: BP 142/78; PULSE 67; RESP 17; TEMP 36.7; O2SAT 95
[2021-08-20 12:13] LABS: Glucose Point of Care 201 mg/dL (70-110)
--- NOTE | 2021-08-20 14:28 | P.PN_ITS ---
Subjective Subjective: Interval history: States doing okay we denies any new symptoms. No pain of his head/scalp. Vitals/I&O/Wt Last Vital Signs Temp 98.1 F 08/20/21 12:00 Pulse 67 08/20/21 12:00 Resp 17 08/20/21 12:00 BP 142/78 08/20/21 12:00 Pulse Ox 95 08/20/21 12:00 08/19/21 08/20/21 08/20/21 22:59 06:59 14:59 Intake Total 720 / 1560 480 / 2040 480 / 480 Balance 720 / 1560 480 / 2040 480 / 480 Physical Exam Const: COMMON NORMALS: no acute distress GENERAL APPEARANCE: cooperative and comfortable ORIENTATION/CONSCIOUSNESS: Yes awake OTHER: [place] HENMT: COMMON NORMALS: oropharynx normal HEAD & SCALP: other (Healing abutment area under magnet pink w sm ulceration in center) Neck/C-Spine: COMMON NORMALS: no JVD Resp: COMMON NORMALS: normal respiratory effort and clear to auscultation bilaterally AUSCULTATION: clear to auscultation bilaterally Cardio: COMMON NORMALS: no JVD, regular rhythm, S1 normal heart sound present, S2 normal heart sound present and No murmurs present (Cardio) RHYTHM: regular rhythm HEART SOUNDS: S1 normal heart sound present and S2 normal heart sound present GI: COMMON NORMALS: Normal to inspection, nondistended, normoactive bowel sounds present, Soft to palpation and non-tender PALPATION: Yes Soft to palpation Extremity: COMMON NORMALS: no joint enlargement and no pedal edema Neuro: COMMON NORMALS: moves all extremities Skin: COMMON NORMALS: no rashes or lesions noted GENERAL SKIN EXAM: no rashes or lesions noted OTHER: improving erythema of abutment area. Small shallow ulceration in the center. No drainage. No fluctuance. No swelling. Data : 08/09/21 05:07 08/09/21 05:07 A&P Assessment and plan (1) Skin necrosis: Telfa dressing on currently, did better with foam dressing due to more padding. Discussed with him again need to keep transmitter magnet off, but he states he cannot do without it. Discussed with nursing staff to make sure has foam dressing on. Erythema improving. Continue to encourage to keep offloading it if he will. Follow-up with ENT. Completed doxycycline course. Continue with wound care with thick foam dressing. Larger in size as patient is not much compliant with keeping magnet off as without that patient becomes anxious and restless. Keep magnet off when possible. Dressing changes with triple antibiotic, foam dressing. Status: Acute (2) Altered mental status: No change in mental status. Arrangements continued for guardianship, care home placement. Completed treatment for urinary tract infection with ceftriaxone for sensitive Klebsiella. Currently alert to person, to place, not to time, follows all commands According to family alert to person, to place, to time, follows commands Evaluated by psychiatry, does not have capacity, working on guardianship proceedings, follow-up case management, has been accepted by the care home TSH within normal limits, ammonia within normal limits, acetaminophen levels within normal limits Toxicology screen negative Carotid artery ultrasound within normal limits Cardiac echo EF 50 to 55%, diastolic dysfunction, right ventricular is mildly hypokinetic, mild to moderate aortic regurg, mildly dilated ascending aorta Continue his Zyprexa which he is on chronically. Continue his buspirone, aricept, remeron. Haldol as needed for agitation Avoid any medication which could promote further confusion such as opiates, antihistamines, benzodiazepines. Monitor closely for any withdrawal Status: Acute (3) Drug overdose: Status: Acute (4) Suicidal ideation: Reported intermittent. Without recurrence. Status: Acute Additional A&P Information Received COVID-19 booster August 15. Constipation: Docusate. Diabetes: Resumed on oral medications. Attestations Medical Necessity Statement*: Continue hospitalization pending guardianship arrangements, post discharge planning and subsequent follow-up. Coding Level of Care Code Acute Superintendent Drilling And Production for Enrrique Stein Diagnoses Skin necrosis I96 Altered mental status R41.82 Drug overdose T50.901A Suicidal ideation R45.851
[2021-08-20 15:55] VITALS: BP 149/78; PULSE 68; RESP 16; TEMP 36.9; O2SAT 93
[2021-08-20 17:20] LABS: Glucose Point of Care 114 mg/dL (70-110)
[2021-08-20 20:00] VITALS: BP 132/74; PULSE 76; RESP 21; TEMP 36.8; O2SAT 97
[2021-08-20 21:39] LABS: Glucose Point of Care 227 mg/dL (70-110)
[2021-08-21] VITALS: BP 126/68; PULSE 58; RESP 16; TEMP 36.9; O2SAT 96
[2021-08-21 04:00] VITALS: BP 119/69; PULSE 65; RESP 18; TEMP 36.8; O2SAT 96
[2021-08-21 08:00] VITALS: BP 137/75; PULSE 76; RESP 18; TEMP 36.9; O2SAT 96
[2021-08-21] MEDS: bumetanide 1 mg Tablet 2 MG PO (08:59)
[2021-08-21] MEDS: ALPRAZolam 0.5 mg Tablet PO ×3 (08:59→20:50)
[2021-08-21] MEDS: BuSPIRONE 10 mg Tablet PO ×3 (09:00→20:46)
[2021-08-21] MEDS: metoprolol tartrate 25 mg Tablet PO (09:00)
[2021-08-21] MEDS: glimepiride 2 mg Tablet 1 MG PO (09:00)
[2021-08-21] MEDS: docusate sodium 100 mg Capsule PO ×2 (09:00→16:56)
[2021-08-21] MEDS: citalopram 20 mg Tablet PO (09:00)
[2021-08-21] MEDS: amlodipine 5 mg Tablet PO (09:00)
[2021-08-21] MEDS: tamsulosin 0.4 mg Capsule 0.8 MG PO (09:01)
[2021-08-21] MEDS: pantoprazole DR 40 mg Tablet PO (09:01)
[2021-08-21] MEDS: OLANZapine 5 mg TABLET PO (09:01)
[2021-08-21] MEDS: metformin 500 mg Tablet PO ×2 (09:01→16:55)
[2021-08-21] MEDS: insulin lispro 100 unit/1 mL SUBCUT ×4 (09:02→22:43)
[2021-08-21 11:51] VITALS: BP 118/72; PULSE 66; RESP 18; TEMP 37.1; O2SAT 97
--- NOTE | 2021-08-21 13:25 | PC.SOCIAL ---
IMM update IMM not updated since patient isn't expected to dc in the next 24-48 hours.
--- NOTE | 2021-08-21 13:53 | PM.PN ---
Subjective Subjective: Interval history: Reports he is feeling anxious and panicky this morning. Also he reportedly declined from nursing saying that it is sticky. Discussed with nursing staff, will see if we are able to cut off the adhesive edges and use only the foam part. Vitals/I&O/Wt Last Vital Signs Temp 98.7 F 08/21/21 11:51 Pulse 66 08/21/21 11:51 Resp 18 08/21/21 11:51 BP 118/72 08/21/21 11:51 Pulse Ox 97 08/21/21 11:51 08/20/21 08/21/21 08/21/21 22:59 06:59 14:59 Intake Total 720 / 1440 240 / 240 Output Total Balance 719 / 1439 240 / 240 Physical Exam Const: COMMON NORMALS: no acute distress GENERAL APPEARANCE: cooperative and anxious ORIENTATION/CONSCIOUSNESS: Yes awake OTHER: [place] HENMT: COMMON NORMALS: oropharynx normal HEAD & SCALP: other (Healing abutment area under magnet pink w sm ulceration in center) Neck/C-Spine: COMMON NORMALS: no JVD Resp: COMMON NORMALS: normal respiratory effort and clear to auscultation bilaterally AUSCULTATION: clear to auscultation bilaterally Cardio: COMMON NORMALS: no JVD, regular rhythm, S1 normal heart sound present, S2 normal heart sound present and No murmurs present (Cardio) RHYTHM: regular rhythm HEART SOUNDS: S1 normal heart sound present and S2 normal heart sound present GI: COMMON NORMALS: Normal to inspection, nondistended, normoactive bowel sounds present, Soft to palpation and non-tender PALPATION: Yes Soft to palpation Extremity: COMMON NORMALS: no joint enlargement and no pedal edema Neuro: COMMON NORMALS: moves all extremities Skin: COMMON NORMALS: no rashes or lesions noted GENERAL SKIN EXAM: no rashes or lesions noted OTHER: resolved erythema of abutment area. Small shallow ulceration in the center. No drainage. No fluctuance. No swelling. Data : 08/09/21 05:07 08/09/21 05:07 A&P Assessment and plan (1) Skin necrosis: He had declined from dressing secondary to sticky. Discussed with nursing staff we will try to cut off the adhesive edges. Erythema improving. Continue to encourage to keep offloading it if he will. Follow-up with ENT. Completed doxycycline course. Continue with wound care with thick foam dressing. Larger in size as patient is not much compliant with keeping magnet off as without that patient becomes anxious and restless. Keep magnet off when possible. Dressing changes with triple antibiotic, foam dressing. Status: Acute (2) Altered mental status: No change in mental status. Arrangements continued for guardianship, correction placement. Completed treatment for urinary tract infection with ceftriaxone for sensitive Klebsiella. Currently alert to person, to place, not to time, follows all commands According to family alert to person, to place, to time, follows commands Evaluated by psychiatry, does not have capacity, working on guardianship proceedings, follow-up case management, has been accepted by the correction TSH within normal limits, ammonia within normal limits, acetaminophen levels within normal limits Toxicology screen negative Carotid artery ultrasound within normal limits Cardiac echo EF 50 to 55%, diastolic dysfunction, right ventricular is mildly hypokinetic, mild to moderate aortic regurg, mildly dilated ascending aorta Continue his Zyprexa which he is on chronically. Continue his buspirone, aricept, remeron. Haldol as needed for agitation Avoid any medication which could promote further confusion such as opiates, antihistamines, benzodiazepines. Monitor closely for any withdrawal Status: Acute (3) Drug overdose: Status: Acute (4) Suicidal ideation: Reported intermittent. Without recurrence. Status: Acute Additional A&P Information Received COVID-19 booster August 15. Constipation: Docusate. Diabetes: Continue insulin detemir 16 units, hyperglycemia 227 noted last night, but blood glucose 114 earlier that evening. Will not increase long-acting insulin this time. Continue to monitor. Continue carbohydrate consistent diet. Oral medications. Attestations Medical Necessity Statement*: Continue admission for arrangements for guardianship, post discharge planning. Coding Level of Care Code Acute Retort Loader for Enrrique Stein Diagnoses Skin necrosis I96 Altered mental status R41.82 Drug overdose T50.901A Suicidal ideation R45.851
[2021-08-21 15:44] VITALS: BP 133/77; PULSE 71; RESP 18; TEMP 37.1; O2SAT 96
[2021-08-21] MEDS: neomycin-poly-bacitracin oint 28 gm 1 APPLIC TOPICAL (16:55)
[2021-08-21 20:00] VITALS: BP 121/71; PULSE 82; RESP 18; TEMP 36.8; O2SAT 96
[2021-08-21] MEDS: acetaminophen 325 mg Tablet 650 MG PO (20:47)
[2021-08-21 21:31] LABS: Glucose Point of Care 231 mg/dL (70-110)
[2021-08-21 21:32] LABS: Glucose Point of Care 217 mg/dL (70-110)
[2021-08-21 21:32] LABS: Glucose Point of Care 155 mg/dL (70-110)
[2021-08-21 21:32] LABS: Glucose Point of Care 208 mg/dL (70-110)
[2021-08-21 21:32] LABS: Glucose Point of Care 184 mg/dL (70-110)
[2021-08-22] VITALS (7 sets, daily range): BP systolic 118–138; BP diastolic 66–79; PULSE 67–76; RESP 14–18; TEMP 36.6–36.9; O2SAT 91–99
[2021-08-22] MEDS: OLANZapine 5 mg TABLET PO (08:16)
[2021-08-22] MEDS: glimepiride 2 mg Tablet 1 MG PO (08:16)
[2021-08-22] MEDS: bumetanide 1 mg Tablet 2 MG PO (08:16)
[2021-08-22] MEDS: BuSPIRONE 10 mg Tablet PO ×3 (08:16→20:47)
[2021-08-22] MEDS: acetaminophen 325 mg Tablet 650 MG PO ×3 (08:16→22:40)
[2021-08-22] MEDS: metoprolol tartrate 25 mg Tablet PO (08:16)
[2021-08-22] MEDS: docusate sodium 100 mg Capsule PO ×2 (08:16→18:04)
[2021-08-22] MEDS: citalopram 20 mg Tablet PO (08:16)
[2021-08-22] MEDS: neomycin-poly-bacitracin oint 28 gm 1 APPLIC TOPICAL (08:17)
[2021-08-22] MEDS: metformin 500 mg Tablet PO ×2 (08:17→18:04)
[2021-08-22] MEDS: tamsulosin 0.4 mg Capsule 0.8 MG PO (08:17)
[2021-08-22] MEDS: amlodipine 5 mg Tablet PO (08:17)
[2021-08-22] MEDS: insulin lispro 100 unit/1 mL SUBCUT ×4 (08:17→22:42)
[2021-08-22] MEDS: pantoprazole DR 40 mg Tablet PO (08:17)
[2021-08-22] MEDS: ALPRAZolam 0.5 mg Tablet PO ×2 (08:17→18:04)
--- NOTE | 2021-08-22 10:04 | PM.PN ---
Subjective Subjective: Interval history: Reports he is doing all right to me. He is not so anxious today. Later reports to the nurse having difficulty initiating urination although feels like needs to go. Bladder scan shows 780 mL. Declines placement of catheter. Vitals/I&O/Wt Last Vital Signs Temp 98.5 F 08/22/21 07:40 Pulse 67 08/22/21 07:40 Resp 18 08/22/21 07:40 BP 131/71 08/22/21 07:40 Pulse Ox 96 08/22/21 07:40 08/21/21 08/22/21 08/22/21 22:59 06:59 14:59 Intake Total 360 / 1080 960 / 2040 240 / 240 Balance 360 / 1080 960 / 2040 240 / 240 Physical Exam Const: COMMON NORMALS: no acute distress GENERAL APPEARANCE: cooperative and anxious ORIENTATION/CONSCIOUSNESS: Yes awake OTHER: [place] HENMT: COMMON NORMALS: oropharynx normal HEAD & SCALP: other (Healing abutment area under magnet pink w sm ulceration in center) Neck/C-Spine: COMMON NORMALS: no JVD Resp: COMMON NORMALS: normal respiratory effort and clear to auscultation bilaterally AUSCULTATION: clear to auscultation bilaterally Cardio: COMMON NORMALS: no JVD, regular rhythm, S1 normal heart sound present, S2 normal heart sound present and No murmurs present (Cardio) RHYTHM: regular rhythm HEART SOUNDS: S1 normal heart sound present and S2 normal heart sound present GI: COMMON NORMALS: Normal to inspection, nondistended, normoactive bowel sounds present, Soft to palpation and non-tender PALPATION: Yes Soft to palpation Extremity: COMMON NORMALS: no joint enlargement and no pedal edema Neuro: COMMON NORMALS: moves all extremities Skin: COMMON NORMALS: no rashes or lesions noted GENERAL SKIN EXAM: no rashes or lesions noted OTHER: resolved erythema of abutment area. Small shallow ulceration in the center. No drainage. No fluctuance. No swelling. Data : 08/09/21 05:07 08/09/21 05:07 A&P Assessment and plan (1) Urinary retention: Straight cath. Obtain UA. Continue Flomax. Add finasteride. Consider follow-up with urology. Status: Acute (2) Skin necrosis: He had declined from dressing secondary to sticky. Discussed with nursing staff we will try to cut off the adhesive edges. Erythema improving. Continue to encourage to keep offloading it if he will. Follow-up with ENT. Completed doxycycline course. Continue with wound care with thick foam dressing. Larger in size as patient is not much compliant with keeping magnet off as without that patient becomes anxious and restless. Keep magnet off when possible. Dressing changes with triple antibiotic, foam dressing. Status: Acute (3) Altered mental status: No change in mental status. Arrangements continued for guardianship, assisted placement. Completed treatment for urinary tract infection with ceftriaxone for sensitive Klebsiella. Currently alert to person, to place, not to time, follows all commands According to family alert to person, to place, to time, follows commands Evaluated by psychiatry, does not have capacity, working on guardianship proceedings, follow-up case management, has been accepted by the assisted TSH within normal limits, ammonia within normal limits, acetaminophen levels within normal limits Toxicology screen negative Carotid artery ultrasound within normal limits Cardiac echo EF 50 to 55%, diastolic dysfunction, right ventricular is mildly hypokinetic, mild to moderate aortic regurg, mildly dilated ascending aorta Continue his Zyprexa which he is on chronically. Continue his buspirone, aricept, remeron. Haldol as needed for agitation Avoid any medication which could promote further confusion such as opiates, antihistamines, benzodiazepines. Monitor closely for any withdrawal Status: Acute (4) Drug overdose: Status: Acute (5) Suicidal ideation: Reported intermittent. Without recurrence. Status: Acute Additional A&P Information Received COVID-19 booster August 15. Constipation: Docusate. Diabetes: Continue insulin detemir 16 units, hyperglycemia 227 noted last night, but blood glucose 114 earlier that evening. Will not increase long-acting insulin this time. Continue to monitor. Continue carbohydrate consistent diet. Oral medications. Attestations Medical Necessity Statement*: Arrangements for guardianship, post discharge planning. Coding Level of Care Code Acute Business Division Chair for Enrrique Fwd Exam Comprehensive Diagnoses Urinary retention R33.9 Skin necrosis I96 Altered mental status R41.82 Drug overdose T50.901A Suicidal ideation R45.851
[2021-08-22 10:16] LABS: Add Urine Microscopic? NO; Charge for UA Resulting for Rev
[2021-08-22 10:40] LABS: Urine Appearance Clear (CLEAR); Urine Color Straw (Yellow); pH Urine 6 (5-7)
[2021-08-22 10:41] LABS: Bilirubin Urine Neg (Negative); Blood Urine Neg (Negative); Glucose Urine UA 4+ (Normal); Ketones Urine Negative (Negative); Leukocyte Esterase Urine Negative (Negative); Nitrate Urine Negative (Negative); Protein Urine Neg (Negative); Urobilinogen Urine Norm (Negative)
[2021-08-22 12:29] LABS: Glucose Point of Care 246 mg/dL (70-110)
[2021-08-22 12:29] LABS: Glucose Point of Care 200 mg/dL (70-110)
[2021-08-22] MEDS: finasteride 5 mg Tablet PO (20:47)
[2021-08-22 22:38] LABS: Glucose Point of Care 169 mg/dL (70-110)
[2021-08-22 22:38] LABS: Glucose Point of Care 174 mg/dL (70-110)
[2021-08-23 01:00] VITALS: BP 131/69; PULSE 69; RESP 16; TEMP 36.5; O2SAT 99
[2021-08-23 04:55] VITALS: BP 163/87; PULSE 82; RESP 16; TEMP 36.8; O2SAT 97
[2021-08-23] MEDS: ALPRAZolam 0.5 mg Tablet PO ×3 (05:11→20:58)
[2021-08-23 06:24] LABS: Glucose Point of Care 196 mg/dL (70-110)
[2021-08-23 08:00] VITALS: BP 153/86; PULSE 86; RESP 18; TEMP 36.6; O2SAT 97
[2021-08-23] MEDS: pantoprazole DR 40 mg Tablet PO (08:17)
[2021-08-23] MEDS: docusate sodium 100 mg Capsule PO ×2 (08:17→17:43)
[2021-08-23] MEDS: OLANZapine 5 mg TABLET PO (08:17)
[2021-08-23] MEDS: BuSPIRONE 10 mg Tablet PO ×3 (08:17→20:58)
[2021-08-23] MEDS: citalopram 20 mg Tablet PO (08:17)
[2021-08-23] MEDS: bumetanide 1 mg Tablet 2 MG PO (08:17)
[2021-08-23] MEDS: neomycin-poly-bacitracin oint 28 gm 1 APPLIC TOPICAL ×2 (08:18→17:45)
[2021-08-23] MEDS: metoprolol tartrate 25 mg Tablet PO (08:18)
[2021-08-23] MEDS: amlodipine 5 mg Tablet PO (08:18)
[2021-08-23] MEDS: glimepiride 2 mg Tablet 1 MG PO (08:18)
[2021-08-23] MEDS: insulin lispro 100 unit/1 mL SUBCUT ×3 (08:18→22:12)
[2021-08-23] MEDS: metformin 500 mg Tablet PO ×2 (08:27→17:43)
[2021-08-23] MEDS: tamsulosin 0.4 mg Capsule 0.8 MG PO (08:27)
[2021-08-23] MEDS: acetaminophen 325 mg Tablet 650 MG PO (09:05)
--- NOTE | 2021-08-23 11:00 | P.PN_ITS ---
Subjective Subjective: Interval history: Yesterday drinking multiple soda cans 1 after another, retaining urine, straight cath, UA unremarkable. Subsequently requiring several straight cath, this morning again retaining urine, getting discomfort. Michel catheter placed. He is asking when it can be taken out. Discussed with him that we started him on finasteride, would need some time for the medication to start working. He states that he has court coming up and the does not want the Michel catheter in court. Discussed with him that voiding trial could be tried in about 3 days, possibly after the court. He states again does not want record. Discussed with him we could try voiding trial earlier, but cannot be sure that he will not start retaining urine again and become uncomfortable while in court, requiring multiple trips to the bathroom or being unable to void. He states that is what I am worried about . I discussed with him consideration of keeping the catheter and try again voiding trial after the court date. Discussed consideration of leg bag that he could keep under his pants which would not be visible. He again says does not want to take the catheter to court. Asks is there something you can give me? . Discussed again as per discussion earlier in the conversation that we have started him on finasteride in addition to Flomax. He then asks to bring him another nerve pill . Vitals/I&O/Wt Last Vital Signs Temp 97.9 F 08/23/21 08:00 Pulse 86 08/23/21 08:00 Resp 18 08/23/21 08:00 BP 153/86 08/23/21 08:00 Pulse Ox 97 08/23/21 08:00 08/22/21 08/23/21 08/23/21 22:59 06:59 14:59 Intake Total 360 / 600 960 / 1560 Output Total 1150 / 2350 1150 / 3500 1200 / 1200 Balance -790 / -1750 -190 / -1940 -1200 / -1200 Physical Exam Const: COMMON NORMALS: no acute distress GENERAL APPEARANCE: cooperative and anxious ORIENTATION/CONSCIOUSNESS: Yes awake OTHER: [place] HENMT: COMMON NORMALS: oropharynx normal HEAD & SCALP: other (Healing abutment area under magnet pink w sm ulceration in center) Neck/C-Spine: COMMON NORMALS: no JVD Resp: COMMON NORMALS: normal respiratory effort and clear to auscultation bilaterally AUSCULTATION: clear to auscultation bilaterally Cardio: COMMON NORMALS: no JVD, regular rhythm, S1 normal heart sound present, S2 normal heart sound present and No murmurs present (Cardio) RHYTHM: regular rhythm HEART SOUNDS: S1 normal heart sound present and S2 normal heart sound present GI: COMMON NORMALS: Normal to inspection, nondistended, normoactive bowel sounds present, Soft to palpation and non-tender PALPATION: Yes Soft to pal pation Extremity: COMMON NORMALS: no joint enlargement and no pedal edema Neuro: COMMON NORMALS: moves all extremities Skin: COMMON NORMALS: no rashes or lesions noted GENERAL SKIN EXAM: no rashes or lesions noted OTHER: Minimal/faint erythema of abutment area. Small shallow ulceration in the center. No drainage. No fluctuance. No swelling. Urinary Catheter Management^: Michel: Cath Placed During This Visit: yes Urinary Catheter Date of Insertion: 08/23/21 Urinary Catheter Time of Insertion: 07:30 Data : 08/09/21 05:07 08/09/21 05:07 A&P Assessment and plan (1) Urinary retention: Continue finasteride. Flomax. No suggestion of UTI by symptoms or UA. He wants to try to take the Michel out tomorrow night as he is adamant does not want to have it in court. Consider follow-up with urology. Status: Acute (2) Skin necrosis: Foam dressing replaced. Minimal/faint erythema, small shallow ulceration, no drainage. No fluctuance, swelling. Continue to encourage to keep offloading it if he will. Follow-up with ENT. Completed doxycycline course. Continue with wound care with thick foam dressing. Larger in size as patient is not much compliant with keeping magnet off as without that patient becomes anxious and restless. Keep magnet off when possible. Dressing changes with triple antibiotic, foam dressing. Status: Acute (3) Altered mental status: No change in mental status. Arrangements continued for guardianship, [facility] placement. Completed treatment for urinary tract infection with ceftriaxone for sensitive Klebsiella. Currently alert to person, to place, not to time, follows all commands According to family alert to person, to place, to time, follows commands Evaluated by psychiatry, does not have capacity, working on guardianship proceedings, follow-up case management, has been accepted by the [facility] TSH within normal limits, ammonia within normal limits, acetaminophen levels within normal limits Toxicology screen negative Carotid artery ultrasound within normal limits Cardiac echo EF 50 to 55%, diastolic dysfunction, right ventricular is mildly hypokinetic, mild to moderate aortic regurg, mildly dilated ascending aorta Continue his Zyprexa which he is on chronically. Continue his buspirone, aricept, remeron. Haldol as needed for agitation Avoid any medication which could promote further confusion such as opiates, antihistamines, benzodiazepines. Monitor closely for any withdrawal Status: Acute (4) Drug overdose: Status: Acute (5) Suicidal ideation: Reported intermittent. Without recurrence. Status: Acute Additional A&P Information Received COVID-19 booster August 15. Constipation: Docusate. Diabetes: Increase detemir slightly to 17 units. Sliding scale. Continue to monitor. Continue carbohydrate consistent diet. Oral medications. Attestations Medical Necessity Statement*: Continue arrangements for guardianship, post discharge planning. Coding Level of Care Code Acute Inspector Government Property for Enrrique Stein Diagnoses Urinary retention R33.9 Skin necrosis I96 Altered mental status R41.82 Drug overdose T50.901A Suicidal ideation R45.851
[2021-08-23] MEDS: ALPRAZolam 0.5 mg Tablet 0.25 MG PO (11:10)
[2021-08-23 12:00] VITALS: BP 119/72; PULSE 79; RESP 18; O2SAT 98
--- NOTE | 2021-08-23 12:35 | PC.CHAP ---
Pastoral Care Encounter/Spiritual Assessment Type of Contact [] Declined chair car attendant visit [] Patient/Family/Request visit [] Outpatient visit [XX] Follow-up visit [] Physician referral [] Code/Alert [XX] Routine visit [] Staff referral [] Actively dying [] Patient sleeping [] Family support [] [] Out of room [] Palliative care [] [] Receiving care in room [] Pre-surgical visit [] Trauma [] Long length of stay [] ICU visit [] Other: Relational/Emotional Strength [] Patient feels connected with others/family/visitors/staff [] Distress [] Loneliness/isolation [] Abandonment Spirituality of Patient [] Person of Sia [] Attends Voodoo of their Sia [] Believes in Prayer [] Reads Bible or Muslim materials [] There are Spiritual issues to be addressed Checker Product Design Interventions [] Prayer [] Active listening [] Non-anxious presence [] Spiritual/emotional support [] Crisis/trauma care [] Spiritual counseling [] Bereavement support [] Provided bereavement packet [] Provided Bible/devotional materials [] Provided toy/stuffed animal, coloring book to patient or family member [] Provided Communion [] Anointing/Dugger [] Salvation [] Completed spiritual assessment [XX] Other: advocacy Impact on Illness or Injury [] Angry [] Fearful [] Anxious [] Often cries [] Exhaustion [] Unable to work [] Unable to attend advent [] Unable to walk/stand [] Unable to read [] Unable to drive [] Unable to eat/drink [] Unable to sleep [] Unable to be with family [] Patient intubated [] Other: Summary: Pt was sitting in bed, fully dressed with shoes and cap. However, pt denies that he is being discharged. Pt was extremely hard of hearing. Pt asked for nurse to change urine cath bag. Given that pt and chair car attendant could not communicate well, chair car attendant offered Daily [employer], which pt accepted. Time spent with patient: 5 mins
--- NOTE | 2021-08-23 14:07 | PC.SOCIAL ---
IMM update IMM not updated since patient isn't expected to dc in the next 24-48 hours.
[2021-08-23 16:00] VITALS: BP 133/75; PULSE 73; RESP 18; TEMP 36.7; O2SAT 97
[2021-08-23 20:00] VITALS: BP 148/76; PULSE 77; RESP 18; TEMP 36.7; O2SAT 91
[2021-08-23] MEDS: finasteride 5 mg Tablet PO (20:58)
--- NOTE | 2021-08-23 22:01 | PC.NURSE ---
Pt. blood glucose level is 165. Machine not crossing over into [employer] system.
[2021-08-23 22:33] LABS: Glucose Point of Care 136 mg/dL (70-110)
[2021-08-23 22:33] LABS: Glucose Point of Care 270 mg/dL (70-110)
[2021-08-23 22:33] LABS: Glucose Point of Care 122 mg/dL (70-110)
[2021-08-23 22:33] LABS: Glucose Point of Care 165 mg/dL (70-110)
[2021-08-24] VITALS: BP 132/69; PULSE 71; RESP 18; TEMP 36.7; O2SAT 91
[2021-08-24 03:35] VITALS: BP 130/66; PULSE 68; RESP 18; TEMP 36.7; O2SAT 91
[2021-08-24] MEDS: ALPRAZolam 0.5 mg Tablet PO ×3 (06:57→21:13)
[2021-08-24 06:59] LABS: Glucose Point of Care 208 mg/dL (70-110)
[2021-08-24 08:00] VITALS: BP 156/87; PULSE 92; RESP 16; TEMP 37; O2SAT 95
[2021-08-24] MEDS: bumetanide 1 mg Tablet 2 MG PO (08:13)
[2021-08-24] MEDS: insulin lispro 100 unit/1 mL SUBCUT ×3 (08:13→21:13)
[2021-08-24] MEDS: metformin 500 mg Tablet PO ×2 (08:13→17:54)
[2021-08-24] MEDS: tamsulosin 0.4 mg Capsule 0.8 MG PO (08:13)
[2021-08-24] MEDS: docusate sodium 100 mg Capsule PO ×2 (08:13→17:55)
[2021-08-24] MEDS: citalopram 20 mg Tablet PO (08:13)
[2021-08-24] MEDS: metoprolol tartrate 25 mg Tablet PO (08:13)
[2021-08-24] MEDS: pantoprazole DR 40 mg Tablet PO (08:13)
[2021-08-24] MEDS: OLANZapine 5 mg TABLET PO (08:13)
[2021-08-24] MEDS: glimepiride 2 mg Tablet 1 MG PO (08:14)
[2021-08-24] MEDS: BuSPIRONE 10 mg Tablet PO ×3 (08:14→21:13)
[2021-08-24] MEDS: amlodipine 5 mg Tablet PO (08:14)
[2021-08-24] MEDS: acetaminophen 325 mg Tablet 650 MG PO ×2 (08:21→17:54)
[2021-08-24 11:33] VITALS: BP 141/80; PULSE 78; RESP 16; TEMP 36.6; O2SAT 97
[2021-08-24 11:54] LABS: Glucose Point of Care 298 mg/dL (70-110)
[2021-08-24 15:48] VITALS: BP 135/74; PULSE 86; RESP 16; TEMP 37.2; O2SAT 95
--- NOTE | 2021-08-24 17:34 | PM.PN ---
Subjective Subjective: Interval history: Events overnight. On examination patient seen walking up in hallway. Has passed voiding trial. Vitals/I&O/Wt Last Vital Signs Temp 98.9 F 08/24/21 15:48 Pulse 86 08/24/21 15:48 Resp 16 08/24/21 15:48 BP 135/74 08/24/21 15:48 Pulse Ox 95 08/24/21 15:48 08/24/21 08/24/21 08/24/21 06:59 14:59 22:59 Intake Total 240 / 240 360 / 360 Output Total 465 / 5415 850 / 850 1000 / 1850 Balance -225 / -5175 -490 / -490 -1000 / -1490 Physical Exam Narrative: EXAM NARRATIVE: RN present. Const: COMMON NORMALS: no acute distress; negative for patient oriented x3 GENERAL APPEARANCE: cooperative and comfortable ORIENTATION/CONSCIOUSNESS: Yes awake, Yes oriented to person, Yes oriented to place and Yes confused; not oriented to time OTHER: [place] Dressed in street clothes HENMT: COMMON NORMALS: oropharynx normal Neck/C-Spine: COMMON NORMALS: no JVD Chest: COMMONS NORMALS: normal inspection of the chest Resp: COMMON NORMALS: normal respiratory effort, No retractions, No use of accessory muscles and clear to auscultation bilaterally AUSCULTATION: clear to auscultation bilaterally Cardio: COMMON NORMALS: no JVD, regular rate, regular rhythm, S1 normal heart sound present, S2 normal heart sound present and No murmurs present (Cardio) RATE: regular rate RHYTHM: regular rhythm HEART SOUNDS: S1 normal heart sound present and S2 normal heart sound present GI: COMMON NORMALS: Normal to inspection, nondistended, normoactive bowel sounds present, Soft to palpation, non-tender and No hepatosplenomegaly present PALPATION: Yes Soft to palpation and Yes No hepatosplenomegaly present Extremity: COMMON NORMALS: no joint enlargement and no pedal edema Neuro: COMMON NORMALS: moves all extremities; negative for patient oriented x3 SENSORIUM/ORIENTATION: Yes oriented to person, Yes oriented to place and No oriented to time Psych: COMMON NORMALS: mental status grossly normal Skin: COMMON NORMALS: no rashes or lesions noted GENERAL SKIN EXAM: no rashes or lesions noted Urinary Catheter Management^: Michel: Cath Placed During This Visit: yes Reason for Continuing Indwelling Catheter: Acute Urinary Retention or Obstruction Urinary Catheter Date of Insertion: 08/23/21 Urinary Catheter Time of Insertion: 07:30 Data : 08/09/21 05:07 08/09/21 05:07 A&P Assessment and plan (1) Skin necrosis: Abutment area wound is Clean. No purulent discharge. Continue empiric antibiotic with doxycycline for 10-day course, wound care. ENT follow-up as an outpatient. Continue with wound care with thick foam dressing. Larger in size as patient is not much compliant with keeping magnet off as without that patient becomes anxious and restless. 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 Keep magnet off when possible. Dressing changes with triple antibiotic, foam dressing. Status: Acute (2) Altered mental status: No new complaints. It is difficult for him to understand that the magnet needs to stay off except when he really needs to communicate to avoid worsening the wound. Asking to just go home. Arrangements continued for guardianship, custodial placement. Completed treatment for urinary tract infection with ceftriaxone for sensitive Klebsiella. Currently alert to person, to place, not to time, follows all commands According to family alert to person, to place, to time, follows commands Evaluated by psychiatry, does not have capacity, working on guardianship proceedings, follow-up case management, has been accepted by the custodial TSH within normal limits, ammonia within normal limits, acetaminophen levels within normal limits Toxicology screen negative Carotid artery ultrasound within normal limits Cardiac echo EF 50 to 55%, diastolic dysfunction, right ventricular is mildly hypokinetic, mild to moderate aortic regurg, mildly dilated ascending aorta Continue his Zyprexa which he is on chronically. Continue his buspirone, aricept, remeron. Haldol as needed for agitation Avoid any medication which could promote further confusion such as opiates, antihistamines, benzodiazepines. Monitor closely for any withdrawal Status: Acute (3) Drug overdose: Status: Acute (4) Suicidal ideation: Reported intermittent. Without recurrence. Status: Acute Additional A&P Information Acute urinary retention: Discontinue Michel. Voiding trial. Continue with Flomax, finasteride. Medical reconciliation done for medication causing acute urinary retention. Consider follow-up with urology as an outpatient. Received COVID-19 booster August 15. Constipation: Declined MiraLAX. Added docusate. Attestations Medical Necessity Statement*: Arrangement for guardianship, safe discharge planning Time Spent in Patient Care: 16 - 35 minutes (>than 50% of time spent in counselling and/or direct pt care on unit). Coding Level of Care Code Acute Elevator Erector for Enrrique Fwd Diagnoses Skin necrosis I96 Altered mental status R41.82 Drug overdose T50.901A Suicidal ideation R45.851
[2021-08-24 17:43] LABS: Glucose Point of Care 103 mg/dL (70-110)
[2021-08-24 19:45] VITALS: BP 125/74; PULSE 81; RESP 18; TEMP 36.8; O2SAT 95
[2021-08-24 20:52] LABS: Glucose Point of Care 169 mg/dL (70-110)
[2021-08-24] MEDS: finasteride 5 mg Tablet PO (21:13)
[2021-08-25] VITALS: BP 122/68; PULSE 74; RESP 17; TEMP 36.6; O2SAT 94
--- NOTE | 2021-08-25 01:35 | PM.PN ---
Subjective Subjective: Interval history: Patient seen today. Was seen multiple times walking in the hallway. Awaiting eagerly for court date tomorrow. Denies any nausea vomiting, headache. Vitals/I&O/Wt Last Vital Signs Temp 98.1 F 08/27/21 15:19 Pulse 105 H 08/27/21 15:19 Resp 18 08/27/21 15:19 BP 191/114 08/27/21 15:19 Pulse Ox 97 08/27/21 15:19 Physical Exam Narrative: EXAM NARRATIVE: RN present. Const: COMMON NORMALS: no acute distress; negative for patient oriented x3 GENERAL APPEARANCE: cooperative and comfortable ORIENTATION/CONSCIOUSNESS: Yes awake, Yes oriented to person, Yes oriented to place and Yes confused; not oriented to time OTHER: [place] Dressed in street clothes HENMT: COMMON NORMALS: oropharynx normal Neck/C-Spine: COMMON NORMALS: no JVD Chest: COMMONS NORMALS: normal inspection of the chest Resp: COMMON NORMALS: normal respiratory effort, No retractions, No use of accessory muscles and clear to auscultation bilaterally AUSCULTATION: clear to auscultation bilaterally Cardio: COMMON NORMALS: no JVD, regular rate, regular rhythm, S1 normal heart sound present, S2 normal heart sound present and No murmurs present (Cardio) RATE: regular rate RHYTHM: regular rhythm HEART SOUNDS: S1 normal heart sound present and S2 normal heart sound present GI: COMMON NORMALS: Normal to inspection, nondistended, normoactive bowel sounds present, Soft to palpation, non-tender and No hepatosplenomegaly present PALPATION: Yes Soft to palpation and Yes No hepatosplenomegaly present Extremity: COMMON NORMALS: no joint enlargement and no pedal edema Neuro: COMMON NORMALS: moves all extremities; negative for patient oriented x3 SENSORIUM/ORIENTATION: Yes oriented to person, Yes oriented to place and No oriented to time Psych: COMMON NORMALS: mental status grossly normal Skin: COMMON NORMALS: no rashes or lesions noted GENERAL SKIN EXAM: no rashes or lesions noted Urinary Catheter Management^: Michel: Cath Placed During This Visit: yes, but has since been removed by the nurse Reason for Continuing Indwelling Catheter: Decision to DC Catheter Urinary Catheter Date of Insertion: 08/25/21 Urinary Catheter Time of Insertion: 01:06 Date Urinary Catheter Removed: 12/15/21 Time Urinary Catheter Discontinued: 10:40 Data : 08/26/21 05:20 08/26/21 05:20 A&P Assessment and plan (1) Skin necrosis: Abutment area wound is Clean. No purulent discharge. Continue empiric antibiotic with doxycycline for 10-day course, wound care. ENT follow-up as an outpatient. Continue with wound care with thick foam dressing. Larger in size as patient is not much compliant with keeping magnet off as without that patient becomes anxious and restless. 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 Keep magnet off when possible. Dressing changes with triple antibiotic, foam dressing. Status: Acute (2) Altered mental status: No new complaints. It is difficult for him to understand that the magnet needs to stay off except when he really needs to communicate to avoid worsening the wound. Asking to just go home. Arrangements continued for guardianship, residential placement. Completed treatment for urinary tract infection with ceftriaxone for sensitive Klebsiella. Currently alert to person, to place, not to time, follows all commands According to family alert to person, to place, to time, follows commands Evaluated by psychiatry, does not have capacity, working on guardianship proceedings, follow-up case management, has been accepted by the residential TSH within normal limits, ammonia within normal limits, acetaminophen levels within normal limits Toxicology screen negative Carotid artery ultrasound within normal limits Cardiac echo EF 50 to 55%, diastolic dysfunction, right ventricular is mildly hypokinetic, mild to moderate aortic regurg, mildly dilated ascending aorta Continue his Zyprexa which he is on chronically. Continue his buspirone, aricept, remeron. Haldol as needed for agitation Avoid any medication which could promote further confusion such as opiates, antihistamines, benzodiazepines. Monitor closely for any withdrawal (3) Drug overdose: (4) Suicidal ideation: Reported intermittent. Without recurrence. Additional A&P Information Acute urinary retention: We will give 1 more voiding trial today. Continue with Flomax and finasteride. If fails will place Michel catheter and patient will have to follow-up with urology as an outpatient further recommendations. Received COVID-19 booster August 15. Constipation: Declined MiraLAX. Added docusate. Attestations Medical Necessity Statement*: [facility] Coding Level of Care Code Acute Police Chief Deputy for Enrrique Stein Diagnoses Skin necrosis I96 Altered mental status R41.82 Drug overdose T50.901A Suicidal ideation R45.851
[2021-08-25 03:40] VITALS: BP 118/59; PULSE 68; RESP 17; TEMP 36.6; O2SAT 93
[2021-08-25 06:56] LABS: Glucose Point of Care 147 mg/dL (70-110)
[2021-08-25 08:00] VITALS: BP 138/77; PULSE 71; RESP 16; TEMP 36.8; O2SAT 97
[2021-08-25] MEDS: tamsulosin 0.4 mg Capsule 0.8 MG PO ×2 (08:27→08:28)
[2021-08-25] MEDS: OLANZapine 5 mg TABLET PO (08:27)
[2021-08-25] MEDS: bumetanide 1 mg Tablet 2 MG PO (08:27)
[2021-08-25] MEDS: ALPRAZolam 0.5 mg Tablet PO ×2 (08:27→19:32)
[2021-08-25] MEDS: metoprolol tartrate 25 mg Tablet PO (08:29)
[2021-08-25] MEDS: BuSPIRONE 10 mg Tablet PO ×3 (08:29→21:01)
[2021-08-25] MEDS: metformin 500 mg Tablet PO ×2 (08:29→18:00)
[2021-08-25] MEDS: glimepiride 2 mg Tablet 1 MG PO (08:29)
[2021-08-25] MEDS: amlodipine 5 mg Tablet PO (08:29)
[2021-08-25] MEDS: pantoprazole DR 40 mg Tablet PO (08:29)
[2021-08-25] MEDS: docusate sodium 100 mg Capsule PO ×2 (08:29→18:00)
[2021-08-25] MEDS: citalopram 20 mg Tablet PO (08:29)
[2021-08-25] MEDS: neomycin-poly-bacitracin oint 28 gm 1 APPLIC TOPICAL ×2 (08:33→18:01)
--- NOTE | 2021-08-25 09:26 | PC.SOCIAL ---
IMM Update pg 2 of IMM updated and reviewed w/ patient. Copy provided.
[2021-08-25 11:42] VITALS: BP 126/78; PULSE 69; RESP 18; TEMP 36.8; O2SAT 98
[2021-08-25 12:11] LABS: Glucose Point of Care 189 mg/dL (70-110)
[2021-08-25] MEDS: insulin lispro 100 unit/1 mL SUBCUT ×2 (13:14→21:01)
[2021-08-25 15:50] VITALS: BP 128/73; PULSE 76; RESP 18; TEMP 36.8; O2SAT 98
[2021-08-25 17:00] LABS: Glucose Point of Care 218 mg/dL (70-110)
[2021-08-25] MEDS: acetaminophen 325 mg Tablet 650 MG PO (18:02)
[2021-08-25 19:55] VITALS: BP 134/76; PULSE 83; RESP 18; TEMP 36.9; O2SAT 95
[2021-08-25 20:56] LABS: Glucose Point of Care 186 mg/dL (70-110)
[2021-08-25] MEDS: finasteride 5 mg Tablet 10 MG PO (21:01)
[2021-08-26] VITALS: BP 128/72; PULSE 78; RESP 17; TEMP 36.8; O2SAT 94
[2021-08-26 04:00] VITALS: BP 122/68; PULSE 70; RESP 17; TEMP 36.7; O2SAT 92
--- NOTE | 2021-08-26 05:20 | PC.NURSE ---
SHIFT SUMMARY Has rested well tonight. Received po Xanax in the evening per request for a nerve pill Has had very good output from Michel. Does not like having the Michel. Is extremely [place].
[2021-08-26 06:08] LABS: Basophils % 0.7 %; Eosinophils # 0.5 10^3/uL (0.0-0.8); Eosinophils % 8.5 %; Hemoglobin 10.7 g/dL (11.7-16.6); Lymphocytes # 1.5 10^3/uL (0.8-4.8); Lymphocytes % 24.3 %; Mean Corpuscular HGB Conc 34.5 g/dL (30.0-36.0); Mean Corpuscular Hemoglobin 30.2 pg (28.0-34.0); Mean Corpuscular Volume 87.6 fl (80-94); Mean Platelet Volume 9.1 fL (7.4-10.4); Monocytes # 0.5 10^3/uL (0.2-0.9); Monocytes % 7.8 %; Neutrophils # 3.59 10^3/uL (1.8-7.7); Neutrophils % 58.4 %; Nucleated Red Blood Cells % 0 %; Platelet Count 216 10^3/cmm (130-400); Red Blood Count 3.54 10^6/uL (4.1-5.3); White Blood Count 6.1 10^3/uL (4.0-10.0)
[2021-08-26 06:30] LABS: Alanine Aminotransferase 14 U/L (0-41); Albumin Level 3.6 g/dL (3.5-5.2); Alkaline Phosphatase 54 IU/L (40-130); Anion Gap 17.2 (5-19); Aspartate Amino Transferase 12 U/L (0-40); Blood Urea Nitrogen 13 mg/dL (8-23); Calcium 8.6 mg/dL (8.5-10.5); Carbon Dioxide 24 mmol/L (22-29); Chloride 98 mmol/L (98-107); Globulin 2.5 g/dL (1.3-4.6); Glucose 201 mg/dL (65-115); Osmolality Calculated 288 mOsm/kg (285-295); Potassium 3.2 mmol/L (3.5-5.1); Sodium 136 mmol/L (136-145); Total Bilirubin 0.4 mg/dL (0.15-1.2); Total Protein 6.1 g/dL (6.6-8.7)
[2021-08-26 06:49] LABS: Glucose Point of Care 202 mg/dL (70-110)
[2021-08-26] MEDS: tamsulosin 0.4 mg Capsule 0.8 MG PO (07:45)
[2021-08-26] MEDS: ALPRAZolam 0.5 mg Tablet PO ×3 (07:45→19:50)
[2021-08-26] MEDS: bumetanide 1 mg Tablet PO (07:45)
[2021-08-26] MEDS: metoprolol tartrate 25 mg Tablet PO (07:46)
[2021-08-26] MEDS: docusate sodium 100 mg Capsule PO ×2 (07:46→17:31)
[2021-08-26] MEDS: OLANZapine 5 mg TABLET PO (07:46)
[2021-08-26] MEDS: pantoprazole DR 40 mg Tablet PO (07:46)
[2021-08-26] MEDS: citalopram 20 mg Tablet PO (07:46)
[2021-08-26] MEDS: BuSPIRONE 10 mg Tablet PO ×3 (07:47→20:58)
[2021-08-26] MEDS: glimepiride 2 mg Tablet 1 MG PO (07:47)
[2021-08-26] MEDS: metformin 500 mg Tablet PO ×2 (07:47→17:31)
[2021-08-26] MEDS: amlodipine 5 mg Tablet PO (07:47)
[2021-08-26] MEDS: insulin lispro 100 unit/1 mL SUBCUT ×4 (07:49→21:35)
[2021-08-26] MEDS: neomycin-poly-bacitracin oint 28 gm 1 APPLIC TOPICAL ×2 (07:51→17:33)
[2021-08-26 08:00] VITALS: BP 124/73; PULSE 81; RESP 16; TEMP 36.9; O2SAT 96
[2021-08-26 11:50] VITALS: BP 121/68; PULSE 80; RESP 16; TEMP 36.6; O2SAT 95
[2021-08-26 12:02] LABS: Glucose Point of Care 226 mg/dL (70-110)
[2021-08-26 16:00] VITALS: BP 113/74; PULSE 72; RESP 16; TEMP 36.6; O2SAT 94
--- NOTE | 2021-08-26 17:19 | P.PN_ITS ---
Subjective Subjective: Interval history: Patient seen today. Was seen multiple times walking in the hallway. Awaiting eagerly for court date tomorrow. Denies any nausea vomiting, headache. Vitals/I&O/Wt Last Vital Signs Temp 98 F 08/26/21 16:00 Pulse 72 08/26/21 16:00 Resp 16 08/26/21 16:00 BP 113/74 08/26/21 16:00 Pulse Ox 94 08/26/21 16:00 08/26/21 08/26/21 08/26/21 06:59 14:59 22:59 Intake Total 300 / 2740 600 / 600 Output Total 700 / 4090 1450 / 1450 Balance -400 / -1350 -850 / -850 Physical Exam Narrative: EXAM NARRATIVE: RN present. Const: COMMON NORMALS: no acute distress; negative for patient oriented x3 GENERAL APPEARANCE: cooperative and comfortable ORIENTATION/CONSCIOUSNESS: Yes awake, Yes oriented to person, Yes oriented to place and Yes confused; not oriented to time OTHER: [place] Dressed in street clothes HENMT: COMMON NORMALS: oropharynx normal Neck/C-Spine: COMMON NORMALS: no JVD Chest: COMMONS NORMALS: normal inspection of the chest Resp: COMMON NORMALS: normal respiratory effort, No retractions, No use of accessory muscles and clear to auscultation bilaterally AUSCULTATION: clear to auscultation bilaterally Cardio: COMMON NORMALS: no JVD, regular rate, regular rhythm, S1 normal heart sound present, S2 normal heart sound present and No murmurs present (Cardio) RATE: regular rate RHYTHM: regular rhythm HEART SOUNDS: S1 normal heart sound present and S2 normal heart sound present GI: COMMON NORMALS: Normal to inspection, nondistended, normoactive bowel sounds present, Soft to palpation, non-tender and No hepatosplenomegaly present PALPATION: Yes Soft to palpation and Yes No hepatosplenomegaly present Extremity: COMMON NORMALS: no joint enlargement and no pedal edema Neuro: COMMON NORMALS: moves all extremities; negative for patient oriented x3 SENSORIUM/ORIENTATION: Yes oriented to person, Yes oriented to place and No oriented to time Psych: COMMON NORMALS: mental status grossly normal Skin: COMMON NORMALS: no rashes or lesions noted GENERAL SKIN EXAM: no rashes or lesions noted Urinary Catheter Management^: Michel: Cath Placed During This Visit: yes, but has since been removed by the nurse Reason for Continuing Indwelling Catheter: Decision to DC Catheter Urinary Catheter Date of Insertion: 08/25/21 Urinary Catheter Time of Insertion: 01:06 Date Urinary Catheter Removed: 08/26/21 Time Urinary Catheter Discontinued: 10:40 Data : 08/26/21 05:20 08/26/21 05:20 A&P Assessment and plan (1) Skin necrosis: Abutment area wound is Clean. No purulent discharge. Continue empiric antibiotic with doxycycline for 10-day course, wound care. ENT follow-up as an outpatient. Continue with wound care with thick foam dressing. Larger in size as patient is not much compliant with keeping magnet off as without that patient becomes anxious and restless. 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 Keep magnet off when possible. Dressing changes with triple antibiotic, foam dressing. Status: Acute (2) Altered mental status: No new complaints. It is difficult for him to understand that the magnet needs to stay off except when he really needs to communicate to avoid worsening the wound. Asking to just go home. Arrangements continued for guardianship, detention placement. Completed treatment for urinary tract infection with ceftriaxone for sensitive Klebsiella. Currently alert to person, to place, not to time, follows all commands According to family alert to person, to place, to time, follows commands Evaluated by psychiatry, does not have capacity, working on guardianship proceedings, follow-up case management, has been accepted by the detention TSH within normal limits, ammonia within normal limits, acetaminophen levels within normal limits Toxicology screen negative Carotid artery ultrasound within normal limits Cardiac echo EF 50 to 55%, diastolic dysfunction, right ventricular is mildly hypokinetic, mild to moderate aortic regurg, mildly dilated ascending aorta Continue his Zyprexa which he is on chronically. Continue his buspirone, aricept, remeron. Haldol as needed for agitation Avoid any medication which could promote further confusion such as opiates, antihistamines, benzodiazepines. Monitor closely for any withdrawal Status: Acute (3) Drug overdose: Status: Acute (4) Suicidal ideation: Reported intermittent. Without recurrence. Status: Acute Additional A&P Information Acute urinary retention: We will give 1 more voiding trial today. Continue with Flomax and finasteride. If fails will place Michel catheter and patient will have to follow-up with urology as an outpatient further recommendations. Received COVID-19 booster August 15. Constipation: Declined MiraLAX. Added docusate. Attestations Medical Necessity Statement*: Awaiting guardianship and safe discharge planning. Time Spent in Patient Care: less than 15 minutes Coding Level of Care Code Acute Auto Vinyl Top Installer for g Fwd Diagnoses Skin necrosis I96 Altered mental status R41.82 Drug overdose T50.901A Suicidal ideation R45.851
[2021-08-26 17:24] LABS: Glucose Point of Care 189 mg/dL (70-110)
[2021-08-26 20:00] VITALS: BP 125/75; PULSE 68; RESP 18; TEMP 36.8; O2SAT 94
[2021-08-26] MEDS: acetaminophen 325 mg Tablet 650 MG PO (20:56)
[2021-08-26] MEDS: finasteride 5 mg Tablet 10 MG PO (20:58)
[2021-08-26 21:14] LABS: Glucose Point of Care 170 mg/dL (70-110)
--- NOTE | 2021-08-26 22:12 | PC.NURSE ---
URINE c/o having trouble urinating Had just voided 400ml about 2 hours ago. No distention felt. Bladder scan done and only showed 121ml urine. Will continue to monitor. Has anastasia up walking in [place] tonight and sitting in chair in hallway outside room. Says he is worried about going to court tomorrow
[2021-08-27 04:00] VITALS: BP 128/71; PULSE 64; RESP 17; TEMP 36.8; O2SAT 94
--- NOTE | 2021-08-27 05:16 | PC.NURSE ---
SHIFT SUMMARY Once pt went to sleep he rested well. Up this morning shaving. Says he is still worried about going to court. Is very [place] and sometimes communicates better with writing on [employer] board. Has also worried about his urinating tonight. Has requested bladder scanning couple of times even though he has urinated well tonight with output of 400-550ml at each void.
[2021-08-27 06:19] LABS: Glucose Point of Care 195 mg/dL (70-110)
[2021-08-27] MEDS: ALPRAZolam 0.5 mg Tablet PO (06:45)
[2021-08-27 08:00] VITALS: BP 191/114; PULSE 105; RESP 18; TEMP 36.7; O2SAT 97
[2021-08-27] MEDS: insulin lispro 100 unit/1 mL SUBCUT (08:10)
[2021-08-27] MEDS: docusate sodium 100 mg Capsule PO (08:11)
--- NOTE | 2021-08-27 08:11 | PC.NURSE ---
I reported the high bp to the nurse 191/114
[2021-08-27] MEDS: OLANZapine 5 mg TABLET PO (08:12)
[2021-08-27] MEDS: BuSPIRONE 10 mg Tablet PO (08:12)
[2021-08-27] MEDS: metformin 500 mg Tablet PO (08:12)
[2021-08-27] MEDS: citalopram 20 mg Tablet PO (08:12)
[2021-08-27] MEDS: amlodipine 5 mg Tablet PO (08:12)
[2021-08-27] MEDS: pantoprazole DR 40 mg Tablet PO (08:12)
[2021-08-27] MEDS: metoprolol tartrate 25 mg Tablet PO (08:12)
[2021-08-27] MEDS: glimepiride 2 mg Tablet 1 MG PO (08:12)
[2021-08-27] MEDS: bumetanide 1 mg Tablet PO (08:12)
[2021-08-27] MEDS: neomycin-poly-bacitracin oint 28 gm 1 APPLIC TOPICAL (08:13)
--- NOTE | 2021-08-27 08:59 | PC.NURSE ---
patient offered shower and bath wipes to clean up prior to court. patient refused twice stating that he does not have time to shower. and I don't have any clean clothes to put on anyway. they brought me the wrong sized clothes
--- NOTE | 2021-08-27 14:07 | P.DS_ITS ---
Discharge Providers Date of Admission: 07/13/21 19:38 Date of Discharge: August 27, 2021 Attending Provider at Admission: Kelsea Márquez MD Attending Provider at Discharge: Steve Collado MD Consults: Psychiatric: Dr. Warner Primary Care Provider: Pastor Lal DO Diagnoses at Discharge Discharge Diagnosis (1) Skin necrosis: Status: Acute (2) Altered mental status: Status: Acute (3) Drug overdose: Status: Acute (4) Suicidal ideation: Status: Acute Reason for Visit Reason for Visit: AMS, POSSIBLE TOOK TOO MUCH OXY Hospital Course Hospital Course As per H&P. Admitted on 07/14/2021 Florentin Lemon is a 71 year old male with a past medical history as noted below brought to the emergency department due to concerns for altered mental status and possible opiate overdose. His past medical history this year has included COVID-19 in March 2021, appears he was admitted to our hospital in March 2021 thereafter for confusion, underwent change in multiple medications, there were concerns for possible accidental overdose as patient had been managing a lot of his own medications after the passing of his in March from COVID-19. He was discharged to SNF. He presents from home today with altered mental status. At this time patient is unable to tell me his name date of or where he is. He is able to respond in short sentences such as hi , I am fine in response to simple questions. He is ambulating independently, needs frequent redirection, has been walking the hallways in his underwear exhibiting confused behavior. He possibly also has a past medical history of dementia. He is extremely hard of hearing. Daughter reported earlier to the ER that patient filled prescription for oxycodone 3 days ago, however now has 28 pills missing. Uncertain if patient took all of these medications. He currently has no breathing difficulties. Hospital course Patient went to the hospital for further management of altered mental status which was thought to be contributed by polypharmacy and also possible accidental opiate overdose. There were no signs of sepsis on admission. There was a possibility of mild UTI for which he was started on broad-spectrum antibiotics. Other causes of poor mental status including stroke, electrolyte abnormality, high ammonia levels, drug toxicity, TSH abnormality were ruled out. Carotid artery ultrasound was done which was normal. Cardiac echo was done which showed an EF of 50-55% with diastolic dysfunction, right ventricular mild hypokinesis with mild to moderate aortic regurgitation, mildly dilated ascending aorta. After further investigation it is believed that patient's altered mental status is most likely secondary to drug overdose from opiates and possible clonazepam. There is a possibility of suicidal ideation given significant social discord from his family. Patient did have his brother and [id number] who would visit him frequently. Psychiatric consultation was done. As per psychiatry evaluation it was deemed that patient is not incapacitated for decision-making. Guardianship was sought for which his extended family denied. His altered mental status was was treated with reinitiation of some of his psych medications gradually. Patient hospital stay was prolonged as he was awaiting state guardianship to be appointed by the court. His hospitalization was otherwise unremarkable other than patient developing acute urinary retention for which he required Michel c atheterization and failed voiding trials trials. He was started on treatment for BPH. Eventually patient cleared voiding trial and has been passing urine himself for last 36 hours. His hospitalization was also complicated by his hard of hearing. He is to follow-up with ENT for further recommendation as an outpatient. 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 After state guardianship has been appointed patient has been discharged in hemodynamically stable condition at baseline mentation to SNF. Physical Exam Narrative: EXAM NARRATIVE: RN present. Const: COMMON NORMALS: no acute distress; negative for patient oriented x3 GENERAL APPEARANCE: cooperative and comfortable ORIENTATION/CONSCIOUSNESS: Yes awake, Yes oriented to person, Yes oriented to place and Yes confused; not oriented to time OTHER: [place] Dressed in street clothes HENMT: COMMON NORMALS: oropharynx normal Neck/C-Spine: COMMON NORMALS: no JVD Chest: COMMONS NORMALS: normal inspection of the chest Resp: COMMON NORMALS: normal respiratory effort, No retractions, No use of accessory muscles and clear to auscultation bilaterally AUSCULTATION: clear to auscultation bilaterally Cardio: COMMON NORMALS: no JVD, regular rate, regular rhythm, S1 normal heart sound present, S2 normal heart sound present and No murmurs present (Cardio) RATE: regular rate RHYTHM: regular rhythm HEART SOUNDS: S1 normal heart sound present and S2 normal heart sound present GI: COMMON NORMALS: Normal to inspection, nondistended, normoactive bowel sounds present, Soft to palpation, non-tender and No hepatosplenomegaly present PALPATION: Yes Soft to palpation and Yes No hepatosplenomegaly present Extremity: COMMON NORMALS: no joint enlargement and no pedal edema Neuro: COMMON NORMALS: moves all extremities; negative for patient oriented x3 SENSORIUM/ORIENTATION: Yes oriented to person, Yes oriented to place and No oriented to time Psych: COMMON NORMALS: mental status grossly normal Skin: COMMON NORMALS: no rashes or lesions noted GENERAL SKIN EXAM: no rashes or lesions noted Urinary Catheter Management^: Michel: Cath Placed During This Visit: yes, but has since been removed by the nurse Reason for Continuing Indwelling Catheter: Decision to DC Catheter Urinary Catheter Date of Insertion: 08/25/21 Urinary Catheter Time of Insertion: 01:06 Date Urinary Catheter Removed: 08/26/21 Time Urinary Catheter Discontinued: 10:40 Discharge Data Data Completed and Pending: Completed Studies During Hospitalization Category Date Time Status CT head wo con* 7 0450 Routine Cat Scan 08/05/21 11:[address] head wo con* 7 0450 Urgent Cat Scan 07/13/21 18:40 Completed XR chest 1V fermin ble 19428 Stat Exams 07/13/21 18:40 Completed CV carotid duplex BI* [id number] Routine Ultrasound 07/14/21 10:17 Completed CV. echo complete * [id number] Routine Ultrasound 07/14/21 10:17 Completed Labs from last 24 hours 08/27/21 08/26/21 08/26/21 06:02 21:05 17:18 POC Glucose 195 H 170 H 189 H Vitals: Last Vital Signs Temp 98.1 F 08/27/21 08:00 Pulse 105 H 08/27/21 08:00 Resp 18 08/27/21 08:00 BP 191/114 08/27/21 08:00 Pulse Ox 97 08/27/21 08:00 Discharge Plan Discharge Patient Disposition: Xfer SNF Condition: Stable Prescriptions: New amlodipine 5 mg Tablet 5 mg PO DAILY 5 Days Qty: 30 RF: 0 citalopram 20 mg Tablet 20 mg PO DAILY 30 Days Qty: 30 RF: 0 finasteride 5 mg Tablet 10 mg PO BEDTIME 30 Days Qty: 60 RF: 0 Continued tamsulosin 0.4 mg capsule 0.8 mg PO DAILY RF: 0 glimepiride 2 mg tablet 2 mg PO DAILY RF: 0 olanzapine 5 mg Tablet 5 mg PO DAILY RF: 0 metformin 500 mg tablet 500 mg PO BID RF: 0 azelastine 137 mcg (0.1 %) aerosol,spray 2 spray INTRANASAL BID RF: 0 Flonase Allergy Relief 50 mcg/actuation spray,suspension 1 spray INTRANASAL DAILY RF: 0 Changed bumetanide 2 mg tablet 1 mg PO DAILY Qty: 0 RF: 0 oxycodone 15 mg tablet 15 mg PO Q6H PRN (Reason: Pain) Qty: 0 RF: 0 Levemir U-100 Insulin 100 unit/mL Solution 20 unit SUBCUT DAILY Qty: 0 RF: 0 Discontinued famotidine 40 mg tablet 40 mg PO BEDTIME RF: 0 spironolactone 25 mg Tablet 25 mg PO DAILY RF: 0 Discharge Orders: Discharge Order (Routine); Ordered 08/27/21 Ordered By: Steve Collado Referrals: [facility] [Outside] Pastor Lal DO [Primary Care Provider] - 6 Weeks Roman Champagne MD [Physician] - 2 weeks (urinary retention) Severo Hughes MD [Physician] - 2 weeks (hearing difficulty) Discharge Diet: Cardiac and Diabetic Discharge Activity: Resume usual activity Patient Instructions: Finasteride (By mouth), Amlodipine (By mouth), Citalopram (By mouth), Opioid Safety Activity Restrictions/Additional Instructions: Please follow-up with your primary care provider within next 2 weeks. Please follow-up with Dr. Valdivia from urology within 2 weeks for urinary retention. Please follow-up with Dr. Storm from ENT within next 2 weeks for severe hearing disability and resolving necrosis of skin from pressure injury from the magnet. Please try to limit intake of diet Coke. Discharge Attestations Time Spent in Discharge Care*: greater than 30 min Specific Discharge Activities: educating patient, discussing with shoe parts caser/social workers/dc planners, documenting/other paperwork and evaluating patient/reviewing data Status at Discharge: Cognitive status at discharge: mildly impaired cognition , Behavioral status at discharge: cooperative , Functional status at discharge: independent ambulation Overall status at discharge: patient is back to baseline Quality Metrics Clinical Quality Measures During this hospital stay, did patient experience: None Coding Level of Care Code Acute Chg FW DC note Diagnoses Skin necrosis I96 Altered mental status R41.82 Drug overdose T50.901A Suicidal ideation R45.857
--- NOTE | 2021-08-27 14:20 | PC.SOCIAL ---
IMM Update pg 2 of IMM updated and reviewed w/ patient. Copy provided.
--- NOTE | 2021-08-27 15:16 | PC.NURSE ---
patient left unit with Gretchen MORGAN this AM for his court appearance. discharge orders placed and Gretchen MORGAN transported patient patient to [facility]. Report called to [facility].
[2021-08-27 15:19] VITALS: BP 191/114; PULSE 105; RESP 18; TEMP 36.7; O2SAT 97
== END 2021-08-27 15:34 | disposition skilled nursing facility (03) | DRG 918 ==
LOC: ER 19:52 → MEDSURG 21:05
PROVIDERS: Family Medicine; Internal Medicine; Admitting Provider Student in an Organized Health Care Education/Training Program; Emergency Provider Emergency Medicine; PCP Student in an Organized Health Care Education/Training Program; Visit Provider Student in an Organized Health Care Education/Training Program
DX: T40.2X1A Poisoning by other opioids, accidental (unintentional), initial encounter (principal); N39.0 Urinary tract infection, site not specified; E11.52 Type 2 diabetes mellitus with diabetic peripheral angiopathy with gangrene; I96 Gangrene, not elsewhere classified; T42.4X1A Poisoning by benzodiazepines, accidental (unintentional), initial encounter; R41.82 Altered mental status, unspecified; F03.90 Unspecified dementia, unspecified severity, without behavioral disturbance, psychotic disturbance, mood disturbance, and anxiety; F41.8 Other specified anxiety disorders; I48.91 Unspecified atrial fibrillation; N40.1 Benign prostatic hyperplasia with lower urinary tract symptoms; R33.8 Other retention of urine; I25.10 Atherosclerotic heart disease of native coronary artery without angina pectoris; M79.7 Fibromyalgia; K21.9 Gastro-esophageal reflux disease without esophagitis; E78.5 Hyperlipidemia, unspecified; I10 Essential (primary) hypertension; Z91.51 Personal history of suicidal behavior; Z86.16 Personal history of COVID-19; H91.90 Unspecified hearing loss, unspecified ear; K59.00 Constipation, unspecified; B96.1 Klebsiella pneumoniae [K. pneumoniae] as the cause of diseases classified elsewhere; Z79.84 Long term (current) use of oral hypoglycemic drugs; I35.1 Nonrheumatic aortic (valve) insufficiency; Z96.21 Cochlear implant status
CPT/HCPCS: 36415; 36416; 51702; 51798; 70450; 71045; 80048; 80053; 80307; 81001; 81003; 82140; 82550; 82962; 83735; 84100; 84145; 84443; 85025; 85651; 86140; 87077; 87086; 87186; 93005; 93306; 93880; 96372; 99285; J0696; J1630; J1650; J1815; J2060; J3475; J3486; Q0163

== ENCOUNTER → 2021-09-21 10:55 | Outpatient (BNVA) | payer MEDICARE, MEDICAID, SELFPAY | PROVIDERS: PCP Student in an Organized Health Care Education/Training Program; Visit Provider Nurse Practitioner Family | DX: R33.9 Retention of urine, unspecified (principal) | CPT/HCPCS: 81003 ==

== ENCOUNTER → 2022-12-30 14:38 | Outpatient (BNVA) | payer MEDICARE, MEDICAID, SELFPAY | PROVIDERS: PCP Student in an Organized Health Care Education/Training Program; Visit Provider Podiatrist Foot & Ankle Surgery | DX: E11.9 Type 2 diabetes mellitus without complications (principal); B35.1 Tinea unguium; G62.9 Polyneuropathy, unspecified; M20.41 Other hammer toe(s) (acquired), right foot; M20.42 Other hammer toe(s) (acquired), left foot; Z79.4 Long term (current) use of insulin; Z79.84 Long term (current) use of oral hypoglycemic drugs | CPT/HCPCS: 11721; 99204 ==

== ENCOUNTER → 2023-03-07 12:46 | Outpatient (BNVA) | payer MEDICARE, MEDICAID, SELFPAY | PROVIDERS: PCP Student in an Organized Health Care Education/Training Program; Visit Provider Podiatrist Foot & Ankle Surgery | DX: E11.42 Type 2 diabetes mellitus with diabetic polyneuropathy (principal); B35.1 Tinea unguium; G62.9 Polyneuropathy, unspecified; I73.9 Peripheral vascular disease, unspecified; Z79.84 Long term (current) use of oral hypoglycemic drugs; Z79.4 Long term (current) use of insulin | CPT/HCPCS: 11721 ==

== ENCOUNTER → 2023-05-30 10:20 | Outpatient (BNVA) | payer MEDICARE, MEDICAID, SELFPAY | PROVIDERS: PCP Student in an Organized Health Care Education/Training Program; Visit Provider Podiatrist Foot & Ankle Surgery | DX: B35.1 Tinea unguium (principal); G62.9 Polyneuropathy, unspecified; I73.9 Peripheral vascular disease, unspecified; E11.42 Type 2 diabetes mellitus with diabetic polyneuropathy; Z79.84 Long term (current) use of oral hypoglycemic drugs; Z79.4 Long term (current) use of insulin | CPT/HCPCS: 11721 ==

== ENCOUNTER → 2023-08-08 10:53 | Outpatient (BNVA) | payer MEDICARE, MEDICAID, SELFPAY | PROVIDERS: PCP Student in an Organized Health Care Education/Training Program; Visit Provider Podiatrist Foot & Ankle Surgery | DX: B35.1 Tinea unguium (principal); G62.9 Polyneuropathy, unspecified; I73.9 Peripheral vascular disease, unspecified; E11.42 Type 2 diabetes mellitus with diabetic polyneuropathy; Z79.4 Long term (current) use of insulin; Z79.84 Long term (current) use of oral hypoglycemic drugs | CPT/HCPCS: 11721 ==

== ENCOUNTER → 2023-11-07 08:29 | Outpatient (BNVA) | payer MEDICARE, MEDICAID, SELFPAY | PROVIDERS: PCP Family Medicine; Visit Provider Podiatrist Foot & Ankle Surgery | DX: B35.1 Tinea unguium (principal); G62.9 Polyneuropathy, unspecified; I73.9 Peripheral vascular disease, unspecified; E11.42 Type 2 diabetes mellitus with diabetic polyneuropathy; Z79.4 Long term (current) use of insulin; Z79.84 Long term (current) use of oral hypoglycemic drugs | CPT/HCPCS: 11721 ==

== ENCOUNTER → 2024-01-09 10:47 | Outpatient (BNVA) | payer MEDICARE, MEDICAID, SELFPAY | PROVIDERS: PCP Family Medicine; Visit Provider Podiatrist Foot & Ankle Surgery | DX: B35.1 Tinea unguium (principal); G62.9 Polyneuropathy, unspecified; I73.9 Peripheral vascular disease, unspecified; E11.42 Type 2 diabetes mellitus with diabetic polyneuropathy; Z79.4 Long term (current) use of insulin | CPT/HCPCS: 11721 ==

== ENCOUNTER → 2024-03-13 10:59 | Outpatient (BNVA) | payer MEDICARE, MEDICAID, SELFPAY | PROVIDERS: PCP Family Medicine; Visit Provider Podiatrist Foot & Ankle Surgery | DX: B35.1 Tinea unguium (principal); G62.9 Polyneuropathy, unspecified; I73.9 Peripheral vascular disease, unspecified; E11.42 Type 2 diabetes mellitus with diabetic polyneuropathy; Z79.84 Long term (current) use of oral hypoglycemic drugs; Z79.4 Long term (current) use of insulin | CPT/HCPCS: 11721 ==

== ENCOUNTER → 2024-05-18 09:47 | Outpatient (BNVA) | payer MEDICARE, MEDICAID, SELFPAY | PROVIDERS: PCP Family Medicine; Visit Provider Podiatrist Foot & Ankle Surgery | DX: B35.1 Tinea unguium (principal); G62.9 Polyneuropathy, unspecified; I73.9 Peripheral vascular disease, unspecified; E11.42 Type 2 diabetes mellitus with diabetic polyneuropathy; Z79.4 Long term (current) use of insulin; Z79.84 Long term (current) use of oral hypoglycemic drugs | CPT/HCPCS: 11721 ==

== ENCOUNTER → 2024-08-07 10:50 | Outpatient (BNVA) | payer MEDICARE, MEDICAID, SELFPAY | PROVIDERS: PCP Family Medicine; Visit Provider Podiatrist Foot & Ankle Surgery | DX: B35.1 Tinea unguium (principal); G62.9 Polyneuropathy, unspecified; I73.9 Peripheral vascular disease, unspecified; E11.42 Type 2 diabetes mellitus with diabetic polyneuropathy; Z79.84 Long term (current) use of oral hypoglycemic drugs; Z79.4 Long term (current) use of insulin | CPT/HCPCS: 11721 ==

== ENCOUNTER → 2024-10-08 13:13 | Outpatient (BNVA) | payer MEDICARE, MEDICAID, SELFPAY | PROVIDERS: PCP Family Medicine; Visit Provider Podiatrist Foot & Ankle Surgery | DX: B35.1 Tinea unguium (principal); G62.9 Polyneuropathy, unspecified; I73.9 Peripheral vascular disease, unspecified; S90.212A Contusion of left great toe with damage to nail, initial encounter; E11.42 Type 2 diabetes mellitus with diabetic polyneuropathy; W22.03XA Walked into furniture, initial encounter; Z79.4 Long term (current) use of insulin; Z79.84 Long term (current) use of oral hypoglycemic drugs | CPT/HCPCS: 11721; 99213 ==

== ENCOUNTER → 2025-01-02 13:27 | Outpatient (BNVA) | payer OTHER, MEDICAID, SELFPAY | PROVIDERS: PCP Family Medicine; Visit Provider Podiatrist Foot & Ankle Surgery | DX: E11.42 Type 2 diabetes mellitus with diabetic polyneuropathy (principal); B35.1 Tinea unguium; G62.9 Polyneuropathy, unspecified; I73.9 Peripheral vascular disease, unspecified; Z79.84 Long term (current) use of oral hypoglycemic drugs; Z79.4 Long term (current) use of insulin | CPT/HCPCS: 11721 ==